=== PATIENT | male | born 1980 | race Caucasian/White ===

== ENCOUNTER 2016-09-21 03:49 | Emergency (ER) | payer SELFPAY ==
[2016-09-21] MEDS ORDERED: FAMOTIDINE 20 MG TABLET PO ONE (04:42)
[2016-09-21] MEDS ORDERED: SUCRALFATE 1 GM TABLET PO ONE (04:42)
[2016-09-21] MEDS ORDERED: ONDANSETRON 4 MG TAB.RAPDIS PO ONE (04:42)
--- NOTE | 2016-09-21 04:44 | ER Document Report ---
ED General - General Chief Complaint: Chest Pain Stated Complaint: CHEST PAIN Time seen by provider: 04:40 Notes: Patient is a 36-year-old male that comes emergency department with chief complaint of a burning pain in his "lower chest", patient circles his epigastric and lower sternal area when asked for the location of the pain, he denies radiation, it is constant, he states he feels nauseated, he denies vomiting. Patient denies any shortness of breath, injury. Patient states he took 324 mg of aspirin just prior to arrival. Patient states she has had this 3 times now and it has resolved the previous 2 times without treatment. Patient smokes, has a past medical history of hypertension, used to be on lisinopril but is no longer seen by primary care. Patient states his father had coronary artery disease, denies MA in any first-degree family members. TRAVEL OUTSIDE OF THE [place] IN LAST 30 DAYS: No - Related Data Allergies/Adverse Reactions: No Known Allergies Allergy (Verified 06/02/16 07:27) Past Medical History - General Information source: Patient - Social History Smoking Status: Current Every Day Smoker Chew tobacco use (# tins/day): No Smoking Education Provided: Yes - <3 min Frequency of alcohol use: None Drug Abuse: None Lives with: Family Family History: None Patient has suicidal ideation: No Patient has homicidal ideation: No - Past Medical History Cardiac Medical History: Reports: Hx Hypertension Renal/ Medical History: Denies: Hx Peritoneal Dialysis Musculoskeltal Medical History: Reports Hx Muscle Spasm Past Surgical History: Reports: Hx Orthopedic Surgery - Rt arm - Immunizations Immunizations up to date: Yes Hx Diphtheria, Pertussis, Tetanus Vaccination: Yes Review of Systems - Review of Systems Constitutional: No symptoms reported EENT: No symptoms reported Cardiovascular: See HPI Respiratory: No symptoms reported Gastrointestinal: See HPI Genitourinary: No symptoms reported Male Genitourinary: No symptoms reported Musculoskeletal: No symptoms reported Skin: No symptoms reported Hematologic/Lymphatic: No symptoms reported Neurological/Psychological: No symptoms reported Physical Exam - Vital signs Vitals: Temp Pulse Resp BP Pulse Ox 97.8 F 92 18 167/100 H 99 09/21/16 03:54 09/21/16 03:54 09/21/16 03:54 09/21/16 03:54 09/21/16 03:54 Interpretation: Normal - General General appearance: Appears well, Alert In distress: None - HEENT Head: Normocephalic, Atraumatic Eyes: Normal Pupils: PERRL - Respiratory Respiratory status: No respiratory distress Chest status: Nontender. No: Tender Breath sounds: Normal. No: Decreased air movement, Wheezing Chest palpation: Normal - Cardiovascular Rhythm: Regular. No: Tachycardia Heart sounds: Normal auscultation, S1 appreciated, S2 appreciated Murmur: No - Abdominal Inspection: Normal Distension: No distension Bowel sounds: Normal Tenderness: Tender - Patient does have some generalized epigastric tenderness, worse in the epigastric and left upper quadrant areas, otherwise unremarkable abdomen Organomegaly: No organomegaly - Back Back: Normal, Nontender - Extremities General upper extremity: Normal inspection, Nontender, Normal color, Normal ROM , Normal temperature General lower extremity: Normal inspection, Nontender, Normal color, Normal ROM , Normal temperature, Normal weight bearing. No: Jesus's sign - Neurological Neuro grossly intact: Yes Cognition: Normal Orientation: AAOx4 [place] Coma Scale Eye Opening: Spontaneous Tito Coma Scale Verbal: Oriented Tito Coma Scale Motor: Obeys Commands Tito Coma Scale Total: 15 Speech: Normal Motor strength normal: LUE, RUE, LLE, RLE Sensory: Normal - Psychological Associated symptoms: Normal affect, Normal mood - Skin Skin Temperature: Warm Skin Moisture: Dry Skin Color: Normal Course - Re-evaluation Re-evalutation: Patient clarifies on examination the pain is actually epigastric, patient was given Carafate, Zofran, Pepcid, patient had almost complete resolution of symptoms after this. EKG sinus rhythm with no T-wave inversions or ST segment changes in consecutive leads, chest x-ray unremarkable, lab workup is normal. I did discuss and recommend a second troponin drawn because of the timeframe, patient declines, requests to go home. Because patient symptoms have occurred multiple times, workup is normal, and symptoms resolved after treatment for dyspepsia, patient will be discharged on Zofran. Patient instructed to return immediately if concerning or worsening symptoms develop, these were discussed, patient requests to be placed back on lisinopril 10 mg which he used to be on, I did agree to this, patient referred to local primary care, patient states he will follow-up. - Vital Signs Vital signs: Temp Pulse Resp BP Pulse Ox 97.7 F 92 15 145/93 H 97 09/21/16 06:04 09/21/16 03:54 09/21/16 05:52 09/21/16 05:52 09/21/16 05:52 - Laboratory Result Diagrams: 09/21/16 04:39 09/21/16 04:39 Laboratory results interpreted by me: 09/21/16 09/21/16 04:39 04:39 WBC 10.9 H Hgb 13.4 L Seg Neutrophils % 80.1 H Absolute Neutrophils 8.7 H BUN 24 H Lipase 12.3 L Discharge - Discharge Clinical Impression: Epigastric pain Hypertension Qualifiers: Hypertension type: essential hypertension Qualified Code(s): I10 - Essential ( primary) hypertension Condition: Stable Disposition: HOME, SELF-CARE Additional Instructions: Your workup does not show any acute abnormality. Please take the lisinopril as prescribed, follow up with the primary care referral for additional management Take Zantac as directed regularly as prescribed for the next 2 weeks, stop smoking. Return to emergency department for any return or new concerning symptoms. Prescriptions: Lisinopril [Prinivil 10 mg Tablet] 10 mg PO DAILY #30 tablet Ranitidine HCl [Zantac 150 mg Tablet] 150 mg PO BID #30 tablet Referrals: [facility] [Provider Group] - Follow up in 1 week [facility] [Provider Group] - Follow up in 1 week
[2016-09-21 04:57] LABS: ABSOLUTE BASOPHILS # (AUTO) 0.1 10^3/uL (0.0-0.2); ABSOLUTE EOSINOPHILS # (AUTO) 0.1 10^3/uL (0.0-0.6); ABSOLUTE LYMPHOCYTES (AUTO) 1.4 10^3/uL (0.5-4.7); ABSOLUTE MONOCYTES (AUTO) 0.5 10^3/uL (0.1-1.4); ABSOLUTE NEUT (AUTO) 8.7 10^3/uL (1.7-8.2); BASOPHILS % (AUTO) 0.6 % (0-2); EOSINOPHILS % (AUTO) 1.3 % (0-6); HEMATOCRIT 39.3 % (37.9-51.0); HEMOGLOBIN 13.4 g/dL (13.5-17.0); HGB HCT DIFFERENCE 0.9; LYMPHOCYTES % (AUTO) 13.1 % (13-45); MEAN CORPUSCULAR HEMOGLOBIN 28.7 pg (27.0-33.4); MEAN CORPUSCULAR HGB CONC 34.2 g/dL (32.0-36.0); MEAN CORPUSCULAR VOLUME 84 fl (80-97); MONOCYTES % (AUTO) 4.9 % (3-13); RED BLOOD COUNT 4.69 10^6/uL (4.35-5.55); SEGMENTED NEUTROPHILS % (AUTO) 80.1 % (42-78); WHITE BLOOD COUNT 10.9 10^3/uL (4.0-10.5)
[2016-09-21 05:09] LABS: ALANINE AMINOTRANSFERASE 35 U/L (21-72); ALBUMIN 4.6 g/dL (3.5-5.0); ALKALINE PHOSPHATASE 88 U/L (38-126); ANION GAP 15 (5-19); ASPARTATE AMINO TRANSFERASE 25 U/L (17-59); BILIRUBIN,TOTAL 0.4 mg/dL (0.2-1.3); BLOOD UREA NITROGEN 24 mg/dL (7-20); CALCIUM 9.9 mg/dL (8.4-10.2); CARBON DIOXIDE 25 mmol/L (22-30); CHLORIDE 100 mmol/L (98-107); CREATINE KINASE 160 U/L (55-170); CREATININE RESULT 0.82 mg/dL (0.52-1.25); GLUCOSE 101 mg/dL (75-110); LIPASE 12.3 U/L (23-300); POTASSIUM 4.1 mmol/L (3.6-5.0); SODIUM 139.5 mmol/L (137-145); TOTAL PROTEIN 7.8 g/dL (6.3-8.2)
[2016-09-21 05:20] LABS: CREATINE KINASE MB 2.18 ng/mL (<4.55)
[2016-09-21 05:21] LABS: TROPONIN I < 0.012 ng/mL
[2016-09-21 06:01] VITALS: BP 145/93
--- NOTE | 2016-09-21 11:07 | EKG REPORT ---
SEVERITY:- NORMAL ECG - SINUS RHYTHM : Confirmed by: Naman Luz MD 21-Sep-2016 11:06:04
== END 2016-09-21 06:06 | disposition home or self-care (01) ==
LOC: ER 03:49
DX: R10.13 Epigastric pain (principal); I10 Essential (primary) hypertension; R07.9 Chest pain, unspecified; F17.210 Nicotine dependence, cigarettes, uncomplicated; R11.0 Nausea
CPT/HCPCS: 93005; 99285; 36415; 82553; 82550; 83690; 85025; 80053; 84484; 71010; 93010; S0119

== ENCOUNTER 2016-11-09 01:34 | Emergency (ER) | payer SELFPAY ==
--- NOTE | 2016-11-09 06:44 | ER Document Report ---
ED Oral Problem - General Time seen by provider: 06:45 Mode of Arrival: Ambulatory Information source: Patient TRAVEL OUTSIDE OF THE [place] IN LAST 30 DAYS: No - HPI Patient complains to provider of: Sore throat Onset: Other - see HPI note Associated symptoms: Chills, Cough, White patches in mouth Similar symptoms previously: No Recently seen / treated by doctor/dentist: No - General Chief Complaint: Sore Throat Stated Complaint: THROAT PAIN Notes: Patient is a 36 year-old male presenting to the ED for sore throat. Patient states his symptoms started yesterday. Patient complains of some swelling and difficulty swallowing along with a mild cough and chills. Patient does not have a primary care physician. Patient has a history of hypertension and is a smoker. Patient has been seen in the ED multiple times in the past for opioid seeking. Patient was last seen by me in the ED and lied about the provider he was seen and the narcotic prescriptions he had been filling. Patient has no known allergies. (PHILIPPE ELAINE) - Related Data Allergies/Adverse Reactions: No Known Allergies Allergy (Verified 11/09/16 01:37) Past Medical History - General Information source: Patient - Social History Smoking Status: Current Every Day Smoker Frequency of alcohol use: None Drug Abuse: None Family History: None Patient has suicidal ideation: No Patient has homicidal ideation: No - Past Medical History Cardiac Medical History: Reports: Hx Hypertension Musculoskeltal Medical History: Reports Hx Muscle Spasm Past Surgical History: Reports: Hx Orthopedic Surgery - Rt arm - Immunizations Immunizations up to date: Yes Hx Diphtheria, Pertussis, Tetanus Vaccination: Yes Review of Systems - Review of Systems Constitutional: No symptoms reported EENT: See HPI, Throat pain, Difficulty swallowing Cardiovascular: No symptoms reported Respiratory: No symptoms reported Gastrointestinal: No symptoms reported Genitourinary: No symptoms reported Male Genitourinary: No symptoms reported Musculoskeletal: No symptoms reported Skin: No symptoms reported Hematologic/Lymphatic: No symptoms reported Neurological/Psychological: No symptoms reported -: Yes All other systems reviewed and negative Physical Exam - Vital signs Interpretation: Normal - General General appearance: Alert, Other - patient is sleeping upon walking into the room; easily arousible In distress: Mild - HEENT Head: Normocephalic, Atraumatic Eyes: Normal Pupils: PERRL Mouth/Lips: Normal Mucous membranes: Moist Pharynx: Erythema, Other - cobblestoning of the oropharynx that has a viral appearance, white pearly area on the left tonsilar region that has a fatty apperance. No: Uvular edema, Potential airway comprom. Neck: Anterior cervical chain - no edema - Respiratory Respiratory status: No respiratory distress - Cardiovascular Rhythm: Regular - Abdominal Inspection: Normal - Back Back: Normal, Nontender - Extremities General upper extremity: Normal inspection, Normal ROM, Normal strength General lower extremity: Normal inspection, Normal ROM, Normal strength - Neurological Neuro grossly intact: Yes Cognition: Normal Orientation: AAOx4 Tito Coma Scale Eye Opening: Spontaneous Tito Coma Scale Verbal: Oriented Tito Coma Scale Motor: Obeys Commands [place] Coma Scale Total: 15 Speech: Normal Sensory: Normal - Psychological Associated symptoms: Normal affect, Normal mood - Skin Skin Temperature: Warm Skin Moisture: Dry - Vital signs Vitals: Temp Pulse Resp BP Pulse Ox 99.5 F 80 14 135/74 H 100 11/09/16 01:37 11/09/16 01:37 11/09/16 01:37 11/09/16 01:37 11/09/16 01:37 Discharge - Discharge Clinical Impression: Sore throat (viral) Condition: Stable Disposition: HOME, SELF-CARE Additional Instructions: Sore Throat: Sore throats may be caused by viruses, bacteria, or fungi. Most are due to a virus, and must get better on their own. To relieve symptoms, take acetaminophen for pain. Sip clear liquids frequently, or eat popsicles or ice chips. Anesthetic sprays or lozenges may help. Make sure the air in the room is not too dry. Avoid using decongestants or antihistamines. Call the doctor if there is no improvement in two days, or if you have difficulty breathing, increasing throat pain, high fever, rash, or frequent vomiting. START THE PREDNISONE PRESCRIBED TOMORROW(Thursday). DRINK PLENTY F FLUIDS. REST. TAKE MOTRIN 600mg EVERY SIX HOURS FOR PAIN AND FEVER. FOLLOW UP WITH A LOCAL MEDICAL DOCTOR IF NOT IMPROVING. Prescriptions: Prednisone 10 mg PO TID #10 tablet Scribe Attestation: 11/09/16 06:55 I personally performed the services described in the documentation, reviewed and edited the documentation which was dictated to the scribe in my presence, and it accurately records my words and actions. (ELVER POOL) Scribe Documentation - Scribe Written by Scribe:: Philippe Elaine 11/09/16 8:05 acting as scribe for :: Faisal
[2016-11-09] MEDS ORDERED: IBUPROFEN 800 MG TABLET PO ONE (06:56)
[2016-11-09] MEDS ORDERED: PREDNISONE 20 MG TABLET PO ONE (06:56)
[2016-11-09 07:04] VITALS: BP 114/78
== END 2016-11-09 07:04 | disposition home or self-care (01) ==
LOC: ER 01:34
DX: J02.9 Acute pharyngitis, unspecified (principal); R07.0 Pain in throat; I10 Essential (primary) hypertension; F17.200 Nicotine dependence, unspecified, uncomplicated
CPT/HCPCS: 99283; 87070; 87880; J7512

== ENCOUNTER 2016-11-25 21:50 | Emergency (ER) | payer SELFPAY ==
[2016-11-25 22:00] VITALS: BP 158/110
--- NOTE | 2016-11-26 00:44 | ER Document Report ---
ED General - General Mode of Arrival: Ambulatory Information source: Patient TRAVEL OUTSIDE OF THE [place] IN LAST 30 DAYS: No - HPI Onset: Other - see HPI note Similar symptoms previously: Yes Recently seen / treated by doctor: No - General Chief Complaint: Shoulder Pain Stated Complaint: SHOULDER PAIN Notes: Patient is a 36 year old male presenting to the ED for right shoulder pain. 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 Patient also has hypertension. Patient denies having a PCP. Patient states he was given his lisinopril for his hypertension by a physician in the ED. According to previous medical reports from past visits to this ED the patient has been seeking narcotic pain medications. The topic of drug seeking has been addressed with this patient in the past. Patient states he has degenerative disk disease. Patient has no known allergies. (PHILIPPE ROBERTS) - Related Data Allergies/Adverse Reactions: No Known Allergies Allergy (Verified 11/25/16 21:57) Past Medical History - General Information source: Patient - Social History Smoking Status: Unknown if Ever Smoked Drug Abuse: Prescription drugs Family History: None Patient has suicidal ideation: No Patient has homicidal ideation: No - Past Medical History Cardiac Medical History: Reports: Hx Hypertension Musculoskeltal Medical History: Reports Hx Muscle Spasm Past Surgical History: Reports: Hx Orthopedic Surgery - Rt arm - Immunizations Immunizations up to date: Yes Hx Diphtheria, Pertussis, Tetanus Vaccination: Yes Review of Systems - Review of Systems Constitutional: No symptoms reported EENT: No symptoms reported Cardiovascular: No symptoms reported Respiratory: No symptoms reported Gastrointestinal: No symptoms reported Genitourinary: No symptoms reported Male Genitourinary: No symptoms reported Musculoskeletal: See HPI Skin: No symptoms reported Hematologic/Lymphatic: No symptoms reported Neurological/Psychological: No symptoms reported -: Yes All other systems reviewed and negative Physical Exam - Vital signs Interpretation: Normal - General General appearance: Appears well, Alert In distress: Mild - HEENT Head: Normocephalic, Atraumatic Eyes: Normal Pupils: PERRL Mucous membranes: Moist - Respiratory Respiratory status: No respiratory distress Chest status: Nontender Breath sounds: Normal Chest palpation: Normal - Cardiovascular Rhythm: Regular Heart sounds: Normal auscultation Murmur: No - Abdominal Inspection: Normal Distension: No distension Bowel sounds: Normal Tenderness: Nontender Organomegaly: No organomegaly - Back Back: Normal, Nontender - Extremities General upper extremity: Normal inspection, Normal ROM, Normal strength General lower extremity: Normal inspection, Normal ROM, Normal strength - Neurological Neuro grossly intact: Yes - radial, ulnar, axillary, median nerves intact; good perfusion/medial pulses Cognition: Normal Orientation: AAOx4 Tito Coma Scale Eye Opening: Spontaneous Tito Coma Scale Verbal: Oriented [place] Coma Scale Motor: Obeys Commands [place] Coma Scale Total: 15 Speech: Normal Sensory: Normal - Psychological Associated symptoms: Normal affect, Normal mood - Skin Skin Temperature: Warm Skin Moisture: Dry Skin Color: Normal - no necrosis, crepitus, or any sign of necrotizing fasciitis Course - Re-evaluation Re-evalutation: 11/26/16 01:04 Patient presents to the emergency per requesting narcotics with right shoulder pain. 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 Says it hurts posteriorly shoulder as well says he has degenerative disc disease of the cervical spine but no proms at the shoulder previously. On physical examination shoulder is well-appearing in no acute distress with full range of motion of the joint. Patient refuses to try to lift it but when I have him push both the same time they're equal. He's got good radial ulnar median nerve intact good pulses and perfusion. Patient upset with not receiving narcotics. I read his previous records are have been numerous concerns including the fact that he is already on her a list and has been sent Z the past concerning abuse of narcotic prescriptions. At this point in time he left without his paperwork and his prescription for Flexeril I am going to place him again within a letter did a databank search of him and continue to reinforce our chronic pain management in this department. (CASSIDY GUEVARA) - Vital Signs Vital signs: Temp Pulse Resp BP Pulse Ox 98.7 F 103 H 14 158/110 H 100 11/25/16 21:57 11/25/16 21:57 11/25/16 21:57 11/25/16 21:57 11/25/16 21:57 Discharge - Discharge Clinical Impression: shoulder strain Condition: Stable Disposition: HOME, SELF-CARE Additional Instructions: Sprain shoulder Your injury is a sprain. A sprain results from stretching or tearing of the ligaments, usually from a twisting injury. The ligaments will require time and protection in order to heal properly. Many sprains are quite disabling and should be taken seriously. The usual initial treatment of sprains is cold packs, elevation, and rest of the injured area. Your physician has assessed the seriousness of your ligament injury, and has outlined a treatment plan. Understand that this treatment may change, depending on how you progress. If a re-examination was recommended, it is important that you follow up as instructed. Call the doctor any time if there is severe pain, numbness, or loss of function in the injured area. Prescriptions: Cyclobenzaprine HCl [Flexeril 5 mg Tablet] 5 mg PO TID #15 tablet Referrals: [facility] [Provider Group] - Follow up in 3-5 days Simiibsussy Attestation: 11/26/16 01:07 I personally performed the services described in the documentation, reviewed the documentation recorded by the scribe in my presence and it accurately and completely records my words and actions (CASSIDY GUEVARA) Scribe Documentation - Scribe Written by Ankita:: Philippe Roberts 11/26/16 2:20 acting as scribe for :: Regulo
== END 2016-11-26 00:50 | disposition home or self-care (01) ==
LOC: ER 21:50
DX: S46.911A Strain of unspecified muscle, fascia and tendon at shoulder and upper arm level, right arm, initial encounter (principal); X50.0XXA Overexertion from strenuous movement or load, initial encounter; Y93.H9 Activity, other involving exterior property and land maintenance, building and construction; Y92.009 Unspecified place in unspecified non-institutional (private) residence as the place of occurrence of the external cause
CPT/HCPCS: 99283

== ENCOUNTER 2017-01-28 16:47 | Emergency (ER) | payer SELFPAY ==
[2017-01-28] MEDS ORDERED: DIPHENHYDRAMINE HCL 50 MG/ML VIAL IM ONE (17:22)
[2017-01-28] MEDS ORDERED: FAMOTIDINE 20 MG TABLET PO ONE (17:23)
[2017-01-28] MEDS ORDERED: PREDNISONE 20 MG TABLET PO ONE (17:23)
--- NOTE | 2017-01-28 17:47 | ER Document Report ---
ED Allergic Reaction - General Chief Complaint: Hives Stated Complaint: ITCHING Time Seen by Provider: 01/28/17 17:20 Notes: 36 yo male with urticarial rash x 3 days. some relief with benadryl. unsure of trigger. denies new contacts or previous hive reaction. no angioedema, shortness of breath, no difficulty swallowing or speaking TRAVEL OUTSIDE OF THE [place] IN LAST 30 DAYS: No - HPI Onset: Other - 3 days Quality of pain: No pain, Other - itching Pain Level: 3 Identified cause: No Skin rash / itching: Diffuse, "Hives" Similar symptoms previously: No Recently seen / treated by doctor: No - Related Data Allergies/Adverse Reactions: No Known Allergies Allergy (Verified 01/28/17 16:50) Past Medical History - General Information source: Patient - Social History Smoking Status: Current Every Day Smoker Chew tobacco use (# tins/day): No Frequency of alcohol use: Rare Drug Abuse: None Lives with: Family Family History: None Patient has suicidal ideation: No Patient has homicidal ideation: No - Past Medical History Cardiac Medical History: Reports: Hx Hypertension Renal/ Medical History: Denies: Hx Peritoneal Dialysis Musculoskeltal Medical History: Reports Hx Muscle Spasm Past Surgical History: Reports: Hx Orthopedic Surgery - Rt arm, left lower extremity, left upper extremity - Immunizations Immunizations up to date: Yes Hx Diphtheria, Pertussis, Tetanus Vaccination: Yes Review of Systems - Review of Systems Constitutional: No symptoms reported EENT: No symptoms reported Cardiovascular: No symptoms reported Respiratory: No symptoms reported Gastrointestinal: No symptoms reported Genitourinary: No symptoms reported Male Genitourinary: No symptoms reported Musculoskeletal: No symptoms reported Skin: See HPI Hematologic/Lymphatic: No symptoms reported Neurological/Psychological: No symptoms reported Physical Exam - Vital signs Vitals: Temp Pulse Resp BP Pulse Ox 98.4 F 81 18 136/82 H 98 01/28/17 16:50 01/28/17 16:50 01/28/17 16:50 01/28/17 16:50 01/28/17 16:50 Interpretation: Normal - General General appearance: Appears well, Alert - HEENT Head: Normocephalic, Atraumatic Eyes: Normal Conjunctiva: Normal Pupils: PERRL Mouth/Lips: Normal. No: Angioedema Mucous membranes: Moist Pharynx: Normal. No: Potential airway comprom. Neck: Normal, Supple - Respiratory Respiratory status: No respiratory distress Chest status: Nontender Breath sounds: Normal Chest palpation: Normal - Cardiovascular Rhythm: Regular Heart sounds: Normal auscultation Murmur: No - Abdominal Inspection: Normal Distension: No distension Bowel sounds: Normal Tenderness: Nontender Organomegaly: No organomegaly - Back Back: Normal, Nontender - Extremities General upper extremity: Normal inspection, Nontender, Normal color, Normal ROM , Normal temperature General lower extremity: Normal inspection, Nontender, Normal color, Normal ROM , Normal temperature, Normal weight bearing. No: Jesus's sign - Neurological Neuro grossly intact: Yes Cognition: Normal Orientation: AAOx4 [place] Coma Scale Eye Opening: Spontaneous Tito Coma Scale Verbal: Oriented [place] Coma Scale Motor: Obeys Commands [place] Coma Scale Total: 15 Speech: Normal Motor strength normal: LUE, RUE, LLE, RLE Sensory: Normal - Psychological Associated symptoms: Normal affect, Normal mood - Skin Skin Temperature: Warm Skin Moisture: Dry Skin Color: Flushed Location of irregularity: Generalized. negative: Face Character of irregularity: Urticarial Course - Re-evaluation Re-evalutation: 01/28/17 17:52 pt improved after meds. stable for discharge - Vital Signs Vital signs: Temp Pulse Resp BP Pulse Ox 98.4 F 81 18 136/82 H 98 01/28/17 16:50 01/28/17 16:50 01/28/17 16:50 01/28/17 16:50 01/28/17 16:50 Discharge - Discharge Clinical Impression: Hives Condition: Stable Disposition: HOME, SELF-CARE Instructions: Acute Urticaria ([facility]), Use of Diphenhydramine, Steroid Medication , Antihistamines ([facility]) Additional Instructions: Benadryl 50mg every 6h until hives are gone for 24 hours Take medications as prescribed Return to ER for any worsening Prescriptions: Famotidine [Pepcid 20 mg Tablet] 20 mg PO BID #12 tablet Prednisone [Deltasone 20 mg Tablet] 3 tab PO DAILY #9 tablet Forms: Return to Work
[2017-01-28 18:04] VITALS: BP 119/72
== END 2017-01-28 18:04 | disposition home or self-care (01) ==
LOC: ER 16:47
DX: L50.9 Urticaria, unspecified (principal); F17.200 Nicotine dependence, unspecified, uncomplicated
CPT/HCPCS: 99282; 96372; J1200; J7512

== ENCOUNTER 2017-06-28 05:16 | Emergency (ER) | payer MEDICAID ==
--- NOTE | 2017-06-28 06:24 | RADIOLOGY REPORT (SQ) ---
EXAM DESCRIPTION: CHEST SINGLE VIEW CLINICAL HISTORY: chest pain COMPARISON: None. FINDINGS: Single frontal view of the chest. The cardiomediastinal silhouette has normal size and contour. No consolidation, pneumothorax, or pleural effusion. No displaced rib fractures identified. Upper abdominal soft tissues are unremarkable. IMPRESSION: 1. No acute pulmonary process identified.
--- NOTE | 2017-06-28 06:24 | RADIOLOGY REPORT (SQ) ---
EXAM DESCRIPTION: HAND RIGHT 3 VIEWS CLINICAL HISTORY: trauma. Right hand pain. Hit wall. COMPARISON: None. FINDINGS: 3 views of the right hand. Intra-articular acute fracture involving the base of the fifth metacarpal. No other fractures identified. Soft tissue edema. IMPRESSION: Acute nondisplaced intra-articular fracture involving the base of the fifth metacarpal.
--- NOTE | 2017-06-28 06:49 | ER Document Report ---
ED General - General Chief Complaint: Chest Pain Stated Complaint: HAND INJURY, CHEST PAIN Time Seen by Provider: 06/28/17 06:11 TRAVEL OUTSIDE OF THE [place] IN LAST 30 DAYS: No - HPI Patient complains to provider of: Right hand pain wrist pain intermittent chest pain Notes: Patient coming in mostly for evaluation of his right hand states he was arguing with his when he punched a wall. Patient states his abdomen earlier tonight patient also complains of some intermittent chest pain ongoing for the last week. No exacerbating or relieving factors. Patient denies any recent travel denies any other serious trauma. Patient is resting comfortably on his phone with earphones on upon my entrance into the examination room - Related Data Allergies/Adverse Reactions: No Known Allergies Allergy (Verified 06/28/17 07:04) Home Medications: Current Home Medications Lisinopril [Lisinopril] 1 tab PO DAILY 06/28/17 [History] Past Medical History - Social History Smoking Status: Current Every Day Smoker Frequency of alcohol use: Rare Family History: None Patient has suicidal ideation: No Patient has homicidal ideation: No - Past Medical History Cardiac Medical History: Reports: Hx Hypertension Renal/ Medical History: Denies: Hx Peritoneal Dialysis Musculoskeltal Medical History: Reports Hx Muscle Spasm Psychiatric Medical History: Reports: Hx Attention Deficit Hyperactivity Disorder Past Surgical History: Reports: Hx Orthopedic Surgery - RUE; LLE; LUE; - Immunizations Immunizations up to date: Yes Hx Diphtheria, Pertussis, Tetanus Vaccination: Yes Review of Systems - Review of Systems Constitutional: No symptoms reported EENT: No symptoms reported Cardiovascular: No symptoms reported Respiratory: No symptoms reported Gastrointestinal: No symptoms reported Genitourinary: No symptoms reported Male Genitourinary: No symptoms reported Musculoskeletal: Other - Right hand pain Skin: No symptoms reported Hematologic/Lymphatic: No symptoms reported Neurological/Psychological: No symptoms reported Physical Exam - Vital signs Vitals: Temp Pulse Resp BP Pulse Ox 98.1 F 105 H 20 141/74 H 99 06/28/17 05:32 06/28/17 05:32 06/28/17 05:32 06/28/17 05:32 06/28/17 05:32 Interpretation: Normal - General General appearance: Appears well, Alert - HEENT Head: Normocephalic, Atraumatic Eyes: Normal Pupils: PERRL - Respiratory Respiratory status: No respiratory distress Chest status: Nontender Breath sounds: Normal Chest palpation: Normal - Cardiovascular Rhythm: Regular Heart sounds: Normal auscultation Murmur: No - Abdominal Inspection: Normal Distension: No distension Bowel sounds: Normal Tenderness: Nontender Organomegaly: No organomegaly - Back Back: Normal, Nontender - Extremities General upper extremity: Normal inspection, Tender - Tenderness to palpation of the right hand with swelling and bruising on the palmar side swelling palmar and dorsal tenderness to palpation of the base of the fifth., Normal color, Normal temperature. No: Normal ROM - Decreased range of motion due to pain General lower extremity: Normal inspection, Nontender, Normal color, Normal ROM , Normal temperature, Normal weight bearing. No: Jesus's sign - Neurological Neuro grossly intact: Yes Cognition: Normal Orientation: AAOx4 [place] Coma Scale Eye Opening: Spontaneous [place] Coma Scale Verbal: Oriented Tito Coma Scale Motor: Obeys Commands Show[place] Coma Scale Total: 15 Speech: Normal Motor strength normal: LUE, RUE, LLE, RLE Sensory: Normal - Psychological Associated symptoms: Normal affect, Normal mood - Skin Skin Temperature: Warm Skin Moisture: Dry Skin Color: Normal Course - Re-evaluation Re-evalutation: 06/28/17 09:01 X-ray shows fracture of the base of the fifth with intra-articular component of the fracture. Patient was placed in a ulnar gutter splint and encouraged follow -up with hand surgery. Patient EKG and chest x-ray are negative for any acute pathology. Patient was evaluated on the [facility] narcotics database which showed multi prescription for Suboxone. Therefore patient will be treated with Motrin for his pain. Patient was encouraged to continue his Suboxone at home. Patient became irate at the nursing staff upon discharge because "you guys do not handout pain pills anymore" - Vital Signs Vital signs: Temp Pulse Resp BP Pulse Ox 97.9 F 93 14 134/65 H 100 06/28/17 07:05 06/28/17 07:05 06/28/17 07:05 06/28/17 07:05 06/28/17 07:05 Discharge - Discharge Clinical Impression: Right hand fracture Qualifiers: Encounter type: initial encounter Fracture type: closed Qualified Code(s): S62.91XA - Unspecified fracture of right wrist and hand, initial encounter for closed fracture Condition: Good Disposition: HOME, SELF-CARE Instructions: Chest Pain of Unclear Cause ([facility]), Fractured Finger ([facility]) Additional Instructions: Your EKG does not show any significant pathology chest x-ray is also negative. Her hand x-ray shows a fracture at the bottom of your fifth finger. There is joint involvement and therefore he will need to follow-up with a hand specialist. Please follow-up with Dr. garcia. Return to the ER for any concerning issues keep the splint on until you see the orthopedic physician. Our records show that you are currently on Suboxone. Continue your Suboxone that you are prescribed a home and may also take the Motrin prescribed for pain control. Prescriptions: Ibuprofen [Motrin 600 Mg Tablet] 600 mg PO TID #30 tablet Referrals: THALIA ARRINGTON DO [ACTIVE STAFF] - Follow up in 1 week
[2017-06-28 07:06] VITALS: BP 134/65
--- NOTE | 2017-06-28 09:19 | EKG REPORT ---
SEVERITY:- ABNORMAL ECG - SINUS TACHYCARDIA FIRST DEGREE AV BLOCK : Confirmed by: Sandra Lindsey 28-Jun-2017 09:18:25
== END 2017-06-28 07:05 | disposition home or self-care (01) ==
LOC: ER 05:16
DX: S62.91XA Unspecified fracture of right hand, initial encounter for closed fracture (principal); R07.9 Chest pain, unspecified; M25.531 Pain in right wrist; W22.01XA Walked into wall, initial encounter; F17.200 Nicotine dependence, unspecified, uncomplicated; Z79.899 Other long term (current) drug therapy
CPT/HCPCS: 71010; 93005; 93010; 99285

== ENCOUNTER 2017-10-24 02:22 | Observation (INO) | payer SELFPAY ==
[2017-10-24] MEDS ORDERED: ASPIRIN 81 MG TABLET, CHEWABLE PO ONE (02:50)
--- NOTE | 2017-10-24 02:53 | ER Document Report ---
ED Cardiac - General Chief Complaint: Chest Pain Stated Complaint: CHEST PAIN Time Seen by Provider: 10/24/17 02:43 Mode of Arrival: Ambulatory Information source: Patient Notes: Patient states he was lying in bed awake watching TV and developed chest pain that he describes as a pressure. Patient denies any cough or cold symptoms. Patient denies any nausea or vomiting. Patient does complain of having a lump sensation in his throat. Patient denies any difficulty breathing. Patient states he does have a history of hypertension but ran out of his medicine months ago. Patient points to tenderness to the lower chest, epigastric area of his abdomen. Patient states he has had similar episodes in the past and has been evaluated in the emergency department only to have normal evaluations. Patient states he does have increased stress and may have undiagnosed anxiety. Patient reports recently going through a divorce. TRAVEL OUTSIDE OF THE [place] IN LAST 30 DAYS: No - HPI Patient complains to provider of: Chest pain. denies: Shortness of breath Quality of pain: Pressure Pain level currently: 2 Chest pain precipitating factors: At Rest Cardiac risk factors: Hypertension, Smoker. denies: Diabetes, Hx CO Associated symptoms: denies: Back pain, Fatigue, Neck pain Exacerbated by: Torso movement Relieved by: Rest Similar symptoms previously: Yes Recently seen / treated by doctor: No - Related Data Allergies/Adverse Reactions: No Known Allergies Allergy (Verified 06/28/17 07:04) Past Medical History - General Information source: Patient - Social History Smoking Status: Current Every Day Smoker Frequency of alcohol use: None Drug Abuse: None Occupation: None Family History: None - Past Medical History Cardiac Medical History: Reports: Hx Hypertension Renal/ Medical History: Denies: Hx Peritoneal Dialysis Musculoskeltal Medical History: Reports Hx Muscle Spasm Psychiatric Medical History: Reports: Hx Attention Deficit Hyperactivity Disorder Past Surgical History: Reports: Hx Orthopedic Surgery - RUE; LLE; LUE; - Immunizations Immunizations up to date: Yes Hx Diphtheria, Pertussis, Tetanus Vaccination: Yes Review of Systems - Review of Systems Constitutional: No symptoms reported EENT: No symptoms reported Cardiovascular: Chest pain Respiratory: No symptoms reported. denies: Cough, Short of breath Gastrointestinal: No symptoms reported. denies: Nausea, Vomiting Genitourinary: No symptoms reported Male Genitourinary: No symptoms reported Musculoskeletal: No symptoms reported. denies: Back pain, Neck pain Skin: No symptoms reported Hematologic/Lymphatic: No symptoms reported Neurological/Psychological: No symptoms reported. denies: Headaches Physical Exam - Vital signs Vitals: Temp Pulse Resp BP Pulse Ox 98.3 F 90 16 137/81 H 98 10/24/17 02:34 10/24/17 02:34 10/24/17 02:34 10/24/17 02:34 10/24/17 02:34 - General General appearance: Appears well, Alert, Anxious In distress: None - HEENT Head: Normocephalic, Atraumatic Eyes: Normal Conjunctiva: Normal Nasal: Normal Mouth/Lips: Normal Mucous membranes: Normal Pharynx: Normal Neck: Normal, Supple. No: Lymphadenopathy - Respiratory Respiratory status: No respiratory distress Chest status: Tender Breath sounds: Normal Chest palpation: Tender - Cardiovascular Rhythm: Regular Heart sounds: S1 appreciated, S2 appreciated Murmur: No - Abdominal Inspection: Normal Distension: No distension Bowel sounds: Normal Tenderness: Tender - epigastric Organomegaly: No organomegaly - Back Back: Normal, Nontender. No: CVA tenderness - Extremities General upper extremity: Normal inspection, Normal strength General lower extremity: Normal inspection, Normal strength - Neurological Neuro grossly intact: Yes Cognition: Normal [place] Coma Scale Eye Opening: Spontaneous [place] Coma Scale Verbal: Oriented [place] Coma Scale Motor: Obeys Commands Tito Coma Scale Total: 15 - Psychological Associated symptoms: Normal affect - Skin Skin Temperature: Warm Skin Moisture: Dry Skin Color: Normal Course - Re-evaluation Re-evalutation: 10/24/17 05:30 Patient sleeping, arouses easily to voice, denies complaints at this time. 10/24/17 07:[address] Mendoza who recommends repeating EKG. 10/24/17 07:28 Repeat EKG performed. Patient sleeping, arouses easily to voice. Patient denies having any chest pain at this time. Patient does have EKG changes with some ST elevation in septal leads. Pt with heart score of 4 for history and risk factors. Consulted with hospitalist who does agree to admit patient. - Vital Signs Vital signs: Temp Pulse Resp BP Pulse Ox 98.3 F 90 14 105/66 100 10/24/17 02:34 10/24/17 02:34 10/24/17 07:01 10/24/17 07:01 10/24/17 07:01 - Laboratory Result Diagrams: 10/24/17 03:20 10/24/17 03:20 Laboratory results interpreted by me: 10/24/17 10/24/17 10/24/17 03:20 03:20 04:40 Hgb 13.0 L Creatine Kinase 212 H Lipase 15.8 L Urine Protein 30 H Urine Urobilinogen 2.0 H Labs- Entire Visit 10/24/17 10/24/17 10/24/17 03:20 03:20 03:20 WBC 9.4 RBC 4.57 Hgb 13.0 L Hct 38.4 MCV 84 MCH 28.4 MCHC 33.8 RDW 13.2 Plt Count 155 Seg Neutrophils % 76.0 Lymphocytes % 17.6 Monocytes % 4.5 Eosinophils % 1.1 Basophils % 0.8 Absolute Neutrophils 7.1 Absolute Lymphocytes 1.7 Absolute Monocytes 0.4 Absolute Eosinophils 0.1 Absolute Basophils 0.1 Sodium 142.5 Potassium 4.2 Chloride 103 Carbon Dioxide 29 Anion Gap 11 BUN 20 Creatinine 0.86 Est GFR ( Amer) > 60 Est GFR (Non-Af Amer) > 60 Glucose 96 Calcium 10.0 Total Bilirubin 0.9 Direct Bilirubin 0.3 Neonat Total Bilirubin Not Reportable Neonat Direct Bilirubin Not Reportable Neonat Indirect Bili Not Reportable AST 30 ALT 26 Alkaline Phosphatase 62 Creatine Kinase 212 H CK-MB (CK-2) 1.99 Troponin I < 0.012 Total Protein 7.7 Albumin 4.6 Lipase 15.8 L Urine Color Urine Appearance Urine pH Ur Specific Mcdonald Urine Protein Urine Glucose (UA) Urine Ketones Urine Blood Urine Nitrite Urine Bilirubin Urine Urobilinogen Ur Leukocyte Esterase Urine WBC (Auto) Urine RBC (Auto) Squamous Epi Cells Auto Urine Mucus (Auto) Urine Ascorbic Acid Urine Opiates Screen Urine Methadone Screen Ur Barbiturates Screen Ur Phencyclidine Scrn Ur Amphetamines Screen U Benzodiazepines Scrn Urine Cocaine Screen U Marijuana (THC) Screen 10/24/17 10/24/17 10/24/17 04:40 04:40 05:47 WBC RBC Hgb Hct MCV MCH MCHC RDW Plt Count Seg Neutrophils % Lymphocytes % Monocytes % Eosinophils % Basophils % Absolute Neutrophils Absolute Lymphocytes Absolute Monocytes Absolute Eosinophils Absolute Basophils Sodium Potassium Chloride Carbon Dioxide Anion Gap BUN Creatinine Est GFR ( Amer) Est GFR (Non-Af Amer) Glucose Calcium Total Bilirubin Direct Bilirubin Neonat Total Bilirubin Neonat Direct Bilirubin Neonat Indirect Bili AST ALT Alkaline Phosphatase Creatine Kinase CK-MB (CK-2) Troponin I < 0.012 Total Protein Albumin Lipase Urine Color YELLOW Urine Appearance CLEAR Urine pH 6.0 Ur Specific Mcdonald 1.030 Urine Protein 30 H Urine Glucose (UA) NEGATIVE Urine Ketones NEGATIVE Urine Blood NEGATIVE Urine Nitrite NEGATIVE Urine Bilirubin NEGATIVE Urine Urobilinogen 2.0 H Ur Leukocyte Esterase NEGATIVE Urine WBC (Auto) 1 Urine RBC (Auto) 1 Squamous Epi Cells Auto <1 Urine Mucus (Auto) FEW Urine Ascorbic Acid NEGATIVE Urine Opiates Screen NEGATIVE Urine Methadone Screen NEGATIVE Ur Barbiturates Screen NEGATIVE Ur Phencyclidine Scrn NEGATIVE Ur Amphetamines Screen UNCONFIRMED POSITIVE U Benzodiazepines Scrn NEGATIVE Urine Cocaine Screen UNCONFIRMED POSITIVE U Marijuana (THC) Screen NEGATIVE - Diagnostic Test Radiology reviewed: Reports reviewed Discharge - Discharge Clinical Impression: Cocaine abuse Chest pain Qualifiers: Chest pain type: unspecified Qualified Code(s): R07.9 - Chest pain, unspecified Condition: Stable Disposition: ADMITTED OBSERVATION Admitting Provider: Hospitalist Unit Admitted: Telemetry
[2017-10-24 03:31] LABS: ABSOLUTE BASOPHILS # (AUTO) 0.1 10^3/uL (0.0-0.2); ABSOLUTE EOSINOPHILS # (AUTO) 0.1 10^3/uL (0.0-0.6); ABSOLUTE LYMPHOCYTES (AUTO) 1.7 10^3/uL (0.5-4.7); ABSOLUTE MONOCYTES (AUTO) 0.4 10^3/uL (0.1-1.4); ABSOLUTE NEUT (AUTO) 7.1 10^3/uL (1.7-8.2); BASOPHILS % (AUTO) 0.8 % (0-2); EOSINOPHILS % (AUTO) 1.1 % (0-6); HEMATOCRIT 38.4 % (37.9-51.0); LYMPHOCYTES % (AUTO) 17.6 % (13-45); MEAN CORPUSCULAR HEMOGLOBIN 28.4 pg (27.0-33.4); MEAN CORPUSCULAR HGB CONC 33.8 g/dL (32.0-36.0); MEAN CORPUSCULAR VOLUME 84 fl (80-97); MONOCYTES % (AUTO) 4.5 % (3-13); PLATELET COUNT 155 10^3/uL (150-450); RED BLOOD COUNT 4.57 10^6/uL (4.35-5.55); RED CELL DISTRIBUTION WIDTH 13.2 % (11.5-14.0); TOTAL CELLS COUNTED % (AUTO) 100 %; WHITE BLOOD COUNT 9.4 10^3/uL (4.0-10.5)
[2017-10-24 03:54] LABS: ALANINE AMINOTRANSFERASE 26 U/L (21-72); ALBUMIN 4.6 g/dL (3.5-5.0); ALKALINE PHOSPHATASE 62 U/L (38-126); ANION GAP 11 (5-19); ASPARTATE AMINO TRANSFERASE 30 U/L (17-59); BILIRUBIN,DIRECT 0.3 mg/dL (0.0-0.4); BILIRUBIN,TOTAL 0.9 mg/dL (0.2-1.3); BLOOD UREA NITROGEN 20 mg/dL (7-20); CARBON DIOXIDE 29 mmol/L (22-30); CHLORIDE 103 mmol/L (98-107); CREATINE KINASE 212 U/L (55-170); GLUCOSE 96 mg/dL (75-110); LIPASE 15.8 U/L (23-300); POTASSIUM 4.2 mmol/L (3.6-5.0); SODIUM 142.5 mmol/L (137-145); TOTAL PROTEIN 7.7 g/dL (6.3-8.2)
[2017-10-24 04:05] LABS: CREATINE KINASE MB 1.99 ng/mL (<4.55)
[2017-10-24 04:06] LABS: TROPONIN I < 0.012 ng/mL
--- NOTE | 2017-10-24 05:05 | RADIOLOGY REPORT (SQ) ---
EXAM DESCRIPTION: CHEST PA/LAT CLINICAL HISTORY: 37 years, Male, cp COMPARISON: 06/28/2017 NUMBER OF VIEWS: 2 FINDINGS: Normal lung volume, clear parenchyma, normal cardiac silhouette, and intact bony thorax. IMPRESSION: No acute cardiopulmonary findings.
[2017-10-24 05:09] LABS: APPEARANCE,URINE CLEAR; BILIRUBIN,URINE NEGATIVE (NEGATIVE); COLOR,URINE YELLOW; GLUCOSE, URINE NEGATIVE (NEGATIVE); KETONES,URINE NEGATIVE (NEGATIVE); LEUKOCYTE ESTERASE,URINE NEGATIVE (NEGATIVE); NITRITE,URINE NEGATIVE (NEGATIVE); PROTEIN,URINE 30 mg/dL (NEGATIVE)
[2017-10-24] MEDS ORDERED: NORMAL SALINE 1000 ML 1,000 ML IV ONE (05:19)
[2017-10-24 05:22] LABS: URINE AMPHETAMINES SCREEN UNCONFIRMED POSITIVE; URINE BARBITURATES SCREEN NEGATIVE; URINE BENZODIAZEPINES SCREEN NEGATIVE; URINE COCAINE SCREEN UNCONFIRMED POSITIVE; URINE MARIJUANA (THC) SCREEN NEGATIVE; URINE METHADONE SCREEN NEGATIVE; URINE PHENCYCLIDINE SCREEN NEGATIVE
[2017-10-24 08:05] VITALS: BP 103/62
[2017-10-24] MEDS ORDERED: DEXTROSE 5%-WATER 1000 ML 1,000 ML IV PRN (08:26)
[2017-10-24] MEDS ORDERED: NITROGLYCERIN 0.4 MG/TAB 25 TAB/BOTTLE SL PRN (08:28)
[2017-10-24] MEDS ORDERED: ACETAMINOPHEN 325 MG TABLET PO PRN (08:41)
[2017-10-24] MEDS ORDERED: PROMETHAZINE HCL INJ 25 MG/1 ML VIAL IV PRN (08:41)
--- NOTE | 2017-10-24 09:55 | EKG REPORT ---
SEVERITY:- OTHERWISE NORMAL ECG - SINUS BRADYCARDIA ST ELEV, PROBABLE NORMAL EARLY REPOL PATTERN : Confirmed by: Naman Luz MD 24-Oct-2017 09:54:59
--- NOTE | 2017-10-24 09:59 | EKG REPORT ---
SEVERITY:- NORMAL ECG - SINUS RHYTHM : Confirmed by: Naman Luz MD 24-Oct-2017 09:58:43
[2017-10-24] MEDS ORDERED: ASPIRIN 325 MG TABLET PO SCH (10:00)
--- NOTE | 2017-10-24 11:49 | HISTORY AND PHYSICAL E ---
History and Physical NAME: TALISHA NIELSEN : 1980 AGE: 37Y ADMITTED: 10/24/2017 ROOM: ED24 CHIEF COMPLAINT: Chest pain. HISTORY OF PRESENT ILLNESS: Mr. Talisha Nielsen is a pleasant 37-year-old male who had a past medical history of hypertension. He is not on any medications. The patient came to the Emergency Room with a chief complaint of chest pain. His chest pain is retrosternal, described as heaviness, and goes to 5 out of 10. The patient came to the Emergency Room. He received nitroglycerin and aspirin and the pain resolved, associated with difficulty breathing but there is no nausea or vomiting. There is no previous history of heart attacks. REVIEW OF SYSTEMS: GENERAL: No fever. No history of severe weakness. HEENT: There is no headache or dizziness. Ears: No discharge from the ears. Nose: No discharge from the nose. NECK: No pain. EYES: No blurring of vision. CARDIOVASCULAR: As per history of present illness. RESPIRATORY: No cough, no wheezing, no hemoptysis. GASTROINTESTINAL: No nausea, no vomiting, no diarrhea. GENITOURINARY: No urgency, no frequency, no dysuria or hematuria. No polydipsia. HEMATOLOGIC/LYMPHOCYTIC: No anemia. No easy bruising. PAST MEDICAL HISTORY: Hypertension, not on management. PAST SURGICAL HISTORY: 1. Back pain with trauma to the right forearm with nerve injury, status post reconstruction as stated above. 2. Left arm abscess incision and drainage. FAMILY HISTORY: Positive for Raynaud disease in his father and diabetes in his mother. SOCIAL HISTORY: He smoked since he was 14. He is not , but he has 3 children. HOME MEDICATIONS: Last admission, he was discharged on lisinopril, Augmentin, but he is not taking any medications. ALLERGIES: He is not allergic to any medications. PHYSICAL EXAMINATION: GENERAL: Patient is lying in bed comfortable not in distress. VITAL SIGNS: Heart rate is 50, blood pressure 103/64, respiratory 13, heart rate 75. HEENT: Head: Normocephalic, atraumatic. Eyes: Pupils round, reactive to light and accommodation bilaterally. Ears: Tympanic membrane intact bilaterally. No discharge from the ears. Nose: No septal deviation, no discharge, no tenderness. NECK: Supple. No JVD. No thyromegaly. No lymphadenopathy. Mucous membranes are moist. CARDIOVASCULAR: Normal S1, S2. Regular rate and rhythm. No murmur. No gallop. RESPIRATORY: Lungs clear to auscultation bilaterally. No wheezing. No crackles. ABDOMEN: No deformity. No scarring. Bowel sounds active. No rebound, no guarding. MUSCULOSKELETAL: No edema. NEUROLOGIC: Awake, alert. VASCULAR: Dorsalis pedis pulses are felt bilaterally. SKIN: There is no rash. LABORATORY DATA: White blood count 9.4, hemoglobin 13. Sodium 142, potassium is 4.2. Cardiac enzymes are negative. EKG: Unremarkable. Chest x-ray was unremarkable. ASSESSMENT: 1. Chest pain, rule out myocardial infarction. 2. Bradycardia. 3. Hypertension, not on treatment. PLAN: 1. We will admit the patient to Telemetry. We will get 3 sets of cardiac enzymes. 2. Check his statin. Put him on aspirin, nitroglycerin, Lipitor. 3. Heparin for DVT prophylaxis and Prevacid for GI prophylaxis. 4. Will hold off beta-blockers due to bradycardia. Cardiology consult. CODE STATUS: He is a full code. DIET: Cardiac diet. ACTIVITY: Bed rest. DICTATING PHYSICIAN: MAXI AZEVEDO M.D. [id number] PHY#: [id number] ID: [id number] JOB#: [id number] ACCT: [id number] cc:MEREDITH TRAVIS M.D. > MTDD
--- NOTE | 2017-10-24 13:09 | DISCHARGE SUMMARY E ---
Discharge Summary NAME: TALISHA MARTIN : 1980 AGE: 37Y ADMITTED: 10/24/2017 DISCHARGED: 10/24/2017 ADMISSION DIAGNOSES: 1. Chest pain, rule out UT. 2. Hypertension. 3. Bradycardia. DISCHARGE DIAGNOSES: 1. Chest pain. 2. Bradycardia. 3. Hypertension. HOSPITAL COURSE: The patient is a 37-year-old male who has a past medical history of hypertension. The patient does not have any significant past medical history. He came to the emergency room complaining of chest pain that started yesterday and the pain is on and off and he came today and he was found to have an initial that was troponin negative, 2 troponins were negative, and EKG showed some EKG changes, which are nonspecific. The patient was seen to be admitted to rule out UT and an admission order was placed. However, the patient decided to leave AMA. DISPOSITION: The patient left AMA. DICTATING PHYSICIAN: MAXI AZEVEDO M.D. [id number] PHY#: [id number] ID: [id number] JOB#: [id number] ACCT: [id number] cc:Eric ROJAS M.D. > MTDD
== END 2017-10-24 09:32 | disposition left against medical advice (07) ==
LOC: ER 02:22 → EH 07:49
PROVIDERS: ADMIT Family Medicine; ATTEND Family Medicine
DX: R07.9 Chest pain, unspecified (principal); R00.1 Bradycardia, unspecified; I10 Essential (primary) hypertension; R06.00 Dyspnea, unspecified; Z53.21 Procedure and treatment not carried out due to patient leaving prior to being seen by health care provider; F17.200 Nicotine dependence, unspecified, uncomplicated; F14.10 Cocaine abuse, uncomplicated
CPT/HCPCS: 93005; 99285; 96360; 36415; 82553; 82550; 83690; 85025; 80053; 81001; 84484; 80307; 71046; 93010; J7030

== ENCOUNTER 2017-11-29 21:14 | Emergency (ER) | payer SELFPAY ==
[2017-11-29] MEDS ORDERED: CEPHALEXIN 500 MG CAPSULE PO ONE (23:06)
[2017-11-29] MEDS ORDERED: SULFAMETHOXAZOLE/TRIMETHOPRIM 800-160 MG TABLET PO ONE (23:06)
[2017-11-29] MEDS ORDERED: LIDOCAINE 1% INJ-PF (10 MG/ML) 30 ML SDV INJ ONE (23:06)
--- NOTE | 2017-11-29 23:06 | ER Document Report ---
HPI - HPI Pain Level: 5 Context: Patient is a 37 year old male who presents to the ED complaining of right ear pain, swelling adn drainage over the past 4 days. Denies any precursory open wound, trauma piercings. States he has been trying to pop it and has had some fluid. Denies any allergies - CONSTITUTIONAL Constitutional: DENIES: Fever, Chills - EENT EENT: DENIES: Sore Throat, Ear Pain, Eye problems - NEURO Neurology: DENIES: Headache, Weakness, Vision blurred, Dizzinesss / Vertigo - CARDIOVASCULAR Cardiovascular: DENIES: Chest pain - RESPIRATORY Respiratory: DENIES: Trouble Breathing, Coughing - GASTROINTESTINAL Gastrointestinal: DENIES: Abdominal Pain, Black / Bloody Stools - URINARY Urinary: DENIES: Dysuria, Urgency, Frequency - MUSCULOSKELETAL Musculoskeletal: DENIES: Extremity pain Past Medical History - Social History Smoking Status: Unknown if Ever Smoked Family History: None Patient has suicidal ideation: No Patient has homicidal ideation: No - Past Medical History Cardiac Medical History: Reports: Hx Hypertension Renal/ Medical History: Denies: Hx Peritoneal Dialysis Musculoskeltal Medical History: Reports Hx Muscle Spasm Psychiatric Medical History: Reports: Hx Attention Deficit Hyperactivity Disorder Past Surgical History: Reports: Hx Orthopedic Surgery - RUE; LLE; LUE; - Immunizations Immunizations up to date: Yes Hx Diphtheria, Pertussis, Tetanus Vaccination: Yes Vertical Provider Document - CONSTITUTIONAL Agree With Documented VS: Yes Notes: PHYSICAL EXAM GENERAL: Alert, interacts well. HEAD: Normocephalic, atraumatic. EYES: Pupils equal, round, and reactive to light. Extraocular movements intact. ENT: Oral mucosa moist, tongue midline. Right ear with erythema and swelling on the posterior auricle NEUROLOGICAL: Alert and oriented x4. Normal speech. PSYCH: Normal affect, normal mood. SKIN: Warm, dry, normal turgor. No rashes or lesions noted. - INFECTION CONTROL TRAVEL OUTSIDE OF THE [place] IN LAST 30 DAYS: No Course - Re-evaluation Re-evalutation: 11/29/17 23:47 Patient is a 29-year-old male presents emergency department with right ear pain and swelling. Presence of preauricular chondritis. I&D attempted without any material appreciated from the wound. Patient initiated on antibiotic coverage to cover for Pseudomonas. Patient to follow-up with ENT. - Vital Signs Vital signs: Temp Pulse Resp BP Pulse Ox 97.8 F 68 18 119/63 97 11/29/17 21:56 11/29/17 21:56 11/29/17 21:56 11/29/17 21:56 11/29/17 21:56 Procedures - Incision and Drainage Right Type: Simple Anesthetic type: 1% Lidocaine mL's of anesthetic: 4 Blade size: 11 I&D procedure: Betadine prep applied Incision Method: Incision made by scalpel Amount/type of drainage: no drainage appreciated Discharge - Discharge Clinical Impression: Chondritis of auricle Qualifiers: Laterality: right Qualified Code(s): H61.031 - Chondritis of right external ear Condition: Good Disposition: HOME, SELF-CARE Additional Instructions: It is very important for you to follow-up with ear nose and throat Dr. Díza listed on your paperwork to follow-up for your ear. Please take antibiotics as directed. Please return to the emergency department with any worsening swelling , spreading to around her ear, any symptoms that are worrisome to you. Prescriptions: Levofloxacin 750 mg PO DAILY #7 tablet Referrals: LANE YIP DO [ASSOCIATE] - Follow up tomorrow
[2017-11-29] MEDS ORDERED: LEVOFLOXACIN 750 MG TABLET PO ONE (23:20)
[2017-11-30 00:20] VITALS: BP 127/84
== END 2017-11-30 00:20 | disposition home or self-care (01) ==
LOC: ER 21:14
DX: H61.031 Chondritis of right external ear (principal); I10 Essential (primary) hypertension
CPT/HCPCS: 69000; 99283; J3490

== ENCOUNTER 2018-11-04 05:25 | Emergency (ER) | payer SELFPAY ==
[2018-11-04 05:37] VITALS: BP 134/82
--- NOTE | 2018-11-04 06:47 | ER Document Report ---
ED General - General Chief Complaint: Ear Pain Stated Complaint: EAR PROBLEM Time Seen by Provider: 11/04/18 06:20 TRAVEL OUTSIDE OF THE [place] IN LAST 30 DAYS: No - HPI Patient complains to provider of: Nose pain ear pain Notes: Patient coming in for nose pain and ear pain. Patient does feel that he has bumps in his nose are painful also on his ears. Patient states specifically to the right ear. Patient denies any fever chills nausea vomiting diarrhea. Patient denies any trauma patient denies any recent travel change in tube. Patient resting comfortably upon my evaluation. A brief review of the patient's past medical records available in [facility] was performed Patient denies but states in the past medical history has a use of cocaine - Related Data Allergies/Adverse Reactions: No Known Allergies Allergy (Verified 11/29/17 21:18) Past Medical History - Social History Smoking Status: Current Every Day Smoker Chew tobacco use (# tins/day): No Frequency of alcohol use: Occasional Drug Abuse: None Family History: None Patient has suicidal ideation: No Patient has homicidal ideation: No - Past Medical History Cardiac Medical History: Reports: Hx Hypertension Renal/ Medical History: Denies: Hx Peritoneal Dialysis Musculoskeletal Medical History: Reports Hx Muscle Spasm Psychiatric Medical History: Reports: Hx Attention Deficit Hyperactivity Disorder Past Surgical History: Reports: Hx Orthopedic Surgery - RUE; LLE; LUE; - Immunizations Immunizations up to date: Yes Hx Diphtheria, Pertussis, Tetanus Vaccination: Yes Review of Systems - Review of Systems Constitutional: No symptoms reported EENT: Ear pain, Nose pain Cardiovascular: No symptoms reported Respiratory: No symptoms reported Gastrointestinal: No symptoms reported Genitourinary: No symptoms reported Male Genitourinary: No symptoms reported Musculoskeletal: No symptoms reported Skin: No symptoms reported Hematologic/Lymphatic: No symptoms reported Neurological/Psychological: No symptoms reported -: Yes All other systems reviewed and negative Physical Exam - Vital signs Vitals: Temp Pulse Resp BP Pulse Ox 98 F 116 H 20 134/82 H 99 11/04/18 05:29 11/04/18 05:29 11/04/18 05:29 11/04/18 05:29 11/04/18 05:29 Interpretation: Normal - General General appearance: Appears well, Alert - HEENT Head: Normocephalic, Atraumatic Eyes: Normal Conjunctiva: Normal Cornea: Normal Eyelashes: Normal Pupils: PERRL Ears: Normal External canal: Normal Tympanic membrane: Normal Sinus: Normal Nasal: Normal Pharynx: Normal Neck: Normal Notes: Examination around the interested in air bilaterally does not reveal any signs of bumps lumps no signs of abscess formation. Of note the right nare is substantially bigger than the left nare. There is no signs of septal hematoma or perforation. Patient examination bilateral ears pinna and tragus posterior auricular area is not revealing signs lymphadenopathy abscess formation signs of infection or skin abnormality. - Respiratory Respiratory status: No respiratory distress Chest status: Nontender Breath sounds: Normal Chest palpation: Normal - Cardiovascular Rhythm: Regular Heart sounds: Normal auscultation Murmur: No - Abdominal Inspection: Normal Distension: No distension Bowel sounds: Normal Tenderness: Nontender Organomegaly: No organomegaly - Back Back: Normal, Nontender - Extremities General upper extremity: Normal inspection, Nontender, Normal color, Normal ROM, Normal temperature General lower extremity: Normal inspection, Nontender, Normal color, Normal ROM, Normal temperature, Normal weight bearing. No: Jesus's sign - Neurological Neuro grossly intact: Yes Cognition: Normal Orientation: AAOx4 [employer] Coma Scale Eye Opening: Spontaneous Tito Coma Scale Verbal: Oriented [employer] Coma Scale Motor: Obeys Commands Tito Coma Scale Total: 15 Speech: Normal Motor strength normal: LUE, RUE, LLE, RLE Sensory: Normal - Psychological Associated symptoms: Normal affect, Normal mood - Skin Skin Temperature: Warm Skin Moisture: Dry Skin Color: Normal Course - Re-evaluation Re-evalutation: 11/04/18 13:01 Patient coming in for evaluation of ear pain and nose pain. Examination of the right normal for the patient's history of cocaine abuse possible etiology of the patient's symptoms. Otherwise patient nontoxic looking will discharge patient home recommend Tylenol Motrin for pain control. - Vital Signs Vital signs: Temp Pulse Resp BP Pulse Ox 98 F 116 H 20 134/82 H 99 11/04/18 05:29 11/04/18 05:29 11/04/18 05:29 11/04/18 05:29 11/04/18 05:29 Discharge - Discharge Clinical Impression: Nose pain, No problem, feared complaint unfounded Ear pain Qualifiers: Laterality: unspecified laterality Qualified Code(s): H92.09 - Otalgia, unspecified ear Condition: Good Additional Instructions: Your physical examination does not reveal any signs of abscesses skin infection or any other critical pathology they were warrant an antibiotic at this time. Some of the pain you are experiencing in your ears or any nose can be related to the beginning of a viral illness. This can also be due to inhalation of certain materials and possibly illicit drugs. I will highly recommend avoiding putting anything in your ears or up your nose. If you feel congested he may take [id number] Zyrtec. Please make sure you drink plenty of fluids to stay well-hydrated return to the ER symptoms worsen. You can take Tylenol and Motrin for your pain
== END 2018-11-04 06:55 | disposition home or self-care (01) ==
LOC: ER 05:25
DX: J34.89 Other specified disorders of nose and nasal sinuses (principal); H92.03 Otalgia, bilateral; F17.200 Nicotine dependence, unspecified, uncomplicated; I10 Essential (primary) hypertension
CPT/HCPCS: 99282

== ENCOUNTER 2019-09-19 03:26 | Emergency (ER) | payer SELFPAY ==
[2019-09-19] MEDS ORDERED: CLINDAMYCIN HCL 150 MG CAPSULE PO ONE (04:16)
[2019-09-19] MEDS ORDERED: HYDROCODONE/ACETAMINOPHEN 5-325 MG (6 TAB/ER DISP) PO PRN (04:17)
[2019-09-19] MEDS ORDERED: ONDANSETRON 4 MG TAB.RAPDIS PO ONE (04:17)
--- NOTE | 2019-09-19 04:31 | ER Document Report ---
Entered by DORIS BILLY SCRIBE 09/19/19 0335 Acting as scribe for:PANCHO TOM IV, MD ED General - General Chief Complaint: Flank Pain Stated Complaint: FLANK PAIN Time Seen by Provider: 09/19/19 03:33 Mode of Arrival: Ambulatory Information source: Patient Notes: This 39 year old male patient presents to the ED today with complaints of lower back pain for the past x2-3 days. Patient states that the first day he presented with the symptoms, he felt the pain in his legs and then he felt it "in my kidneys" on both sides. Patient states that the pain radiates to his groin region and that it is exacerbated with changing positions. Patient reports nausea and difficulty urinating, stating that it feels like he still has to void after urinating. Patient notes that yesterday his urine was dark, but it is clear today. Patient also reports that he may have a sinus infections and has been expressing pus from what he thinks are boils on his face. TRAVEL OUTSIDE OF THE [place] IN LAST 30 DAYS: No - Related Data Allergies/Adverse Reactions: No Known Allergies Allergy (Verified 11/29/17 21:18) Past Medical History - General Information source: Patient, [facility] Records - Social History Smoking Status: Unknown if Ever Smoked Cigarette use (# per day): No Chew tobacco use (# tins/day): No Smoking Education Provided: No Family History: Reviewed & Not Pertinent - Past Medical History Cardiac Medical History: Reports: Hx Hypertension Musculoskeletal Medical History: Reports Hx Muscle Spasm Psychiatric Medical History: Reports: Hx Attention Deficit Hyperactivity Disorder Past Surgical History: Reports: Hx Orthopedic Surgery - RUE; LLE; LUE; - Immunizations Immunizations up to date: Yes Hx Diphtheria, Pertussis, Tetanus Vaccination: Yes Review of Systems - Review of Systems Constitutional: See HPI. denies: Chills, Fever EENT: See HPI, Nose pain Cardiovascular: No symptoms reported Respiratory: No symptoms reported Gastrointestinal: See HPI, Nausea Genitourinary: See HPI, Flank pain Male Genitourinary: No symptoms reported Musculoskeletal: See HPI, Back pain, Other - Groin pain Skin: No symptoms reported Hematologic/Lymphatic: No symptoms reported Neurological/Psychological: No symptoms reported -: Yes All other systems reviewed and negative Physical Exam - Vital signs Vitals: Temp Pulse Resp BP Pulse Ox 98.7 F 98 18 147/64 H 98 09/19/19 03:55 09/19/19 03:55 09/19/19 03:55 09/19/19 03:55 09/19/19 03:55 - General General appearance: Alert - HEENT Head: Normocephalic, Atraumatic Eyes: Normal Pupils: PERRL Nasal: Swelling - Soft tissue swelling and inflammation in left nare, Other - Superficial excoriations to left side of nose - Respiratory Respiratory status: No respiratory distress Chest status: Nontender Breath sounds: Normal Chest palpation: Normal - Cardiovascular Rhythm: Regular Heart sounds: Normal auscultation Murmur: No - Abdominal Inspection: Normal Distension: No distension Bowel sounds: Normal Tenderness: Nontender Organomegaly: No organomegaly - Back Back: Normal, Nontender. No: CVA tenderness - Extremities General upper extremity: Normal inspection General lower extremity: Normal inspection - Neurological Neuro grossly intact: Yes - Psychological Associated symptoms: Normal affect, Normal mood - Skin Skin Temperature: Warm Skin Moisture: Dry Skin Color: Normal Course - Vital Signs Vital signs: Temp Pulse Resp BP Pulse Ox 98.7 F 98 18 147/64 H 98 09/19/19 03:55 09/19/19 03:55 09/19/19 03:55 09/19/19 03:55 09/19/19 03:55 Discharge - Discharge Clinical Impression: Cellulitis of nose Low back pain Qualifiers: Chronicity: acute Back pain laterality: bilateral Sciatica presence: without sciatica Qualified Code(s): M54.5 - Low back pain Condition: Good Disposition: HOME, SELF-CARE Additional Instructions: Return to the Emergency Department without delay if any worse. HOME CARE INSTRUCTIONS & INFORMATION: Thank you for choosing us for your medical needs. We hope you're satisfied with the care you received. After you leave, you must properly care for your problem and, at the same time, observe its progress. Any condition can change. Some illnesses can change rapidly over hours or days. If your condition worsens, return to the Emergency Department or see your physician promptly. ABOUT YOUR X-RAYS AND EKG'S: If you had an EKG or X-rays taken, they have been read by the Emergency Physician. The X-rays and EKG's will also be read by a Radiologist or Nascar Racer within 24 hours. If discrepancies are noted, you will be notified by telephone. Please be certain the ED has a correct telephone number & address where you can be reached. Also, realize that some fractures or abnormalities do not show up on initial X-rays. If your symptoms continue, see your physician. ABOUT YOUR LABORATORY TEST: If you had laboratory tests, the results have been reviewed by the Emergency Physician. Some test results (for example cultures) may not be available for several days. You will be contacted if any test result shows you need additional treatment. Please be certain the ED has a correct telephone number and address where you can be reached. ABOUT YOUR MEDICATIONS: You will receive instructions on how to take your medicine on the prescription label you receive. Additional information may be provided by the Pharmacy. If you have questions afterwards, call the ED for c larification or further instructions. Some prescribed medications may cause drowsiness. Do not perform tasks such as driving a car or operating machinery without consulting your Pharmacist. If you feel you need a refill of pain medication, your condition will need re-evaluation. Please do not call for a refill of any medication. ABOUT YOUR SIGNATURE: Signature of this document acknowledges to followin. Understanding that you received emergency treatment and that you may be released before al medical problems are known or treated. Please be certain the ED has a correct phone number & address where you can be reached. 2. Acknowledgement that you will arrange for follow-up care as recommended. 3. Authorization for the Emergency Physician to provide information to your follow-up Physician in order to maximize your care. AT ANY TIME, IF YOUR SYMPTOMS CHANGE SIGNIFICANTLY OR WORSEN OR YOU DEVELOP NEW SYMPTOMS, RETURN TO THE EMERGENCY DEPARTMENT IMMEDIATELY FOR RE-EVALUATION. OUR GOAL IS TO PROVIDE EXCELLENT MEDICAL CARE! WE HOPE THAT WE HAVE MET YOUR EXPECTATIONS DURING YOUR EMERGENCY DEPARTMENT VISIT AND THAT YOU FEEL YOU HAVE RECEIVED EXCELLENT CARE! Cellulitis You have an infection of your skin and underlying soft tissues called cellulitis. This is due to bacteria, which can enter through any break in the skin, or even through an irritated hair follicle. Untreated, cellulitis will usually worsen. Antibiotics are required. Usually, warm packs or warm soaks, and elevation of the infected area are recommended. You should start getting better within 24 to 36 hours. Most infections respond quickly to the right medication. Follow-up care is important, however, to check for abscess (boil) formation, unsuspected foreign body, or resistant infection. If you develop fever, chills, or if the area of infection is becoming rapidly more swollen or painful, call the doctor at once. Low Back Pain Three out of every four people will have an episode of disabling back pain during their lifetime. Most commonly the pain is due to straining of the muscles and ligaments in the low back. Usual treatment includes: (1) Rest on a firm surface. Avoid lying on your stomach. (2) Ice pack the painful area. After a few days, gentle heat may be used intermittently to relax the area, or ice packs can be continued. (3) Medication may be needed -- muscle relaxers and antiinflammatory medicines are commonly used. (4) As the back improves, exercises are prescribed to strengthen the back and abdominal muscles. Your doctor will advise you on the proper care for your back at each stage in your recovery. You may be better in a few days -- or healing may take several weeks. If new symptoms of a "herniated disc" (radiation of pain, numbness, or tingling down the back of the leg or weakness in the leg) occur, you should be re-examined. Further testing may be necessary. Prescriptions: Hydrocodone/Acetaminophen [[place] 5-325 mg Tablet] 1 tab PO Q6HP PRN #10 tablet PRN Reason: Ondansetron [Zofran Odt 4 mg Tablet] 1 - 2 tab PO Q8HP PRN #15 tab.rapdis PRN Reason: For Nausea/Vomiting Clindamycin HCl [Cleocin 150 mg Capsule] 450 mg PO TID 7 Days #63 capsule Referrals: STARR PACKER MD [HONORARY] - Follow up as needed I personally performed the services described in the documentation, reviewed and edited the documentation which was dictated to the scribe in my presence, and it accurately records my words and actions.
[2019-09-19 04:53] VITALS: BP 137/77
== END 2019-09-19 04:53 | disposition home or self-care (01) ==
LOC: ER 03:26
DX: J34.0 Abscess, furuncle and carbuncle of nose (principal); M54.5 Low back pain; R11.0 Nausea; R10.30 Lower abdominal pain, unspecified; I10 Essential (primary) hypertension
CPT/HCPCS: S0119

== ENCOUNTER 2020-02-01 01:06 | Emergency (ER) | payer SELFPAY ==
--- NOTE | 2020-02-01 02:30 | ER Document Report ---
ED General - General Chief Complaint: Ear Pain Stated Complaint: RIGHT EAR PAIN Time Seen by Provider: 02/01/20 02:17 Primary Care Provider: LANE YIP DO [ASSOCIATE] - Follow up as needed SUZIE QUIROGA MD [ACTIVE STAFF] - Follow up as needed Mode of Arrival: Ambulatory Information source: Patient TRAVEL OUTSIDE OF THE [place] IN LAST 30 DAYS: No - HPI Onset: Other - over the last several days Onset/Duration: Gradual Quality of pain: Fullness - of right ear, Pressure - of right ear, Throbbing - of right ear Associated symptoms: Other - right ear pain, redness, swelling. denies: Chills, Fever Exacerbated by: Other - palpation and movement of right ear Relieved by: Denies Similar symptoms previously: Yes - patient had an external ear infection once in the past Recently seen / treated by doctor: No Notes: 39 year old male with a history of a prior right sided ear infection here in the ER several days of pain, swelling, and redness of the top of his right ear as well as pain inside his ear and in the area of his face in front of his ear. The patient denies fevers, chills, sweats, headache, significant pain in the mastoid area on the right, hearing loss. The patient has not be been swimming lately and he denies any recent trauma to his right ear. - Related Data Allergies/Adverse Reactions: No Known Allergies Allergy (Verified 11/29/17 21:18) Past Medical History - General Information source: Patient - Social History Smoking Status: Current Every Day Smoker Frequency of alcohol use: Occasional Drug Abuse: None Family History: Reviewed & Not Pertinent Patient has suicidal ideation: No Patient has homicidal ideation: No - Past Medical History Cardiac Medical History: Reports: Hx Hypertension Renal/ Medical History: Denies: Hx Peritoneal Dialysis Musculoskeletal Medical History: Reports Hx Muscle Spasm Psychiatric Medical History: Reports: Hx Attention Deficit Hyperactivity Disorder Past Surgical History: Reports: Hx Orthopedic Surgery - RUE; LLE; LUE; - Immunizations Immunizations up to date: Yes Hx Diphtheria, Pertussis, Tetanus Vaccination: Yes Review of Systems - Review of Systems Constitutional: No symptoms reported EENT: Other - Top of right ear is red, warm, swollen, and painful. Patient also has pain inside his right ear. Cardiovascular: No symptoms reported Respiratory: No symptoms reported Gastrointestinal: No symptoms reported Genitourinary: No symptoms reported Male Genitourinary: No symptoms reported Musculoskeletal: No symptoms reported Skin: No symptoms reported Hematologic/Lymphatic: No symptoms reported Neurological/Psychological: No symptoms reported -: Yes All other systems reviewed and negative Physical Exam - Vital signs Vitals: Temp 98.2 F 02/01/20 01:10 - Notes Notes: GENERAL: Well-appearing, well-nourished and in no acute distress. HEAD: Atraumatic, normocephalic. EYES: Pupils equal round and reactive to light, extraocular movements intact, sclera anicteric, conjunctiva are normal. ENT: Right Ear Canal is inflamed and swollen with mild drainage noted. TM is somewhat obscured by scar tissue and inflammation. Top of Right External Ear is swollen, erythematous, and tender to palpation with small area of skin breakdown but no drainage. Nares patent, oropharynx clear without exudates. Moist mucous membranes. NECK: Normal range of motion, supple without lymphadenopathy or JVD. LUNGS: Breath sounds clear to auscultation bilaterally and equal. No wheezes rales or rhonchi. HEART: Regular rate and rhythm without murmurs, rubs or gallops. ABDOMEN: Soft, nontender, normoactive bowel sounds. No guarding, no rebound. No masses appreciated. EXTREMITIES: Normal range of motion, no pitting or edema. No clubbing or cyanosis. NEUROLOGICAL: Cranial nerves II through XII grossly intact. Normal speech, normal gait. PSYCH: Normal mood, normal affect. SKIN: Warm, Dry, normal turgor, no rashes or lesions noted. Course - Re-evaluation Re-evalutation: 02/01/20 03:32 The patient seems to have otitis externa and cellulitis of the skin of his upper right ear. CT performed to rule out fluid collections and mastoiditis. CT consistent with external otitis and soft tissue infection. Will treat with Oral Cipro and Amoxicillin and Cipro ear drops as well. Patient told he needs to follow up with an ENT Surgeon in the next few days. - Vital Signs Vital signs: Temp Pulse Resp BP Pulse Ox 98.2 F 85 136/78 H 98 02/01/20 01:10 02/01/20 01:11 02/01/20 01:11 02/01/20 01:11 - Diagnostic Test Radiology reviewed: Image reviewed, Reports reviewed Discharge - Discharge Clinical Impression: Otitis externa Qualifiers: Otitis externa type: unspecified type Chronicity: acute Laterality: right Qualified Code(s): H60.501 - Unspecified acute noninfective otitis externa, right ear Otitis media Qualifiers: Otitis media type: unspecified Chronicity: acute Qualified Code(s): H66.90 - Otitis media, unspecified, unspecified ear Condition: Stable Disposition: HOME, SELF-CARE Instructions: Otitis Externa ([facility]), Otitis Media ([facility]) Additional Instructions: Take oral antibiotics (Ciprofloxacin and Amoxicillin) as prescribed and also use antibiotic ear drops (Ciprodex) as prescribed. Follow up with an ENT Surgeon (Dr. Quiroga or Dr. Yip) in the next 2-3 days to ensure improvement of symptoms. Use Tylenol and Motrin for pain. Prescriptions: Amoxicillin 1 tab PO TID 7 Days #21 tab Ciprofloxacin HCl [Cipro 500 mg Tablet] 500 mg PO BID 7 Days #14 tablet Ciprofloxacin HCl/Dexameth [Ciprodex Otic Suspension 7.5 ml Bottle] 3 drop OT BID #1 bottle Referrals: SUZIE QUIROGA MD [ACTIVE STAFF] - Follow up as needed LANE YIP DO [ASSOCIATE] - Follow up as needed
--- NOTE | 2020-02-01 03:07 | RADIOLOGY REPORT (SQ) ---
EXAM DESCRIPTION: [facility]: CT MAXILLOFACIAL WITHOUT IV CONTRAST CLINICAL HISTORY: 39 years Male; rule out right sided mastoiditis and ear abscess; TECHNIQUE: High resolution axial CT of the face without contrast, with sagittal and coronal reformatted images. All CT scans at this facility use dose modulation, iterative reconstruction, and/or weight based dosing when appropriate to reduce radiation dose to as low as reasonably achievable. COMPARISON: CT 12/23/2015 FINDINGS: Facial bones are intact. Mandible is intact. Mucosal thickening and several chronic mucous retention cysts in both maxillary sinuses is similar to the prior exam. There is also mild mucosal thickening in the ethmoid air cells, similar to prior exam. No sinus air-fluid levels. Mastoids are clear. Cartilage calcifications in the left external ear are similar to prior exam. There is mild subcutaneous edema in the right periauricular region. The external auditory canal remains widely patent. No lytic bone changes or periosteal reaction. No retro-orbital edema. Degenerative changes are partially visualized in the upper cervical spine. IMPRESSION: 1. Mild right periauricular soft tissue edema, suggesting an external otitis. Right EAC remains widely patent. 2. No mastoid effusion, or other evidence for mastoiditis.
[2020-02-01] MEDS ORDERED: AMOXICILLIN TRIHYDRATE 500 MG CAPSULE PO ONE (03:27)
[2020-02-01] MEDS ORDERED: CIPROFLOXACIN HCL 500 MG TABLET PO ONE (03:27)
[2020-02-01 03:46] VITALS: BP 125/78
== END 2020-02-01 03:45 | disposition home or self-care (01) ==
LOC: ER 01:06
DX: H60.501 Unspecified acute noninfective otitis externa, right ear (principal); H66.90 Otitis media, unspecified, unspecified ear; H92.01 Otalgia, right ear; H93.8X1 Other specified disorders of right ear; F17.200 Nicotine dependence, unspecified, uncomplicated; I10 Essential (primary) hypertension
CPT/HCPCS: 70486; 99283

== ENCOUNTER 2020-02-08 06:10 | Emergency (ER) | payer SELFPAY ==
--- NOTE | 2020-02-08 06:39 | ER Document Report ---
ED Medical Screen (RME) - General Chief Complaint: Abscess Stated Complaint: POSSIBLE BUG BITE,FEVER,NAUSEA Time Seen by Provider: 02/08/20 06:38 Mode of Arrival: Ambulatory Information source: Patient Notes: 39 year-old male presented to ED with an abscess to the right forearm. He states the arm is been swollen for about a week. He states he came into the emergency room for ear infection and about a week or so ago and was started on antibiotics. He states the next day his arm started swelling. He states he thought the antibiotics for his ear infection would take care of the arm infe ction. He states a couple days ago he noticed a couple little pimples on the right forearm. He states there is too little pimple areas have swollen developed pockets since then. He states now his whole arm is starting to swell and be painful. I have greeted and performed a rapid initial assessment of this patient. A comprehensive ED assessment and evaluation of the patient, analysis of test results and completion of medical decision making process will be conducted by an additional ED providers. TRAVEL OUTSIDE OF THE [place] IN LAST 30 DAYS: No - Related Data Allergies/Adverse Reactions: No Known Allergies Allergy (Verified 02/08/20 06:37) Past Medical History - Past Medical History Cardiac Medical History: Reports: Hx Hypertension Renal/ Medical History: Denies: Hx Peritoneal Dialysis Musculoskeltal Medical History: Reports Hx Muscle Spasm Psychiatric Medical History: Reports: Hx Attention Deficit Hyperactivity Disorder Past Surgical History: Reports: Hx Orthopedic Surgery - RUE; LLE; LUE; - Immunizations Immunizations up to date: Yes Hx Diphtheria, Pertussis, Tetanus Vaccination: Yes Physical Exam - Vital signs Vitals: Temp Pulse Resp BP Pulse Ox 98.4 F 98 18 149/93 H 100 02/08/20 06:16 02/08/20 06:16 02/08/20 06:16 02/08/20 06:16 02/08/20 06:16 Course - Vital Signs Vital signs: Temp Pulse Resp BP Pulse Ox 98.4 F 98 18 149/93 H 100 02/08/20 06:16 02/08/20 06:16 02/08/20 06:16 02/08/20 06:16 02/08/20 06:16
--- NOTE | 2020-02-08 07:36 | RADIOLOGY REPORT (SQ) ---
EXAM DESCRIPTION: XR ELBOW 3 VIEWS COMPLETED DATE/TME: 02/08/2020 06:45 CLINICAL HISTORY: 39 years, Male, Abscess with swelling to the arm COMPARISON: None. NUMBER OF VIEWS: Three TECHNIQUE: Three views of the right elbow LIMITATIONS: None. FINDINGS: There is no acute fracture, dislocation, erosion, or periosteal reaction. No joint effusion. There is mild soft tissue swelling along the dorsum of the proximal forearm. No gas is seen within the soft tissues. Surgical clips are noted near the distal humerus. IMPRESSION: Mild soft tissue swelling along the dorsum of the proximal forearm. No subcutaneous gas detected. copyright 2010 [employer]- All Rights Reserved
[2020-02-08] MEDS: LIDOCAINE 1% INJ-PF (10 MG/ML) 30 ML SDV INJ ONE ×2 (08:19→08:36)
[2020-02-08 08:21] LABS: ABSOLUTE EOSINOPHILS # (AUTO) 0.1 10^3/uL (0.0-0.6); ABSOLUTE LYMPHOCYTES (AUTO) 1.3 10^3/uL (0.5-4.7); ABSOLUTE MONOCYTES (AUTO) 0.5 10^3/uL (0.1-1.4); ABSOLUTE NEUT (AUTO) 4.5 10^3/uL (1.7-8.2); BASOPHILS % (AUTO) 0.6 % (0-2); EOSINOPHILS % (AUTO) 1.1 % (0-6); HEMATOCRIT 35.7 % (37.9-51.0); HEMOGLOBIN 12.1 g/dL (13.5-17.0); LYMPHOCYTES % (AUTO) 20.8 % (13-45); MEAN CORPUSCULAR HGB CONC 33.8 g/dL (32.0-36.0); MEAN CORPUSCULAR VOLUME 86 fl (80-97); MONOCYTES % (AUTO) 7.3 % (3-13); PLATELET COUNT 157 10^3/uL (150-450); RED BLOOD COUNT 4.16 10^6/uL (4.35-5.55); RED CELL DISTRIBUTION WIDTH 13.5 % (11.5-14.0); SEGMENTED NEUTROPHILS % (AUTO) 70.2 % (42-78); TOTAL CELLS COUNTED % (AUTO) 100 %; WHITE BLOOD COUNT 6.4 10^3/uL (4.0-10.5)
[2020-02-08 08:23] LABS: ALBUMIN 4.5 g/dL (3.5-5.0); ALKALINE PHOSPHATASE 92 U/L (38-126); ANION GAP 10 (5-19); ASPARTATE AMINO TRANSFERASE 81 U/L (17-59); BILIRUBIN,TOTAL 0.7 mg/dL (0.2-1.3); BLOOD UREA NITROGEN 17 mg/dL (7-20); CALCIUM 9.4 mg/dL (8.4-10.2); CARBON DIOXIDE 26 mmol/L (22-30); CHLORIDE 102 mmol/L (98-107); GLUCOSE 98 mg/dL (75-110); POTASSIUM 4.3 mmol/L (3.6-5.0)
--- NOTE | 2020-02-08 08:41 | ER Document Report ---
ED General - General Chief Complaint: Abscess Stated Complaint: POSSIBLE BUG BITE,FEVER,NAUSEA Time Seen by Provider: 02/08/20 06:38 Mode of Arrival: Ambulatory Information source: Patient TRAVEL OUTSIDE OF THE [place] IN LAST 30 DAYS: No - HPI Notes: Patient presents with right elbow pain. He states he has had this for approximately 3 days. It is been constant. It is moderate to severe. Is worse with movement and better with rest. It does radiate up the right arm. And is sharp. He states he noticed a "sore" on his arm and try to squeeze it last night. He denies any fevers. No previous history of abscesses. - Related Data Allergies/Adverse Reactions: No Known Allergies Allergy (Verified 02/08/20 06:37) Past Medical History - General Information source: Patient - Social History Smoking Status: Current Every Day Smoker Frequency of alcohol use: None Drug Abuse: None Family History: Reviewed & Not Pertinent Patient has homicidal ideation: No - Past Medical History Cardiac Medical History: Reports: Hx Hypertension Renal/ Medical History: Denies: Hx Peritoneal Dialysis Musculoskeletal Medical History: Reports Hx Muscle Spasm Psychiatric Medical History: Reports: Hx Attention Deficit Hyperactivity Disorder Past Surgical History: Reports: Hx Orthopedic Surgery - RUE; LLE; LUE; - Immunizations Immunizations up to date: Yes Hx Diphtheria, Pertussis, Tetanus Vaccination: Yes Review of Systems - Review of Systems Constitutional: denies: Chills, Fever Cardiovascular: denies: Chest pain, Palpitations Respiratory: denies: Cough, Short of breath -: Yes All other systems reviewed and negative Physical Exam - Vital signs Vitals: Temp Pulse Resp BP Pulse Ox 98.4 F 98 18 149/93 H 100 02/08/20 06:16 02/08/20 06:16 02/08/20 06:16 02/08/20 06:16 02/08/20 06:16 Interpretation: Normal - General General appearance: Appears well, Alert - HEENT Head: Normocephalic, Atraumatic Eyes: Normal Pupils: PERRL - Respiratory Respiratory status: No respiratory distress Chest status: Nontender Breath sounds: Normal Chest palpation: Normal - Cardiovascular Rhythm: Regular Heart sounds: Normal auscultation Murmur: No - Abdominal Inspection: Normal Distension: No distension Bowel sounds: Normal Tenderness: Nontender Organomegaly: No organomegaly - Back Back: Normal, Nontender - Extremities General upper extremity: Other - Right upper extremity exam shows patient to have a tender erythematous fluctuant area on the posterior aspect of the elbow just superior to the joint. It appears consistent with a superficial abscess. There is some surrounding erythema. General lower extremity: Normal inspection, Nontender, Normal color, Normal ROM, Normal temperature, Normal weight bearing. No: Jesus's sign - Neurological Neuro grossly intact: Yes Cognition: Normal Orientation: AAOx4 [place] Coma Scale Eye Opening: Spontaneous [place] Coma Scale Verbal: Oriented [place] Coma Scale Motor: Obeys Commands Tito Coma Scale Total: 15 Speech: Normal Motor strength normal: LUE, RUE, LLE, RLE Sensory: Normal - Psychological Associated symptoms: Normal affect, Normal mood - Skin Skin Temperature: Warm Skin Moisture: Dry Skin Color: Normal - Except as noted above under extremities Course - Vital Signs Vital signs: Temp Pulse Resp BP Pulse Ox 98.4 F 98 18 149/93 H 100 02/08/20 06:37 02/08/20 06:16 02/08/20 06:16 02/08/20 06:16 02/08/20 06:16 - Laboratory Result Diagrams: 02/08/20 08:10 02/08/20 07:45 Laboratory results interpreted by me: 02/08/20 02/08/20 07:45 08:10 RBC 4.16 L Hgb 12.1 L Hct 35.7 L AST 81 H ALT 147 H Procedures - Incision and Drainage Right Posterior Arm Time completed: 08:38 Type: Simple Anesthetic type: 1% Lidocaine mL's of anesthetic: 2 Blade size: 11 I&D procedure: Iodoform packing placed, Sterile dressing applied Incision Method: Incision made by scalpel Amount/type of drainage: Copious amounts of pus and blood Discharge - Discharge Clinical Impression: Arm abscess Condition: Stable Disposition: HOME, SELF-CARE Instructions: Abscess ([facility]), MRSA Cellulitis ([facility]), Oral Narcotic Medication ([facility]), Trimethoprim-Sulfa ([facility]), Post Incision and Drainage Additional Instructions: Please return in 2 days for a reevaluation of your abscess. Please return sooner if problems with increasing redness, fever, increasing pain or other concerns. Prescriptions: Sulfamethoxazole/Trimethoprim [Bactrim Ds Tablet] 1 each PO BID 5 Days #10 tablet Hydrocodone/Acetaminophen [Sumner 5-325 mg Tablet] 1 tab PO Q6 PRN 3 Days #12 tablet PRN Reason: Forms: Return to Work
[2020-02-08 08:50] VITALS: BP 134/81
== END 2020-02-08 08:50 | disposition home or self-care (01) ==
LOC: ER 06:10
DX: L02.413 Cutaneous abscess of right upper limb (principal); M25.521 Pain in right elbow; F17.200 Nicotine dependence, unspecified, uncomplicated; I10 Essential (primary) hypertension
CPT/HCPCS: 36415; 80053; 85025; 87040; 87070; 87077; 87186; 87205; 99283; J3490

== ENCOUNTER 2020-03-25 22:49 | Emergency (ER) | payer SELFPAY ==
--- NOTE | 2020-03-26 00:48 | ER Document Report ---
ED Medical Screen (RME) - General Chief Complaint: Back Pain Stated Complaint: BACK PAIN Time Seen by Provider: 03/26/20 00:43 Mode of Arrival: Wheelchair Information source: Patient Notes: HPI; 40-year-old male presents to the emergency room complaining of left flank pain that started 2 days ago. Complains of nausea but no vomiting. Decreased urinary output. No history of kidney stones. No medications for symptoms. PE: Patient is sleepy but arousable. Oriented x3. No acute distress noted. Lungs: Clear to auscultation without rales, rhonchi, wheezes. Heart: Regular rate and rhythm without murmurs, rubs, gallops. Positive for left CVA tenderness. I have greeted and performed a rapid initial assessment of this patient. A comprehensive ED assessment and evaluation of the patient, analysis of test results and completion of the medical decision making process will be conducted by additional ED providers. I have specifically instructed the patient or family members with the patient to immediately return to any nursing staff should anything change in the patient's condition or with their chief complaint. TRAVEL OUTSIDE OF THE [place] IN LAST 30 DAYS: No - Related Data Allergies/Adverse Reactions: No Known Allergies Allergy (Verified 02/08/20 06:37) Past Medical History - Past Medical History Cardiac Medical History: Reports: Hx Hypertension Renal/ Medical History: Denies: Hx Peritoneal Dialysis Musculoskeltal Medical History: Reports Hx Muscle Spasm Psychiatric Medical History: Reports: Hx Attention Deficit Hyperactivity Disorder Past Surgical History: Reports: Hx Orthopedic Surgery - RUE; LLE; LUE; - Immunizations Immunizations up to date: Yes Hx Diphtheria, Pertussis, Tetanus Vaccination: Yes Physical Exam - Vital signs Vitals: Temp Pulse Resp BP Pulse Ox 99.9 F 99 20 137/70 H 97 03/25/20 23:17 03/25/20 23:17 03/25/20 23:17 03/25/20 23:17 03/25/20 23:17 Course - Vital Signs Vital signs: Temp Pulse Resp BP Pulse Ox 99.9 F 99 20 137/70 H 97 03/25/20 23:17 03/25/20 23:17 03/25/20 23:17 03/25/20 23:17 03/25/20 23:17
[2020-03-26 01:47] LABS: ABSOLUTE EOSINOPHILS # (AUTO) 0.1 10^3/uL (0.0-0.6); ABSOLUTE LYMPHOCYTES (AUTO) 1.4 10^3/uL (0.5-4.7); ABSOLUTE MONOCYTES (AUTO) 0.8 10^3/uL (0.1-1.4); ABSOLUTE NEUT (AUTO) 7.2 10^3/uL (1.7-8.2); BASOPHILS % (AUTO) 0.2 % (0-2); EOSINOPHILS % (AUTO) 1.1 % (0-6); HEMOGLOBIN 13.1 g/dL (13.5-17.0); LYMPHOCYTES % (AUTO) 14.5 % (13-45); MEAN CORPUSCULAR HEMOGLOBIN 29.5 pg (27.0-33.4); MEAN CORPUSCULAR HGB CONC 33.5 g/dL (32.0-36.0); MEAN CORPUSCULAR VOLUME 88 fl (80-97); PLATELET COUNT 144 10^3/uL (150-450); RED BLOOD COUNT 4.43 10^6/uL (4.35-5.55); RED CELL DISTRIBUTION WIDTH 13.8 % (11.5-14.0); SEGMENTED NEUTROPHILS % (AUTO) 76.2 % (42-78); TOTAL CELLS COUNTED % (AUTO) 100 %; WHITE BLOOD COUNT 9.4 10^3/uL (4.0-10.5)
[2020-03-26 01:53] LABS: APPEARANCE,URINE CLEAR; BILIRUBIN,URINE NEGATIVE (NEGATIVE); COLOR,URINE YELLOW; GLUCOSE, URINE NEGATIVE (NEGATIVE); KETONES,URINE NEGATIVE (NEGATIVE); LEUKOCYTE ESTERASE,URINE NEGATIVE (NEGATIVE); NITRITE,URINE NEGATIVE (NEGATIVE); PROTEIN,URINE NEGATIVE (NEGATIVE); URINE SPECIFIC GRAVITY 1.018
[2020-03-26 02:03] LABS: ALBUMIN 4.1 g/dL (3.5-5.0); ALKALINE PHOSPHATASE 87 U/L (38-126); ANION GAP 7 (5-19); ASPARTATE AMINO TRANSFERASE 77 U/L (17-59); BILIRUBIN,TOTAL 0.8 mg/dL (0.2-1.3); BLOOD UREA NITROGEN 14 mg/dL (7-20); CALCIUM 8.9 mg/dL (8.4-10.2); CARBON DIOXIDE 27 mmol/L (22-30); CHLORIDE 99 mmol/L (98-107); GLUCOSE 120 mg/dL (75-110); POTASSIUM 4.6 mmol/L (3.6-5.0); TOTAL PROTEIN 7.3 g/dL (6.3-8.2)
--- NOTE | 2020-03-26 02:09 | RADIOLOGY REPORT (SQ) ---
EXAM DESCRIPTION: CT abdomen and pelvis without contrast CLINICAL HISTORY: 40 years Male, left flank pain COMPARISON: None. TECHNIQUE: Axial images of the abdomen and pelvis were performed without the use of intravenous contrast, with sagittal and coronal reformatted images. This exam was performed according to our departmental dose-optimization program which includes use of Automated Exposure Control, adjustment of the mA and/or kV according to patient size and/or use of iterative reconstruction technique. FINDINGS: Limited examination, due to the lack of intravenous and gastrointestinal contrast and due to a paucity of abdominal fat. There is a large amount of stool in portions of the colon, compatible with constipation. There is splenomegaly, with the spleen measuring 16.2 cm in cephalocaudal dimension. There is no gross evidence of appendicitis. No evidence of bowel obstruction. There is no significant radiographic abnormality of the liver, pancreas, adrenal glands or kidneys. There is a small left pleural effusion. IMPRESSION: Large amount of stool in portions of the colon, compatible with constipation. Splenomegaly. Small left pleural effusion.
[2020-03-26 02:10] LABS: URINE BARBITURATES SCREEN NEGATIVE; URINE BENZODIAZEPINES SCREEN NEGATIVE; URINE COCAINE SCREEN NEGATIVE; URINE MARIJUANA (THC) SCREEN NEGATIVE; URINE METHADONE SCREEN NEGATIVE; URINE PHENCYCLIDINE SCREEN NEGATIVE
[2020-03-26] MEDS ORDERED: KETOROLAC TROMETHAMINE 60 MG/2 ML SDV IM ONE (03:03)
[2020-03-26] MEDS ORDERED: MAGNESIUM CITRATE 296 ML BOTTLE PO ONE (03:03)
--- NOTE | 2020-03-26 03:13 | ER Document Report ---
ED Neck/Back Problem - General Chief Complaint: Flank Pain Stated Complaint: BACK PAIN Time Seen by Provider: 03/26/20 00:43 Mode of Arrival: Wheelchair Notes: HPI: 40-year-old male presenting to the emergency department complaining of left flank and back pain over the last 2 days. Patient was recently working on his car is unsure if he injured himself. Patient denies dysuria. Does report constipation. Denies fever. CHIEF COMPLAINT: Left lower back pain ROS: See HPI - all other systems were reviewed and are otherwise negative Constitutional: no fever Eyes: no drainage, no blurred vision ENT: no runny nose, no sore throat Cardiovascular: no chest pain Resp: no SOB, no cough GI: no vomiting, no diarrhea, no abdominal pain, positive constipation : no dysuria Integumentary: no rash Allergy: no hives Musculoskeletal: no extremity pain or swelling, positive back pain Neurological: no numbness/tingling, no weakness MEDICATIONS: I agree with the patient medications as charted by the RN. ALLERGIES: I agree with the allergies as charted by the RN. PAST MEDICAL HISTORY/PAST SURGICAL HISTORY: Reviewed and agree as charted by RN. SOCIAL HISTORY: Reviewed and agree as charted by RN. FAMILY HISTORY: No significant familial comorbid conditions directly related to patient complaint EXAM: Reviewed vital signs as charted by RN. CONSTITUTIONAL: Alert and oriented and responds appropriately to questions. Well-appearing; well-nourished HEAD: Normocephalic; atraumatic EYES: PERRL; Conjunctivae clear, sclerae non-icteric ENT: normal nose; no rhinorrhea; moist mucous membranes NECK: Supple without meningismus; non-tender; no cervical lymphadenopathy, no masses CARD: RRR; no murmurs, no clicks, no rubs, no gallops; symmetric distal pulses RESP: Normal chest excursion without splinting or tachypnea; breath sounds clear and equal bilaterally; no wheezes, no rhonchi, no rales, pulse oximetry 98% on room air not hypoxic ABD/GI: Normal bowel sounds; non-distended; soft, non-tender to palpation in the left abdomen, no rebound, no guarding; no palpable organomegaly or masses. BACK: The back appears normal and is over the lumbar and thoracic spine. There is left lateral lumbar muscular tenderness on palpation, there is no CVA tenderness EXT: Normal ROM in all joints; non-tender to palpation; no cyanosis, no effusions, no edema SKIN: Normal color for age and race; warm; dry; good turgor; no acute lesions noted NEURO: Moves all extremities equally; Motor and sensory function intact PSYCH: The patient's mood and manner are appropriate. Grooming and personal hygiene are appropriate. MDM: 40-year-old male left lumbar muscular tenderness on palpation of the low back suggesting a muscular injury has no abdominal pain does report constipation over the last several days. Initial lab work and CT imaging shows constipation and slight splenomegaly but no other acute findings. Lab work does not show acute emergent findings. Patient is positive for amphetamines and opiates. Will give Toradol in the emergency department keep patient on anti- inflammatories and a mild muscle relaxer also give patient magnesium citrate in the emergency department discharge on MiraLAX follow-up orthopedics TRAVEL OUTSIDE OF THE [place] IN LAST 30 DAYS: No - Related Data Allergies/Adverse Reactions: No Known Allergies Allergy (Verified 02/08/20 06:37) Past Medical History - General Information source: Patient - Social History Smoking Status: Current Every Day Smoker Chew tobacco use (# tins/day): No Frequency of alcohol use: None Drug Abuse: Prescription drugs Family History: Reviewed & Not Pertinent Patient has homicidal ideation: No - Past Medical History Cardiac Medical History: Reports: Hx Hypertension Renal/ Medical History: Denies: Hx Peritoneal Dialysis Musculoskeletal Medical History: Reports Hx Muscle Spasm Psychiatric Medical History: Reports: Hx Attention Deficit Hyperactivity Disorder Past Surgical History: Reports: Hx Orthopedic Surgery - RUE; LLE; LUE; - Immunizations Immunizations up to date: Yes Hx Diphtheria, Pertussis, Tetanus Vaccination: Yes Physical Exam - Vital signs Vitals: Temp Pulse Resp BP Pulse Ox 99.9 F 99 20 137/70 H 97 03/25/20 23:17 03/25/20 23:17 03/25/20 23:17 03/25/20 23:17 03/25/20 23:17 Course - Vital Signs Vital signs: Temp Pulse Resp BP Pulse Ox 99.9 F 99 20 137/70 H 97 03/25/20 23:17 03/25/20 23:17 03/25/20 23:17 03/25/20 23:17 03/25/20 23:17 - Laboratory Result Diagrams: 03/26/20 00:58 03/26/20 00:58 Laboratory results interpreted by me: 03/26/20 03/26/20 03/26/20 00:58 00:58 00:58 Hgb 13.1 L Plt Count 144 L Sodium 133.3 L Glucose 120 H AST 77 H ALT 168 H Urine Urobilinogen 4.0 H Discharge - Discharge Clinical Impression: Low back pain Qualifiers: Chronicity: acute Back pain laterality: left Sciatica presence: without sciatica Qualified Code(s): M54.5 - Low back pain Constipation Qualifiers: Constipation type: unspecified constipation type Qualified Code(s): K59.00 - Constipation, unspecified Condition: Stable Disposition: HOME, SELF-CARE Additional Instructions: 1. Warm heat to the lower back twice daily 2. no heavy lifting for 2-3 days 3. medications as prescribed, no driving on muscle relaxers 4. follow up with orthopedics for further evaluation and treatment as needed for any continuing pain or problems, call for appt. 5. return to the ER for any onset of incontinence of urine, fever > 101 or worsening condition Prescriptions: Cyclobenzaprine HCl [Flexeril 10 mg Tablet] 10 mg PO TIDP PRN #15 tab PRN Reason: Polyethylene Glycol 3350 [Miralax] 1 cap PO DAILY #527 powder Diclofenac Sodium [Voltaren 50 Mg Tablet.Dr] 50 mg PO BID #20 tablet. Referrals: THALIA ARRINGTON DO [ACTIVE STAFF] - Follow up as needed
[2020-03-26 03:28] VITALS: BP 109/57
== END 2020-03-26 04:19 | disposition home or self-care (01) ==
LOC: ER 03-26 03:35
DX: K59.00 Constipation, unspecified (principal); M54.5 Low back pain; R16.1 Splenomegaly, not elsewhere classified; J90 Pleural effusion, not elsewhere classified; F17.200 Nicotine dependence, unspecified, uncomplicated; I10 Essential (primary) hypertension; F19.10 Other psychoactive substance abuse, uncomplicated
CPT/HCPCS: 99285; 96372; 36415; 85025; 80053; 81001; 80307; 74176; J3490; J1885

== ENCOUNTER 2020-03-31 05:30 | Emergency (ER) | payer SELFPAY ==
[2020-03-31 05:45] VITALS: BP 118/95
== END 2020-03-31 06:35 | disposition left against medical advice (07) ==
LOC: ER 05:30
DX: Z53.21 Procedure and treatment not carried out due to patient leaving prior to being seen by health care provider (principal)

== ENCOUNTER 2020-04-03 04:10 | Inpatient (IN) | payer SELFPAY ==
[2020-04-03] MEDS ORDERED: NORMAL SALINE 1000 ML 1,000 ML IV ONE (04:32)
[2020-04-03] MEDS ORDERED: ONDANSETRON HCL INJ/PF 4 MG/2 ML SDV IV ONE (04:32)
[2020-04-03] MEDS ORDERED: MORPHINE SULFATE 10 MG/ML INJ IV ONE ×3 (04:32→13:21)
--- NOTE | 2020-04-03 04:50 | ER Document Report ---
ED General - General TRAVEL OUTSIDE OF THE [place] IN LAST 30 DAYS: No <MORGAN REGALADO - Last Filed: 04/03/20 08:06> <KAYE QUINTANILLA - Last Filed: 04/03/20 13:22> - General Chief Complaint: Back Pain Stated Complaint: NECK/BACK PAIN Time Seen by Provider: 04/03/20 04:28 Notes: Patient is a 40-year-old male who comes emergency department for chief complaint of mid back pain. He states the pain is severe and hurts with any movement. Patient states that he has a history of degenerative disc disease and a remote history of a cervical fracture although he denies any injury. Patient states he was seen a few days ago in the emergency department and had a CAT scan thinking that he had a passing stone but he was simply constipated. Patient states he was taking stool softeners at home and had several bowel movements without any improvement in his symptoms. Patient denies vomiting, abdominal pain, fever. Patient denies numbness or incontinence. Patient denies IV drugs although he does admit to history of IV drug abuse when asked specifically. Also when asked specifically again he states that he had "a fever of about 100 F a couple of days ago". Patient denies any current daily medications, he denies medical history otherwise. (MORGAN REGALADO) - Related Data Allergies/Adverse Reactions: No Known Allergies Allergy (Verified 04/03/20 04:22) Past Medical History - General Information source: Patient - Social History Smoking Status: Current Every Day Smoker Frequency of alcohol use: None Drug Abuse: None, Cocaine, Methamphetamine Family History: Reviewed & Not Pertinent - Past Medical History Cardiac Medical History: Reports: Hx Hypertension Renal/ Medical History: Denies: Hx Peritoneal Dialysis Musculoskeletal Medical History: Reports Hx Muscle Spasm Psychiatric Medical History: Reports: Hx Attention Deficit Hyperactivity Disorder Past Surgical History: Reports: Hx Orthopedic Surgery - RUE; LLE; LUE; - Immunizations Immunizations up to date: Yes Hx Diphtheria, Pertussis, Tetanus Vaccination: Yes <MORGAN REGALADO - Last Filed: 04/03/20 08:06> Review of Systems - Review of Systems Constitutional: See HPI EENT: No symptoms reported Cardiovascular: No symptoms reported Respiratory: No symptoms reported Gastrointestinal: See HPI Genitourinary: See HPI Male Genitourinary: No symptoms reported Musculoskeletal: See HPI Skin: No symptoms reported Hematologic/Lymphatic: No symptoms reported Neurological/Psychological: No symptoms reported <MORGAN REGALADO - Last Filed: 04/03/20 08:06> Physical Exam <MORGAN REGALADO - Last Filed: 04/03/20 08:06> - Vital signs Vitals: Temp Pulse Pulse Ox 98.3 F 112 H 98 04/03/20 04:25 04/03/20 04:25 04/03/20 04:25 - Notes Notes: GENERAL: Patient ill-appearing, diaphoretic, toxic in appearance, appears to be in distress HEAD: Normocephalic, atraumatic. EYES: Pupils equal, round, and reactive to light. Extraocular movements intact. ENT: Oral mucosa moist, tongue midline. Oropharynx unremarkable. Airway patent. NECK: Full range of motion. Supple. Trachea midline. No lymphadenopathy. LUNGS: Clear to auscultation bilaterally, no wheezes, rales, or rhonchi. No re spiratory distress. Non-tender chest wall. HEART: Regular rate and rhythm. No murmur ABDOMEN: Soft, non-tender. Non-distended. EXTREMITIES: Mildly erythematous and raised area in the left mid forearm, no severe induration or obvious fluctuance. No spreading erythema away from this. Ankle bracelet on the left ankle. BACK: There is generalized tenderness over the mid and para spinal areas at the thoracic and upper lumbar spine. Pain with any extension of the spine. No saddle anesthesia, normal distal neurovascular exam. Moves all extremities in full range of motion. NEUROLOGICAL: Alert and oriented x3. Normal speech. Cranial nerves II through XII grossly intact. Strength 5/5 in all extremities. PSYCH: Agitated SKIN: Flushed and diaphoretic (FABRICIOMORGAN) Course - Laboratory Result Diagrams: 04/03/20 05:00 04/03/20 05:00 <MORGAN REGALADO - Last Filed: 04/03/20 08:06> - Laboratory Result Diagrams: 04/03/20 05:00 04/03/20 05:00 <KAYE QUINTANILLA - Last Filed: 04/03/20 13:22> - Re-evaluation Re-evalutation: Patient very ill-appearing on initial evaluation, based on his recent records including temperature of 100.7 approximately 24 hours ago recorded in the s ystem, history of IV drug abuse, severe back pain, negative CT recently, lack of injury my highest suspicion is epidural abscess. Septic work-up pending. ESR and CRP are pending. CAT scan with IV contrast will be performed based on lack of MRI availability at this time. CBC unremarkable, ESR is elevated, CRP is very elevated at 144. Nonspecific testing otherwise, lactic acid is not elevated. Patient reevaluated, he is much more comfortable and much improved in appearance after morphine, Zofran, IV fluids. I found out that we actually have MRI available in about 30 minutes, imaging studies will be changed to MRI. Patient discussed with Dr. Mcbride. 04/03/20 08:00 MRI unable to perform the exam because of patient's ankle bracelet which they were unable to get off after we asked him to. We will contact tactical intelligence officer versus police officers, antibiotics initiated. Report given to Kaye Sher PA-C. (MORAGN REGALADO) 04/03/20 08:44 report received on patient 04/03/20 09:20 Patient and staff were unable to reach the patient's tactical intelligence officer as he is on house arrest and has an ankle bracelet. We were unable to get this removed by his tactical intelligence officer. It is medically necessary to remove this in order for him to have the MRI as patient has a potentially life-threatening illness 04/03/20 09:54 Going to evaluate the patient he reports pain in the lower back region. He did not believe he had a fever today. Awaiting MRI. Requesting more pain medicati on. 04/03/20 13:01 discussed MRI results with Dr. Mcleod, Attending. MRI does not show evidence of abscess. Thoracic spine MRI was read as a limited study but still no inflammatory signs. I spoke with the patient, he injects heroin, last injection was 2 days ago. With low-grade fever, still diaphoretic still complaining about severe back pain. Will discuss with hospitalist to admit for bacteremia given the IV drug use, fevers. 04/03/20 13:18 discussed with Rebecca Alvarado NP. Case discussed will admit to telemetry. We reviewed labs and imaging studies (KAYE QUINTANILLA) - Vital Signs Vital signs: Temp Pulse Resp BP Pulse Ox 97.8 F 112 H 14 136/90 H 97 04/03/20 10:41 04/03/20 04:25 04/03/20 10:01 04/03/20 10:00 04/03/20 10:01 - Laboratory Laboratory results interpreted by me: 04/03/20 04/03/20 05:00 05:00 Hgb 12.9 L Lymph % (Auto) 9.9 L Seg Neutrophils % 81.5 H ESR 91 H Sodium 136.0 L Potassium 5.2 H Chloride 96 L ALT 91 H Alkaline Phosphatase 176 H C-Reactive Protein 144.5 H Discharge <MORGAN REGALADO - Last Filed: 04/03/20 08:06> - Discharge Admitting Provider: Newton (Hospitalist) Unit Admitted: Telemetry <KAYE QUINTANILLA - Last Filed: 04/03/20 13:22> - Discharge Clinical Impression: Heroin abuse, Fever in adult, Bacteremia Lower back pain Qualifiers: Chronicity: unspecified Back pain laterality: bilateral Sciatica presence: without sciatica Qualified Code(s): M54.5 - Low back pain Condition: Fair Disposition: ADMITTED INPATIENT
[2020-04-03 05:19] LABS: ABSOLUTE BASOPHILS # (AUTO) 0.1 10^3/uL (0.0-0.2); ABSOLUTE EOSINOPHILS # (AUTO) 0.1 10^3/uL (0.0-0.6); ABSOLUTE MONOCYTES (AUTO) 0.7 10^3/uL (0.1-1.4); ABSOLUTE NEUT (AUTO) 7.9 10^3/uL (1.7-8.2); BASOPHILS % (AUTO) 0.6 % (0-2); EOSINOPHILS % (AUTO) 1.1 % (0-6); HEMATOCRIT 38.1 % (37.9-51.0); HEMOGLOBIN 12.9 g/dL (13.5-17.0); LYMPHOCYTES % (AUTO) 9.9 % (13-45); MEAN CORPUSCULAR HEMOGLOBIN 29.3 pg (27.0-33.4); MEAN CORPUSCULAR HGB CONC 33.8 g/dL (32.0-36.0); MEAN CORPUSCULAR VOLUME 87 fl (80-97); MONOCYTES % (AUTO) 6.9 % (3-13); PLATELET COUNT 300 10^3/uL (150-450); RED CELL DISTRIBUTION WIDTH 13.6 % (11.5-14.0); SEGMENTED NEUTROPHILS % (AUTO) 81.5 % (42-78); TOTAL CELLS COUNTED % (AUTO) 100 %; WHITE BLOOD COUNT 9.6 10^3/uL (4.0-10.5)
[2020-04-03 05:39] LABS: ALKALINE PHOSPHATASE 176 U/L (38-126); ANION GAP 12 (5-19); ASPARTATE AMINO TRANSFERASE 46 U/L (17-59); BILIRUBIN,DIRECT 0.3 mg/dL (0.0-0.4); BILIRUBIN,TOTAL 0.5 mg/dL (0.2-1.3); BLOOD UREA NITROGEN 14 mg/dL (7-20); CALCIUM 9.4 mg/dL (8.4-10.2); CARBON DIOXIDE 28 mmol/L (22-30); CHLORIDE 96 mmol/L (98-107); GLUCOSE 102 mg/dL (75-110); POTASSIUM 5.2 mmol/L (3.6-5.0); TOTAL PROTEIN 7.5 g/dL (6.3-8.2)
[2020-04-03 05:54] LABS: C-REACTIVE PROTEIN 144.5 mg/L (<10.0)
[2020-04-03 06:05] LABS: ERYTHROCYTE SEDIMENTATION RATE 91 mm/hr (0-15)
[2020-04-03] MEDS ORDERED: VANCOMYCIN HCL INJ 1000 MG VIAL IV ONE (07:41)
[2020-04-03] MEDS ORDERED: PIPERACILLIN/TAZOBACTAM 3.375 GM VIAL IV ONE (07:41)
[2020-04-03 07:49] LABS: APPEARANCE,URINE CLEAR; BILIRUBIN,URINE NEGATIVE (NEGATIVE); COLOR,URINE COLORLESS; GLUCOSE, URINE NEGATIVE (NEGATIVE); KETONES,URINE NEGATIVE (NEGATIVE); LEUKOCYTE ESTERASE,URINE NEGATIVE (NEGATIVE); NITRITE,URINE NEGATIVE (NEGATIVE); PROTEIN,URINE NEGATIVE (NEGATIVE); URINE SPECIFIC GRAVITY 1.002; UROBILINOGEN,URINE NEGATIVE mg/dL (<2.0)
[2020-04-03 08:08] LABS: URINE BARBITURATES SCREEN NEGATIVE; URINE BENZODIAZEPINES SCREEN NEGATIVE; URINE COCAINE SCREEN NEGATIVE; URINE MARIJUANA (THC) SCREEN NEGATIVE; URINE METHADONE SCREEN NEGATIVE; URINE PHENCYCLIDINE SCREEN NEGATIVE
[2020-04-03] MEDS ORDERED: LORAZEPAM INJ 2 MG/1 ML VIAL IV ONE (12:25)
--- NOTE | 2020-04-03 12:47 | RADIOLOGY REPORT (SQ) ---
EXAM DESCRIPTION: MRI LUMBAR SPINE WITHOUT IMAGES COMPLETED DATE/TIME: 04/03/2020 12:35 pm REASON FOR STUDY: severe back pain, hx IVDA, elev ESR/CRP COMPARISON: None. TECHNIQUE: Sagittal and Axial imaging includes T1, T2, STIR and gradient echo sequences. Coronal T2/ HASTE imaging. LIMITATIONS: Mild motion artifact on the axial images. The patient refused intravenous contrast. FINDINGS: VISUALIZED UPPER ABDOMEN: Limited evaluation. No acute or suspicious findings suggested. SEGMENTATION: No transitional anatomy. The lowest well-developed disc space is labeled L5-S1. ALIGNMENT: Anatomic. VERTEBRAE: Intact. BONE MARROW: No marrow replacement. Reactive endplate signal at the L5-S1 level. DISC SIGNAL: Normal. No significant abnormal signal or loss of height. POSTERIOR ELEMENTS: Generally intact. No pars defect evident. HARDWARE: None in the spine. CORD AND CONUS: Normal in size and signal intensity. Conus at the appropriate level. SOFT TISSUES: No aortic aneurysm seen. No bulky retroperitoneal adenopathy or mass. No paraspinal mas s or fluid. L1-L2: No significant spinal stenosis or exit foraminal stenosis. L2-L3: No significant spinal stenosis or exit foraminal stenosis. L3-L4: No significant spinal stenosis or exit foraminal stenosis. L4-L5: No disc bulge. Mild facet arthropathy. No significant spinal stenosis or exit foraminal sten osis. L5-S1: No disc bulge. Mild facet arthropathy. No significant spinal stenosis or exit foraminal sten osis. LOWER THORACIC: Incompletely imaged. No stenosis seen. SACRUM: Visualized upper sacrum intact. OTHER: No other significant findings. IMPRESSION: MILD DEGENERATIVE CHANGES WITH FACET ARTHROPATHY IN THE LOWER LUMBAR SPINE. NO DISC BUL GE. NO STENOSIS OR IMPINGEMENT. TECHNICAL DOCUMENTATION: JOB ID: [id number] 2010 [employer] [facility]- All Rights Reserved Reading location - IP/workstation name: [email or web address]
--- NOTE | 2020-04-03 12:49 | RADIOLOGY REPORT (SQ) ---
EXAM DESCRIPTION: MRI THORACIC SPINE WITHOUT IMAGES COMPLETED DATE/TIME: 04/03/2020 12:35 pm REASON FOR STUDY: severe back pain, hx IVDA, elev ESR/CRP COMPARISON: None. TECHNIQUE: Sagittal imaging includes T1, T2, STIR and gradient echo sequences. LIMITATIONS: Consider motion artifact. The patient refused to complete the entire study and therefo re axial images and postcontrast images were not acquired. FINDINGS: LOCALIZER: No worrisome findings. ALIGNMENT: Normal. VERTEBRAE: Intact. BONE MARROW: No marrow replacement. Reactive endplate signal at multiple levels in the upper and mid thoracic spine. HARDWARE: None in the spine. CORD: Normal in size and signal intensity. SOFT TISSUES: No soft tissue masses. THORACIC DISCS T1-T12: Multilevel disc space narrowing. Mild disc bulges. No significant spinal thierry nosis or exit foraminal stenosis. LOWER CERVICAL: Incompletely imaged. No significant spinal stenosis or exit foraminal stenosis. UPPER LUMBAR: Incompletely imaged. No significant spinal stenosis or exit foraminal stenosis. OTHER: No other significant finding. IMPRESSION: MARKEDLY LIMITED STUDY. MULTILEVEL DEGENERATIVE DISC DISEASE. NO HIGH-GRADE STENOSIS. TECHNICAL DOCUMENTATION: JOB ID: [id number] 2010 [employer]- All Rights Reserved Reading location - IP/workstation name: [email or web address]
[2020-04-03] MEDS ORDERED: CLONIDINE HCL 0.1 MG TABLET PO ONE (13:24)
[2020-04-03] MEDS ORDERED: ALBUTEROL SULFATE 0.083% NEB 2.5 MG/3 ML AMPUL NEB PRN (14:21)
[2020-04-03] MEDS ORDERED: MAG HYDROX/AL HYDROX/SIMETH SUSP 30 ML UDCUP PO PRN (14:30)
[2020-04-03] MEDS ORDERED: OXYCODONE-ACETAMINOPHEN 5-325 MG TABLET PO PRN ×2 (14:30)
[2020-04-03] MEDS ORDERED: ONDANSETRON HCL INJ/PF 4 MG/2 ML SDV IV PRN (14:30)
[2020-04-03] MEDS ORDERED: KETOROLAC TROMETHAMINE INJ/PF 30 MG/1 ML SDV IV PRN (14:31)
--- NOTE | 2020-04-03 15:14 | RADIOLOGY REPORT (SQ) ---
EXAM DESCRIPTION: U/S EXTREMITY NONVASCULAR LTD IMAGES COMPLETED DATE/TIME: 04/03/2020 3:04 pm REASON FOR STUDY: left forearm abscess COMPARISON: None. TECHNIQUE: Dynamic and static grayscale images acquired of the localized site of clinical concern an d recorded on PACS. Additional selected color Doppler and spectral images recorded. SITE OF CONCERN: Left forearm. LIMITATIONS: None. FINDINGS: Irregular heterogenous hypoechoic area in the soft tissues, measuring 1.4 x 2.5 x 3.4 cm. Increased flow on Doppler imaging. IMPRESSION: IRREGULAR HETEROGENOUS HYPOECHOIC AREA IN THE SOFT TISSUES. BASED ON CLINICAL HISTORY, LIKELY DUE TO INFECTION WITH DEVELOPING PHLEGMON. NO DRAINABLE FLUID. TECHNICAL DOCUMENTATION: JOB ID: [id number] 2010 [employer]- All Rights Reserved Reading location - IP/workstation name: [email or web address]
[2020-04-03] MEDS ORDERED: VANCOMYCIN HCL 0 MG in DEXTROSE 5%-WATER 250 ML IV NR (15:30)
--- NOTE | 2020-04-03 15:33 | PDOC H&P ---
History of Present Illness Admission Date/PCP: 04/03/20 13:55 Patient complains of: back pain History of Present Illness: TALISHA MARTIN is a 40 year old male with a past medical history significant for chronic back pain and polysubstance (IVDU) abuse. Patient has been to the ED x 3 this week for intractable lower back pain, non radiating, without associated red flag symptoms (denies saddle anesthesia, incontinence, neg straight leg), and intermittent fever. Evaluation in the ED revealed hypertension, CBC is relatively benign, however, patient does have an elevated sed rate to 91. CRP also elevated 144.5 chemistry remarkable for mild hyperkalemia (5.2) ur inalysis is negative for UTI; no blood present. Toxicology positive for opiates and possible interfering substances regarding amphetamines. MRI of the thoracic and lumbar spine revealed mild degenerative disc changes but no acute findings. He was provided IV fluids, analgesics, vancomycin and Zosyn. He is referred to the hospitalist service for further evaluation and management of the above-stated complaints and findings. Past Medical History Cardiac Medical History: Reports: Hypertension Denies: Myocardial Infarction, Hyperlipidema Pulmonary Medical History: Reports: None EENT Medical History: Reports: None Neurological Medical History: Reports: None Endocrine Medical History: Reports: None Renal/ Medical History: Reports: None Malignancy Medical History: Reports: None GI Medical History: Reports: None Musculoskeltal Medical History: Reports: None Skin Medical History: Reports: None Psychiatric Medical History: Reports: Attention Deficit Hyperactivity Disorder, Bipolar Disorder, Substance Abuse, Tobacco Dependency Traumatic Medical History: Reports: None Hematology: Reports: None Infectious Medical History: Reports: Methicillin-Resistant Staph Aureus Past Surgical History Past Surgical History: Reports: Orthopedic Surgery - RUE; LLE; LUE; Social History Information Source: Patient Lives with: Spouse/Significant other Smoking Status: Current Every Day Smoker Cigarettes Packs Per Day: 0.5 Frequency of Alcohol Use: Rare Hx Recreational Drug Use: Yes Drugs: Heroin - Advance Directive Resuscitation Status: Full Code Family History Family History: Reviewed & Not Pertinent Parental Family History Reviewed: Yes Children Family History Reviewed: Yes Sibling(s) Family History Reviewed.: Yes Medication/Allergy Home Medications: No Home Medications 04/03/20 Allergies/Adverse Reactions: No Known Allergies Allergy (Verified 04/03/20 04:22) Review of Systems Constitutional: PRESENT: fever(s). ABSENT: chills, headache(s), weight gain, weight loss Eyes: ABSENT: visual disturbances Ears: ABSENT: hearing changes Cardiovascular: ABSENT: chest pain, dyspnea on exertion, edema, orthropnea, palpitations Respiratory: PRESENT: dyspnea, other - Pleurisy. ABSENT: cough, hemoptysis Gastrointestinal: ABSENT: abdominal pain, constipation, diarrhea, hematemesis, hematochezia, nausea, vomiting Genitourinary: ABSENT: dysuria, hematuria Musculoskeletal: PRESENT: back pain. ABSENT: joint swelling Integumentary: ABSENT: rash, wounds Neurological: ABSENT: abnormal gait, abnormal speech, confusion, dizziness, focal weakness, syncope Psychiatric: ABSENT: anxiety, depression, homidical ideation, suicidal ideation Endocrine: ABSENT: cold intolerance, heat intolerance, polydipsia, polyuria Hematologic/Lymphatic: ABSENT: easy bleeding, easy bruising Physical Exam Vital Signs: Temp Pulse Resp BP Pulse Ox 97.8 F 112 H 19 135/78 H 100 04/03/20 10:41 04/03/20 04:25 04/03/20 11:01 04/03/20 11:00 04/03/20 11:01 Intake & Output 04/02/20 04/03/20 04/04/20 06:59 06:59 06:59 Intake Total 1000 Balance 1000 General appearance: PRESENT: no acute distress, disheveled, well-developed, well-nourished Head exam: PRESENT: atraumatic, normocephalic Eye exam: PRESENT: conjunctiva pink, EOMI, PERRLA. ABSENT: scleral icterus Mouth exam: PRESENT: moist, tongue midline Respiratory exam: PRESENT: chest wall tenderness, symmetrical, tachypnea, unlabored. ABSENT: rales, rhonchi, wheezes Cardiovascular exam: PRESENT: RRR, +S1, +S2, systolic murmur. ABSENT: diastolic murmur, rubs Pulses: PRESENT: normal dorsalis pedis pul Vascular exam: PRESENT: pallor GI/Abdominal exam: PRESENT: normal bowel sounds, soft. ABSENT: distended, guarding, mass, organolmegaly, rebound, tenderness Rectal exam: PRESENT: deferred Extremities exam: PRESENT: full ROM, other - Patient was noted to ambulate, transition from standing to lying, and then to prop his legs up on the bed rails independently. ABSENT: calf tenderness, clubbing, pedal edema Musculoskeletal exam: PRESENT: ambulatory Neurological exam: PRESENT: alert, awake, oriented to person, oriented to place, oriented to time, oriented to situation, CN II-XII grossly intact. ABSENT: motor sensory deficit Psychiatric exam: PRESENT: agitated, anxious. ABSENT: homicidal ideation, suicidal ideation Skin exam: PRESENT: erythema - Likely abscess to left forearm; 3 cm round, raised, indurated erythematous area. Central eschar lesion. Nontender, warm. ABSENT: cyanosis, rash Results Laboratory Results: 04/03/20 05:00 04/03/20 05:00 04/03/20 04/03/20 04/03/20 05:00 05:00 05:00 WBC 9.6 RBC 4.40 Hgb 12.9 L Hct 38.1 MCV 87 MCH 29.3 MCHC 33.8 RDW 13.6 Plt Count 300 Seg Neutrophils % 81.5 H Sodium 136.0 L Potassium 5.2 H Chloride 96 L Carbon Dioxide 28 Anion Gap 12 BUN 14 Creatinine 0.58 Est GFR ( Amer) > 60 Glucose 102 Lactic Acid 1.6 Calcium 9.4 Total Bilirubin 0.5 AST 46 Alkaline Phosphatase 176 H C-Reactive Protein 144.5 H Total Protein 7.5 Albumin 4.0 Urine Color Urine Appearance Urine pH Ur Specific [place] Urine Protein Urine Glucose (UA) Urine Ketones Urine Blood Urine Nitrite Ur Leukocyte Esterase Urine WBC (Auto) 04/03/20 07:30 WBC RBC Hgb Hct MCV MCH MCHC RDW Plt Count Seg Neutrophils % Sodium Potassium Chloride Carbon Dioxide Anion Gap BUN Creatinine Est GFR ( Amer) Glucose Lactic Acid Calcium Total Bilirubin AST Alkaline Phosphatase C-Reactive Protein Total Protein Albumin Urine Color COLORLESS Urine Appearance CLEAR Urine pH 7.0 Ur Specific [place] 1.002 Urine Protein NEGATIVE Urine Glucose (UA) NEGATIVE Urine Ketones NEGATIVE Urine Blood NEGATIVE Urine Nitrite NEGATIVE Ur Leukocyte Esterase NEGATIVE Urine WBC (Auto) 0 Impressions: Lumbar Spine MRI 04/03/20 06:39 IMPRESSION: MILD DEGENERATIVE CHANGES WITH FACET ARTHROPATHY IN THE LOWER LUMBAR SPINE. NO DISC BULGE. NO STENOSIS OR IMPINGEMENT. Thoracic Spine MRI 04/03/20 06:39 IMPRESSION: MARKEDLY LIMITED STUDY. MULTILEVEL DEGENERATIVE DISC DISEASE. NO HIGH-GRADE STENOSIS. Assessment and Plan - Diagnosis (1) Bacteremia Is this a current diagnosis for this admission?: Yes Plan: High suspicion for bacteremia/endocarditis given IVDU, abscess to Left forearm. Blood cultures pending. Continue IV Vanc/Zosyn. Will obtain echo if cultures are positive. (2) Abscess of left arm Is this a current diagnosis for this admission?: Yes Plan: U/S pending. Cultures and antibiotics as above. Likely surgical consultation for I&D following U/S. NPO after midnight. (3) Suspected COVID-19 virus infection Is this a current diagnosis for this admission?: Yes Plan: Patient with elevated sed rate and CRP. Multiple ER visits recently due to back pain. Noted to have fever 100.7 during his prior ER visit this week. Reports intermittent low-grade fevers at home. Primary complaint at the time of my visit was dyspnea and pleurisy. Patient reports severe lower chest wall/epigastric pain described as muscle spasms, can get a full breath. Noted to have fast/shallow breathing pattern. Will obtain COVID testing. Will check D-dimer, ferritin, LDH. If D-dimer is elevated; will start full dose anticoagulation. Currently on Heparin DVT prophylaxis. Will start multivitamin, folic acid, zinc, Vit C, Vit D, and melatonin supplementation. Supplemental oxygen as needed. Analgesics as needed for pleurisy. (4) Fever in adult Is this a current diagnosis for this admission?: Yes Plan: Secondary to #1-2 Management as above. (5) Lower back pain Qualifiers: Chronicity: unspecified Back pain laterality: bilateral Sciatica presence: without sciatica Qualified Code(s): M54.5 - Low back pain Is this a current diagnosis for this admission?: Yes Plan: MRI show mild DDD. Analgesics as needed. Avoid bed rest; encourage mobility/ambulation. (6) Polysubstance abuse Is this a current diagnosis for this admission?: Yes Plan: Patient admits to regular IV heroin use. He states that he typically uses daily; however, last use 2 days ago. He is noted to have what appears to be an abscess to his left forearm. Monitor for withdrawal. discharge planning consulted. - Time Time Spent with patient: 35 or more minutes Medications reviewed and adjusted accordingly: Yes Anticipated Discharge Disposition: Home, Self Care Anticipated Discharge Timeframe: >72 hrs
--- NOTE | 2020-04-03 16:40 | RADIOLOGY REPORT (SQ) ---
EXAM DESCRIPTION: CTA CHEST IMAGES COMPLETED DATE/TIME: 04/03/2020 4:01 pm REASON FOR STUDY: dyspnea, suspect endocarditis; ?PE/septic emboli COMPARISON: None. TECHNIQUE: CT scan of the chest performed using helical scanning technique with dynamic intravenous contrast injection. Images reviewed with lung, soft tissue and bone windows. Reconstructed coronal and sagittal MPR images reviewed. Additional 3 dimensional post-processing performed to develop Maximal Intensity Projection images (NE P). All images stored on PACS. All CT scanners at this facility use dose modulation, iterative reconstruction, and/or weight based d osing when appropriate to reduce radiation dose to as low as reasonably achievable (ALARA). [facility]: Dose Right [facility]: CareDose [facility]: Dose Right [facility]: Teradose 4D [facility]: [employer] CONTRAST TYPE AND DOSE: contrast/concentration: Isovue 350.00 mmol/ml; Total Contrast Delivered: 70. 0 ml; Total Saline Delivered: 51.0 ml Contrast bolus optimized for the pulmonary arteries. Not diagnostic for the aorta. RENAL FUNCTION: Creatinine -0.5 a BUN=14 RADIATION DOSE: CT Rad equipment meets quality standard of care and radiation dose reduction techniq ues were employed. CTDIvol: 28.6 - 33.1 mGy. DLP: 1156 mGy-cm. . LIMITATIONS: Patient's arms produce artifact limiting detail somewhat. FINDINGS: LUNGS AND PLEURA: A 7-8.0 mm nodule in the left lower lobe, axial image 63, series 4. A few of other smaller subcentimeter pulmonary nodules. Bibasilar atelectasis. No acute pulmonary con solidation. No pneumothorax or pleural effusion. AORTA AND GREAT VESSELS: No aneurysm. Contrast bolus not optimized for the aorta. HEART: No pericardial effusion. No significant coronary artery calcifications. PULMONARY ARTERIES: Incomplete opacification of the pulmonary vasculature limits the examination. N o evidence of saddle pulmonary emboli. HILAR AND MEDIASTINAL STRUCTURES: A 1.9 cm soft tissue fibrofatty density in the anterior mediastinu m may represent residual thymic tissue. No identified masses or abnormal nodes. HARDWARE: None in the chest. UPPER ABDOMEN: No significant findings. Limited exam. THYROID AND OTHER SOFT TISSUES: No masses. No adenopathy. BONES: No acute or significant finding. 3D MIPS: Confirm above findings. OTHER: Bilateral paravertebral soft tissue mass extends from the T7 to the T11 vertebral bodies. Qu estion of some osseous destruction of bone involving the lateral aspects of the left side of the T8 a nd T9 vertebrae. There does not appear to be extension of the soft tissue mass into the spinal canal or the foramina, or involvement of the posterior elements. Considerations for these findings includ e inflammatory/infectious etiologies, neoplasm, extramedullary hematopoiesis, as well as other etiolo gies. IMPRESSION: 1. Incomplete opacification of the pulmonary vasculature limits the examination for erick luation of pulmonary emboli. No evidence of saddle pulmonary embolus. 2. Bilateral paravertebral soft tissue mass extends from the T7 to the T11 vertebrae. Question of so me osseous destruction of bone involving the lateral aspects of the T8 and T9 vertebrae on the left. There does not appear to be extension of the soft tissue mass into the spinal canal or the foramina, or involvement of the posterior elements. Considerations for these findings include inflammatory/in fectious etiologies, neoplasm, possible extramedullary hematopoiesis, as well as other etiologies. C orrelation suggested. 3. A 7-8 mm right lower lobe pulmonary nodule. There are a few other smaller subcentimeter pulmonar y nodules. Please see comments below concerning Fleischner nodules. COMMENT: FLEISCHNER CRITERIA FOR FOLLOW-UP OF PULMONARY NODULES Incidentally detected new nodules in persons 35 or older. HIGH RISK: History of smoking or other known risk factors. 6-8 mm single solid nodule: LOW RISK: CT 6-12 mo; then consider CT 18-24 mo. HIGH RISK: CT 6-12 mo; t hen CT 18-24 mo. Quality ID # [id number]: Final reports with documentation of one or more dose reduction techniques (e.g., Au tomated exposure control, adjustment of the mA and/or kV according to patient size, use of iterative reconstruction technique) TECHNICAL DOCUMENTATION: JOB ID: [id number] 2010 [employer]- All Rights Reserved Reading location - IP/workstation name: [email or web address]
--- NOTE | 2020-04-03 17:51 | ER Document Report ---
Doctor's Note Notes: 04/03/20 17:49 I was informed by nursing staff the patient wishes to sign out AGAINST MEDICAL ADVICE. I went spoke with the patient at length about this. He states that he does not want Cobey test he cannot tolerate this and does not want a be around COVID patient's on the COVID floor. He is aware that we do not have a definitive reason yet for his fevers and his back pain. He is aware that he puts himself at risk for worsening condition, disability, or worsening infection. I did offer to speak to the admitting team about patient's concerns but he still wishes to go home. Nursing will notify the admitting team and the patient's desire to sign out AGAINST MEDICAL ADVICE for further input prior to discharging patient
[2020-04-03] MEDS: DOCUSATE SODIUM 100 MG CAPSULE PO SCH (18:31)
[2020-04-03] MEDS: ASCORBIC ACID 500 MG TABLET PO SCH (18:31)
[2020-04-03] MEDS: PIPERACILLIN SODIUM/TAZOBACTAM 3.375 GM in NORMAL SALINE 100 ML IV SCH (18:36)
[2020-04-03] MEDS: HYDROMORPHONE HCL INJ/PF 2 MG/ML AMPULE IV PRN ×2 (18:55→23:29)
[2020-04-03] MEDS ORDERED: HEPARIN SOD (PORCINE) 5,000 UNIT/ML 1 ML VIAL SUBCUT SCH (22:00)
[2020-04-03] MEDS ORDERED: ENOXAPARIN SODIUM INJ 100 MG/1 ML DISP.SYRIN SUBCUT SCH (22:00)
[2020-04-03] MEDS: VANCOMYCIN HCL 1,500 MG in DEXTROSE 5%-WATER 250 ML IV SCH (23:32)
[2020-04-03] MEDS: MELATONIN 3 MG TABLET PO SCH (23:32)
[2020-04-03] MEDS: NORMAL SALINE 1000 ML 1,000 ML IV PRN (23:38)
[2020-04-04] MEDS ORDERED: PIPERACILLIN/TAZOBACTAM 3.375 GM VIAL IV ONE (01:06)
[2020-04-04] MEDS: PIPERACILLIN SODIUM/TAZOBACTAM 3.375 GM in NORMAL SALINE 100 ML IV SCH ×4 (03:16→18:26)
[2020-04-04] MEDS: HYDROMORPHONE HCL INJ/PF 2 MG/ML AMPULE IV PRN ×3 (03:29→12:43)
[2020-04-04] MEDS: PANTOPRAZOLE SODIUM 20 MG TABLET.DR PO SCH (05:55)
[2020-04-04 06:28] LABS: APPEARANCE,URINE CLEAR; BILIRUBIN,URINE NEGATIVE (NEGATIVE); COLOR,URINE YELLOW; GLUCOSE, URINE NEGATIVE (NEGATIVE); KETONES,URINE NEGATIVE (NEGATIVE); LEUKOCYTE ESTERASE,URINE NEGATIVE (NEGATIVE); NITRITE,URINE NEGATIVE (NEGATIVE); PROTEIN,URINE NEGATIVE (NEGATIVE); URINE SPECIFIC GRAVITY 1.015; UROBILINOGEN,URINE NEGATIVE mg/dL (<2.0)
[2020-04-04] MEDS: VANCOMYCIN HCL 1,500 MG in DEXTROSE 5%-WATER 250 ML IV SCH ×3 (07:53→22:23)
[2020-04-04] MEDS: NORMAL SALINE 1000 ML 1,000 ML IV PRN ×2 (07:53→16:22)
[2020-04-04 08:49] LABS: ABSOLUTE EOSINOPHILS # (AUTO) 0.1 10^3/uL (0.0-0.6); ABSOLUTE LYMPHOCYTES (AUTO) 1.2 10^3/uL (0.5-4.7); ABSOLUTE MONOCYTES (AUTO) 0.7 10^3/uL (0.1-1.4); ABSOLUTE NEUT (AUTO) 6.2 10^3/uL (1.7-8.2); BASOPHILS % (AUTO) 0.3 % (0-2); EOSINOPHILS % (AUTO) 1.4 % (0-6); HEMOGLOBIN 12.2 g/dL (13.5-17.0); LYMPHOCYTES % (AUTO) 14.6 % (13-45); MEAN CORPUSCULAR VOLUME 85 fl (80-97); MONOCYTES % (AUTO) 7.9 % (3-13); PLATELET COUNT 285 10^3/uL (150-450); RED BLOOD COUNT 4.22 10^6/uL (4.35-5.55); RED CELL DISTRIBUTION WIDTH 13.4 % (11.5-14.0); SEGMENTED NEUTROPHILS % (AUTO) 75.8 % (42-78); TOTAL CELLS COUNTED % (AUTO) 100 %; WHITE BLOOD COUNT 8.2 10^3/uL (4.0-10.5)
[2020-04-04 09:11] LABS: ANION GAP 9 (5-19); BLOOD UREA NITROGEN 12 mg/dL (7-20); CALCIUM 9.1 mg/dL (8.4-10.2); CARBON DIOXIDE 28 mmol/L (22-30); CHLORIDE 97 mmol/L (98-107); GLUCOSE 112 mg/dL (75-110); POTASSIUM 4.6 mmol/L (3.6-5.0)
[2020-04-04] MEDS ORDERED: LORAZEPAM INJ 2 MG/1 ML VIAL IV PRN (10:12)
[2020-04-04] MEDS: FOLIC ACID 1 MG TABLET PO SCH (10:51)
[2020-04-04] MEDS: DOCUSATE SODIUM 100 MG CAPSULE PO SCH ×2 (10:51→18:26)
[2020-04-04] MEDS: ASCORBIC ACID 500 MG TABLET PO SCH ×2 (10:51→18:26)
[2020-04-04] MEDS: MULTIVITAMIN TABLET PO SCH (10:51)
[2020-04-04] MEDS: CHOLECALCIFEROL (D3) 400 UNIT TABLET PO SCH (10:51)
--- NOTE | 2020-04-04 11:45 | PDOC CONSULTATION ---
Consultation Consult Date: 04/04/20 Provider Consulted: [facility] Consult reason:: Hematology/Oncology consultation was requested for patient with mass in his back suspicious for cancer. History of Present Illness Admission Date/PCP: 04/03/20 13:55 History of Present Illness: TALISHA MARTIN is a 40 year old male who states that he developed pain in his back about 2 days ago. He was working on his car, but denies a specific injury. Pain has progressed into weakness, Right side worse than the left. He also reports dyspnea and constipation. Work-up has shown a paraspinal mass eroding into spine, without evidence of cord compression. Currently, he only speaks a few words and is lying very still in bed with his eyes closed during the entire conversation. Past Medical History Cardiac Medical History: Reports: Hypertension Denies: Myocardial Infarction, Hyperlipidema Pulmonary Medical History: Reports: None EENT Medical History: Reports: None Neurological Medical History: Reports: None Endocrine Medical History: Reports: None Renal/ Medical History: Reports: None Malignancy Medical History: Reports: None GI Medical History: Reports: None Musculoskeltal Medical History: Reports: None Skin Medical History: Reports: None Psychiatric Medical History: Reports: Attention Deficit Hyperactivity Disorder, Bipolar Disorder, Depression, Substance Abuse, Tobacco Dependency Traumatic Medical History: Reports: None Hematology: Reports: None Infectious Medical History: Reports: Methicillin-Resistant Staph Aureus Past Surgical History Past Surgical History: Reports: Orthopedic Surgery - RUE; LLE; LUE; Social History Lives with: Spouse/Significant other Smoking Status: Current Every Day Smoker Cigarettes Packs Per Day: 0.5 Frequency of Alcohol Use: Rare Hx Recreational Drug Use: Yes Drugs: Heroin Past Social History Note: He is with 3 children. - Advance Directive Resuscitation Status: Full Code Family History Family History: paternal Uncle with DM Parental Family History Reviewed: Yes - Maternal GF with unknown cancer. Children Family History Reviewed: No Sibling(s) Family History Reviewed.: Yes Medication/Allergy Home Medications: No Home Medications 04/03/20 Allergies/Adverse Reactions: No Known Allergies Allergy (Verified 04/03/20 04:22) Review of Systems Constitutional: ABSENT: fever(s), headache(s) Eyes: ABSENT: visual disturbances Ears: ABSENT: hearing changes Nose, Mouth, and Throat: ABSENT: sore throat Cardiovascular: PRESENT: chest pain Respiratory: PRESENT: dyspnea Gastrointestinal: PRESENT: constipation. ABSENT: nausea Genitourinary: ABSENT: dysuria Musculoskeletal: PRESENT: back pain Integumentary: ABSENT: rash Neurological: PRESENT: weakness Hematologic/Lymphatic: ABSENT: easy bleeding Physical Exam Vital Signs: Temp Pulse Resp BP Pulse Ox 97.3 F 75 17 141/78 H 100 04/04/20 08:18 04/04/20 08:18 04/04/20 08:18 04/04/20 08:18 04/04/20 08:18 Intake & Output 04/03/20 04/04/20 04/05/20 06:59 06:59 06:59 Intake Total 3417 608 2374 Output Total 1625 Balance 1000 -975 1350 Weight 90.3 kg General appearance: PRESENT: no acute distress, well-developed, well-nourished Exam: 40 year old male. Head exam: PRESENT: normocephalic Eye exam: PRESENT: EOMI, PERRLA Mouth exam: PRESENT: tongue midline Throat exam: ABSENT: tonsillar erythema Neck exam: ABSENT: lymphadenopathy, tenderness Respiratory exam: PRESENT: clear to auscultation luisito, unlabored Cardiovascular exam: PRESENT: RRR GI/Abdominal exam: PRESENT: soft. ABSENT: tenderness Extremities exam: ABSENT: pedal edema Neurological exam: PRESENT: awake, other - Moves all 4 extremities. plantar reflex intact. Psychiatric exam: PRESENT: flat affect Focused psych exam: PRESENT: other - Very sleepy. Skin exam: PRESENT: normal color Results Laboratory Results: 04/04/20 08:15 04/04/20 08:15 04/03/20 04/04/20 04/04/20 15:37 05:47 08:15 WBC 8.2 RBC 4.22 L Hgb 12.2 L Hct 36.0 L MCV 85 MCH 29.0 MCHC 34.0 RDW 13.4 Plt Count 285 Seg Neutrophils % 75.8 Sodium Potassium Chloride Carbon Dioxide Anion Gap BUN Creatinine Est GFR ( Amer) Glucose Calcium Ferritin 179.00 Lipase 38.6 Urine Color YELLOW Urine Appearance CLEAR Urine pH 6.0 Ur Specific [place] 1.015 Urine Protein NEGATIVE Urine Glucose (UA) NEGATIVE Urine Ketones NEGATIVE Urine Blood NEGATIVE Urine Nitrite NEGATIVE Ur Leukocyte Esterase NEGATIVE Urine WBC (Auto) 0 Urine RBC (Auto) 0 04/04/20 08:15 WBC RBC Hgb Hct MCV MCH MCHC RDW Plt Count Seg Neutrophils % Sodium 133.5 L Potassium 4.6 Chloride 97 L Carbon Dioxide 28 Anion Gap 9 BUN 12 Creatinine 0.57 Est GFR ( Amer) > 60 Glucose 112 H Calcium 9.1 Ferritin Lipase Urine Color Urine Appearance Urine pH Ur Specific [place] Urine Protein Urine Glucose (UA) Urine Ketones Urine Blood Urine Nitrite Ur Leukocyte Esterase Urine WBC (Auto) Urine RBC (Auto) 04/03/20 15:37 Creatine Kinase 36 L Impressions: Chest/Abdomen CTA 04/03/20 00:00 IMPRESSION: 1. Incomplete opacification of the pulmonary vasculature limits the examination for evaluation of pulmonary emboli. No evidence of saddle pulmonary embolus. 2. Bilateral paravertebral soft tissue mass extends from the T7 to the T11 vertebrae. Question of some osseous destruction of bone involving the lateral aspects of the T8 and T9 vertebrae on the left. There does not appear to be extension of the soft tissue mass into the spinal canal or the foramina, or involvement of the posterior elements. Considerations for these findings include inflammatory/infectious etiologies, neoplasm, possible extramedullary hematopoiesis, as well as other etiologies. Correlation suggested. 3. A 7-8 mm right lower lobe pulmonary nodule. There are a few other smaller subcentimeter pulmonary nodules. Please see comments below concerning Fleischner nodules. Extremity Ultrasound 04/03/20 00:00 IMPRESSION: IRREGULAR HETEROGENOUS HYPOECHOIC AREA IN THE SOFT TISSUES. BASED ON CLINICAL HISTORY, LIKELY DUE TO INFECTION WITH DEVELOPING PHLEGMON. NO DRAINABLE FLUID. Lumbar Spine MRI 04/03/20 06:39 IMPRESSION: MILD DEGENERATIVE CHANGES WITH FACET ARTHROPATHY IN THE LOWER LUMBAR SPINE. NO DISC BULGE. NO STENOSIS OR IMPINGEMENT. Thoracic Spine MRI 04/03/20 06:39 IMPRESSION: MARKEDLY LIMITED STUDY. MULTILEVEL DEGENERATIVE DISC DISEASE. NO HIGH-GRADE STENOSIS. Status: Image reviewed by me Assessment & Plan - Diagnosis (1) Paraspinal soft tissue mass Is this a current diagnosis for this admission?: Yes Plan: This was seen on CT, but MRI is still pending. Initial MRI was incomplete. Possible diagnoses include abcess, plasmacytoma, or other malignancy. I would recommend a biopsy of the mass, if possible for cultures and pathology to determine cause. I will check a myeloma panel, but this may take a week to result. No other osseous lesions to suggest myeloma. (2) Polysubstance abuse Is this a current diagnosis for this admission?: Yes Plan: Currently appears quite comfortable. - Plan Summary Plan Summary: Patient was discussed with Ayleen Alvarado. I will continue to follow him with you.
[2020-04-04 11:55] LABS: INTERNATIONAL RATION (INR) 1.01; PROTHROMBIN TIME 13.5 SEC (11.4-15.4)
[2020-04-04] MEDS: KETOROLAC TROMETHAMINE INJ/PF 30 MG/1 ML SDV IV PRN (16:39)
[2020-04-04] MEDS ORDERED: HYDROMORPHONE HCL INJ/PF 2 MG/ML AMPULE IV PRN ×2 (17:39→17:41)
[2020-04-04] MEDS ORDERED: OXYCODONE-ACETAMINOPHEN 5-325 MG TABLET PO PRN (17:40)
--- NOTE | 2020-04-04 17:56 | PDOC PROGRESS REPORT ---
Subjective Progress Note for:: 04/04/20 Subjective:: TALISHA MARTIN is a 40 year old male with a past medical history significant for chronic back pain and polysubstance (IVDU) abuse who was admitted 04/03/2020 for intractable back pain and subsequently found to have thoracic paraspinal mass T7-T11 with osteo-degradation to T7 concerning for inflammation/infectious process versus neoplasm. Patient was seen on morning rounds. He is found resting in bed, comfortably, on room air. Patient was lying supine, bed in flat position, with both legs elevated to rest on the side rails. He was sleeping soundly and did not wake despite multiple attempts (noted to have hashbrowns on his chest and was holding a bowl of oatmeal spilling on his stomach; I did take the oatmeal from his hand without him waking up). Respirations were even and unlabored and he did not appear to be in any acute distress. When checked on this afternoon, the patient was again sleeping; woke easily but then quickly fell back to sleep. He did report continued back pain and stated that he was unable to tolerate the MRI; requests increasing medication dosing. ROS is otherwise negative. No concerns per nursing. Reason For Visit: FEVER, INTRACTABLE BACK PAIN, DYSPNEA Physical Exam Vital Signs: Temp Pulse Resp BP Pulse Ox 97.8 F 78 18 136/77 H 100 04/04/20 15:28 04/04/20 15:28 04/04/20 15:28 04/04/20 15:28 04/04/20 15:28 Intake & Output 04/03/20 04/04/20 04/05/20 06:59 06:59 06:59 Intake Total 2295 979 2832 Output Total 1625 1000 Balance 1000 -975 2070 Weight 90.3 kg General appearance: PRESENT: no acute distress, disheveled, well-developed, well-nourished Head exam: PRESENT: atraumatic, normocephalic Eye exam: PRESENT: conjunctiva pink, EOMI, PERRLA. ABSENT: scleral icterus Mouth exam: PRESENT: moist, tongue midline Teeth exam: PRESENT: poor dentation Respiratory exam: PRESENT: clear to auscultation luisito, symmetrical, unlabored. ABSENT: rales, rhonchi, wheezes Cardiovascular exam: PRESENT: RRR, +S1, +S2. ABSENT: diastolic murmur, rubs, systolic murmur Pulses: PRESENT: normal dorsalis pedis pul Vascular exam: PRESENT: normal capillary refill GI/Abdominal exam: PRESENT: normal bowel sounds, soft. ABSENT: distended, guarding, mass, organolmegaly, rebound, tenderness Rectal exam: PRESENT: deferred Extremities exam: PRESENT: full ROM - Moves all extremities spontaneously. ABSENT: calf tenderness, clubbing, pedal edema Musculoskeletal exam: PRESENT: tenderness - Back pain Neurological exam: PRESENT: CN II-XII grossly intact, other - Arousable; oriented x4; quickly falls to sleep. ABSENT: motor sensory deficit Psychiatric exam: PRESENT: flat affect, normal mood. ABSENT: homicidal ideation, suicidal ideation Skin exam: PRESENT: dry, warm, other - Scattered abrasions, skin tears, and ecchymosis; 3 cm round, raised, erythematous indurated lesion to right anterior forearm. ABSENT: cyanosis, rash Results Laboratory Results: 04/04/20 08:15 04/04/20 08:15 04/04/20 04/04/20 04/04/20 05:47 08:15 08:15 WBC 8.2 RBC 4.22 L Hgb 12.2 L Hct 36.0 L MCV 85 MCH 29.0 MCHC 34.0 RDW 13.4 Plt Count 285 Seg Neutrophils % 75.8 Sodium 133.5 L Potassium 4.6 Chloride 97 L Carbon Dioxide 28 Anion Gap 9 BUN 12 Creatinine 0.57 Est GFR ( Amer) > 60 Glucose 112 H Calcium 9.1 Urine Color YELLOW Urine Appearance CLEAR Urine pH 6.0 Ur Specific Harvey 1.015 Urine Protein NEGATIVE Urine Glucose (UA) NEGATIVE Urine Ketones NEGATIVE Urine Blood NEGATIVE Urine Nitrite NEGATIVE Ur Leukocyte Esterase NEGATIVE Urine WBC (Auto) 0 Urine RBC (Auto) 0 04/03/20 15:37 Creatine Kinase 36 L Impressions: Chest/Abdomen CTA 04/03/20 00:00 IMPRESSION: 1. Incomplete opacification of the pulmonary vasculature limits the examination for evaluation of pulmonary emboli. No evidence of saddle pulmonary embolus. 2. Bilateral paravertebral soft tissue mass extends from the T7 to the T11 vertebrae. Question of some osseous destruction of bone involving the lateral aspects of the T8 and T9 vertebrae on the left. There does not appear to be extension of the soft tissue mass into the spinal canal or the foramina, or involvement of the posterior elements. Considerations for these findings include inflammatory/infectious etiologies, neoplasm, possible extramedullary hematopoiesis, as well as other etiologies. Correlation suggested. 3. A 7-8 mm right lower lobe pulmonary nodule. There are a few other smaller subcentimeter pulmonary nodules. Please see comments below concerning Fleischner nodules. Extremity Ultrasound 04/03/20 00:00 IMPRESSION: IRREGULAR HETEROGENOUS HYPOECHOIC AREA IN THE SOFT TISSUES. BASED ON CLINICAL HISTORY, LIKELY DUE TO INFECTION WITH DEVELOPING PHLEGMON. NO DRAINABLE FLUID. Lumbar Spine MRI 04/03/20 06:39 IMPRESSION: MILD DEGENERATIVE CHANGES WITH FACET ARTHROPATHY IN THE LOWER LUMBAR SPINE. NO DISC BULGE. NO STENOSIS OR IMPINGEMENT. Assessment and Plan - Diagnosis (1) Paravertebral mass Is this a current diagnosis for this admission?: Yes Plan: MRI lumbar spine show mild DDD. MRI thoracic spine incomplete x2 CTA chest incidentally found bilateral paravertebral soft tissue mass extending from T7-T11 with some questionable osseous destruction to the bone involving the lateral aspects of T8 and T9 on the left CT-guided biopsy pending. We will attempt thoracic MRI again (third attempt) tomorrow after discussing importance with patient. Discussed with [facility] neurosurgery, Dr. St. Imaging was reviewed by Dr. St. Recommends follow-up MRI imaging as the initial attempt was incomplete. On his review of images, there did not appear to be cord compression or cord invasion of the mass. Should MRI revealed otherwise, please reconsult neurosurgery; no surgical interventions recommended at this time. Continue Zosyn/vancomycin as the patient is an IV drug user and there remains a concern for abscess or osteomyelitis. Oncology is consulted; appreciate Dr. Loredo's assistance. (2) Bacteremia Is this a current diagnosis for this admission?: Yes Plan: Decreased suspicion for bacteremia/endocarditis given IVDU Blood cultures negative at 24 hours Will obtain echo if cultures are positive. Continue IV Vanc/Zosyn. MRI thoracic spine pending; failed attempt today due to patient inability to tolerate. Low threshold for infectious disease consultation (3) Abscess of left arm Is this a current diagnosis for this admission?: Yes Plan: U/S demonstrated infection with developing phlegmon; no drainable fluid Cultures and antibiotics as above. (4) Fever in adult Is this a current diagnosis for this admission?: Yes Plan: Afebrile x24 hours Secondary to #1-2 Management as above. (5) Lower back pain Qualifiers: Chronicity: unspecified Back pain laterality: bilateral Sciatica presence: without sciatica Qualified Code(s): M54.5 - Low back pain Is this a current diagnosis for this admission?: Yes Plan: MRI lumbar spine show mild DDD. MRI thoracic spine incomplete x2 CTA chest incidentally found bilateral paravertebral soft tissue mass extending from T7-T11 with some questionable osseous destruction to the bone involving the lateral aspects of T8 and T9 on the left Analgesics as needed. Avoid bed rest; encourage mobility/ambulation. (6) Polysubstance abuse Is this a current diagnosis for this admission?: Yes Plan: Patient admits to regular IV heroin use. He states that he typically uses daily; however, last use 2 days ago. Monitor for withdrawal. discharge planning consulted. (7) Suspected COVID-19 virus infection Is this a current diagnosis for this admission?: No Plan: No longer suspecting COVID-19 Patient initially refused screening test. I did discuss with him and his significant other the importance of testing should he require surgical interv ention. - Time Time Spent with patient: 35 or more minutes Medications reviewed and adjusted accordingly: Yes Anticipated Discharge Disposition: Not determined Anticipated Discharge Timeframe: Not determined
[2020-04-04] MEDS: OXYCODONE-ACETAMINOPHEN 5-325 MG TABLET PO PRN (18:36)
[2020-04-04] MEDS ORDERED: DOPAMINE HCL 800 MG/D5W 250 ML IV PRN (20:18)
[2020-04-04] MEDS ORDERED: NORMAL SALINE 1000 ML 1,000 ML IV ONE (21:00)
[2020-04-04] MEDS: MELATONIN 3 MG TABLET PO SCH (22:25)
[2020-04-04] MEDS: HEPARIN SOD (PORCINE) 5,000 UNIT/ML 1 ML VIAL SUBCUT SCH (22:30)
[2020-04-05] MEDS: PIPERACILLIN SODIUM/TAZOBACTAM 3.375 GM in NORMAL SALINE 100 ML IV SCH ×5 (01:00→23:06)
[2020-04-05] MEDS: KETOROLAC TROMETHAMINE INJ/PF 30 MG/1 ML SDV IV PRN ×3 (01:22→17:48)
[2020-04-05] MEDS: OXYCODONE-ACETAMINOPHEN 5-325 MG TABLET PO PRN ×4 (01:22→23:04)
[2020-04-05] MEDS: NORMAL SALINE 1000 ML 1,000 ML IV PRN (05:27)
[2020-04-05] MEDS: PANTOPRAZOLE SODIUM 20 MG TABLET.DR PO SCH (05:30)
[2020-04-05] MEDS: HEPARIN SOD (PORCINE) 5,000 UNIT/ML 1 ML VIAL SUBCUT SCH ×3 (05:30→22:43)
[2020-04-05 06:41] LABS: HEMATOCRIT 37.1 % (37.9-51.0); HEMOGLOBIN 12.5 g/dL (13.5-17.0); MEAN CORPUSCULAR HEMOGLOBIN 29.1 pg (27.0-33.4); MEAN CORPUSCULAR HGB CONC 33.8 g/dL (32.0-36.0); MEAN CORPUSCULAR VOLUME 86 fl (80-97); PLATELET COUNT 289 10^3/uL (150-450); RED CELL DISTRIBUTION WIDTH 13.3 % (11.5-14.0); WHITE BLOOD COUNT 6.6 10^3/uL (4.0-10.5)
[2020-04-05] MEDS: VANCOMYCIN HCL 1,500 MG in DEXTROSE 5%-WATER 250 ML IV SCH (06:41)
[2020-04-05 07:04] LABS: ANION GAP 9 (5-19); BLOOD UREA NITROGEN 16 mg/dL (7-20); CALCIUM 8.8 mg/dL (8.4-10.2); CARBON DIOXIDE 27 mmol/L (22-30); CHLORIDE 104 mmol/L (98-107); GLUCOSE 107 mg/dL (75-110); POTASSIUM 4.7 mmol/L (3.6-5.0)
[2020-04-05] MEDS: MULTIVITAMIN TABLET PO SCH (09:54)
[2020-04-05] MEDS: DOCUSATE SODIUM 100 MG CAPSULE PO SCH ×2 (09:54→17:20)
[2020-04-05] MEDS: ASCORBIC ACID 500 MG TABLET PO SCH ×2 (09:54→17:20)
[2020-04-05] MEDS: CHOLECALCIFEROL (D3) 400 UNIT TABLET PO SCH (09:54)
[2020-04-05] MEDS: FOLIC ACID 1 MG TABLET PO SCH (09:54)
[2020-04-05] MEDS ORDERED: ONDANSETRON HCL INJ/PF 4 MG/2 ML SDV IV PRN (11:30)
[2020-04-05] MEDS ORDERED: HYDROMORPHONE HCL INJ/PF 2 MG/ML AMPULE IV PRN (11:42)
[2020-04-05] MEDS: VANCOMYCIN HCL 1,250 MG in DEXTROSE 5%-WATER 250 ML IV SCH ×3 (12:44→23:06)
--- NOTE | 2020-04-05 15:22 | RADIOLOGY REPORT (SQ) ---
EXAM DESCRIPTION: MRI THORACIC SPINE COMBO IMAGES COMPLETED DATE/TIME: 04/05/2020 2:56 pm REASON FOR STUDY: thoracic paraspinal mass COMPARISON: 04/03/2020. TECHNIQUE: Sagittal and Axial imaging includes T1, T2, STIR and gradient echo sequences. T1 post ga dolinium sequences. CONTRAST TYPE AND DOSE: 20 mL Prohance. RENAL FUNCTION: Not indicated. ACR Type II contrast agent associated with few, if any, unconfounded cases of NSF LIMITATIONS: Motion artifact. FINDINGS: Multilevel spondylosis with chronic endplate changes at multiple levels and relative spari ng of the inferior thoracic spine. At T7-8, there is enhancement of the posterior longitudinal ligam ent and anterior dura but no evidence of abscess. High T2 signal in the disc. No abnormal enhanceme nt in the cord. IMPRESSION: NORMAL MRI THORACIC SPINE. COMMENT: Inflammatory changes at T7-8 likely due to discitis. Cord contact without cord compression . No evidence of abscess. TECHNICAL DOCUMENTATION: JOB ID: [id number] [employer]- All Rights Reserved Reading location - IP/workstation name: [email or web address]
--- NOTE | 2020-04-05 19:14 | PDOC PROGRESS REPORT ---
Subjective Progress Note for:: 04/05/20 Subjective:: TALISHA MARTIN is a 40 year old male with a past medical history significant for chronic back pain and polysubstance (IVDU) abuse who was admitted 04/03/2020 for intractable back pain and subsequently found to have thoracic paraspinal mass T7-T11 with osteo-degradation to T7 concerning for inflammation/infectious process versus neoplasm. Patient was seen on morning rounds. He is found resting in bed, comfortably, on room air. Patient was lying right lateral. Appeared to be comfortable; though reports that his pain is unchanged. Discussed importance of MRI and biopsy; patient is agreeable. He does request increased dilaudid dose so that he can tolerate lying supine for MRI. He denies fever, chills, chest pain, palpitations, dyspnea, orthopnea, abdominal pain, nausea vomiting diarrhea. He further denies, foot drop, saddle anesthesia, urinary or stool incontinence. He has no other questions or concerns No concerns per nursing. Reason For Visit: FEVER, INTRACTABLE BACK PAIN, DYSPNEA Physical Exam Vital Signs: Temp Pulse Resp BP Pulse Ox 97.7 F 93 16 114/85 100 04/05/20 10:58 04/05/20 14:00 04/05/20 10:58 04/05/20 10:58 04/05/20 10:58 Intake & Output 04/04/20 04/05/20 04/06/20 06:59 06:59 06:59 Intake Total 650 6860 1420 Output Total 1625 3025 Balance -975 3835 1420 Weight 90.3 kg 90.2 kg General appearance: PRESENT: no acute distress, disheveled, well-developed, well-nourished Head exam: PRESENT: atraumatic, normocephalic Eye exam: PRESENT: conjunctiva pink, EOMI, PERRLA. ABSENT: scleral icterus Mouth exam: PRESENT: moist, tongue midline Teeth exam: PRESENT: poor dentation Respiratory exam: PRESENT: clear to auscultation luisito, symmetrical, unlabored. ABSENT: rales, rhonchi, wheezes Cardiovascular exam: PRESENT: RRR, +S1, +S2. ABSENT: diastolic murmur, rubs, systolic murmur Pulses: PRESENT: normal dorsalis pedis pul Vascular exam: PRESENT: normal capillary refill GI/Abdominal exam: PRESENT: normal bowel sounds, soft. ABSENT: distended, guarding, mass, organolmegaly, rebound, tenderness Rectal exam: PRESENT: deferred Extremities exam: PRESENT: full ROM - Will fill extremity spontaneously. ABSENT: calf tenderness, clubbing, pedal edema Musculoskeletal exam: PRESENT: tenderness - Midthoracic back pain Neurological exam: PRESENT: alert, awake, oriented to person, oriented to place, oriented to time, oriented to situation, CN II-XII grossly intact. ABSENT: motor sensory deficit Psychiatric exam: PRESENT: flat affect, normal mood. ABSENT: homicidal ideation, suicidal ideation Skin exam: PRESENT: dry, warm, other - Scattered abrasions, skin tears, and ecchymosis; 3 cm round, raised, erythematous indurated lesion to right anterior forearm. ABSENT: cyanosis, rash Results Laboratory Results: 04/05/20 06:25 04/05/20 06:25 04/05/20 04/05/20 06:25 06:25 WBC 6.6 RBC 4.30 L Hgb 12.5 L Hct 37.1 L MCV 86 MCH 29.1 MCHC 33.8 RDW 13.3 Plt Count 289 Sodium 139.5 Potassium 4.7 Chloride 104 Carbon Dioxide 27 Anion Gap 9 BUN 16 Creatinine 0.73 Est GFR ( Amer) > 60 Glucose 107 Calcium 8.8 04/03/20 15:37 Creatine Kinase 36 L Impressions: Chest/Abdomen CTA 04/03/20 00:00 IMPRESSION: 1. Incomplete opacification of the pulmonary vasculature limits the examination for evaluation of pulmonary emboli. No evidence of saddle pulmonary embolus. 2. Bilateral paravertebral soft tissue mass extends from the T7 to the T11 vertebrae. Question of some osseous destruction of bone involving the lateral aspects of the T8 and T9 vertebrae on the left. There does not appear to be extension of the soft tissue mass into the spinal canal or the foramina, or involvement of the posterior elements. Considerations for these findings include inflammatory/infectious etiologies, neoplasm, possible extramedullary hematopoiesis, as well as other etiologies. Correlation suggested. 3. A 7-8 mm right lower lobe pulmonary nodule. There are a few other smaller subcentimeter pulmonary nodules. Please see comments below concerning Fleischner nodules. Extremity Ultrasound 04/03/20 00:00 IMPRESSION: IRREGULAR HETEROGENOUS HYPOECHOIC AREA IN THE SOFT TISSUES. BASED ON CLINICAL HISTORY, LIKELY DUE TO INFECTION WITH DEVELOPING PHLEGMON. NO DRAINABLE FLUID. Lumbar Spine MRI 04/03/20 06:39 IMPRESSION: MILD DEGENERATIVE CHANGES WITH FACET ARTHROPATHY IN THE LOWER LUMBAR SPINE. NO DISC BULGE. NO STENOSIS OR IMPINGEMENT. Thoracic Spine MRI 04/05/20 00:00 IMPRESSION: NORMAL MRI THORACIC SPINE. Assessment and Plan - Diagnosis (1) Paravertebral mass Is this a current diagnosis for this admission?: Yes Plan: MRI lumbar spine show mild DDD. MRI thoracic spine incomplete x2 CTA chest incidentally found bilateral paravertebral soft tissue mass extending from T7-T11 with some questionable osseous destruction to the bone involving the lateral aspects of T8 and T9 on the left CT-guided biopsy pending. Will discuss with RA tomorrow. MRI today with successful; revealed discitis At T7/8 with cord contact without compression. No evidence of abscesses. Discussed with [facility] neurosurgery, Dr. St. Imaging was reviewed by Dr. St. Recommends follow-up MRI imaging as the initial attempt was incomplete. On his review of images, there did not appear to be cord compression or cord invasion of the mass. Should MRI revealed otherwise, please reconsult neurosurgery; no surgical interventions recommended at this time. Continue Zosyn/vancomycin as the patient is an IV drug user and there remains a concern for abscess or discitis/osteomyelitis. We will consult infectious disease given lack of blood culture results. Oncology is consulted; appreciate Dr. Loredo's assistance. (2) Bacteremia Is this a current diagnosis for this admission?: Yes Plan: Blood cultures negative at 48 hours Will obtain echo if cultures are positive. MRI concerning for discitis. Continue IV Vanc/Zosyn. We will consult infectious disease. (3) Abscess of left arm Is this a current diagnosis for this admission?: Yes Plan: U/S demonstrated infection with developing phlegmon; no drainable fluid Cultures and antibiotics as above. (4) Fever in adult Is this a current diagnosis for this admission?: Yes Plan: Afebrile [id number] Secondary to #1-2 Management as above. (5) Lower back pain Qualifiers: Chronicity: unspecified Back pain laterality: bilateral Sciatica presence: without sciatica Qualified Code(s): M54.5 - Low back pain Is this a current diagnosis for this admission?: Yes Plan: MRI lumbar spine show mild DDD. MRI thoracic spine incomplete x2 CTA chest incidentally found bilateral paravertebral soft tissue mass extending from T7-T11 with some questionable osseous destruction to the bone involving the lateral aspects of T8 and T9 on the left Analgesics as needed. Avoid bed rest; encourage mobility/ambulation. (6) Polysubstance abuse Is this a current diagnosis for this admission?: Yes Plan: Patient admits to regular IV heroin use. He states that he typically uses daily; however, last use 2 days ago. Monitor for withdrawal. discharge planning consulted. (7) Suspected COVID-19 virus infection Is this a current diagnosis for this admission?: No Plan: No longer suspecting COVID-19 Patient initially refused screening test. I did discuss with him and his significant other the importance of testing should he require surgical intervention. - Time Time Spent with patient: 35 or more minutes Medications reviewed and adjusted accordingly: Yes Anticipated Discharge Disposition: Home, Self Care Anticipated Discharge Timeframe: > 72 hrs
[2020-04-05] MEDS: MELATONIN 3 MG TABLET PO SCH (23:00)
[2020-04-06] MEDS: OXYCODONE-ACETAMINOPHEN 5-325 MG TABLET PO PRN ×2 (04:20→08:30)
[2020-04-06] MEDS: KETOROLAC TROMETHAMINE INJ/PF 30 MG/1 ML SDV IV PRN ×3 (04:21→23:38)
[2020-04-06] MEDS: HEPARIN SOD (PORCINE) 5,000 UNIT/ML 1 ML VIAL SUBCUT SCH ×3 (05:22→21:58)
[2020-04-06] MEDS: NORMAL SALINE 1000 ML 1,000 ML IV PRN ×2 (05:52→23:48)
[2020-04-06] MEDS: PIPERACILLIN SODIUM/TAZOBACTAM 3.375 GM in NORMAL SALINE 100 ML IV SCH ×2 (05:53→11:41)
[2020-04-06] MEDS: PANTOPRAZOLE SODIUM 20 MG TABLET.DR PO SCH (06:07)
[2020-04-06 06:24] LABS: VANCOMYCIN,TROUGH 17.1 ug/mL (5.0-20.0)
[2020-04-06] MEDS: VANCOMYCIN HCL 1,250 MG in DEXTROSE 5%-WATER 250 ML IV SCH ×2 (06:55→11:42)
--- NOTE | 2020-04-06 08:47 | PDOC PROGRESS REPORT ---
Subjective Progress Note for:: 04/06/20 Subjective:: Patient asking to go home, but still complaining of back pain. Reason For Visit: FEVER, INTRACTABLE BACK PAIN, DYSPNEA Physical Exam Vital Signs: Temp Pulse Resp BP Pulse Ox 97.4 F 62 20 112/53 L 100 04/06/20 08:23 04/06/20 07:00 04/06/20 00:49 04/06/20 00:49 04/06/20 00:49 Intake & Output 04/05/20 04/06/20 04/07/20 06:59 06:59 06:59 Intake Total 6860 3320 Output Total 3025 600 Balance 3835 2720 Weight 90.2 kg 92.6 kg General appearance: PRESENT: no acute distress Head exam: PRESENT: normocephalic Eye exam: PRESENT: EOMI Respiratory exam: PRESENT: unlabored Neurological exam: PRESENT: alert, awake Psychiatric exam: PRESENT: appropriate affect Skin exam: PRESENT: normal color Results Laboratory Results: 04/05/20 06:25 04/06/20 05:48 04/06/20 05:48 Creatinine 0.63 Est GFR ( Amer) > 60 04/03/20 15:37 Creatine Kinase 36 L Impressions: Chest/Abdomen CTA 04/03/20 00:00 IMPRESSION: 1. Incomplete opacification of the pulmonary vasculature limits the examination for evaluation of pulmonary emboli. No evidence of saddle pulmonary embolus. 2. Bilateral paravertebral soft tissue mass extends from the T7 to the T11 vertebrae. Question of some osseous destruction of bone involving the lateral aspects of the T8 and T9 vertebrae on the left. There does not appear to be extension of the soft tissue mass into the spinal canal or the foramina, or involvement of the posterior elements. Considerations for these findings include inflammatory/infectious etiologies, neoplasm, possible extramedullary hematopoiesis, as well as other etiologies. Correlation suggested. 3. A 7-8 mm right lower lobe pulmonary nodule. There are a few other smaller subcentimeter pulmonary nodules. Please see comments below concerning Fleischner nodules. Extremity Ultrasound 04/03/20 00:00 IMPRESSION: IRREGULAR HETEROGENOUS HYPOECHOIC AREA IN THE SOFT TISSUES. BASED ON CLINICAL HISTORY, LIKELY DUE TO INFECTION WITH DEVELOPING PHLEGMON. NO DRAINABLE FLUID. Lumbar Spine MRI 04/03/20 06:39 IMPRESSION: MILD DEGENERATIVE CHANGES WITH FACET ARTHROPATHY IN THE LOWER LUM BAR SPINE. NO DISC BULGE. NO STENOSIS OR IMPINGEMENT. Thoracic Spine MRI 04/05/20 00:00 IMPRESSION: NORMAL MRI THORACIC SPINE. Assessment & Plan - Diagnosis (1) Paraspinal soft tissue mass Is this a current diagnosis for this admission?: Yes Plan: MRI scan shows only discitis. No evidence of mass. Not sure if there is anything to biopsy at this point. I have explained to the patient that I don't know what has caused the inflammation, but most likely in this case would still be an infectious process. Await myeloma labs, but I can follow-up as outpatient for this. No evidence of lytic lesions on the MRI scan. (2) Polysubstance abuse Is this a current diagnosis for this admission?: Yes - Time Time Spent with patient: Less than 15 minutes - Plan Summary Plan Summary: I will sign off. Please call again if needed.
[2020-04-06] MEDS: ASCORBIC ACID 500 MG TABLET PO SCH ×2 (09:34→17:34)
[2020-04-06] MEDS: FOLIC ACID 1 MG TABLET PO SCH (09:34)
[2020-04-06] MEDS: MULTIVITAMIN TABLET PO SCH (09:34)
[2020-04-06] MEDS: CHOLECALCIFEROL (D3) 400 UNIT TABLET PO SCH (09:35)
[2020-04-06] MEDS: DOCUSATE SODIUM 100 MG CAPSULE PO SCH ×2 (09:37→17:35)
[2020-04-06] MEDS ORDERED: PREDNISONE 20 MG TABLET PO ONE (10:30)
[2020-04-06] MEDS: BUPRENORPHINE HCL 2 MG SUBLINGUAL TABLET SL SCH (11:41)
--- NOTE | 2020-04-06 14:27 | PDOC PROGRESS REPORT ---
Subjective Progress Note for:: 04/06/20 Subjective:: TALISHA MARTIN is a 40 year old male with a past medical history significant for chronic back pain and polysubstance (IVDU) abuse who was admitted 04/03/2020 for intractable back pain and subsequently found to have thoracic paraspinal mass T7-T11 with osteo-degradation to T7 concerning for inflammation/infectious process versus neoplasm. Patient was seen on morning rounds. He is found resting in bed, comfortably, on room air. Patient was lying left lateral. He was sleeping but woke easily when I said his name. He reports continued back pain. Discussed his pain management options; patient agreeable to transition to Subutex. He states that he has previously been part of a Subutex/methadone clinic. Thinks that his prior dosing was around 8 mg daily Subutex. We discussed that if we start on Subutex, he will not have PRN medications available but nursing can call on an as-needed basis if he continues to have pain. He denies fever, chills, chest pain, palpitations, dyspnea, orthopnea, abdominal pain, nausea vomiting diarrhea. He further denies, foot drop, saddle anesthesia, urinary or stool incontinence. He has no other questions or concerns No concerns per nursing. Reason For Visit: FEVER, INTRACTABLE BACK PAIN, DYSPNEA Physical Exam Vital Signs: Temp Pulse Resp BP Pulse Ox 97.9 F 63 16 129/67 H 100 04/06/20 11:46 04/06/20 11:46 04/06/20 11:46 04/06/20 11:46 04/06/20 11:46 Intake & Output 04/05/20 04/06/20 04/07/20 06:59 06:59 06:59 Intake Total 6860 3320 350 Output Total 3025 600 Balance 3835 2720 350 Weight 90.2 kg 92.6 kg General appearance: PRESENT: no acute distress, disheveled, well-developed, well-nourished Head exam: PRESENT: atraumatic, normocephalic Eye exam: PRESENT: conjunctiva pink, EOMI, PERRLA. ABSENT: scleral icterus Mouth exam: PRESENT: moist, tongue midline Teeth exam: PRESENT: poor dentation Respiratory exam: PRESENT: clear to auscultation luisito, symmetrical, unlabored. ABSENT: rales, rhonchi, wheezes Cardiovascular exam: PRESENT: RRR, +S1, +S2. ABSENT: diastolic murmur, rubs, systolic murmur Pulses: PRESENT: normal dorsalis pedis pul Vascular exam: PRESENT: normal capillary refill Extremities exam: PRESENT: full ROM. ABSENT: calf tenderness, clubbing, pedal edema Musculoskeletal exam: PRESENT: ambulatory, tenderness - Mid back pain Neurological exam: PRESENT: alert, awake, oriented to person, oriented to place, oriented to time, oriented to situation, CN II-XII grossly intact. ABSENT: motor sensory deficit Psychiatric exam: PRESENT: flat affect, normal mood. ABSENT: homicidal ideation, suicidal ideation Skin exam: PRESENT: dry, warm, other - Scattered abrasions, skin tears, and ecchymosis; 3 cm round, raised, erythematous indurated lesion to right anterior forearm. ABSENT: cyanosis, rash Results Laboratory Results: 04/05/20 06:25 04/06/20 05:48 04/06/20 05:48 Creatinine 0.63 Est GFR ( Amer) > 60 04/03/20 15:37 Creatine Kinase 36 L Impressions: Chest/Abdomen CTA 04/03/20 00:00 IMPRESSION: 1. Incomplete opacification of the pulmonary vasculature limits the examination for evaluation of pulmonary emboli. No evidence of saddle pulmonary embolus. 2. Bilateral paravertebral soft tissue mass extends from the T7 to the T11 vertebrae. Question of some osseous destruction of bone involving the lateral aspects of the T8 and T9 vertebrae on the left. There does not appear to be extension of the soft tissue mass into the spinal canal or the foramina, or involvement of the posterior elements. Considerations for these findings include inflammatory/infectious etiologies, neoplasm, possible extramedullary hematopoiesis, as well as other etiologies. Correlation suggested. 3. A 7-8 mm right lower lobe pulmonary nodule. There are a few other smaller subcentimeter pulmonary nodules. Please see comments below concerning Fleischner nodules. Extremity Ultrasound 04/03/20 00:00 IMPRESSION: IRREGULAR HETEROGENOUS HYPOECHOIC AREA IN THE SOFT TISSUES. BASED ON CLINICAL HISTORY, LIKELY DUE TO INFECTION WITH DEVELOPING PHLEGMON. NO DRAI NABLE FLUID. Lumbar Spine MRI 04/03/20 06:39 IMPRESSION: MILD DEGENERATIVE CHANGES WITH FACET ARTHROPATHY IN THE LOWER LUMBAR SPINE. NO DISC BULGE. NO STENOSIS OR IMPINGEMENT. Thoracic Spine MRI 04/05/20 00:00 IMPRESSION: NORMAL MRI THORACIC SPINE. Assessment and Plan - Diagnosis (1) Discitis Qualifiers: Spinal region: thoracic Qualified Code(s): M46.44 - Discitis, unspecified, thoracic region Is this a current diagnosis for this admission?: Yes Plan: MRI lumbar spine show mild DDD. MRI thoracic spine incomplete x2 CTA chest incidentally found bilateral paravertebral soft tissue mass extending from T7-T11 with some questionable osseous destruction to the bone involving the lateral aspects of T8 and T9 on the left CT-guided biopsy pending. Will discuss with RA tomorrow. MRI today with successful; revealed discitis at T7/8 with cord contact without compression. No evidence of abscesses. Discussed with [facility] neurosurgery, Dr. St. Imaging was reviewed by Dr. St. Recommends follow-up MRI imaging as the initial attempt Oncology is consulted; appreciate Dr. Loredo's assistance. Myeloma panel pending. She is signed off for now as he most likely has an infectious source. Factious diseases consulted. Spoke with Dr. Fontaine by phone today. She recommends holding Vanco Zosyn x72 hours and then completing a CT-guided needle biopsy of the patient's T7/8 disc, T7 bone, and paraspinal mass as noted on CT imaging with bacterial, fungal, and AFB cultures. Also recommends TB Gold interferon, HIV, hepatitis panel, and echocardiogram. (2) Paravertebral mass Is this a current diagnosis for this admission?: Yes Plan: As above. (3) Bacteremia Is this a current diagnosis for this admission?: No Plan: Blood cultures negative at 72 hours Will obtain echo if cultures are positive. MRI concerning for discitis. Plan as above. (4) Abscess of left arm Is this a current diagnosis for this admission?: Yes Plan: U/S demonstrated infection with developing phlegmon; no drainable fluid Cultures and antibiotics as above. (5) Fever in adult Is this a current diagnosis for this admission?: Yes Plan: Afebrile [id number] Secondary to #1-2 Management as above. (6) Lower back pain Qualifiers: Chronicity: unspecified Back pain laterality: bilateral Sciatica presence: without sciatica Qualified Code(s): M54.5 - Low back pain Is this a current diagnosis for this admission?: Yes Plan: MRI lumbar spine show mild DDD. MRI thoracic spine incomplete x2 CTA chest incidentally found bilateral paravertebral soft tissue mass extending from T7-T11 with some questionable osseous destruction to the bone involving the lateral aspects of T8 and T9 on the left Daily Subutex 2 mg SL. Avoid bed rest; encourage mobility/ambulation. (7) Polysubstance abuse Is this a current diagnosis for this admission?: Yes Plan: Patient admits to regular IV heroin use. He states that he typically uses daily; however, last use 2 days ago. Monitor for withdrawal. discharge planning consulted. (8) Suspected COVID-19 virus infection Is this a current diagnosis for this admission?: No Plan: No longer suspecting COVID-19 Patient initially refused screening test. I did discuss with him and his significant other the importance of testing should he require surgical intervention. - Time Time Spent with patient: 35 or more minutes Medications reviewed and adjusted accordingly: Yes Anticipated Discharge Disposition: Home, Self Care Anticipated Discharge Timeframe: >72 hrs
[2020-04-06 15:37] LABS: A/G RATIO. 0.9 (0.7-1.7); ALBUMIN 3 2.9 g/dL (2.9-4.4); ALPHA-1-GLOBULIN 0.4 g/dL (0.0-0.4); FREE KAPPA LIGHT CHAINS 46.3 mg/L (3.3-19.4); FREE LAMBDA LIGHT CHAINS 39.8 mg/L (5.7-26.3); GAMMA GLOBULINS 1.4 g/dL (0.4-1.8); IMMUNOGLOBULIN A 289 mg/dL (90-386); IMMUNOGLOBULIN G 1513 mg/dL (603-1613); IMMUNOGLOBULIN M 207 mg/dL (20-172); MONOCLONAL-SPIKE Not Observed g/dL (Not Observ); PROTEIN TOTAL SERUM 6.5 g/dL (6.0-8.5)
[2020-04-06 15:57] LABS: KAPPA LAMBDA RATIO 1.16 (0.26-1.65)
--- NOTE | 2020-04-06 19:09 | Progress Note ---
Provider Note Provider Note: [facility] Telephone advice Consultation Chart reviewed. Patient is a 40-year-old man with history of IV drug use, daily heroin injections, who presented to the ED due to worsening back pain. He had thoracic and lumbar pain for 3 days prior to admission. He did not have fever, chills, sweats or any other complaints. He was found with left forearm phlegmon, A CT scan of the chest showed subcentimeter pulmonary nodules, there was a 1.9 cm soft tissue deffect in the anterior mediastinum. There was also a suspicion for paravertebral soft tissue mass extending fro T7-T11 noted on CT scan, together with suspected discitis/VOM T7-T8. An MRI of the thoracic spine did not identify these changes only T8-T9 changes. He was evaluated by oncology to work up for possible malignancy. He has been on vancomycin and zosyn while blood cultures are in process. These remian negative in 72 hr. ID consulted for recommendations. Allergies: No Known Allergies Allergy (Verified 04/03/20 04:22) Medications: No Home Medications 04/03/20 Vital Signs: Temp Pulse Resp BP Pulse Ox 98.0 F 81 16 129/73 H 98 04/06/20 15:16 04/06/20 15:16 04/06/20 15:16 04/06/20 15:16 04/06/20 15:16 Intake & Output 04/05/20 04/06/20 04/07/20 06:59 06:59 06:59 Intake Total 6860 3320 1440 Output Total 3025 600 600 Balance 3835 2720 840 Weight 90.2 kg 92.6 kg Weight/Height Weight 92.6 kg Height 6 ft 5 in Laboratories: 04/05/20 06:25 04/06/20 05:48 MCV 86 fl (80-97) 04/05/20 06:25 MCH 29.1 pg (27.0-33.4) 04/05/20 06:25 MCHC 33.8 g/dL (32.0-36.0) 04/05/20 06:25 RDW 13.3 % (11.5-14.0) 04/05/20 06:25 Seg Neutrophils % 75.8 % (42-78) 04/04/20 08:15 Chloride 104 mmol/L (98-107) 04/05/20 06:25 Carbon Dioxide 27 mmol/L (22-30) 04/05/20 06:25 Anion Gap 9 (5-19) 04/05/20 06:25 Est GFR ( Amer) > 60 (>60) 04/06/20 05:48 Glucose 107 mg/dL (75-110) 04/05/20 06:25 Lactic Acid 1.6 mmol/L (0.7-2.1) 04/03/20 05:00 Calcium 8.8 mg/dL (8.4-10.2) 04/05/20 06:25 Ferritin 179.00 ng/mL (17.9-464.0) 04/03/20 15:37 Total Bilirubin 0.5 mg/dL (0.2-1.3) 04/03/20 05:00 AST 46 U/L (17-59) 04/03/20 05:00 Alkaline Phosphatase 176 U/L (38-126) H 04/03/20 05:00 C-Reactive Protein 144.5 mg/L (<10.0) H 04/03/20 05:00 Total Protein 6.5 g/dL (6.0-8.5) 04/05/20 06:25 Albumin 4.0 g/dL (3.5-5.0) 04/03/20 05:00 Lipase 38.6 U/L (23-300) 04/03/20 15:37 Urine Color YELLOW 04/04/20 05:47 Urine Appearance CLEAR 04/04/20 05:47 Urine pH 6.0 (5.0-9.0) 04/04/20 05:47 Ur Specific [place] 1.015 04/04/20 05:47 Urine Protein NEGATIVE mg/dL (NEGATIVE) 04/04/20 05:47 Urine Glucose (UA) NEGATIVE mg/dL (NEGATIVE) 04/04/20 05:47 Urine Ketones NEGATIVE mg/dL (NEGATIVE) 04/04/20 05:47 Urine Blood NEGATIVE (NEGATIVE) 04/04/20 05:47 Urine Nitrite NEGATIVE (NEGATIVE) 04/04/20 05:47 Ur Leukocyte Esterase NEGATIVE (NEGATIVE) 04/04/20 05:47 Urine WBC (Auto) 0 /HPF 04/04/20 05:47 Urine RBC (Auto) 0 /HPF 04/04/20 05:47 04/03/20 15:37 Creatine Kinase 36 L Microbiology: Blood cultures: 04/03 NGTD Radiology: Chest/Abdomen CTA 04/03/20 00:00 IMPRESSION: 1. Incomplete opacification of the pulmonary vasculature limits the examination for evaluation of pulmonary emboli. No evidence of saddle pulmonary embolus. 2. Bilateral paravertebral soft tissue mass extends from the T7 to the T11 vertebrae. Question of some osseous destruction of bone involving the lateral aspects of the T8 and T9 vertebrae on the left. There does not appear to be extension of the soft tissue mass into the spinal canal or the foramina, or involvement of the posterior elements. Considerations for these findings include inflammatory/infectious etiologies, neoplasm, possible extramedullary hematopoiesis, as well as other etiologies. Correlation suggested. 3. A 7-8 mm right lower lobe pulmonary nodule. There are a few other smaller subcentimeter pulmonary nodules. Please see comments below concerning Fleischner nodules. Extremity Ultrasound 04/03/20 00:00 IMPRESSION: IRREGULAR HETEROGENOUS HYPOECHOIC AREA IN THE SOFT TISSUES. BASED ON CLINICAL HISTORY, LIKELY DUE TO INFECTION WITH DEVELOPING PHLEGMON. NO DRAINABLE FLUID. Lumbar Spine MRI 04/03/20 06:39 IMPRESSION: MILD DEGENERATIVE CHANGES WITH FACET ARTHROPATHY IN THE LOWER LUMBAR SPINE. NO DISC BULGE. NO STENOSIS OR IMPINGEMENT. Thoracic Spine MRI 04/05/20 00:00 IMPRESSION: NORMAL MRI THORACIC SPINE. Assessment and Recommendations: Patient evaluated due to possible paravertebral mass vs dicitis/vertebral osteomyelitis. He is an active drug user therefore he is at risk of bloodstream infections, endocarditis, discitis, vertebral osteomyelitis. His blood cultures remain negative, will recommend to hold antibiotics in preparation for biopsy after 72 hr off antibiotics. Please sent tissue for pathology, cultures (b acterial, fungal and AFB). Possible etiologies would be Gram positive bacteria, Gram negative bacteria, Nontuberculous mycobacteria, fungal due to drug us. Will also recommend a TTE to rule out culture negative endocarditis. Quantiferon gold due to vertebral OM and risk due to IVDU. HIV test as well. Will follow work up. If patient becomes bacteremic, can then restart antibiotics. Please call if updates. Jennifer Fontaine MD [facility] [phone]
[2020-04-06] MEDS: MELATONIN 3 MG TABLET PO SCH (22:11)
[2020-04-06] MEDS: TIZANIDINE HCL 4 MG TABLET PO SCH (22:11)
[2020-04-07] MEDS: HEPARIN SOD (PORCINE) 5,000 UNIT/ML 1 ML VIAL SUBCUT SCH ×3 (05:17→21:38)
[2020-04-07] MEDS: KETOROLAC TROMETHAMINE INJ/PF 30 MG/1 ML SDV IV PRN (05:54)
[2020-04-07] MEDS: PANTOPRAZOLE SODIUM 20 MG TABLET.DR PO SCH (05:54)
[2020-04-07] MEDS: TIZANIDINE HCL 4 MG TABLET PO SCH ×3 (05:54→22:04)
[2020-04-07] MEDS: BUPRENORPHINE HCL 2 MG SUBLINGUAL TABLET SL SCH (09:51)
[2020-04-07] MEDS: MULTIVITAMIN TABLET PO SCH (09:52)
[2020-04-07] MEDS: DOCUSATE SODIUM 100 MG CAPSULE PO SCH ×2 (09:52→18:50)
[2020-04-07] MEDS: CHOLECALCIFEROL (D3) 400 UNIT TABLET PO SCH (09:52)
[2020-04-07] MEDS: FOLIC ACID 1 MG TABLET PO SCH (09:52)
[2020-04-07] MEDS: ASCORBIC ACID 500 MG TABLET PO SCH ×2 (09:52→18:50)
[2020-04-07] MEDS: NORMAL SALINE 1000 ML 1,000 ML IV PRN (09:53)
--- NOTE | 2020-04-07 14:02 | XCELERA REPORT ---
[address] [address] Transthoracic Echocardiogram Report Name: TALISHA MARTIN Age: 40 yrs Gender: Male : 1980 Patient Status: Inpatient Patient Location: [address] [place] [address] Study Date: 04/06/2020 04:11 PM Height: 77 in Weight: 204 lb BSA: 2.3 m2 Procedure: A complete two-dimensional transthoracic echocardiogram was performed (2D, M-mode, spectral and color flow Doppler). The study was technically adequate with some images being suboptimal in quality. Reason For Study: IVDU; eval for endocarditis Ordering Physician: JUNI ALCANTARA Performed By: Lisa Robles Interpretation Summary The left ventricle is grossly normal size. Left ventricular systolic function is normal. The Ejection Fraction estimate is 65-70%. LV is hyperdynamic. Doppler measurements suggest normal left ventricular diastolic function. The left ventricular wall motion is normal. Trace MR, trace TR. No gross evidence of valvular vegetations however a surface study is very limited and will not detect the majority of vegetations therefore a transesophageal echocardiogram is recommended if clinically indicated. The aortic root is borderline dilated. No prior studies for comparison. MMode/2D Measurements & Calculations RVDd: 3.8 cm LVIDd: 4.9 cm FS: 39.5 % Ao root diam: 3.7 cm IVSd: 1.0 cm LVIDs: 3.0 cm EDV(Teich): 112.4 ml Ao root area: 10.9 cm2 LVPWd: 0.94 cm ESV(Teich): 33.9 ml LA dimension: 3.5 cm EF(Teich): 69.9 % Doppler Measurements & Calculations MV E max yovana: MV P1/2t max yovana: Ao V2 max: LV V1 max P.9 cm/sec 86.3 cm/sec 135.7 cm/sec 6.5 mmHg MV A max yovana: MV P1/2t: 81.9 msec Ao max PG: LV V1 max: 46.9 cm/sec MVA(P1/2t): 2.7 cm2 7.4 mmHg 127.3 cm/sec MV E/A: 1.8 MV dec slope: 308.4 cm/sec2 MV dec time: 0.25 sec PA V2 max: MV P1/2t-pr_phl: 103.2 cm/sec 81.9 msec PA max P.3 mmHg Left Ventricle The left ventricle is grossly normal size. Left ventricular systolic function is normal. The Ejection Fraction estimate is 65-70%. LV is hyperdynamic. Doppler measurements suggest normal left ventricular diastolic function. The left ventricular wall motion is normal. Right Ventricle The right ventricle is normal in size, thickness and function. The right ventricular systolic function is normal. Atria The right atrium is normal. The left atrial size is normal. The interatrial septum is difficult to see, but appears to be grossly normal. Mitral Valve The mitral valve is grossly normal. There is no evidence of mitral valve prolapse. There is no mitral valve stenosis. There is a trace amount of mitral regurgitation. Aortic Valve The aortic valve is grossly normal. There is no aortic valve stenosis. No aortic regurgitation is present. Tricuspid Valve The tricuspid valve is not well visualized, but is grossly normal. There is no tricuspid valve prolapse. There is no tricuspid stenosis. There is a trace amount of tricuspid regurgitation. Pulmonic Valve The pulmonic valve is not well seen, but is grossly normal. There is no pulmonic valvular stenosis. There is no pulmonic valvular regurgitation. Great Vessels The aortic root is borderline dilated. The inferior vena cava appeared normal. Effusions There is no pericardial effusion. There is no pleural effusion. : JUNI ALCANTARA Antonio
--- NOTE | 2020-04-07 15:26 | PDOC PROGRESS REPORT ---
Subjective Progress Note for:: 04/07/20 Subjective:: TALISHA MARTIN is a 40 year old male with a past medical history significant for chronic back pain and polysubstance (IVDU) abuse who was admitted 04/03/2020 for intractable back pain and subsequently found to have thoracic paraspinal mass T7-T11 with osteo-degradation to T7 concerning for inflammation/infectious process versus neoplasm. Patient was seen on morning rounds. He is found resting in bed, comfortably, on room air. He was sleeping but woke easily when I said his name. He reports continued back pain; states that the Subutex is not working. Per nursing, that patient has not requested prn medications. We discussed recommendations for holding antibiotics prior to biopsy and that I anticipated he would be in the hospital for several weeks. Patient rolled his eyes and went back to sleep. He denies fever, chills, chest pain, palpitations, dyspnea, orthopnea, abdominal pain, nausea vomiting diarrhea. He has no questions or concerns No concerns per nursing. Reason For Visit: FEVER, INTRACTABLE BACK PAIN, DYSPNEA Physical Exam Vital Signs: Temp Pulse Resp BP Pulse Ox 98.4 F 82 19 124/64 100 04/07/20 11:59 04/07/20 14:00 04/07/20 11:59 04/07/20 11:59 04/07/20 11:59 Intake & Output 04/06/20 04/07/20 04/08/20 06:59 06:59 06:59 Intake Total 3320 2700 1620 Output Total 600 600 Balance 2720 2100 1620 Weight 92.6 kg 92.6 kg General appearance: PRESENT: no acute distress, well-developed, well-nourished Head exam: PRESENT: atraumatic, normocephalic Eye exam: PRESENT: conjunctiva pink, EOMI, PERRLA. ABSENT: scleral icterus Mouth exam: PRESENT: moist, tongue midline Respiratory exam: PRESENT: clear to auscultation luisito, symmetrical, unlabored. ABSENT: rales, rhonchi, wheezes Cardiovascular exam: PRESENT: RRR, +S1, +S2. ABSENT: diastolic murmur, rubs, systolic murmur Pulses: PRESENT: normal dorsalis pedis pul Vascular exam: PRESENT: normal capillary refill Extremities exam: PRESENT: full ROM. ABSENT: calf tenderness, clubbing, pedal edema Musculoskeletal exam: PRESENT: tenderness - mid back Neurological exam: PRESENT: alert, awake, oriented to person, oriented to place, oriented to time, oriented to situation, CN II-XII grossly intact. ABSENT: motor sensory deficit Psychiatric exam: PRESENT: appropriate affect, normal mood. ABSENT: homicidal ideation, suicidal ideation Skin exam: PRESENT: dry, warm, other - scattered skin tears and abrasions. ABSENT: cyanosis, rash Results Laboratory Results: 04/05/20 06:25 04/06/20 05:48 04/05/20 06:25 Total Protein 6.5 04/03/20 15:37 Creatine Kinase 36 L Impressions: Chest/Abdomen CTA 04/03/20 00:00 IMPRESSION: 1. Incomplete opacification of the pulmonary vasculature limits the examination for evaluation of pulmonary emboli. No evidence of saddle pulmonary embolus. 2. Bilateral paravertebral soft tissue mass extends from the T7 to the T11 vertebrae. Question of some osseous destruction of bone involving the lateral aspects of the T8 and T9 vertebrae on the left. There does not appear to be ex tension of the soft tissue mass into the spinal canal or the foramina, or involvement of the posterior elements. Considerations for these findings include inflammatory/infectious etiologies, neoplasm, possible extramedullary hematopoiesis, as well as other etiologies. Correlation suggested. 3. A 7-8 mm right lower lobe pulmonary nodule. There are a few other smaller subcentimeter pulmonary nodules. Please see comments below concerning Fleischner nodules. Extremity Ultrasound 04/03/20 00:00 IMPRESSION: IRREGULAR HETEROGENOUS HYPOECHOIC AREA IN THE SOFT TISSUES. BASED ON CLINICAL HISTORY, LIKELY DUE TO INFECTION WITH DEVELOPING PHLEGMON. NO DRAINABLE FLUID. Lumbar Spine MRI 04/03/20 06:39 IMPRESSION: MILD DEGENERATIVE CHANGES WITH FACET ARTHROPATHY IN THE LOWER LUMBAR SPINE. NO DISC BULGE. NO STENOSIS OR IMPINGEMENT. Thoracic Spine MRI 04/05/20 00:00 IMPRESSION: NORMAL MRI THORACIC SPINE. Assessment and Plan - Diagnosis (1) Discitis Qualifiers: Spinal region: thoracic Qualified Code(s): M46.44 - Discitis, unspecified, thoracic region Is this a current diagnosis for this admission?: Yes Plan: MRI lumbar spine show mild DDD. MRI thoracic spine incomplete x2 CTA chest incidentally found bilateral paravertebral soft tissue mass extending from T7-T11 with some questionable osseous destruction to the bone involving the lateral aspects of T8 and T9 on the left MRI with successful; revealed discitis at T7/8 with cord contact without compression. No evidence of abscesses. CT-guided biopsy planned for Thursday following 72 hrs off antibiotics. HIV negative TB Gold interferon pending Echo negative for vegetations Discussed with [facility] neurosurgery, Dr. St. Imaging was reviewed by Dr. St. Recommends follow-up MRI imaging as the initial attempt Oncology is consulted; appreciate Dr. Loredo's assistance. Myeloma panel pending. She is signed off for now as he most likely has an infectious source. Infectious diseases consulted; spoke with Dr. Fontaine. She recommends holding Vanco/Zosyn x72 hours and then completing a CT-guided needle biopsy of the patient's T7/8 disc, T7 bone, and paraspinal mass as noted on CT imaging with pathology and bacterial, fungal, and AFB cultures. (2) Paravertebral mass Is this a current diagnosis for this admission?: Yes Plan: As above. (3) Bacteremia Is this a current diagnosis for this admission?: No Plan: Blood cultures negative at 4 days Will obtain echo if cultures are positive. MRI concerning for discitis. Plan as above. (4) Abscess of left arm Is this a current diagnosis for this admission?: Yes Plan: U/S demonstrated infection with developing phlegmon; no drainable fluid Cultures and antibiotics as above. (5) Fever in adult Is this a current diagnosis for this admission?: Yes Plan: Afebrile >72 hours Secondary to #1-2 Management as above. (6) Lower back pain Qualifiers: Chronicity: unspecified Back pain laterality: bilateral Sciatica presence: without sciatica Qualified Code(s): M54.5 - Low back pain Is this a current diagnosis for this admission?: Yes Plan: MRI lumbar spine show mild DDD. MRI thoracic spine incomplete x2 CTA chest incidentally found bilateral paravertebral soft tissue mass extending from T7-T11 with some questionable osseous destruction to the bone involving the lateral aspects of T8 and T9 on the left Daily Subutex 2 mg SL. Avoid bed rest; encourage mobility/ambulation. (7) Polysubstance abuse Is this a current diagnosis for this admission?: Yes Plan: Patient admits to regular IV heroin use. 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 discharge planning consulted. (8) Suspected COVID-19 virus infection Is this a current diagnosis for this admission?: No Plan: No longer suspecting COVID-19 Patient initially refused screening test. I did discuss with him and his significant other the importance of testing should he require surgical intervention. (9) Splenomegaly Is this a current diagnosis for this admission?: Yes Plan: EBV poitive [place] negative Oncology consulted. - Time Time Spent with patient: 25-34 minutes Medications reviewed and adjusted accordingly: Yes Anticipated Discharge Disposition: Home, Self Care Anticipated Discharge Timeframe: >72 hrs
[2020-04-07] MEDS ORDERED: KETOROLAC TROMETHAMINE INJ/PF 30 MG/1 ML SDV IM PRN (18:32)
[2020-04-07] MEDS: ACETAMINOPHEN 325 MG TABLET PO PRN (18:49)
[2020-04-07] MEDS: MELATONIN 3 MG TABLET PO SCH (22:04)
[2020-04-08] MEDS: KETOROLAC TROMETHAMINE INJ/PF 30 MG/1 ML SDV IV PRN ×4 (00:48→23:37)
[2020-04-08] MEDS: HEPARIN SOD (PORCINE) 5,000 UNIT/ML 1 ML VIAL SUBCUT SCH ×3 (05:55→21:06)
[2020-04-08] MEDS: TIZANIDINE HCL 4 MG TABLET PO SCH ×3 (06:23→21:10)
[2020-04-08] MEDS: PANTOPRAZOLE SODIUM 20 MG TABLET.DR PO SCH (06:23)
[2020-04-08 07:40] LABS: HEPATITS B SURFACE ANTIGEN Negative (Negative)
[2020-04-08] MEDS: MULTIVITAMIN TABLET PO SCH (09:21)
[2020-04-08] MEDS: FOLIC ACID 1 MG TABLET PO SCH (09:21)
[2020-04-08] MEDS: ASCORBIC ACID 500 MG TABLET PO SCH ×2 (09:22→17:20)
[2020-04-08] MEDS: BUPRENORPHINE HCL 2 MG SUBLINGUAL TABLET SL SCH (09:22)
[2020-04-08] MEDS: CHOLECALCIFEROL (D3) 400 UNIT TABLET PO SCH (09:22)
[2020-04-08] MEDS: DOCUSATE SODIUM 100 MG CAPSULE PO SCH ×2 (09:24→17:19)
[2020-04-08] MEDS: METHADONE HCL 10 MG TABLET PO SCH ×2 (13:14→21:09)
[2020-04-08] MEDS: CIPROFLOXACIN HCL/DEXAMETH OTIC DROP 7.5 ML AU SCH (17:20)
--- NOTE | 2020-04-08 18:28 | PDOC PROGRESS REPORT ---
Subjective Progress Note for:: 04/08/20 Subjective:: TALISHA MARTIN is a 40 year old male with a past medical history significant for chronic back pain and polysubstance (IVDU) abuse who was admitted 04/03/2020 for intractable back pain and subsequently found to have thoracic paraspinal mass T7-T11 with osteo-degradation to T7 concerning for inflammation/infectious process versus neoplasm. Patient was seen on morning rounds. He is found ambulating in his room, comfortably, on room air. He complains of drainage from "infections" to the external ears; states that has been provided antibiotics in the past. He is no chad to scratching/picking to the extent that his bilateral helix/antihelix are edematous w/ slight bleeding. Otherwise, he reports that his back pain is not well managed by Subutex and requests medication adjustments. Agreeable to Methadone. He denies fever, chills, chest pain, palpitations, dyspnea, orthopnea, abdominal pain, nausea vomiting diarrhea. He has no questions or concerns No concerns per nursing. Reason For Visit: FEVER, INTRACTABLE BACK PAIN, DYSPNEA Physical Exam Vital Signs: Temp Pulse Resp BP Pulse Ox 98.2 F 84 14 135/68 H 98 04/08/20 16:18 04/08/20 16:18 04/08/20 16:18 04/08/20 16:18 04/08/20 16:18 Intake & Output 04/07/20 04/08/20 04/09/20 06:59 06:59 06:59 Intake Total 2700 2000 1840 Output Total 600 Balance 2100 1999 1840 Weight 92.6 kg 95.2 kg General appearance: PRESENT: no acute distress, well-developed, well-nourished Head exam: PRESENT: atraumatic, normocephalic Eye exam: PRESENT: conjunctiva pink, EOMI, PERRLA. ABSENT: scleral icterus Ear exam: ABSENT: normal external ear exam - edema/bleeding Mouth exam: PRESENT: moist, tongue midline Respiratory exam: PRESENT: clear to auscultation luisito, symmetrical, unlabored. ABSENT: rales, rhonchi, wheezes Cardiovascular exam: PRESENT: RRR, +S1, +S2. ABSENT: diastolic murmur, rubs, systolic murmur Vascular exam: PRESENT: normal capillary refill Extremities exam: PRESENT: full ROM. ABSENT: calf tenderness, clubbing, pedal edema Musculoskeletal exam: PRESENT: ambulatory Neurological exam: PRESENT: alert, awake, oriented to person, oriented to place, oriented to time, oriented to situation, CN II-XII grossly intact. ABSENT: motor sensory deficit Psychiatric exam: PRESENT: appropriate affect, normal mood. ABSENT: homicidal ideation, suicidal ideation Skin exam: PRESENT: dry, intact, warm, other - scattered skin tears and abrasions. ABSENT: cyanosis, rash Results Laboratory Results: 04/05/20 06:25 04/06/20 05:48 04/03/20 07:00 Blood Blood Culture - Final NO GROWTH IN 5 DAYS 04/03/20 05:00 Blood Blood Culture - Final NO GROWTH IN 5 DAYS 04/03/20 15:37 Creatine Kinase 36 L Impressions: Chest/Abdomen CTA 04/03/20 00:00 IMPRESSION: 1. Incomplete opacification of the pulmonary vasculature limits the examination for evaluation of pulmonary emboli. No evidence of saddle pulmonary embolus. 2. Bilateral paravertebral soft tissue mass extends from the T7 to the T11 vertebrae. Question of some osseous destruction of bone involving the lateral aspects of the T8 and T9 vertebrae on the left. There does not appear to be extension of the soft tissue mass into the spinal canal or the foramina, or involvement of the posterior elements. Considerations for these findings include inflammatory/infectious etiologies, neoplasm, possible extramedullary hematopoiesis, as well as other etiologies. Correlation suggested. 3. A 7-8 mm right lower lobe pulmonary nodule. There are a few other smaller subcentimeter pulmonary nodules. Please see comments below concerning Fleischner nodules. Extremity Ultrasound 04/03/20 00:00 IMPRESSION: IRREGULAR HETEROGENOUS HYPOECHOIC AREA IN THE SOFT TISSUES. BASED ON CLINICAL HISTORY, LIKELY DUE TO INFECTION WITH DEVELOPING PHLEGMON. NO DRAINABLE FLUID. Lumbar Spine MRI 04/03/20 06:39 IMPRESSION: MILD DEGENERATIVE CHANGES WITH FACET ARTHROPATHY IN THE LOWER LUMBAR SPINE. NO DISC BULGE. NO STENOSIS OR IMPINGEMENT. Thoracic Spine MRI 04/05/20 00:00 IMPRESSION: NORMAL MRI THORACIC SPINE. Assessment and Plan - Diagnosis (1) Discitis Qualifiers: Spinal region: thoracic Qualified Code(s): M46.44 - Discitis, unspecified, thoracic region Is this a current diagnosis for this admission?: Yes Plan: MRI lumbar spine show mild DDD. MRI thoracic spine incomplete x2 CTA chest incidentally found bilateral paravertebral soft tissue mass extending from T7-T11 with some questionable osseous destruction to the bone involving the lateral aspects of T8 and T9 on the left MRI with successful; revealed discitis at T7/8 with cord contact without compression. No evidence of abscesses. CT-guided biopsy planned for Thursday following 72 hrs off antibiotics. HIV negative TB Gold interferon pending Echo negative for vegetations Discussed with [facility] neurosurgery, Dr. St. Imaging was reviewed by Dr. St. Recommends follow-up MRI imaging as the initial attempt Oncology is consulted; appreciate Dr. Loredo's assistance. Myeloma panel pending. She is signed off for now as he most likely has an infectious source. Infectious diseases consulted; spoke with Dr. Fontaine. She recommends holding Vanco/Zosyn x72 hours and then completing a CT-guided needle biopsy of the patient's T7/8 disc, T7 bone, and paraspinal mass as noted on CT imaging with pathology and bacterial, fungal, and AFB cultures. (2) Paravertebral mass Is this a current diagnosis for this admission?: Yes Plan: As above. (3) Bacteremia Is this a current diagnosis for this admission?: No Plan: Blood cultures negative at 5 days MRI concerning for discitis. Plan as above. (4) Abscess of left arm Is this a current diagnosis for this admission?: Yes Plan: U/S demonstrated infection with developing phlegmon; no drainable fluid Cultures and antibiotics as above. (5) Fever in adult Is this a current diagnosis for this admission?: Yes Plan: Afebrile >72 hours Secondary to #1-2 Management as above. (6) Lower back pain Qualifiers: Chronicity: unspecified Back pain laterality: bilateral Sciatica presence: without sciatica Qualified Code(s): M54.5 - Low back pain Is this a current diagnosis for this admission?: Yes Plan: MRI lumbar spine show mild DDD. MRI thoracic spine incomplete x2 CTA chest incidentally found bilateral paravertebral soft tissue mass extending from T7-T11 with some questionable osseous destruction to the bone involving the lateral aspects of T8 and T9 on the left Methadone 10 mg q8h. Avoid bed rest; encourage mobility/ambulation. (7) Polysubstance abuse Is this a current diagnosis for this admission?: Yes Plan: Patient admits to regular IV heroin use. 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 Discharge planning consulted. (8) Suspected COVID-19 virus infection Is this a current diagnosis for this admission?: No Plan: No longer suspecting COVID-19 Patient initially refused screening test. I did discuss with him and his significant other the importance of testing should he require surgical interven tion. (9) Splenomegaly Is this a current diagnosis for this admission?: Yes Plan: EBV positive [place] negative Oncology consulted. - Time Time Spent with patient: 25-34 minutes Medications reviewed and adjusted accordingly: Yes Anticipated Discharge Disposition: Home, Self Care Anticipated Discharge Timeframe: >72 hrs
[2020-04-08] MEDS: MELATONIN 3 MG TABLET PO SCH (21:10)
[2020-04-09] MEDS: HEPARIN SOD (PORCINE) 5,000 UNIT/ML 1 ML VIAL SUBCUT SCH ×3 (05:04→21:23)
[2020-04-09 05:17] LABS: HEMATOCRIT 35.3 % (37.9-51.0); HEMOGLOBIN 12.1 g/dL (13.5-17.0); MEAN CORPUSCULAR HEMOGLOBIN 29.2 pg (27.0-33.4); MEAN CORPUSCULAR HGB CONC 34.3 g/dL (32.0-36.0); MEAN CORPUSCULAR VOLUME 85 fl (80-97); PLATELET COUNT 217 10^3/uL (150-450); RED BLOOD COUNT 4.15 10^6/uL (4.35-5.55); RED CELL DISTRIBUTION WIDTH 13.3 % (11.5-14.0); WHITE BLOOD COUNT 5.9 10^3/uL (4.0-10.5)
[2020-04-09] MEDS: METHADONE HCL 10 MG TABLET PO SCH ×3 (05:37→21:48)
[2020-04-09] MEDS: TIZANIDINE HCL 4 MG TABLET PO SCH ×3 (05:37→21:48)
[2020-04-09] MEDS: PANTOPRAZOLE SODIUM 20 MG TABLET.DR PO SCH (05:37)
[2020-04-09] MEDS: KETOROLAC TROMETHAMINE INJ/PF 30 MG/1 ML SDV IV PRN ×3 (05:37→17:51)
[2020-04-09 05:49] LABS: ANION GAP 9 (5-19); BLOOD UREA NITROGEN 21 mg/dL (7-20); CALCIUM 8.8 mg/dL (8.4-10.2); CARBON DIOXIDE 28 mmol/L (22-30); CHLORIDE 99 mmol/L (98-107); GLUCOSE 122 mg/dL (75-110); POTASSIUM 4.3 mmol/L (3.6-5.0)
[2020-04-09 07:37] LABS: HEPATITIS C VIRUS ANTIBODY >11.0 s/co ratio (0.0-0.9)
[2020-04-09] MEDS: CIPROFLOXACIN HCL/DEXAMETH OTIC DROP 7.5 ML AU SCH ×2 (09:34→18:12)
[2020-04-09] MEDS: CHOLECALCIFEROL (D3) 400 UNIT TABLET PO SCH (09:35)
[2020-04-09] MEDS: FOLIC ACID 1 MG TABLET PO SCH (09:35)
[2020-04-09] MEDS: ASCORBIC ACID 500 MG TABLET PO SCH ×2 (09:35→17:51)
[2020-04-09] MEDS: DOCUSATE SODIUM 100 MG CAPSULE PO SCH ×2 (09:35→18:01)
[2020-04-09] MEDS: MULTIVITAMIN TABLET PO SCH (09:35)
[2020-04-09] MEDS: ACETAMINOPHEN 325 MG TABLET PO PRN ×2 (11:04→17:53)
[2020-04-09] MEDS ORDERED: DEXTROSE 50%-WATER 25 GM/50 ML DISP.SYRIN IV PRN ×2 (11:08)
[2020-04-09] MEDS ORDERED: GLUCAGON,HUMAN RECOMB 1 MG INJ SUBCUT PRN (11:08)
[2020-04-09] MEDS ORDERED: DEXTROSE 40% GEL 15 GM TUBE PO PRN ×2 (11:08)
--- NOTE | 2020-04-09 17:47 | PDOC PROGRESS REPORT ---
Subjective Progress Note for:: 04/09/20 Subjective:: TALISHA MARTIN is a 40 year old male with a past medical history significant for chronic back pain and polysubstance (IVDU) abuse who was admitted 04/03/2020 for intractable back pain and subsequently found to have thoracic paraspinal mass T7-T11 with osteo-degradation to T7 concerning for inflammation/infectious process versus neoplasm. Patient was seen on morning rounds. He is found resting in bed comfortable on room air. He reports that his back pain is improved while on methadone. No further ear discomfort. He denies fever, chills, chest pain, palpitations, dyspnea, orthopnea, abdominal pain, nausea vomiting diarrhea. He has no questions or concerns No concerns per nursing. Reason For Visit: FEVER, INTRACTABLE BACK PAIN, DYSPNEA Physical Exam Vital Signs: Temp Pulse Resp BP Pulse Ox 97.8 F 75 16 143/79 H 99 04/09/20 15:33 04/09/20 15:33 04/09/20 15:33 04/09/20 15:33 04/09/20 15:33 Intake & Output 04/08/20 04/09/20 04/10/20 06:59 06:59 06:59 Intake Total 1999 2079 Balance 1999 2079 Weight 95.2 kg 95.2 kg General appearance: PRESENT: no acute distress, well-developed, well-nourished Head exam: PRESENT: atraumatic, normocephalic Eye exam: PRESENT: conjunctiva pink, EOMI, PERRLA. ABSENT: scleral icterus Mouth exam: PRESENT: moist, tongue midline Teeth exam: PRESENT: poor dentation Respiratory exam: PRESENT: clear to auscultation luisito, symmetrical, unlabored. ABSENT: rales, rhonchi, wheezes Cardiovascular exam: PRESENT: RRR, +S1, +S2. ABSENT: diastolic murmur, rubs, systolic murmur Vascular exam: PRESENT: normal capillary refill Extremities exam: PRESENT: full ROM. ABSENT: calf tenderness, clubbing, pedal edema Musculoskeletal exam: PRESENT: ambulatory Neurological exam: PRESENT: alert, awake, oriented to person, oriented to place, oriented to time, oriented to situation, CN II-XII grossly intact. ABSENT: motor sensory deficit Psychiatric exam: PRESENT: agitated. ABSENT: homicidal ideation, suicidal ideation Skin exam: PRESENT: dry, warm, other - scattered skin tears and abrasions. ABSENT: cyanosis, rash Results Laboratory Results: 04/09/20 04:37 04/09/20 04:37 04/09/20 04/09/20 04:37 04:37 WBC 5.9 RBC 4.15 L Hgb 12.1 L Hct 35.3 L MCV 85 MCH 29.2 MCHC 34.3 RDW 13.3 Plt Count 217 Sodium 135.9 L Potassium 4.3 Chloride 99 Carbon Dioxide 28 Anion Gap 9 BUN 21 H Creatinine 0.62 Est GFR ( Amer) > 60 Glucose 122 H Calcium 8.8 04/03/20 15:37 Creatine Kinase 36 L Impressions: Chest/Abdomen CTA 04/03/20 00:00 IMPRESSION: 1. Incomplete opacification of the pulmonary vasculature limits the examination for evaluation of pulmonary emboli. No evidence of saddle pulmo nary embolus. 2. Bilateral paravertebral soft tissue mass extends from the T7 to the T11 vertebrae. Question of some osseous destruction of bone involving the lateral aspects of the T8 and T9 vertebrae on the left. There does not appear to be extension of the soft tissue mass into the spinal canal or the foramina, or involvement of the posterior elements. Considerations for these findings inclu de inflammatory/infectious etiologies, neoplasm, possible extramedullary hematopoiesis, as well as other etiologies. Correlation suggested. 3. A 7-8 mm right lower lobe pulmonary nodule. There are a few other smaller subcentimeter pulmonary nodules. Please see comments below concerning Fleischne r nodules. Extremity Ultrasound 04/03/20 00:00 IMPRESSION: IRREGULAR HETEROGENOUS HYPOECHOIC AREA IN THE SOFT TISSUES. BASED ON CLINICAL HISTORY, LIKELY DUE TO INFECTION WITH DEVELOPING PHLEGMON. NO DRAINABLE FLUID. Lumbar Spine MRI 04/03/20 06:39 IMPRESSION: MILD DEGENERATIVE CHANGES WITH FACET ARTHROPATHY IN THE LOWER LUMBAR SPINE. NO DISC BULGE. NO STENOSIS OR IMPINGEMENT. Thoracic Spine MRI 04/05/20 00:00 IMPRESSION: NORMAL MRI THORACIC SPINE. Assessment and Plan - Diagnosis (1) Discitis Qualifiers: Spinal region: thoracic Qualified Code(s): M46.44 - Discitis, unspecified, thoracic region Is this a current diagnosis for this admission?: Yes Plan: MRI lumbar spine show mild DDD. MRI thoracic spine incomplete x2 CTA chest incidentally found bilateral paravertebral soft tissue mass extending from T7-T11 with some questionable osseous destruction to the bone involving the lateral aspects of T8 and T9 on the left MRI with successful; revealed discitis at T7/8 with cord contact without compression. No evidence of abscesses. HIV negative TB Gold interferon pending Echo negative for vegetations CT-guided biopsy planned for today is postponed due to patient having eaten his breakfast. Rescheduled for Thursday; npo after midnight. Discussed with [facility] neurosurgery, Dr. St. Imaging was reviewed by Dr. St. Recommends follow-up MRI imaging as the initial attempt Oncology is consulted; appreciate Dr. Loredo's assistance. Myeloma panel pending. She is signed off for now as he most likely has an infectious source. Infectious diseases consulted; spoke with Dr. Fontaine. She recommends holding Vanco/Zosyn x72 hours and then completing a CT-guided needle biopsy of the patient's T7/8 disc, T7 bone, and paraspinal mass as noted on CT imaging with pathology and bacterial, fungal, and AFB cultures. (2) Paravertebral mass Is this a current diagnosis for this admission?: Yes Plan: As above. (3) Bacteremia Is this a current diagnosis for this admission?: No Plan: Blood cultures negative at 5 days MRI concerning for discitis. Plan as above. (4) Abscess of left arm Is this a current diagnosis for this admission?: Yes Plan: Resolved. U/S demonstrated infection with developing phlegmon; no drainable fluid Cultures and antibiotics as above. (5) Fever in adult Is this a current diagnosis for this admission?: Yes Plan: Afebrile >72 hours Secondary to #1-2 Management as above. (6) Lower back pain Qualifiers: Chronicity: unspecified Back pain laterality: bilateral Sciatica presence: without sciatica Qualified Code(s): M54.5 - Low back pain Is this a current diagnosis for this admission?: Yes Plan: MRI lumbar spine show mild DDD. MRI thoracic spine incomplete x2 CTA chest incidentally found bilateral paravertebral soft tissue mass extending from T7-T11 with some questionable osseous destruction to the bone involving the lateral aspects of T8 and T9 on the left Methadone 10 mg q8h. Avoid bed rest; encourage mobility/ambulation. (7) Polysubstance abuse Is this a current diagnosis for this admission?: Yes Plan: Patient admits to regular IV heroin use. He states that he typically uses daily; however, last use 2 days travel [place] HIV negative Hep C positive; outpatient follow up. Monitor for withdrawal. Discharge planning consulted. (8) Suspected COVID-19 virus infection Is this a current diagnosis for this admission?: Yes Plan: No longer suspecting COVID-19 Patient initially refused screening test. I did discuss with him and his significant other the importance of testing should he require surgical intervention. (9) Splenomegaly Is this a current diagnosis for this admission?: Yes Plan: EBV positive [place] negative Oncology consulted. - Time Time Spent with patient: 35 or more minutes Medications reviewed and adjusted accordingly: Yes Anticipated Discharge Disposition: Home, Self Care Anticipated Discharge Timeframe: >72 hrs
[2020-04-09] MEDS: MELATONIN 3 MG TABLET PO SCH (21:48)
[2020-04-10] MEDS: PANTOPRAZOLE SODIUM 20 MG TABLET.DR PO SCH (05:13)
[2020-04-10] MEDS: HEPARIN SOD (PORCINE) 5,000 UNIT/ML 1 ML VIAL SUBCUT SCH ×3 (05:13→21:26)
[2020-04-10] MEDS: TIZANIDINE HCL 4 MG TABLET PO SCH ×3 (05:13→21:27)
[2020-04-10] MEDS: METHADONE HCL 10 MG TABLET PO SCH ×3 (05:13→21:26)
[2020-04-10] MEDS: KETOROLAC TROMETHAMINE INJ/PF 30 MG/1 ML SDV IV PRN ×4 (06:00→19:24)
[2020-04-10] MEDS: ACETAMINOPHEN 325 MG TABLET PO PRN ×2 (06:00→17:47)
[2020-04-10] MEDS: FOLIC ACID 1 MG TABLET PO SCH (10:34)
[2020-04-10] MEDS: MULTIVITAMIN TABLET PO SCH (10:34)
[2020-04-10] MEDS: DOCUSATE SODIUM 100 MG CAPSULE PO SCH ×2 (10:34→17:23)
[2020-04-10] MEDS: ASCORBIC ACID 500 MG TABLET PO SCH ×2 (10:34→17:46)
[2020-04-10] MEDS: CIPROFLOXACIN HCL/DEXAMETH OTIC DROP 7.5 ML AU SCH ×2 (10:35→17:47)
[2020-04-10] MEDS: CHOLECALCIFEROL (D3) 400 UNIT TABLET PO SCH (13:24)
[2020-04-10] MEDS: MELATONIN 3 MG TABLET PO SCH (21:27)
--- NOTE | 2020-04-10 21:37 | PDOC PROGRESS REPORT ---
Subjective Progress Note for:: 04/10/20 Subjective:: Was seen and examined at bedside. Denies any chest pain shortness of breath fever or chills. Complains of mild back pain, relieved by pain medications. Good appetite Reason For Visit: FEVER, INTRACTABLE BACK PAIN, DYSPNEA Physical Exam Vital Signs: Temp Pulse Resp BP Pulse Ox 97.2 F 70 15 117/75 100 04/10/20 15:27 04/10/20 15:27 04/10/20 15:27 04/10/20 15:27 04/10/20 15:27 Intake & Output 04/09/20 04/10/20 04/11/20 06:59 06:59 06:59 Intake Total 2080 1160 1080 Balance 208 1160 1080 Weight 95.2 kg 93.2 kg General appearance: PRESENT: no acute distress, cooperative Head exam: PRESENT: atraumatic, normocephalic Eye exam: PRESENT: EOMI, PERRLA Mouth exam: PRESENT: moist Neck exam: PRESENT: full ROM. ABSENT: JVD, lymphadenopathy Respiratory exam: PRESENT: clear to auscultation luisito, symmetrical, unlabored. ABSENT: crackles, rales, wheezes Cardiovascular exam: PRESENT: RRR, +S1, +S2. ABSENT: diastolic murmur, systolic murmur Pulses: PRESENT: +2 pedal pulses bilateral GI/Abdominal exam: PRESENT: normal bowel sounds, soft. ABSENT: distended, guarding, tenderness Rectal exam: PRESENT: deferred Extremities exam: PRESENT: full ROM. ABSENT: pedal edema Musculoskeletal exam: PRESENT: full ROM Neurological exam: PRESENT: alert, awake, oriented to person, oriented to place, oriented to time Psychiatric exam: PRESENT: normal mood Results Laboratory Results: 04/09/20 04:37 04/09/20 04:37 04/03/20 15:37 Creatine Kinase 36 L Impressions: Chest/Abdomen CTA 04/03/20 00:00 IMPRESSION: 1. Incomplete opacification of the pulmonary vasculature limits the examination for evaluation of pulmonary emboli. No evidence of saddle pulmonary embolus. 2. Bilateral paravertebral soft tissue mass extends from the T7 to the T11 vertebrae. Question of some osseous destruction of bone involving the lateral aspects of the T8 and T9 vertebrae on the left. There does not appear to be extension of the soft tissue mass into the spinal canal or the foramina, or involvement of the posterior elements. Considerations for these findings include inflammatory/infectious etiologies, neoplasm, possible extramedullary hematopoiesis, as well as other etiologies. Correlation suggested. 3. A 7-8 mm right lower lobe pulmonary nodule. There are a few other smaller subcentimeter pulmonary nodules. Please see comments below concerning Fleischner nodules. Extremity Ultrasound 04/03/20 00:00 IMPRESSION: IRREGULAR HETEROGENOUS HYPOECHOIC AREA IN THE SOFT TISSUES. BASED ON CLINICAL HISTORY, LIKELY DUE TO INFECTION WITH DEVELOPING PHLEGMON. NO DRAINABLE FLUID. Lumbar Spine MRI 04/03/20 06:39 IMPRESSION: MILD DEGENERATIVE CHANGES WITH FACET ARTHROPATHY IN THE LOWER LUMBAR SPINE. NO DISC BULGE. NO STENOSIS OR IMPINGEMENT. Thoracic Spine MRI 04/05/20 00:00 IMPRESSION: NORMAL MRI THORACIC SPINE. Assessment and Plan - Diagnosis (1) Discitis Qualifiers: Spinal region: thoracic Qualified Code(s): M46.44 - Discitis, unspecified, thoracic region Is this a current diagnosis for this admission?: Yes Plan: MRI lumbar spine show mild DDD. MRI thoracic spine incomplete x2 CTA chest incidentally found bilateral paravertebral soft tissue mass extending from T7-T11 with some questionable osseous destruction to the bone involving the lateral aspects of T8 and T9 on the left MRI with successful; revealed discitis at T7/8 with cord contact without compression. No evidence of abscesses. HIV negative TB Gold interferon pending Echo negative for vegetations CT-guided biopsy planned is postponed due to patient having eaten his breakfast. Rescheduled for Thursday; npo after midnight. Art and Gunnar held held per Dr. Fontaine's recommendation. Awaiting bone biopsy result, further guide antibiotic treatment and duration -He will likely need at least 6 weeks of IV antibiotics if bone biopsy is positive. He would need a PICC line and would have to stay in the hospital for the duration of the treatment if bone biopsy is positive. -Upon speaking to the nurse it is doubtful that the patient will stay in the hospital for the duration of treatment as he already stated that he wants to go home Discussed with [facility] neurosurgery, Dr. St. Imaging was reviewed by Dr. St. Recommends follow-up MRI imaging as the initial attempt Oncology is consulted; appreciate Dr. Loredo's assistance. Myeloma panel pending. She is signed off for now as he most likely has an infectious source. Infectious diseases consulted; spoke with Dr. Fontaine. She recommends holding Vanco/Zosyn x72 hours and then completing a CT-guided needle biopsy of the patient's T7/8 disc, T7 bone, and paraspinal mass as noted on CT imaging with pathology and bacterial, fungal, and AFB cultures. (2) Paravertebral mass Is this a current diagnosis for this admission?: Yes Plan: As above. (3) Bacteremia Is this a current diagnosis for this admission?: No Plan: Blood cultures negative at 5 days MRI concerning for discitis. Awaiting bone biopsy result for antibiotic guidance (4) Abscess of left arm Is this a current diagnosis for this admission?: Yes Plan: Resolved. U/S demonstrated infection with developing phlegmon; no drainable fluid Cultures and antibiotics as above. (5) Lower back pain Qualifiers: Chronicity: unspecified Back pain laterality: bilateral Sciatica presence: without sciatica Qualified Code(s): M54.5 - Low back pain Is this a current diagnosis for this admission?: Yes Plan: -Secondary to discitis -Methadone 10 mg every 8 -Awaiting bone biopsy -enCourage ambulation (6) Polysubstance abuse Is this a current diagnosis for this admission?: Yes Plan: Patient admits to regular IV heroin use. 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 Monitor for withdrawal. Discharge planning consulted. (7) Splenomegaly Is this a current diagnosis for this admission?: Yes Plan: EBV positive [place] negative Oncology consulted. - Time Time Spent with patient: 15-24 minutes Medications reviewed and adjusted accordingly: Yes Anticipated Discharge Disposition: - To be determined Anticipated Discharge Timeframe: To be determined
[2020-04-11] MEDS: KETOROLAC TROMETHAMINE INJ/PF 30 MG/1 ML SDV IV PRN ×4 (01:28→23:57)
[2020-04-11] MEDS: METHADONE HCL 10 MG TABLET PO SCH ×3 (05:03→21:39)
[2020-04-11] MEDS: HEPARIN SOD (PORCINE) 5,000 UNIT/ML 1 ML VIAL SUBCUT SCH ×3 (05:04→21:40)
[2020-04-11] MEDS: PANTOPRAZOLE SODIUM 20 MG TABLET.DR PO SCH (05:04)
[2020-04-11] MEDS: TIZANIDINE HCL 4 MG TABLET PO SCH ×3 (05:04→21:40)
[2020-04-11] MEDS ORDERED: MIDAZOLAM 2 MG/2 ML INJ ONE (08:21)
[2020-04-11] MEDS ORDERED: FENTANYL CITRATE INJ/PF 100 MCG/2 ML AMPUL ONE (08:21)
[2020-04-11] MEDS: DOCUSATE SODIUM 100 MG CAPSULE PO SCH ×2 (12:10→19:25)
[2020-04-11] MEDS: ASCORBIC ACID 500 MG TABLET PO SCH ×2 (12:11→19:25)
[2020-04-11] MEDS: FOLIC ACID 1 MG TABLET PO SCH (12:11)
[2020-04-11] MEDS: CHOLECALCIFEROL (D3) 400 UNIT TABLET PO SCH (12:11)
[2020-04-11] MEDS: MULTIVITAMIN TABLET PO SCH (12:11)
[2020-04-11] MEDS: CIPROFLOXACIN HCL/DEXAMETH OTIC DROP 7.5 ML AU SCH ×2 (12:14→21:42)
[2020-04-11 12:28] LABS: ABSOLUTE EOSINOPHILS # (AUTO) 0.2 10^3/uL (0.0-0.6); ABSOLUTE LYMPHOCYTES (AUTO) 1.2 10^3/uL (0.5-4.7); ABSOLUTE MONOCYTES (AUTO) 0.4 10^3/uL (0.1-1.4); ABSOLUTE NEUT (AUTO) 3.2 10^3/uL (1.7-8.2); BASOPHILS % (AUTO) 0.6 % (0-2); EOSINOPHILS % (AUTO) 3.8 % (0-6); HEMATOCRIT 37.9 % (37.9-51.0); HEMOGLOBIN 12.9 g/dL (13.5-17.0); LYMPHOCYTES % (AUTO) 24.7 % (13-45); MEAN CORPUSCULAR HEMOGLOBIN 29.3 pg (27.0-33.4); MEAN CORPUSCULAR HGB CONC 34.1 g/dL (32.0-36.0); MEAN CORPUSCULAR VOLUME 86 fl (80-97); MONOCYTES % (AUTO) 8.1 % (3-13); PLATELET COUNT 187 10^3/uL (150-450); RED BLOOD COUNT 4.41 10^6/uL (4.35-5.55); RED CELL DISTRIBUTION WIDTH 13.8 % (11.5-14.0); SEGMENTED NEUTROPHILS % (AUTO) 62.8 % (42-78); TOTAL CELLS COUNTED % (AUTO) 100 %
--- NOTE | 2020-04-11 12:37 | RADIOLOGY REPORT (SQ) ---
EXAM DESCRIPTION: CT BIOPSY BONE DEEP; CT NEEDLE PLACEMENT; CT BIOPSY MUSCLE IMAGES COMPLETED DATE/TIME: 04/11/2020 9:50 am; 04/11/2020 10:16 am; 04/11/2020 9:48 am REASON FOR STUDY: T7 DISCITIS; MASS BIOPSY; T7/8 discitis, bone, and paraspinal mass please COMPARISON: MRI of the thoracic spine without and with contrast from 04/05/2020 FLUORO TIME: 34.9 seconds. 271 images submitted to PACS. LIMITATIONS: The patient has a history of intravenous drug abuse/opioid dependence and head require Dilaudid for an MRI of the thoracic spine. PROCEDURE: The procedure, risks, benefits, and alternatives were discussed with the patient in the p reprocedural area, and all questions were answered. Informed consent was obtained verbally and in wri ting. The patient was then brought to the CT suite, positioned prone on the CT gurney, and a time-out was p erformed. After that, axial images of the chest were obtained for targeting of the paraspinal tissue around the T7 and T8 vertebral bodies that demonstrated increased STIR signal and enhancement on the correlative MRI from 04/05/2020. Based on review of the axial images an appropriate access site was selected on the skin. The area around selected access site was then prepped and draped 2% chlorhexidine utilizing standard sterile technique. After that, the access site was infiltrated with 1% lidocaine and an incision was made in the skin with a #11 blade. A 19 gauge coaxial needle was then advanced through the skin inci laura and into the paraspinal tissue from a left-sided approach utilizing CT fluoroscopic guidance. Af ter that, the inner stylet of the coaxial needle was removed and 4 20 gauge core samples were obtaine d - 2 samples were collected and submitted to cytopathology in formalin and 2 samples were collected for culture. Then, as coaxial needle was removed, the biopsy track was embolized with a Gelfoam slurr y. A second access site was then selected to target the T7-T8 intervertebral disc. Afterwards, the site infiltrated with 1% lidocaine and an incision was made in the skin with a #11 blade. A 17 gauge coax ial needle was then advanced through the skin incision and in the direction of the intervertebral dis c utilizing CT fluoroscopic guidance. However, due to the size of the disc space the dry placer machine operator was un able to sample with an 18 gauge biopsy needle. After the coaxial needle was removed axial images of the chest were repeated and reviewed ; the image s demonstrated no acute biopsy-related complication. The patient tolerated the procedure well without immediate complication. At the end of the procedure the patient's condition was unchanged from the preprocedural baseline. IV conscious sedation was administered at the direction of the performing physician by a flaquita mccauley. 2 milligrams of Versed and 100 micrograms of fentanyl. Physiologic monitoring was provided befo re, during, and after sedation. The total sedation time was 45 minutes. Documentation of [id number] time the performing proceduralist spent monitoring the patient: 36 min utes. IMPRESSION: 1. Successful CT-guided biopsy of the paraspinal tissue around the T7 and T8 vertebral b odies that demonstrated increased STIR signal and enhancement on the correlative MRI from 04/05/2020 a s detailed above. 2. Unsuccessful attempt to sample the T7-T8 intervertebral disc. COMMENT: Patient medication list reviewed: Yes- Quality ID# 130:Eligible professional attests to doc umenting in the medical record they obtained, updated, or reviewed the patient's current medications. Quality ID #76: The patient was prepped and draped using maximum sterile barrier technique including cap, mask, sterile gown, sterile gloves, a large sterile sheet, hand hygiene, and 2% Chlorhexidine fo r cutaneous antisepsis. When ultrasound is used, sterile ultrasound techniques are followed requiring sterile gel and sterile probes. Quality ID 145: Final reports for procedures using fluoroscopy that document radiation exposure michael lux, or exposure time and number of fluorographic images (if radiation exposure indices are not avail able) Quality ID# 436: Final reports with documentation of one or more dose reduction techniques (e.g., Aut omated exposure control, adjustment of the mA and/or kV according to patient size, use of iterative r econstruction technique) TECHNICAL DOCUMENTATION: JOB ID: [id number] 2010 [employer]- All Rights Reserved rev Reading location - IP/workstation name: [email or web address]
[2020-04-11 12:49] LABS: ALBUMIN 3.9 g/dL (3.5-5.0); ALKALINE PHOSPHATASE 233 U/L (38-126); ANION GAP 8 (5-19); ASPARTATE AMINO TRANSFERASE 195 U/L (17-59); BILIRUBIN,DIRECT 0.4 mg/dL (0.0-0.4); BILIRUBIN,TOTAL 0.5 mg/dL (0.2-1.3); BLOOD UREA NITROGEN 25 mg/dL (7-20); CALCIUM 9.3 mg/dL (8.4-10.2); CARBON DIOXIDE 30 mmol/L (22-30); CHLORIDE 101 mmol/L (98-107); GLUCOSE 96 mg/dL (75-110); POTASSIUM 4.7 mmol/L (3.6-5.0); TOTAL PROTEIN 7.4 g/dL (6.3-8.2)
[2020-04-11] MEDS: MELATONIN 3 MG TABLET PO SCH (21:40)
--- NOTE | 2020-04-11 22:28 | PDOC PROGRESS REPORT ---
Subjective Progress Note for:: 04/11/20 Subjective:: Was seen and examined at bedside status post bone biopsy today. Denies any chest pain shortness of breath fever or chills. Complains of mild back pain, relieved by pain medications. Requesting food as he is very hungry for being n.p.o. overnight. Reason For Visit: FEVER, INTRACTABLE BACK PAIN, DYSPNEA Physical Exam Vital Signs: Temp Pulse Resp BP Pulse Ox 97.7 F 73 20 120/75 100 04/11/20 16:00 04/11/20 16:00 04/11/20 16:00 04/11/20 16:00 04/11/20 16:00 Intake & Output 04/10/20 04/11/20 04/12/20 06:59 06:59 06:59 Intake Total 1160 1580 Balance 1160 1580 Weight 93.2 kg 92.3 kg General appearance: PRESENT: no acute distress, cooperative Head exam: PRESENT: atraumatic, normocephalic Eye exam: PRESENT: EOMI, PERRLA Mouth exam: PRESENT: moist Neck exam: PRESENT: full ROM. ABSENT: JVD, meningismus Respiratory exam: PRESENT: clear to auscultation luisito, rales, symmetrical, unlabored Cardiovascular exam: PRESENT: RRR, +S1, +S2 Pulses: PRESENT: +2 pedal pulses bilateral GI/Abdominal exam: PRESENT: normal bowel sounds, soft. ABSENT: guarding, tenderness Extremities exam: PRESENT: full ROM. ABSENT: joint swelling Musculoskeletal exam: PRESENT: full ROM Neurological exam: PRESENT: alert, awake, oriented to person, oriented to place, oriented to time Psychiatric exam: PRESENT: flat affect Skin exam: PRESENT: normal color Results Laboratory Results: 04/11/20 12:12 04/11/20 12:12 04/11/20 04/11/20 12:12 12:12 WBC 5.0 RBC 4.41 Hgb 12.9 L Hct 37.9 MCV 86 MCH 29.3 MCHC 34.1 RDW 13.8 Plt Count 187 Seg Neutrophils % 62.8 Sodium 139.0 Potassium 4.7 Chloride 101 Carbon Dioxide 30 Anion Gap 8 BUN 25 H Creatinine 0.67 Est GFR ( Amer) > 60 Glucose 96 Calcium 9.3 Total Bilirubin 0.5 AST 195 H Alkaline Phosphatase 233 H Total Protein 7.4 Albumin 3.9 04/03/20 15:37 Creatine Kinase 36 L Impressions: Chest/Abdomen CTA 04/03/20 00:00 IMPRESSION: 1. Incomplete opacification of the pulmonary vasculature limits the examination for evaluation of pulmonary emboli. No evidence of saddle pulmonary embolus. 2. Bilateral paravertebral soft tissue mass extends from the T7 to the T11 vertebrae. Question of some osseous destruction of bone involving the lateral aspects of the T8 and T9 vertebrae on the left. There does not appear to be extension of the soft tissue mass into the spinal canal or the foramina, or involvement of the posterior elements. Considerations for these findings include inflammatory/infectious etiologies, neoplasm, possible extramedullary hematopoiesis, as well as other etiologies. Correlation suggested. 3. A 7-8 mm right lower lobe pulmonary nodule. There are a few other smaller subcentimeter pulmonary nodules. Please see comments below concerning Fleischner nodules. Extremity Ultrasound 04/03/20 00:00 IMPRESSION: IRREGULAR HETEROGENOUS HYPOECHOIC AREA IN THE SOFT TISSUES. BASED ON CLINICAL HISTORY, LIKELY DUE TO INFECTION WITH DEVELOPING PHLEGMON. NO DRAINABLE FLUID. Lumbar Spine MRI 04/03/20 06:39 IMPRESSION: MILD DEGENERATIVE CHANGES WITH FACET ARTHROPATHY IN THE LOWER LUMBAR SPINE. NO DISC BULGE. NO STENOSIS OR IMPINGEMENT. Thoracic Spine MRI 04/05/20 00:00 IMPRESSION: NORMAL MRI THORACIC SPINE. Bone Biopsy CT 04/11/20 00:[address]: 1[address]-guided biopsy of the paraspinal tissue around the T7 and T8 vertebral bodies that demonstrated increased STIR signal and en hancement on the correlative MRI from 04/05/2020 as detailed above. 2. Unsuccessful attempt to sample the T7-T8 intervertebral disc. Guidance Needle Placement CT 04/11/20 00:[address] IMPRESSION: 1[address]-guided biopsy of the paraspinal tissue around the T7 and T8 vertebral bodies that demonstrated increased STIR signal and enhancement on the correlative MRI from 04/05/2020 as detailed above. 2. Unsuccessful attempt to sample the T7-T8 intervertebral disc. Muscle Biopsy CT 04/11/20 08:00 IMPRESSION: 1[address] Successful CT-guided biopsy of the paraspinal tissue around the T7 and T8 vertebral bodies that demonstrated increased STIR signal and enhancement on the correlative MRI from 04/05/2020 as detailed above. 2. Unsuccessful attempt to sample the T7-T8 intervertebral disc. Assessment and Plan - Diagnosis (1) Discitis Qualifiers: Spinal region: thoracic Qualified Code(s): M46.44 - Discitis, unspecified, thoracic region Is this a current diagnosis for this admission?: Yes Plan: MRI lumbar spine show mild DDD. MRI thoracic spine incomplete x2 -CTA chest incidentally found bilateral paravertebral soft tissue mass extending from T7-T11 with some questionable osseous destruction to the bone involving the lateral aspects of T8 and T9 on the left -MRI with successful; revealed discitis at T7/8 with cord contact without compression. No evidence of abscesses. HIV negative -TB Gold interferon pending - Echo negative for vegetations - s/p biopsy of paraspinal muscle, unable to sample intervertebral disc - awaiting result of pathology and culture. Per radiology notes unable to biopsy disc, bone specimen sent to path in formalin. paraspinal tissues were sent for cultures. Will touch base with ID tomorrow -Upon speaking to the nurse it is doubtful that the patient will stay in the hospital for the duration of treatment as he already stated that he wants to go home (2) Paravertebral mass Is this a current diagnosis for this admission?: Yes Plan: As above. (3) Bacteremia Is this a current diagnosis for this admission?: No Plan: Blood cultures negative at 5 days MRI concerning for discitis. Awaiting bone biopsy result for antibiotic guidance (4) Abscess of left arm Is this a current diagnosis for this admission?: Yes Plan: Resolved. U/S demonstrated infection with developing phlegmon; no drainable fluid Cultures and antibiotics as above. (5) Lower back pain Qualifiers: Chronicity: unspecified Back pain laterality: bilateral Sciatica presence: without sciatica Qualified Code(s): M54.5 - Low back pain Is this a current diagnosis for this admission?: Yes Plan: -Secondary to discitis -Methadone 10 mg every 8 -Awaiting bone biopsy -enCourage ambulation (6) Polysubstance abuse Is this a current diagnosis for this admission?: Yes Plan: Patient admits to regular IV heroin use. He states that he typically uses daily; however, last use 2 days [facility] HIV negative Hep C positive; outpatient follow up. Monitor for withdrawal. Discharge planning consulted. (7) Splenomegaly Is this a current diagnosis for this admission?: Yes Plan: EBV positive [place] negative Oncology consulted. - Time Time Spent with patient: 15-24 minutes Anticipated Discharge Disposition: to be determined Anticipated Discharge Timeframe: to be determined
[2020-04-12] MEDS: PANTOPRAZOLE SODIUM 20 MG TABLET.DR PO SCH (06:03)
[2020-04-12] MEDS: METHADONE HCL 10 MG TABLET PO SCH ×3 (06:03→22:39)
[2020-04-12] MEDS: TIZANIDINE HCL 4 MG TABLET PO SCH ×3 (06:04→22:39)
[2020-04-12] MEDS: HEPARIN SOD (PORCINE) 5,000 UNIT/ML 1 ML VIAL SUBCUT SCH ×3 (06:04→22:39)
[2020-04-12] MEDS: KETOROLAC TROMETHAMINE INJ/PF 30 MG/1 ML SDV IV PRN ×3 (06:07→18:35)
[2020-04-12] MEDS: FOLIC ACID 1 MG TABLET PO SCH (11:17)
[2020-04-12] MEDS: ASCORBIC ACID 500 MG TABLET PO SCH ×2 (11:17→18:35)
[2020-04-12] MEDS: MULTIVITAMIN TABLET PO SCH (11:17)
[2020-04-12] MEDS: DOCUSATE SODIUM 100 MG CAPSULE PO SCH ×2 (11:17→18:35)
[2020-04-12] MEDS: CHOLECALCIFEROL (D3) 400 UNIT TABLET PO SCH (11:18)
[2020-04-12] MEDS: CIPROFLOXACIN HCL/DEXAMETH OTIC DROP 7.5 ML AU SCH ×2 (12:14→18:35)
--- NOTE | 2020-04-12 19:33 | PDOC PROGRESS REPORT ---
Subjective Progress Note for:: 04/12/20 Subjective:: Was seen and examined at bedside status post bone biopsy today. Denies any chest pain shortness of breath fever or chills. Complains of mild back pain, relieved by pain medications. Requesting food as he is very hungry for being n.p.o. overnight. D10 hospital stay 04/12/20. Patient underwent bone biopsy yesterday. Awaiting cultures. Today he denies any chest pain, SOB, palpitations. Refused labs today. Spoke to Dr. millan today and she recommend to hold abx for now until we get culture results since he is afebrile. Reason For Visit: FEVER, INTRACTABLE BACK PAIN, DYSPNEA Physical Exam Vital Signs: Temp Pulse Resp BP Pulse Ox 97.8 F 72 18 115/68 96 04/12/20 15:27 04/12/20 15:27 04/12/20 15:27 04/12/20 15:27 04/12/20 15:27 Intake & Output 04/11/20 04/12/20 04/13/20 06:59 06:59 06:59 Intake Total 2726 476 9483 Output Total 800 Balance 1580 -100 1080 Weight 92.3 kg 94.4 kg General appearance: PRESENT: no acute distress, cooperative Head exam: PRESENT: atraumatic, normocephalic Eye exam: PRESENT: EOMI, PERRLA Mouth exam: PRESENT: moist Neck exam: PRESENT: full ROM. ABSENT: JVD, meningismus Respiratory exam: PRESENT: clear to auscultation luisito, symmetrical, unlabored. ABSENT: crackles Cardiovascular exam: PRESENT: RRR, +S1, +S2 Pulses: PRESENT: +2 pedal pulses bilateral GI/Abdominal exam: PRESENT: normal bowel sounds, soft. ABSENT: rebound, tenderness Extremities exam: PRESENT: full ROM Musculoskeletal exam: PRESENT: full ROM Neurological exam: PRESENT: alert, awake, oriented to person, oriented to place, oriented to time Psychiatric exam: PRESENT: flat affect Skin exam: PRESENT: normal color Results Laboratory Results: 04/12/20 11:29 04/11/20 12:12 04/12/20 11:29 WBC Cancelled RBC Cancelled Hgb Cancelled Hct Cancelled MCV Cancelled MCH Cancelled MCHC Cancelled RDW Cancelled Plt Count Cancelled Seg Neutrophils % Cancelled 04/03/20 15:37 Creatine Kinase 36 L Impressions: Chest/Abdomen CTA 04/03/20 00:00 IMPRESSION: 1. Incomplete opacification of the pulmonary vasculature limits the examination for evaluation of pulmonary emboli. No evidence of saddle pulmonary embolus. 2. Bilateral paravertebral soft tissue mass extends from the T7 to the T11 vertebrae. Question of some osseous destruction of bone involving the lateral aspects of the T8 and T9 vertebrae on the left. There does not appear to be extension of the soft tissue mass into the spinal canal or the foramina, or involvement of the posterior elements. Considerations for these findings include inflammatory/infectious etiologies, neoplasm, possible extramedullary hematopoiesis, as well as other etiologies. Correlation suggested. 3. A 7-8 mm right lower lobe pulmonary nodule. There are a few other smaller subcentimeter pulmonary nodules. Please see comments below concerning Fleischner nodules. Extremity Ultrasound 04/03/20 00:00 IMPRESSION: IRREGULAR HETEROGENOUS HYPOECHOIC AREA IN THE SOFT TISSUES. BASED ON CLINICAL HISTORY, LIKELY DUE TO INFECTION WITH DEVELOPING PHLEGMON. NO DRAINABLE FLUID. Lumbar Spine MRI 04/03/20 06:39 IMPRESSION: MILD DEGENERATIVE CHANGES WITH FACET ARTHROPATHY IN THE LOWER LUMBAR SPINE. NO DISC BULGE. NO STENOSIS OR IMPINGEMENT. Thoracic Spine MRI 04/05/20 00:00 IMPRESSION: NORMAL MRI THORACIC SPINE. Bone Biopsy CT 04/11/20 00:[address] IMPRESSION: 1[address]-guided biopsy of the paraspinal tissue around the T7 and T8 vertebral bodies that demonstrated increased STIR signal and enhancement on the correlative MRI from 04/05/2020 as detailed above. 2. Unsuccessful attempt to sample the T7-T8 intervertebral disc. Guidance Needle Placement CT 04/11/20 00:00 IMPRESSION: 1[address] Successful CT-guided biopsy of the paraspinal tissue around the T7 and T8 vertebral bodies that demonstrated increased STIR signal and enhancement on the correlative MRI from 04/05/2020 as detailed above. 2. Unsuccessful attempt to sample the T7-T8 intervertebral disc. Muscle Biopsy CT 04/11/20 08:00 IMPRESSION: 1. Successful CT-guided biopsy of the paraspinal tissue around the T7 and T8 vertebral bodies that demonstrated increased STIR signal and enhancement on the correlative MRI from 04/05/2020 as detailed above. 2. Unsuccessful attempt to sample the T7-T8 intervertebral disc. Assessment and Plan - Diagnosis (1) Discitis Qualifiers: Spinal region: thoracic Qualified Code(s): M46.44 - Discitis, unspecified, thoracic region Is this a current diagnosis for this admission?: Yes Plan: MRI lumbar spine show mild DDD. MRI thoracic spine incomplete x2 -CTA chest incidentally found bilateral paravertebral soft tissue mass extending from T7-T11 with some questionable osseous destruction to the bone involving the lateral aspects of T8 and T9 on the left -MRI with successful; revealed discitis at T7/8 with cord contact without compression. No evidence of abscesses. HIV negative -TB Gold interferon negative - Echo negative for vegetations - s/p biopsy of paraspinal muscle, unable to sample intervertebral disc - awaiting result of pathology and culture. Per radiology notes unable to biopsy disc, bone specimen sent to path in formalin. paraspinal tissues were sent for cultures. - spoke to Dr. Millan today. She recommended not resuming abx for now if the patient is afebrile and WBC count normal until we get cultures results from biopsy. Also recommended RPR test. (2) Paravertebral mass Is this a current diagnosis for this admission?: Yes Plan: - pathology result crushed stromal fragments with inflammatory cells including plasma cells. No malignant cells seen -will touch base with oncology tomorrow regarding result (3) Bacteremia Is this a current diagnosis for this admission?: No Plan: Blood cultures negative at 5 days MRI concerning for discitis. Awaiting bone biopsy result for antibiotic guidance - d/w Dr. Millan today who recommend to wait for biopsy result before restarting abx (4) Abscess of left arm Is this a current diagnosis for this admission?: Yes Plan: Resolved. U/S demonstrated infection with developing phlegmon; no drainable fluid Cultures and antibiotics as above. (5) Lower back pain Qualifiers: Chronicity: unspecified Back pain laterality: bilateral Sciatica presence: without sciatica Qualified Code(s): M54.5 - Low back pain Is this a current diagnosis for this admission?: Yes Plan: -Secondary to discitis -Methadone 10 mg every 8 -Awaiting bone biopsy -enCourage ambulation (6) Polysubstance abuse Is this a current diagnosis for this admission?: Yes Plan: Patient admits to regular IV heroin use. 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 Monitor for withdrawal. Discharge planning consulted. (7) Splenomegaly Is this a current diagnosis for this admission?: Yes Plan: EBV positive [place] negative Oncology consulted. - Time Time Spent with patient: 15-24 minutes Anticipated Discharge Disposition: Home, Self Care Anticipated Discharge Timeframe: to be determined
[2020-04-12] MEDS: MELATONIN 3 MG TABLET PO SCH (22:39)
[2020-04-13] MEDS ORDERED: KETOROLAC TROMETHAMINE INJ/PF 30 MG/1 ML SDV IV ONE (00:30)
[2020-04-13] MEDS: TIZANIDINE HCL 4 MG TABLET PO SCH ×3 (05:45→21:25)
[2020-04-13] MEDS: PANTOPRAZOLE SODIUM 20 MG TABLET.DR PO SCH (05:45)
[2020-04-13] MEDS: METHADONE HCL 10 MG TABLET PO SCH ×3 (05:45→21:25)
[2020-04-13] MEDS: HEPARIN SOD (PORCINE) 5,000 UNIT/ML 1 ML VIAL SUBCUT SCH ×3 (05:46→21:25)
[2020-04-13 08:14] LABS: ABSOLUTE EOSINOPHILS # (AUTO) 0.1 10^3/uL (0.0-0.6); ABSOLUTE LYMPHOCYTES (AUTO) 1.4 10^3/uL (0.5-4.7); ABSOLUTE MONOCYTES (AUTO) 0.4 10^3/uL (0.1-1.4); ABSOLUTE NEUT (AUTO) 4.3 10^3/uL (1.7-8.2); BASOPHILS % (AUTO) 0.5 % (0-2); EOSINOPHILS % (AUTO) 1.8 % (0-6); HEMATOCRIT 35.8 % (37.9-51.0); HEMOGLOBIN 12.1 g/dL (13.5-17.0); LYMPHOCYTES % (AUTO) 22.6 % (13-45); MEAN CORPUSCULAR HGB CONC 33.7 g/dL (32.0-36.0); MEAN CORPUSCULAR VOLUME 86 fl (80-97); MONOCYTES % (AUTO) 6.8 % (3-13); PLATELET COUNT 166 10^3/uL (150-450); RED BLOOD COUNT 4.16 10^6/uL (4.35-5.55); RED CELL DISTRIBUTION WIDTH 14.1 % (11.5-14.0); SEGMENTED NEUTROPHILS % (AUTO) 68.3 % (42-78); TOTAL CELLS COUNTED % (AUTO) 100 %; WHITE BLOOD COUNT 6.4 10^3/uL (4.0-10.5)
[2020-04-13] MEDS: MULTIVITAMIN TABLET PO SCH (10:04)
[2020-04-13] MEDS: ASCORBIC ACID 500 MG TABLET PO SCH ×2 (10:04→17:41)
[2020-04-13] MEDS: FOLIC ACID 1 MG TABLET PO SCH (10:04)
[2020-04-13] MEDS: DOCUSATE SODIUM 100 MG CAPSULE PO SCH ×2 (10:04→17:41)
[2020-04-13] MEDS: CHOLECALCIFEROL (D3) 400 UNIT TABLET PO SCH (10:04)
[2020-04-13] MEDS: CIPROFLOXACIN HCL/DEXAMETH OTIC DROP 7.5 ML AU SCH ×2 (10:06→17:49)
[2020-04-13] MEDS: KETOROLAC TROMETHAMINE INJ/PF 30 MG/1 ML SDV IV PRN ×2 (12:27→20:29)
[2020-04-13] MEDS: ACETAMINOPHEN 325 MG TABLET PO PRN (17:41)
--- NOTE | 2020-04-13 19:02 | PDOC PROGRESS REPORT ---
Subjective Progress Note for:: 04/13/20 Subjective:: Was seen and examined at bedside status post bone biopsy today. Denies any chest pain shortness of breath fever or chills. Complains of mild back pain, relieved by pain medications. Requesting food as he is very hungry for being n.p.o. overnight. D10 hospital stay 04/12/20. Patient underwent bone biopsy yesterday. Awaiting cultures. Today he denies any chest pain, SOB, palpitations. Refused labs today. Spoke to Dr. millan today and she recommend to hold abx for now until we get culture results since he is afebrile. D11 hospital stay 04/13/20. Patient was seen and examined at bedside. He was very upset for not getting opioid pain medications. He wants to be transferred to another hospital. He complained of back pain that was relieved by Toradol. He is afebrile. Paraspinal mass has been negative so far. I discussed the bone marrow pathology findings, and myeloma work-up with Dr. Hurst over the phone. And she said these changes are still likely from ongoing infectious process, multiple myeloma is unlikely. Reason For Visit: FEVER, INTRACTABLE BACK PAIN, DYSPNEA Physical Exam Vital Signs: Temp Pulse Resp BP Pulse Ox 98.0 F 96 14 139/78 H 98 04/13/20 17:01 04/13/20 17:01 04/13/20 17:01 04/13/20 17:01 04/13/20 17:01 Intake & Output 04/12/20 04/13/20 04/14/20 06:59 06:59 06:59 Intake Total 700 1080 840 Output Total 800 Balance -100 1080 840 Weight 94.4 kg 96.2 kg General appearance: PRESENT: no acute distress, cooperative Eye exam: PRESENT: EOMI, PERRLA Mouth exam: PRESENT: moist Neck exam: PRESENT: full ROM Respiratory exam: PRESENT: clear to auscultation luisito, symmetrical, unlabored Cardiovascular exam: PRESENT: RRR, +S1, +S2 Pulses: PRESENT: +2 pedal pulses bilateral Vascular exam: PRESENT: normal capillary refill GI/Abdominal exam: PRESENT: soft. ABSENT: rebound, tenderness Extremities exam: PRESENT: full ROM Musculoskeletal exam: PRESENT: full ROM Neurological exam: PRESENT: alert, awake, oriented to person, oriented to place, oriented to time, oriented to situation Psychiatric exam: PRESENT: normal mood Skin exam: PRESENT: normal color Results Laboratory Results: 04/13/20 07:46 04/11/20 12:12 04/13/20 07:46 WBC 6.4 RBC 4.16 L Hgb 12.1 L Hct 35.8 L MCV 86 MCH 29.0 MCHC 33.7 RDW 14.1 H Plt Count 166 Seg Neutrophils % 68.3 04/11/20 10:28 Back Gram Stain - Final 04/11/20 09:15 Back AFB Smear Concentration - Final 04/11/20 09:15 Back Acid Fast Bacilli Smear - Final 04/03/20 15:37 Creatine Kinase 36 L Impressions: Chest/Abdomen CTA 04/03/20 00:00 IMPRESSION: 1. Incomplete opacification of the pulmonary vasculature limits the examination for evaluation of pulmonary emboli. No evidence of saddle pulmonary embolus. 2. Bilateral paravertebral soft tissue mass extends from the T7 to the T11 vertebrae. Question of some osseous destruction of bone involving the lateral aspects of the T8 and T9 vertebrae on the left. There does not appear to be extension of the soft tissue mass into the spinal canal or the foramina, or involvement of the posterior elements. Considerations for these findings include inflammatory/infectious etiologies, neoplasm, possible extramedullary hematopoiesis, as well as other etiologies. Correlation suggested. 3. A 7-8 mm right lower lobe pulmonary nodule. There are a few other smaller subcentimeter pulmonary nodules. Please see comments below concerning Fleischner nodules. Extremity Ultrasound 04/03/20 00:00 IMPRESSION: IRREGULAR HETEROGENOUS HYPOECHOIC AREA IN THE SOFT TISSUES. BASED ON CLINICAL HISTORY, LIKELY DUE TO INFECTION WITH DEVELOPING PHLEGMON. NO DRAINABLE FLUID. Lumbar Spine MRI 04/03/20 06:39 IMPRESSION: MILD DEGENERATIVE CHANGES WITH FACET ARTHROPATHY IN THE LOWER LUMBAR SPINE. NO DISC BULGE. NO STENOSIS OR IMPINGEMENT. Thoracic Spine MRI 04/05/20 00:00 IMPRESSION: NORMAL MRI THORACIC SPINE. Bone Biopsy CT 04/11/20 00:[address]: [address]-guided biopsy of the paraspinal tissue around the T7 and T8 vertebral bodies that demonstrated increased STIR signal and enhance ment on the correlative MRI from 04/05/2020 as detailed above. 2. Unsuccessful attempt to sample the T7-T8 intervertebral disc. Guidance Needle Placement CT 04/11/20 00:[address]: [address]-guided biopsy of the paraspinal tissue around the T7 and T8 vertebral bodies that demonstrated increased STIR signal and enhancement on the correlative MRI from 04/05/2020 as detailed above. 2. Unsuccessful attempt to sample the T7-T8 intervertebral disc. Muscle Biopsy CT 04/11/20 08:00 IMPRESSION: 1[address]-guided biopsy of the paraspinal tissue around the T7 and T8 vertebral bodies that demonstrated increased STIR signal and enhancement on the correlative MRI from 04/05/2020 as detailed above. 2. Unsuccessful attempt to sample the T7-T8 intervertebral disc. Assessment and Plan - Diagnosis (1) Discitis Qualifiers: Spinal region: thoracic Qualified Code(s): M46.44 - Discitis, unspecified, thoracic region Is this a current diagnosis for this admission?: Yes Plan: MRI lumbar spine show mild DDD. MRI thoracic spine incomplete x2 -CTA chest incidentally found bilateral paravertebral soft tissue mass extending from T7-T11 with some questionable osseous destruction to the bone involving the lateral aspects of T8 and T9 on the left -MRI with successful; revealed discitis at T7/8 with cord contact without compression. No evidence of abscesses. HIV negative -TB Gold interferon negative - Echo negative for vegetations - s/p biopsy of paraspinal muscle, unable to sample intervertebral disc - pathology report crushed stromal fragments with inflammatory cells and plasma cells. No malignant cells - spoke to Dr. Millan today. She recommended not resuming abx for now if the patient is afebrile and WBC count normal until we get cultures results from biopsy. - RPR negative (2) Paravertebral mass Is this a current diagnosis for this admission?: Yes Plan: - pathology result crushed stromal fragments with inflammatory cells including plasma cells. No malignant cells seen -Updated Dr. Scott regarding pathology findings as well as results of multiple myeloma work-up. She said that pathology findings can still be because of infectious process, kappa and lambda chain elevation can still be due to infectious process, multiple myeloma unlikely (3) Bacteremia Is this a current diagnosis for this admission?: No Plan: Blood cultures negative at 5 days MRI concerning for discitis. Awaiting bone biopsy result for antibiotic guidance - d/w Dr. Millan today who recommend to wait for biopsy result before restarting abx (4) Abscess of left arm Is this a current diagnosis for this admission?: Yes Plan: Resolved. U/S demonstrated infection with developing phlegmon; no drainable fluid Cultures and antibiotics as above. (5) Lower back pain Qualifiers: Chronicity: unspecified Back pain laterality: bilateral Sciatica presence: without sciatica Qualified Code(s): M54.5 - Low back pain Is this a current diagnosis for this admission?: Yes Plan: -Secondary to discitis -Methadone 10 mg every 8 -Awaiting bone biopsy -enCourage ambulation (6) Polysubstance abuse Is this a current diagnosis for this admission?: Yes Plan: Patient admits to regular IV heroin use. 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 Monitor for withdrawal. Discharge planning consulted. (7) Splenomegaly Is this a current diagnosis for this admission?: Yes Plan: EBV positive [place] negative Oncology consulted. - Time Time Spent with patient: 15-24 minutes Medications reviewed and adjusted accordingly: Yes Anticipated Discharge Disposition: Home, Self Care Anticipated Discharge Timeframe: to be determined
[2020-04-13] MEDS: MELATONIN 3 MG TABLET PO SCH (21:25)
[2020-04-14] MEDS: KETOROLAC TROMETHAMINE INJ/PF 30 MG/1 ML SDV IV PRN ×3 (03:34→18:28)
[2020-04-14] MEDS: METHADONE HCL 10 MG TABLET PO SCH ×3 (06:20→22:09)
[2020-04-14] MEDS: TIZANIDINE HCL 4 MG TABLET PO SCH ×3 (06:20→23:34)
[2020-04-14] MEDS: HEPARIN SOD (PORCINE) 5,000 UNIT/ML 1 ML VIAL SUBCUT SCH ×3 (06:21→22:10)
[2020-04-14] MEDS: PANTOPRAZOLE SODIUM 20 MG TABLET.DR PO SCH (06:21)
[2020-04-14 09:41] LABS: ABSOLUTE EOSINOPHILS # (AUTO) 0.2 10^3/uL (0.0-0.6); ABSOLUTE LYMPHOCYTES (AUTO) 1.5 10^3/uL (0.5-4.7); ABSOLUTE MONOCYTES (AUTO) 0.4 10^3/uL (0.1-1.4); ABSOLUTE NEUT (AUTO) 4.5 10^3/uL (1.7-8.2); BASOPHILS % (AUTO) 0.3 % (0-2); EOSINOPHILS % (AUTO) 2.3 % (0-6); HEMATOCRIT 39.1 % (37.9-51.0); HEMOGLOBIN 13.4 g/dL (13.5-17.0); LYMPHOCYTES % (AUTO) 23.4 % (13-45); MEAN CORPUSCULAR HGB CONC 34.1 g/dL (32.0-36.0); MEAN CORPUSCULAR VOLUME 85 fl (80-97); MONOCYTES % (AUTO) 6.5 % (3-13); PLATELET COUNT 171 10^3/uL (150-450); RED CELL DISTRIBUTION WIDTH 14.1 % (11.5-14.0); SEGMENTED NEUTROPHILS % (AUTO) 67.5 % (42-78); TOTAL CELLS COUNTED % (AUTO) 100 %; WHITE BLOOD COUNT 6.6 10^3/uL (4.0-10.5)
[2020-04-14] MEDS: DOCUSATE SODIUM 100 MG CAPSULE PO SCH ×2 (10:00→18:27)
[2020-04-14] MEDS: MULTIVITAMIN TABLET PO SCH (10:00)
[2020-04-14] MEDS: ASCORBIC ACID 500 MG TABLET PO SCH ×2 (10:00→18:27)
[2020-04-14] MEDS: FOLIC ACID 1 MG TABLET PO SCH (10:01)
[2020-04-14] MEDS: CHOLECALCIFEROL (D3) 400 UNIT TABLET PO SCH (10:01)
[2020-04-14] MEDS: CIPROFLOXACIN HCL/DEXAMETH OTIC DROP 7.5 ML AU SCH ×2 (10:16→18:29)
[2020-04-14] MEDS ORDERED: PIPERACILLIN/TAZOBACTAM 3.375 GM VIAL IV ONE ×2 (17:23→18:20)
[2020-04-14] MEDS ORDERED: VANCOMYCIN HCL 0 MG in DEXTROSE 5%-WATER 250 ML IV NR (17:30)
--- NOTE | 2020-04-14 18:05 | PDOC PROGRESS REPORT ---
Subjective Progress Note for:: 04/14/20 Subjective:: Was seen and examined at bedside status post bone biopsy today. Denies any chest pain shortness of breath fever or chills. Complains of mild back pain, relieved by pain medications. Requesting food as he is very hungry for being n.p.o. overnight. D10 hospital stay 04/12/20. Patient underwent bone biopsy yesterday. Awaiting cultures. Today he denies any chest pain, SOB, palpitations. Refused labs today. Spoke to Dr. millan today and she recommend to hold abx for now until we get culture results since he is afebrile. D11 hospital stay 04/13/20. Patient was seen and examined at bedside. He was very upset for not getting opioid pain medications. He wants to be transferred to another hospital. He complained of back pain that was relieved by Toradol. He is afebrile. Paraspinal mass has been negative so far. I discussed the bone marrow pathology findings, and myeloma work-up with Dr. Hurst over the phone. And she said these changes are still likely from ongoing infectious process, multiple myeloma is unlikely. D12 hospital stay 04/14/20. Patient seen and examined at bedside. Afebrile and comfortable, pain stable. Cultures reviewed. Zosyn and vanc restarted. Paravertebral spinal mass culture and gram stain negative. Bone biopsy shows inflammatory cells. In light of discitis seen on MRI in the setting of IV drug use, abx restarted. Awaiting recommendation from Dr. Millan. Reason For Visit: FEVER, INTRACTABLE BACK PAIN, DYSPNEA Physical Exam Vital Signs: Temp Pulse Resp BP Pulse Ox 99.0 F 77 17 129/72 H 100 04/14/20 03:41 04/14/20 03:41 04/14/20 03:41 04/14/20 03:41 04/14/20 03:41 Intake & Output 04/13/20 04/14/20 04/15/20 06:59 06:59 06:59 Intake Total 1080 1560 Balance 1080 1560 Weight 96.2 kg 96 kg General appearance: PRESENT: no acute distress, cooperative Eye exam: PRESENT: EOMI, PERRLA Mouth exam: PRESENT: moist Neck exam: PRESENT: full ROM. ABSENT: meningismus, tenderness Respiratory exam: PRESENT: clear to auscultation luisito, symmetrical, unlabored Cardiovascular exam: PRESENT: RRR, +S1, +S2 Pulses: PRESENT: +2 pedal pulses bilateral GI/Abdominal exam: PRESENT: normal bowel sounds, soft. ABSENT: rebound, tenderness Extremities exam: PRESENT: full ROM. ABSENT: +2 edema Musculoskeletal exam: PRESENT: full ROM Neurological exam: PRESENT: alert, awake, oriented to person, oriented to place, oriented to time, oriented to situation Psychiatric exam: PRESENT: normal mood Results Laboratory Results: 04/14/20 09:12 04/11/20 12:12 04/14/20 09:12 WBC 6.6 RBC 4.60 Hgb 13.4 L Hct 39.1 MCV 85 MCH 29.0 MCHC 34.1 RDW 14.1 H Plt Count 171 Seg Neutrophils % 67.5 04/11/20 10:28 Back Gram Stain - Final 04/03/20 15:37 Creatine Kinase 36 L Impressions: Chest/Abdomen CTA 04/03/20 00:00 IMPRESSION: 1. Incomplete opacification of the pulmonary vasculature limits the examination for evaluation of pulmonary emboli. No evidence of saddle pulmo nary embolus. 2. Bilateral paravertebral soft tissue mass extends from the T7 to the T11 vertebrae. Question of some osseous destruction of bone involving the lateral aspects of the T8 and T9 vertebrae on the left. There does not appear to be extension of the soft tissue mass into the spinal canal or the foramina, or involvement of the posterior elements. Considerations for these findings inclu de inflammatory/infectious etiologies, neoplasm, possible extramedullary hematopoiesis, as well as other etiologies. Correlation suggested. 3. A 7-8 mm right lower lobe pulmonary nodule. There are a few other smaller subcentimeter pulmonary nodules. Please see comments below concerning Fleischne r nodules. Extremity Ultrasound 04/03/20 00:00 IMPRESSION: IRREGULAR HETEROGENOUS HYPOECHOIC AREA IN THE SOFT TISSUES. BASED ON CLINICAL HISTORY, LIKELY DUE TO INFECTION WITH DEVELOPING PHLEGMON. NO DRAINABLE FLUID. Lumbar Spine MRI 04/03/20 06:39 IMPRESSION: MILD DEGENERATIVE CHANGES WITH FACET ARTHROPATHY IN THE LOWER LUMBAR SPINE. NO DISC BULGE. NO STENOSIS OR IMPINGEMENT. Thoracic Spine MRI 04/05/20 00:00 IMPRESSION: NORMAL MRI THORACIC SPINE. Bone Biopsy CT 04/11/20 00:[address] IMPRESSION: 1[address]-guided biopsy of the paraspinal tissue around the T7 and T8 vertebral bodies that demonstrated increased STIR signal and enhancement on the correlative MRI from 04/05/2020 as detailed above. 2. Unsuccessful attempt to sample the T7-T8 intervertebral disc. Guidance Needle Placement CT 04/11/20 00:00 IMPRESSION: 1[address]-guided biopsy of the paraspinal tissue around the T7 and T8 vertebral bodies that demonstrated increased STIR signal and enhancement on the correlative MRI from 04/05/2020 as detailed above. 2. Unsuccessful attempt to sample the T7-T8 intervertebral disc. Muscle Biopsy CT 04/11/20 08:00 IMPRESSION: 1. Successful CT-guided biopsy of the paraspinal tissue around the T7 and T8 vertebral bodies that demonstrated increased STIR signal and enhancement on the correlative MRI from 04/05/2020 as detailed above. 2. Unsuccessful attempt to sample the T7-T8 intervertebral disc. Assessment and Plan - Diagnosis (1) Discitis Qualifiers: Spinal region: thoracic Qualified Code(s): M46.44 - Discitis, unspecified, thoracic region Is this a current diagnosis for this admission?: Yes Plan: MRI lumbar spine show mild DDD. MRI thoracic spine incomplete x2 -CTA chest incidentally found bilateral paravertebral soft tissue mass extending from T7-T11 with some questionable osseous destruction to the bone involving the lateral aspects of T8 and T9 on the left -MRI with successful; revealed discitis at T7/8 with cord contact without compression. No evidence of abscesses. HIV negative -TB Gold interferon negative - Echo negative for vegetations - s/p biopsy of paraspinal muscle, unable to sample intervertebral disc - pathology report crushed stromal fragments with inflammatory cells and plasma cells. No malignant cells - zosyn and vanc resumed in light of discitis seen on MRI, setting of IV drug use. - RPR negative (2) Paravertebral mass Is this a current diagnosis for this admission?: Yes Plan: - pathology result crushed stromal fragments with inflammatory cells including plasma cells. No malignant cells seen -Updated Dr. Loredo regarding pathology findings as well as results of multiple myeloma work-up. She said that pathology findings can still be because of infectious process, kappa and lambda chain elevation can still be due to infectious process, multiple myeloma unlikely - restarted vanc and zosyn (3) Bacteremia Is this a current diagnosis for this admission?: No Plan: -Blood cultures negative at 5 days -MRI concerning for discitis. -received several days of zosyn and vanc. Stopped for 3 days before undergoing biopsy - Vanc and zosyn resumed today. (4) Abscess of left arm Is this a current diagnosis for this admission?: Yes Plan: Resolved. U/S demonstrated infection with developing phlegmon; no drainable fluid Cultures and antibiotics as above. 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 Monitor for withdrawal. Discharge planning consulted. (7) Splenomegaly Is this a current diagnosis for this admission?: Yes Plan: EBV positive [place] negative Oncology consulted. - Time Time Spent with patient: 15-24 minutes Anticipated Discharge Disposition: Home, Self Care Anticipated Discharge Timeframe: to be determined
[2020-04-14] MEDS ORDERED: PIPERACILLIN SODIUM/TAZOBACTAM 3.375 GM in NORMAL SALINE 100 ML IV ONE (18:15)
[2020-04-14] MEDS ORDERED: POLYETHYLENE GLYCOL 3350 POWDER 17 GM/1 PACKET PO ONE (18:30)
[2020-04-14] MEDS ORDERED: VANCOMYCIN HCL INJ 1000 MG VIAL IV PRN (22:08)
[2020-04-14] MEDS: MELATONIN 3 MG TABLET PO SCH (22:09)
[2020-04-14] MEDS ORDERED: VANCOMYCIN HCL 1,250 MG in DEXTROSE 5%-WATER 250 ML IV ONE (22:30)
[2020-04-14] MEDS ORDERED: VANCOMYCIN HCL INJ 500 MG VIAL ONE (23:20)
[2020-04-14] MEDS ORDERED: VANCOMYCIN HCL INJ 1000 MG VIAL ONE (23:20)
[2020-04-15] MEDS: KETOROLAC TROMETHAMINE INJ/PF 30 MG/1 ML SDV IV PRN ×2 (02:56→13:36)
[2020-04-15] MEDS ORDERED: VANCOMYCIN HCL 1,250 MG in DEXTROSE 5%-WATER 250 ML IV ONE (06:00)
[2020-04-15] MEDS ORDERED: VANCOMYCIN HCL INJ 1000 MG VIAL ONE (06:35)
[2020-04-15] MEDS ORDERED: VANCOMYCIN HCL INJ 500 MG VIAL ONE (06:35)
[2020-04-15] MEDS: TIZANIDINE HCL 4 MG TABLET PO SCH ×3 (07:02→22:48)
[2020-04-15] MEDS: METHADONE HCL 10 MG TABLET PO SCH ×3 (07:02→22:49)
[2020-04-15] MEDS: HEPARIN SOD (PORCINE) 5,000 UNIT/ML 1 ML VIAL SUBCUT SCH ×3 (07:07→22:44)
[2020-04-15] MEDS: PANTOPRAZOLE SODIUM 20 MG TABLET.DR PO SCH (07:36)
[2020-04-15] MEDS: ASCORBIC ACID 500 MG TABLET PO SCH ×2 (09:46→16:59)
[2020-04-15] MEDS: DOCUSATE SODIUM 100 MG CAPSULE PO SCH ×2 (09:47→16:59)
[2020-04-15] MEDS: MULTIVITAMIN TABLET PO SCH (09:47)
[2020-04-15] MEDS: CHOLECALCIFEROL (D3) 400 UNIT TABLET PO SCH (09:47)
[2020-04-15] MEDS: FOLIC ACID 1 MG TABLET PO SCH (09:48)
[2020-04-15] MEDS: CIPROFLOXACIN HCL/DEXAMETH OTIC DROP 7.5 ML AU SCH ×2 (09:48→17:08)
[2020-04-15 12:22] LABS: ABSOLUTE EOSINOPHILS # (AUTO) 0.1 10^3/uL (0.0-0.6); ABSOLUTE MONOCYTES (AUTO) 0.4 10^3/uL (0.1-1.4); ABSOLUTE NEUT (AUTO) 2.7 10^3/uL (1.7-8.2); BASOPHILS % (AUTO) 0.6 % (0-2); EOSINOPHILS % (AUTO) 2.7 % (0-6); HEMATOCRIT 38.5 % (37.9-51.0); LYMPHOCYTES % (AUTO) 23.1 % (13-45); MEAN CORPUSCULAR HGB CONC 33.7 g/dL (32.0-36.0); MEAN CORPUSCULAR VOLUME 86 fl (80-97); MONOCYTES % (AUTO) 9.9 % (3-13); PLATELET COUNT 140 10^3/uL (150-450); RED BLOOD COUNT 4.48 10^6/uL (4.35-5.55); RED CELL DISTRIBUTION WIDTH 13.6 % (11.5-14.0); SEGMENTED NEUTROPHILS % (AUTO) 63.7 % (42-78); TOTAL CELLS COUNTED % (AUTO) 100 %; WHITE BLOOD COUNT 4.2 10^3/uL (4.0-10.5)
[2020-04-15] MEDS: VANCOMYCIN HCL 1,250 MG in DEXTROSE 5%-WATER 250 ML IV SCH ×2 (14:05→22:47)
--- NOTE | 2020-04-15 17:58 | PDOC PROGRESS REPORT ---
Subjective Progress Note for:: 04/15/20 Subjective:: Was seen and examined at bedside status post bone biopsy today. Denies any chest pain shortness of breath fever or chills. Complains of mild back pain, relieved by pain medications. Requesting food as he is very hungry for being n.p.o. overnight. D10 hospital stay 04/12/20. Patient underwent bone biopsy yesterday. Awaiting cultures. Today he denies any chest pain, SOB, palpitations. Refused labs today. Spoke to Dr. millan today and she recommend to hold abx for now until we get culture results since he is afebrile. D11 hospital stay 04/13/20. Patient was seen and examined at bedside. He was very upset for not getting opioid pain medications. He wants to be transferred to another hospital. He complained of back pain that was relieved by Toradol. He is afebrile. Paraspinal mass has been negative so far. I discussed the bone marrow pathology findings, and myeloma work-up with Dr. Hurst over the phone. And she said these changes are still likely from ongoing infectious process, multiple myeloma is unlikely. D12 hospital stay 04/14/20. Patient seen and examined at bedside. Afebrile and comfortable, pain stable. Cultures reviewed. Zosyn and vanc restarted. Paravertebral spinal mass culture and gram stain negative. Bone biopsy shows inflammatory cells. In light of discitis seen on MRI in the setting of IV drug use, abx restarted. Awaiting recommendation from Dr. Millan. D13 hospital stay. 04/15/20. Patient was seen and examined at bedside. Afebrile. Back pain manageable. Resumed abx yesterday vanc and zosyn. Awaiting recommendation from ID regarding abx duration and type. Reason For Visit: FEVER, INTRACTABLE BACK PAIN, DYSPNEA Physical Exam Vital Signs: Temp Pulse Resp BP Pulse Ox 98.4 F 74 12 103/64 99 04/15/20 16:00 04/15/20 16:00 04/15/20 16:00 04/15/20 16:00 04/15/20 16:00 Intake & Output 04/14/20 04/15/20 04/16/20 06:59 06:59 06:59 Intake Total 1560 2185 2230 Output Total 300 500 Balance 1560 1885 1730 Weight 96 kg 92 kg General appearance: PRESENT: no acute distress, cooperative Head exam: PRESENT: atraumatic, normocephalic Eye exam: PRESENT: EOMI, PERRLA Mouth exam: PRESENT: moist Neck exam: PRESENT: full ROM Respiratory exam: PRESENT: clear to auscultation luisito, symmetrical, unlabored Cardiovascular exam: PRESENT: RRR, +S1, +S2 Pulses: PRESENT: +2 pedal pulses bilateral GI/Abdominal exam: PRESENT: Vazquez's sign, normal bowel sounds, soft. ABSENT: tenderness Extremities exam: PRESENT: full ROM Musculoskeletal exam: PRESENT: full ROM Neurological exam: PRESENT: alert, awake, oriented to person, oriented to place, oriented to time, oriented to situation Psychiatric exam: PRESENT: normal mood Results Laboratory Results: 04/15/20 12:00 04/15/20 12:00 04/15/20 04/15/20 12:00 12:00 WBC 4.2 RBC 4.48 Hgb 13.0 L Hct 38.5 MCV 86 MCH 29.0 MCHC 33.7 RDW 13.6 Plt Count 140 L Seg Neutrophils % 63.7 Creatinine 0.70 Est GFR ( Amer) > 60 04/11/20 10:28 Back Gram Stain - Final 04/11/20 10:28 Back Wound Culture - Final NO AEROBIC OR ANAEROBIC ORGANISMS RECOVERED 04/03/20 15:37 Creatine Kinase 36 L Impressions: Chest/Abdomen CTA 04/03/20 00:00 IMPRESSION: 1. Incomplete opacification of the pulmonary vasculature limits the examination for evaluation of pulmonary emboli. No evidence of saddle pulmonary embolus. 2. Bilateral paravertebral soft tissue mass extends from the T7 to the T11 vertebrae. Question of some osseous destruction of bone involving the lateral aspects of the T8 and T9 vertebrae on the left. There does not appear to be ext ension of the soft tissue mass into the spinal canal or the foramina, or involvement of the posterior elements. Considerations for these findings include inflammatory/infectious etiologies, neoplasm, possible extramedullary hematopoiesis, as well as other etiologies. Correlation suggested. 3. A 7-8 mm right lower lobe pulmonary nodule. There are a few other smaller subcentimeter pulmonary nodules. Please see comments below concerning Fleischner nodules. Extremity Ultrasound 04/03/20 00:00 IMPRESSION: IRREGULAR HETEROGENOUS HYPOECHOIC AREA IN THE SOFT TISSUES. BASED ON CLINICAL HISTORY, LIKELY DUE TO INFECTION WITH DEVELOPING PHLEGMON. NO DRAINABLE FLUID. Lumbar Spine MRI 04/03/20 06:39 IMPRESSION: MILD DEGENERATIVE CHANGES WITH FACET ARTHROPATHY IN THE LOWER LUMBAR SPINE. NO DISC BULGE. NO STENOSIS OR IMPINGEMENT. Thoracic Spine MRI 04/05/20 00:00 IMPRESSION: NORMAL MRI THORACIC SPINE. Bone Biopsy CT 04/11/20 00:[address]: [address]-guided biopsy of the paraspinal tissue around the T7 and T8 vertebral bodies that demonstrated increased STIR signal and enhancement on the correlative MRI from 04/05/2020 as detailed above. 2. Unsuccessful attempt to sample the T7-T8 intervertebral disc. Guidance Needle Placement CT 04/11/20 00:00 IMPRESSION: 1[address]-guided biopsy of the paraspinal tissue around the T7 and T8 vertebral bodies that demonstrated increased STIR signal and enhancement on the correlative MRI from 04/05/2020 as detailed above. 2. Unsuccessful attempt to sample the T7-T8 intervertebral disc. Muscle Biopsy CT 04/11/20 08:00 IMPRESSION: 1[address] Success[address] CT-guided biopsy of the paraspinal tissue around the T7 and T8 vertebral bodies that demonstrated increased STIR signal and enhancement on the correlative MRI from 04/05/2020 as detailed above. 2. Unsuccessful attempt to sample the T7-T8 intervertebral disc. Assessment and Plan - Diagnosis (1) Discitis Qualifiers: Spinal region: thoracic Qualified Code(s): M46.44 - Discitis, unspecified, thoracic region Is this a current diagnosis for this admission?: Yes Plan: MRI lumbar spine show mild DDD. MRI thoracic spine incomplete x2 -CTA chest incidentally found bilateral paravertebral soft tissue mass extending from T7-T11 with some questionable osseous destruction to the bone involving the lateral aspects of T8 and T9 on the left -MRI with successful; revealed discitis at T7/8 with cord contact without compression. No evidence of abscesses. HIV negative -TB Gold interferon negative - Echo negative for vegetations - s/p biopsy of paraspinal muscle, unable to sample intervertebral disc - pathology report crushed stromal fragments with inflammatory cells and plasma cells. No malignant cells - zosyn and vanc resumed in light of discitis seen on MRI, setting of IV drug use. - RPR negative - awaiting ID recs (2) Paravertebral mass Is this a current diagnosis for this admission?: Yes Plan: - pathology result crushed stromal fragments with inflammatory cells including plasma cells. No malignant cells seen -Updated Dr. Loredo regarding pathology findings as well as results of multiple myeloma work-up. She said that pathology findings can still be because of infectious process, kappa and lambda chain elevation can still be due to infectious process, multiple myeloma unlikely - restarted vanc and zosyn yesterday (3) Bacteremia Is this a current diagnosis for this admission?: No Plan: -Blood cultures negative at 5 days -MRI concerning for discitis. -received several days of zosyn and vanc. Stopped for 3 days before undergoing biopsy - Vanc and zosyn resumed yesterday. (4) Abscess of left arm Is this a current diagnosis for this admission?: Yes Plan: Resolved. U/S demonstrated infection with developing phlegmon; no drainable fluid Cultures and antibiotics as above. 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 Monitor for withdrawal. Discharge planning consulted. (7) Splenomegaly Is this a current diagnosis for this admission?: Yes Plan: EBV positive [place] negative Oncology consulted. - Time Time Spent with patient: 15-24 minutes Anticipated Discharge Disposition: Home, Self Care Anticipated Discharge Timeframe: to be determined
[2020-04-15 21:20] VITALS: BP 111/64
[2020-04-15] MEDS: MELATONIN 3 MG TABLET PO SCH (22:49)
--- NOTE | 2020-04-16 04:28 | Left Against Medical Advice ---
Against Medical Advice Admission Date/Time: 04/03/20 13:55 Primary Care Provider: Date of Patient Emigration: 04/15/20 - Diagnosis: (1) Discitis Is this a current diagnosis for this admission?: Yes (2) Abscess of left arm Is this a current diagnosis for this admission?: Yes (3) Bacteremia Is this a current diagnosis for this admission?: Yes (4) Paravertebral mass Is this a current diagnosis for this admission?: Yes (5) Splenomegaly Is this a current diagnosis for this admission?: Yes (6) Heroin abuse Is this a current diagnosis for this admission?: Yes - Summary: Summary: Please see Admission and Progress Notes as well. TALISHA MARTIN is a 40 M, who LEFT AGAINST MEDICAL ADVICE. The Patient was admitted on 04/03/20 13:55.
== END 2020-04-15 23:35 | disposition home or self-care (01) | DRG 478 ==
LOC: ER 04:10 → EH 13:55 → 5 22:53
PROVIDERS: ADMIT Internal Medicine; ATTEND Internal Medicine
PROC: 0PB43ZX Excision of Thoracic Vertebra, Percutaneous Approach, Diagnostic (ICD-10-PCS; principal; 2020-04-11)
DX: M46.44 Discitis, unspecified, thoracic region (principal); L02.414 Cutaneous abscess of left upper limb; R78.81 Bacteremia; M48.8X4 Other specified spondylopathies, thoracic region; R16.1 Splenomegaly, not elsewhere classified; F11.10 Opioid abuse, uncomplicated; I10 Essential (primary) hypertension; F90.9 Attention-deficit hyperactivity disorder, unspecified type; F17.210 Nicotine dependence, cigarettes, uncomplicated; F19.10 Other psychoactive substance abuse, uncomplicated; M51.36 Other intervertebral disc degeneration, lumbar region; Z86.14 Personal history of Methicillin resistant Staphylococcus aureus infection; Z20.828 Contact with and (suspected) exposure to other viral communicable diseases
CPT/HCPCS: 20206; 20225; 36415; 71275; 72146; 72148; 72157; 76882; 77012; 80048; 80053; 80074; 80202; 80307; 81001; 82550; 82565; 82728; 82784; 83605; 83615; 83690; 83883; 85025; 85027; 85379; 85610; 85652; 86140; 86308; 86320; 86480; 86592; 86701; 87015; 87040; 87070; 87075; 87116; 87205; 87206; 87798; 88305; 88342; 93306; 96361; 96365; 96375; 96376; 99285; A9576; J0571; J1170; J1644; J1650; J1885; J2060; J2250; J2270; J2405; J2543; J3010; J3370; J3490; J7030; J7050; J7060; J7512

== ENCOUNTER 2020-05-31 00:27 | Emergency (ER) | payer SELFPAY ==
[2020-05-31 00:53] LABS: VENOUS BLOOD BASE EXCESS 4.7 mmol/L; VENOUS BLOOD HCO3 28.8 mmol/L (20-32); VENOUS BLOOD PCO2 40.7 mmHg (35-63); VENOUS BLOOD PH 7.47 (7.30-7.42)
[2020-05-31 00:54] LABS: ABSOLUTE LYMPHOCYTES (AUTO) 0.8 10^3/uL (0.5-4.7); ABSOLUTE MONOCYTES (AUTO) 0.5 10^3/uL (0.1-1.4); ABSOLUTE NEUT (AUTO) 8.1 10^3/uL (1.7-8.2); BASOPHILS % (AUTO) 0.3 % (0-2); EOSINOPHILS % (AUTO) 0.1 % (0-6); HEMATOCRIT 29.9 % (37.9-51.0); HEMOGLOBIN 10.5 g/dL (13.5-17.0); LYMPHOCYTES % (AUTO) 8.3 % (13-45); MEAN CORPUSCULAR HEMOGLOBIN 28.7 pg (27.0-33.4); MEAN CORPUSCULAR HGB CONC 35.2 g/dL (32.0-36.0); MEAN CORPUSCULAR VOLUME 82 fl (80-97); MONOCYTES % (AUTO) 5.5 % (3-13); PLATELET COUNT 325 10^3/uL (150-450); RED BLOOD COUNT 3.66 10^6/uL (4.35-5.55); SEGMENTED NEUTROPHILS % (AUTO) 85.8 % (42-78); TOTAL CELLS COUNTED % (AUTO) 100 %; WHITE BLOOD COUNT 9.4 10^3/uL (4.0-10.5)
[2020-05-31 01:19] LABS: ALBUMIN 3.6 g/dL (3.5-5.0); ALKALINE PHOSPHATASE 89 U/L (38-126); ANION GAP 11 (5-19); ASPARTATE AMINO TRANSFERASE 16 U/L (17-59); BILIRUBIN,DIRECT 0.3 mg/dL (0.0-0.4); BILIRUBIN,TOTAL 0.4 mg/dL (0.2-1.3); BLOOD UREA NITROGEN 13 mg/dL (7-20); CALCIUM 8.9 mg/dL (8.4-10.2); CARBON DIOXIDE 26 mmol/L (22-30); CHLORIDE 97 mmol/L (98-107); GLUCOSE 131 mg/dL (75-110); POTASSIUM 3.9 mmol/L (3.6-5.0); TOTAL PROTEIN 6.8 g/dL (6.3-8.2)
[2020-05-31 01:24] LABS: INTERNATIONAL RATION (INR) 1.07; PROTHROMBIN TIME 14.2 SEC (11.4-15.4)
--- NOTE | 2020-05-31 02:21 | ER Document Report ---
ED General - General Chief Complaint: Back Pain Stated Complaint: BACK PAIN Time Seen by Provider: 05/31/20 02:20 TRAVEL OUTSIDE OF THE U.S. IN LAST 30 DAYS: No - HPI Notes: 40-year-old male presents with back pain and fever. He states that he believes his spinal infection has returned. Patient was first diagnosed with discitis in March, he states he was treated with antibiotics. He then had a hospital admission in April at [facility], again treated with antibiotics but then left AMA after he was upset that a visitor restriction was put in place after another patient on the same floor brought in drugs. He states that he was upset about no visitors and additionally no electronics as he has bipolar and these things are comforting to him. Patient states that he began to develop lower back pain and fever about 4 days ago. He drove to [facility] and was admitted there for 3 days. He states that he was told his blood cultures were positive for a staph infection and that he again had discitis and also vertebral osteomyelitis. However yesterday he left AMA because he wanted to be close to home as there is a [facility] case open for his child. He lives here in [place]. Patient states that for the past 4 days he has had severe back pain. He cannot sit up or walk. He states that he has attempted to ambulate with a walker and he just falls down. He has a numbness/tingling sensation that starts in his lower back, goes to his bilateral buttocks and wraps around his thigh. He has history of IV heroin abuse. He was febrile 102F with EMS, he received Tylenol. - Related Data Allergies/Adverse Reactions: No Known Allergies Allergy (Verified 04/03/20 04:22) Home Medications: Toradol, Dilaudid, Vancomycin, Vitamin D Past Medical History - General Information source: Patient - Social History Smoking Status: Current Every Day Smoker Drug Abuse: Heroin Family History: Reviewed & Not Pertinent Patient has homicidal ideation: No - Past Medical History Cardiac Medical History: Reports: Hx Hypertension Denies: Hx Heart Attack, Hx Hypercholesterolemia Renal/ Medical History: Denies: Hx Peritoneal Dialysis Musculoskeletal Medical History: Reports Hx Muscle Spasm Psychiatric Medical History: Reports: Hx Attention Deficit Hyperactivity Disorder, Hx Bipolar Disorder, Hx Depression Infectious Medical History: Reports: Hx MRSA Past Surgical History: Reports: Hx Orthopedic Surgery - RUE; LLE; LUE; - Immunizations Immunizations up to date: Yes Hx Diphtheria, Pertussis, Tetanus Vaccination: Yes Review of Systems - Review of Systems Constitutional: Chills, Fever EENT: No symptoms reported Cardiovascular: denies: Chest pain Respiratory: denies: Short of breath Gastrointestinal: denies: Abdominal pain Genitourinary: No symptoms reported Male Genitourinary: No symptoms reported Musculoskeletal: Back pain Skin: No symptoms reported Hematologic/Lymphatic: No symptoms reported Neurological/Psychological: Weakness, Numbness Physical Exam - Vital signs Vitals: Temp Pulse Resp BP Pulse Ox 100 F 102 H 20 142/83 H 98 05/31/20 00:28 05/31/20 00:28 05/31/20 00:28 05/31/20 00:28 05/31/20 00:28 - General General appearance: Alert In distress: Mild - HEENT Head: Normocephalic, Atraumatic Extraocular movements intact: Yes Pupils: PERRL - Respiratory Chest status: Nontender Breath sounds: Normal - Cardiovascular Rhythm: Regular Heart sounds: Normal auscultation Pulses: Normal: Dorsalis pedis Normal capillary refill: Yes - Abdominal Tenderness: Nontender - Back Back: Vertebra tenderness - Mid thoracic through lumbar - Extremities General lower extremity: No: Edema - Neurological Notes: Patient is laying on his side on the stretcher, he has his hips and knees bent. He freely moves his legs in the bed. When asked to press against resistance, patient has weakness which is symmetric. Patellar reflexes are 1+ bilaterally. Sensation is intact to lower extremities. - Psychological Associated symptoms: Anxious - Skin Skin Temperature: Warm Course - Re-evaluation Re-evalutation: 40-year-old male IVDA with history of spinal discitis/osteomyelitis here with likely recurrence of his infection. He was admitted at [facility] for 3 days however left AMA, he reports that his blood cultures were positive for staph. Patient complains of not being able to ambulate. On exam he does freely move his legs in bed, however has weakness when pressing down, question if there is a participation element. He has intact reflexes and sensation. He has midline tenderness and he is febrile. I do suspect that he has discitis/osteomyelitis, however given his new report of inability to walk I am concerned potentially he might have an abscess that could be causing a mass-effect on the spinal cord. He will need thoracic and lumbar MRI. Have started vancomycin. The patient is currently agreeable to stay for treatment and understands that depending on the MRI results he may need transfer. I understand that he does have a history of IVDA, who he does appear to be in acute pain, will treat pain accordingly. 05/31/20 05:32 No leukocytosis. Chronic anemia. No major electrolyte abnormalities. Creatinine within normal limits. Troponin negative. Elevated CRP and ESR. No UTI although noted is quite dilute and the pH of 7 05/31/20 05:48 Patient to be [facility] day team physician, pending MRIs - Vital Signs Vital signs: Temp Pulse Resp BP Pulse Ox 98.9 F 102 H 20 130/83 H 100 05/31/20 03:18 05/31/20 00:28 05/31/20 05:01 05/31/20 05:01 05/31/20 05:01 - Laboratory Result Diagrams: 05/31/20 00:38 05/31/20 00:38 Laboratory results interpreted by me: 05/31/20 05/31/20 05/31/20 00:38 00:38 00:38 RBC 3.66 L Hgb 10.5 L Hct 29.9 L Lymph % (Auto) 8.3 L Seg Neutrophils % 85.8 H ESR VBG pH 7.47 H Sodium 134.2 L Chloride 97 L Glucose 131 H AST 16 L C-Reactive Protein 05/31/20 05/31/20 00:38 00:38 RBC Hgb Hct Lymph % (Auto) Seg Neutrophils % ESR 99 H VBG pH Sodium Chloride Glucose AST C-Reactive Protein 71.2 H - EKG Interpretation by Me Additional EKG results interpreted by me: EKG is interpreted by me. Sinus tachycardia, rate 100. Narrow QRS, QTC within normal limits. No ST segment elevation. Discharge - Discharge Clinical Impression: Fever in adult, Intravenous drug abuse Acute low back pain Qualifiers: Back pain laterality: bilateral Sciatica presence: without sciatica Qualified Code(s): M54.5 - Low back pain Disposition: OTHER
[2020-05-31] MEDS ORDERED: HYDROMORPHONE HCL INJ/PF 2 MG/ML AMPULE IV ONE ×5 (02:34→16:13)
[2020-05-31] MEDS ORDERED: VANCOMYCIN HCL INJ 1000 MG VIAL IV ONE (02:36)
[2020-05-31 03:09] LABS: APPEARANCE,URINE CLEAR; BILIRUBIN,URINE NEGATIVE (NEGATIVE); COLOR,URINE COLORLESS; GLUCOSE, URINE NEGATIVE (NEGATIVE); KETONES,URINE NEGATIVE (NEGATIVE); PROTEIN,URINE NEGATIVE (NEGATIVE); URINE SPECIFIC GRAVITY 1.002; UROBILINOGEN,URINE NEGATIVE mg/dL (<2.0)
[2020-05-31] MEDS ORDERED: KETOROLAC TROMETHAMINE INJ/PF 30 MG/1 ML SDV IV ONE ×3 (04:01→13:48)
[2020-05-31] MEDS ORDERED: ACETAMINOPHEN 325 MG TABLET PO ONE ×2 (06:22→13:48)
[2020-05-31] MEDS ORDERED: HYDROMORPHONE HCL INJ/PF 2 MG/ML AMPULE ONE (08:05)
[2020-05-31] MEDS ORDERED: KETOROLAC TROMETHAMINE INJ/PF 30 MG/1 ML SDV ONE (08:18)
--- NOTE | 2020-05-31 10:01 | RADIOLOGY REPORT (SQ) ---
EXAM DESCRIPTION: MRI LUMBAR SPINE COMBO IMAGES COMPLETED DATE/TIME: 05/31/2020 9:37 am REASON FOR STUDY: IVDA, fever, inability to walk, hx osteomyelitis COMPARISON: 04/03/2020. TECHNIQUE: Sagittal and Axial imaging includes T1, T1 post gadolinium, T2, STIR and gradient echo se quences. Coronal T2/HASTE imaging. CONTRAST TYPE AND DOSE: 20 mL Prohance. RENAL FUNCTION: Not indicated. ACR Type II contrast agent associated with few, if any, unconfounded cases of NSF LIMITATIONS: None. FINDINGS: VISUALIZED UPPER ABDOMEN: Limited evaluation. No acute or suspicious findings suggested. SEGMENTATION: No transitional anatomy. The lowest well-developed disc space is labeled L5-S1. ALIGNMENT: Anatomic. VERTEBRAE: Intact. No fractures. BONE MARROW: No marrow replacement. Reactive endplate signal at L5-S1. On postcontrast sagittal malik ges, there there are patchy areas of enhancement within the disc. DISC SIGNAL: Normal. No significant abnormal signal or loss of height. POSTERIOR ELEMENTS: Generally intact. No pars defect evident. HARDWARE: None in the spine. CORD AND CONUS: Normal in size and signal intensity. Conus at the appropriate level. SOFT TISSUES: No aortic aneurysm seen. No bulky retroperitoneal adenopathy or mass. No paraspinal mas s or fluid. L1-L2: No significant spinal stenosis or exit foraminal stenosis. L2-L3: No significant spinal stenosis or exit foraminal stenosis. L3-L4: No significant spinal stenosis or exit foraminal stenosis. L4-L5: No disc bulge. Mild facet arthropathy. No significant spinal stenosis or exit foraminal sten osis. L5-S1: Mild posterior disc bulge. Mild facet arthropathy. No significant spinal stenosis or exit fo raminal stenosis. LOWER THORACIC: Incompletely imaged. No stenosis seen. SACRUM: Visualized upper sacrum intact. ENHANCEMENT: Patchy areas of enhancement in the L5-S1 disc. There is also epidural enhancing soft ti ssue in the spinal canal from approximately the level of L4 to S1. At the level of the L5-S1 disc th ere is prominent enhancing soft tissue on the left side of the thecal sac with central areas of nonen hancement, best visualized on axial series 3, image 30. This does cause some displacement of the the aide sac. OTHER: No other significant findings. IMPRESSION: 1. PATCHY AREAS OF ENHANCEMENT IN THE L5-S1 DISC SUSPICIOUS FOR DISCITIS. 2. PROMINENT ENHANCING SOFT TISSUE IN THE EPIDURAL SPACE OF THE LUMBOSACRAL REGION SUSPICIOUS FOR INF ECTION. THERE IS PROMINENT ENHANCING SOFT TISSUE ON THE LEFT SIDE OF THE THECAL SAC AT L5-S1 WITH CE NTRAL AREAS OF NONENHANCEMENT CONCERNING FOR EPIDURAL ABSCESS. THIS DOES CAUSE SOME DISPLACEMENT OF THE THECAL SAC. TECHNICAL DOCUMENTATION: JOB ID: [id number] 2010 [id number]- All Rights Reserved Reading location - IP/workstation name: [email or web address]
--- NOTE | 2020-05-31 10:14 | RADIOLOGY REPORT (SQ) ---
EXAM DESCRIPTION: MRI THORACIC SPINE COMBO IMAGES COMPLETED DATE/TIME: 05/31/2020 9:37 am REASON FOR STUDY: IVDA, fever, inability to walk, hx osteomyelitis COMPARISON: 04/05/2020. TECHNIQUE: Sagittal and Axial imaging includes T1, T2, STIR and gradient echo sequences. T1 post ga dolinium sequences. CONTRAST TYPE AND DOSE: 20 mL Prohance. RENAL FUNCTION: Not indicated. ACR Type II contrast agent associated with few, if any, unconfounded cases of NSF LIMITATIONS: Axial images limited due to motion artifact. FINDINGS: LOCALIZER: No worrisome findings. ALIGNMENT: Normal. VERTEBRAE: Progressive destructive changes in the inferior endplate of T8 and superior endplate of T9 . BONE MARROW: Multiple areas of reactive endplate signal change. Abnormal marrow signal with enhancem ent in the T8 and T9 vertebrae. HARDWARE: None in the spine. CORD: Normal in size and signal intensity. SOFT TISSUES: No soft tissue masses. THORACIC DISCS T1-T12: Abnormal increased signal in the T8-T9 disc. No significant spinal stenosis o r exit foraminal stenosis. LOWER CERVICAL: Incompletely imaged. No significant spinal stenosis or exit foraminal stenosis. UPPER LUMBAR: See separate report of the MRI and lumbar spine. ENHANCEMENT: Abnormal enhancement of the T8 and T9 vertebrae. OTHER: No other significant finding. IMPRESSION: STUDY LIMITED BY MOTION ARTIFACT. ABNORMAL PROGRESSIVE CHANGES IN THE T8 AND T9 VERTEBR AE AND T8-T9 DISC CONSISTENT WITH PROGRESSIVE DISCITIS AND OSTEOMYELITIS. NO DEFINITE EPIDURAL ABSCE SS IDENTIFIED. NO SPINAL STENOSIS. CHRONIC DEGENERATIVE CHANGES ELSEWHERE THROUGH THE THORACIC SPIN E. COMMENT: Note that on the prior report dated 04/05/2020 the affected disc level was labeled T7-T8. O n the current study, based on the localizer image, the disc level is T8-T9. TECHNICAL DOCUMENTATION: JOB ID: [id number] 2010 [employer]- All Rights Reserved Reading location - IP/workstation name: [email or web address]
--- NOTE | 2020-05-31 13:09 | ER Document Report ---
ED General - General TRAVEL OUTSIDE OF THE [place].S. IN LAST 30 DAYS: No - Related Data Home Medications: Toradol, Dilaudid, Vancomycin, Vitamin D <DIPESH ONTIVEROS - Last Filed: 05/31/20 16:31> <DONNA IDAZ P - Last Filed: 05/31/20 20:11> - General Chief Complaint: Back Pain Stated Complaint: BACK PAIN Time Seen by Provider: 05/31/20 02:20 - HPI Notes: Patient is a 40-year-old male with a history of IV drug abuse, osteomyelitis, discitis, who presents to the emergency department for evaluation of back pain and fever. He has been recently admitted and left AGAINST MEDICAL ADVICE from both [facility] as well as [facility]. He was also diagnosed with MRSA bacteremia. The patient states he came back here because of a DSS case involving his child. He has had fevers, increased back pain. He denies any weakness. (DIPESH ONTIVEROS) - Related Data Allergies/Adverse Reactions: No Known Allergies Allergy (Verified 04/03/20 04:22) Past Medical History - General Information source: Patient - Social History Smoking Status: Current Every Day Smoker Drug Abuse: Heroin Family History: Reviewed & Not Pertinent Patient has homicidal ideation: No - Past Medical History Cardiac Medical History: Reports: Hx Hypertension Denies: Hx Heart Attack, Hx Hypercholesterolemia Renal/ Medical History: Denies: Hx Peritoneal Dialysis Musculoskeletal Medical History: Reports Hx Muscle Spasm Psychiatric Medical History: Reports: Hx Attention Deficit Hyperactivity Disorder, Hx Bipolar Disorder, Hx Depression Infectious Medical History: Reports: Hx MRSA Past Surgical History: Reports: Hx Orthopedic Surgery - RUE; LLE; LUE; - Immunizations Immunizations up to date: Yes Hx Diphtheria, Pertussis, Tetanus Vaccination: Yes <DIPESH ONTIVEROS - Last Filed: 05/31/20 16:31> Review of Systems - Review of Systems Constitutional: See HPI Musculoskeletal: See HPI Skin: See HPI -: Yes All other systems reviewed and negative <DIPESH ONTIVEROS - Last Filed: 05/31/20 16:31> Physical Exam <DIPESH ONTIVEROS - Last Filed: 05/31/20 16:31> - Vital signs Vitals: Temp Pulse Resp BP Pulse Ox 100 F 102 H 20 142/83 H 98 05/31/20 00:28 05/31/20 00:28 05/31/20 00:28 05/31/20 00:28 05/31/20 00:28 - Notes Notes: Is a 40-year-old male who appears older than his stated age, no acute distress. Examination of the spine yields midline tenderness throughout the thoracic and lumbar spine without associated step-off. He has paraspinal musculature tenderness noted as well. Strength testing is limited secondary to effort. Patellar and Achilles reflexes are +1 bilaterally, sensation intact of bilateral lower extremities. Skin is warm and dry, he has multiple sequelae of a longstanding history of IV drug abuse, but no rosetta abscesses I can visualize at this time. (DIPESH ONTIVEROS) Course - Laboratory Result Diagrams: 05/31/20 00:38 05/31/20 00:38 - Diagnostic Test Radiology reviewed: Image reviewed, Reports reviewed <DIPESH ONTIVEROS - Last Filed: 05/31/20 16:31> - Laboratory Result Diagrams: 05/31/20 00:38 05/31/20 00:38 <DONAN DIAZ - Last Filed: 05/31/20 20:11> - Re-evaluation Re-evalutation: 05/31/20 13:05 Patient presents to the emergency department for evaluation. He was initially seen by my colleague. Please see her note in regards to the initial part of this patient's ED course. In short this patient had a temperature of 100 degrees, increased low back pain, history of discitis and osteomyelitis. He recently left [facility] AGAINST MEDICAL ADVICE. He was initially seen by my partner, had sed rate and CRP which are markedly elevated, normal white blood cell count. MRI was pending at the time of my shift beginning. MRI shows multiple foci of discitis and osteomyelitis, as well as concerning findings 7 possible epidural abscess. I spoke with our hospitalist, who does not believe this patient should be cared for here, needs to be seen by some placed with neurosurgical consultation abilities. I started making phone calls, contacted [facility] at [phone]. At [address] Herron. We talked at length. The patient's scans, for him, did not show any need for neurosurgical intervention at this time. I was notified by the transfer center that they were "short on beds" from the hospitalist perspective, so I was encouraged to discuss this again with my hospitalist. Once again I contacted Dr. Glez, and we discussed this case. We both in fact agree that the patient should have at least a consultation with the neurosurgeon with a diagnosis of epidural abscess. He once again declines to take this patient, I believe appropriately. I will try at this time to contact [facility], as the patient was recently hospitalized there. He has been given multiple doses of pain medication. Neurologically he is stable. 05/31/20 13:52 I spoke with transfer center at [facility]. Unfortunately, they have no beds available, 20 waiting in their emergency department. They would not take my name for a waiting list. I went back to calling [facility], currently waiting for medical consultation. 05/31/20 14:34 1400 I spoke to the internal medicine physician certified ophthalmic assistant Guillermo Zarate. He notifies me that we do not have any medical beds as there is no need for emergent surgical intervention at this time. They are not taking waitlisted patients. I spoke to [facility], they are on regional diversion. They are not taking waitlisted patients. I have just contacted the [place] transfer line, no one answered the line. We will attempt transfer to [facility]. (DIPESH ONTIVEROS) 05/31/20 20:09 Pt seen ambulating to restroom. No acute distress. He has been accepted at and just recently now had a bed become available at [facility]. [facility] is en route to assist with transportation. Pt is medically stable and will be leaving here momentarily. (DONNA DIAZ) - Vital Signs Vital signs: Temp Pulse Resp BP Pulse Ox 98.8 F 102 H 22 H 156/77 H 98 05/31/20 17:01 05/31/20 00:28 05/31/20 19:01 05/31/20 19:01 05/31/20 19:01 - Laboratory Laboratory results interpreted by me: 05/31/20 05/31/20 05/31/20 00:38 00:38 00:38 RBC 3.66 L Hgb 10.5 L Hct 29.9 L Lymph % (Auto) 8.3 L Seg Neutrophils % 85.8 H ESR VBG pH 7.47 H Sodium 134.2 L Chloride 97 L Glucose 131 H Lactic Acid AST 16 L C-Reactive Protein Vancomycin Trough 05/31/20 05/31/20 05/31/20 00:38 00:38 07:00 RBC Hgb Hct Lymph % (Auto) Seg Neutrophils % ESR 99 H VBG pH Sodium Chloride Glucose Lactic Acid 0.5 L AST C-Reactive Protein 71.2 H Vancomycin Trough 05/31/20 17:35 RBC Hgb Hct Lymph % (Auto) Seg Neutrophils % ESR VBG pH Sodium Chloride Glucose Lactic Acid AST C-Reactive Protein Vancomycin Trough < 5.0 L - Diagnostic Test Radiology results interpreted by me: 05/31/20 13:07 Lumbar Spine MRI 05/31/20 02:35 IMPRESSION: 1. PATCHY AREAS OF ENHANCEMENT IN THE L5-S1 DISC SUSPICIOUS FOR DISCITIS. 2. PROMINENT ENHANCING SOFT TISSUE IN THE EPIDURAL SPACE OF THE LUMBOSACRAL REGION SUSPICIOUS FOR INFECTION. THERE IS PROMINENT ENHANCING SOFT TISSUE ON THE LEFT SIDE OF THE THECAL SAC AT L5-S1 WITH CENTRAL AREAS OF NONENHANCEMENT CONCERNING FOR EPIDURAL ABSCESS. THIS DOES CAUSE SOME DISPLACEMENT OF THE THECAL SAC. Thoracic Spine MRI 05/31/20 02:35 IMPRESSION: STUDY LIMITED BY MOTION ARTIFACT. ABNORMAL PROGRESSIVE CHANGES IN THE T8 AND T9 VERTEBRAE AND T8-T9 DISC CONSISTENT WITH PROGRESSIVE DISCITIS AND OSTEOMYELITIS. NO DEFINITE EPIDURAL ABSCESS IDENTIFIED. NO SPINAL STENOSIS. CHRONIC DEGENERATIVE CHANGES ELSEWHERE THROUGH THE THORACIC SPINE. (DIPESH ONTIVEROS) Critical Care Note - Critical Care Note Total time excluding time spent on procedures (mins): 60 <DIPESH ONTIVEROS - Last Filed: 05/31/20 16:31> - Critical Care Note Comments: Critical care time including ordering scheduled antibiotics, discussing ongoing medical care, talking to consultants and neurosurgery and internal medicine, arranging transfer. (DIPESH ONTIVEROS) Discharge - Discharge Admitting Provider: Dr. Dee <DIPESH ONTIVEROS - Last Filed: 05/31/20 16:31> <DONNA DIAZ - Last Filed: 05/31/20 20:11> - Discharge Clinical Impression: Intravenous drug abuse, MRSA bacteremia, Discitis of lumbar region, Discitis of thoracic region, Osteomyelitis of spine, COVID-19 Condition: Stable Disposition: [place]
[2020-05-31] MEDS ORDERED: KETOROLAC TROMETHAMINE INJ/PF 30 MG/1 ML SDV IV PRN (16:28)
[2020-05-31] MEDS ORDERED: RINGERS SOLUTION,LACTATED 1,000 ML IV ONE (16:39)
[2020-05-31] MEDS ORDERED: VANCOMYCIN HCL INJ 1000 MG VIAL IV SCH (18:00)
--- NOTE | 2020-05-31 18:02 | EKG REPORT ---
SEVERITY:- OTHERWISE NORMAL ECG - SINUS TACHYCARDIA : Confirmed by: Maximino Clark MD 31-May-2020 18:00:59
[2020-05-31 18:21] LABS: VANCOMYCIN,TROUGH < 5.0 ug/mL (5.0-20.0)
[2020-05-31] MEDS: HYDROMORPHONE HCL INJ/PF 2 MG/ML AMPULE IV PRN ×2 (19:09→20:54)
[2020-05-31 20:15] VITALS: BP 127/77
== END 2020-05-31 21:01 | disposition short-term general hospital (02) ==
LOC: ER 00:27
DX: M46.46 Discitis, unspecified, lumbar region (principal); M46.44 Discitis, unspecified, thoracic region; M86.9 Osteomyelitis, unspecified; A49.02 Methicillin resistant Staphylococcus aureus infection, unspecified site; F11.10 Opioid abuse, uncomplicated; M47.814 Spondylosis without myelopathy or radiculopathy, thoracic region; F17.200 Nicotine dependence, unspecified, uncomplicated; I10 Essential (primary) hypertension; Z79.899 Other long term (current) drug therapy; Z79.891 Long term (current) use of opiate analgesic; Z79.2 Long term (current) use of antibiotics
CPT/HCPCS: 93005; 96376; 99291; 96361; 96375; 96365; 96366; 36415; 87040; 87086; 83605; 85025; 85652; 85610; 86140; 80053; 81001; 84484; 80202; 82803; 72157; 72158; 93010; A9576; J1885; J1170; J7120; J3370

== ENCOUNTER 2020-06-10 18:34 | Inpatient (IN) | payer SELFPAY ==
[2020-06-10] MEDS ORDERED: MAG HYDROX/AL HYDROX/SIMETH SUSP 30 ML UDCUP PO PRN (19:23)
[2020-06-10] MEDS ORDERED: PROMETHAZINE HCL INJ 25 MG/1 ML VIAL IV PRN (19:23)
[2020-06-10] MEDS ORDERED: MAGNESIUM HYDROXIDE SUSP 30 ML UDCUP PO PRN (19:23)
[2020-06-10] MEDS ORDERED: GUAIFENESIN SYRP 200 MG/10 ML UDC PO PRN (19:26)
[2020-06-10] MEDS ORDERED: VANCOMYCIN HCL INJ 1000 MG VIAL IV SCH (21:00)
--- NOTE | 2020-06-10 21:00 | PDOC H&P ---
History of Present Illness Admission Date/PCP: 06/10/20 18:34 No local PCP Patient complains of: Thoracic vertebral osteomyelitis History of Present Illness: TALISHA NIELSEN is a 40 year old male who returns to [facility] in transfer from [facility] for ongoing treatment of his thoracic vertebral osteomyelitis. He was originally diagnosed with discitis in March of this year and was treated with IV antibiotics however adequate EARL levels were not obtained and his condition worsened resulting in his transfer to [facility] hospitals for ongoing care. After treatment there he has shown significant improvement and is returning to [facility] for continuation of the care plan. He offers no acute complaints. Past Medical History Cardiac Medical History: Reports: Hypertension Denies: Atrial Fibrillation, Coronary Artery Disease, DVT, Myocardial Infarction, Hyperlipidema, Pulmonary Embolism Pulmonary Medical History: Denies: Asthma, Chronic Obstructive Pulmonary Disease (COPD) EENT Medical History: Denies: Cataracts, Ears - Hearing aids Neurological Medical History: Denies: Hemorrhagic CVA, Ischemic CVA, Multiple Sclerosis Endocrine Medical History: Denies: Diabetes Mellitus Type 1, Diabetes Mellitus Type 2, Hyperthyroidism, Hypothyroidism Renal/ Medical History: Denies: Chronic Kidney Disease, Nephrolithiasis Malignancy Medical History: Reports: None GI Medical History: Reports: Hepatitis - Hepatitis C Denies: Cirrhosis Musculoskeltal Medical History: Denies: Arthritis, Gout Skin Medical History: Denies: Eczema, Psoriasis Psychiatric Medical History: Reports: Attention Deficit Hyperactivity Disorder, Bipolar Disorder, Depression, Substance Abuse, Tobacco Dependency Denies: Alcohol Dependency Traumatic Medical History: Reports: None Hematology: Denies: Anemia, Bleeding Tendencies Infectious Medical History: Reports: Hepatitis C, Methicillin-Resistant Staph Aureus Infectious History Note: COVID-19 Past Surgical History Past Surgical History: Reports: Orthopedic Surgery - RUE; LLE; LUE; Social History Information Source: Patient Lives with: Spouse/Significant other Smoking Status: Current Every Day Smoker Cigarettes Packs Per Day: 0.5 Electronic Cigarette use?: No Cigars Per Day: 0 Pipes Per Day: 0 Number of Years Smokin Last Time Smoked: 05/10/2020 Frequency of Alcohol Use: Rare Hx Recreational Drug Use: Yes Drugs: Heroin Hx Prescription Drug Abuse: No - Advance Directive Resuscitation Status: Full Code Surrogate healthcare decision maker:: Rach Nielsen Family History Family History: Reviewed & Not Pertinent Parental Family History Reviewed: Yes Children Family History Reviewed: No Sibling(s) Family History Reviewed.: Yes Medication/Allergy Home Medications: Acetaminophen [Tylenol Susp 160 mg/5 ml Oral Syring] 1,000 mg PO Q8H 06/10/20 Acetaminophen [Tylenol Susp 160 mg/5 ml Oral Syring] 500 mg PO Q12HP PRN 06/10/20 Baclofen [Baclofen 10 mg Tablet] 10 mg PO TID PRN 06/10/20 Buprenorphine HCl/Naloxone HCl [Suboxone 8 mg-2 mg Sl Film] 1 each SL BID 06/10/20 Mag Hydrox/Aluminum Hyd/Simeth [Maalox Maximum Strength Susp] 30 ml PO Q4H PRN 1 08/10/19 Allergies/Adverse Reactions: No Known Allergies Allergy (Verified 06/10/20 19:54) Review of Systems Constitutional: ABSENT: chills, fever(s) Eyes: ABSENT: visual disturbances, other - Eye pain Ears: ABSENT: hearing changes, other - Ear pain Nose, Mouth, and Throat: PRESENT: headache(s) - With current Suboxone. ABSENT: sore throat Cardiovascular: ABSENT: chest pain, palpitations Respiratory: ABSENT: cough, dyspnea Gastrointestinal: ABSENT: abdominal pain, constipation, diarrhea, nausea, vomiting Genitourinary: ABSENT: dysuria, hematuria Musculoskeletal: PRESENT: back pain - Due to vertebral osteomyelitis. ABSENT: joint swelling Integumentary: ABSENT: pruritus, rash Neurological: ABSENT: confusion, convulsions, focal weakness, memory loss, syncope Psychiatric: ABSENT: anxiety, depression Endocrine: ABSENT: cold intolerance, heat intolerance Hematologic/Lymphatic: ABSENT: easy bleeding, easy bruising Allergic/Immunologic: ABSENT: seasonal rhinorrhea Physical Exam Vital Signs: Temp Pulse Resp BP Pulse Ox 98.2 F 56 L 17 156/87 H 100 06/10/20 18:45 06/10/20 18:45 06/10/20 18:45 06/10/20 18:45 06/10/20 18:45 Intake & Output 06/08/20 06/09/20 06/10/20 23:59 23:59 22:59 Weight 89.4 kg General appearance: PRESENT: no acute distress, cooperative, well-developed Head exam: PRESENT: atraumatic, normocephalic Eye exam: PRESENT: conjunctiva pink, scleral icterus. ABSENT: conjunctival injection Ear exam: PRESENT: normal external ear exam. ABSENT: bleeding, drainage Mouth exam: PRESENT: dry mucosa, neck supple Neck exam: ABSENT: thyromegaly, tracheal deviation Respiratory exam: PRESENT: clear to auscultation luisito, symmetrical, unlabored Cardiovascular exam: PRESENT: RRR. ABSENT: clicks, gallop, rubs Pulses: PRESENT: normal radial pulses, normal dorsalis pedis pul Vascular exam: PRESENT: normal capillary refill. ABSENT: pallor GI/Abdominal exam: PRESENT: normal bowel sounds, soft. ABSENT: tenderness Rectal exam: PRESENT: deferred Extremities exam: ABSENT: joint swelling, pedal edema Musculoskeletal exam: ABSENT: deformity, dislocation Neurological exam: PRESENT: alert, oriented to person, oriented to place, oriented to time, oriented to situation, CN II-XII grossly intact. ABSENT: motor sensory deficit Psychiatric exam: PRESENT: appropriate affect, normal mood Skin exam: PRESENT: dry, intact, warm. ABSENT: jaundice, rash, urticaria Assessment and Plan - Diagnosis (1) Osteomyelitis of vertebra of thoracic region Is this a current diagnosis for this admission?: Yes (2) Bacteremia due to methicillin resistant Staphylococcus aureus Is this a current diagnosis for this admission?: Yes (3) Opioid dependence Qualifiers: Substance use status: in remission Qualified Code(s): F11.21 - Opioid dependence, in remission Is this a current diagnosis for this admission?: Yes (4) Tobacco use disorder, continuous Is this a current diagnosis for this admission?: Yes (5) Hx of intravenous drug use in remission Is this a current diagnosis for this admission?: Yes - Plan Summary Summary: Patient is admitted to the medical floor where he will receive routine support neil and symptomatic cares. He will be continued on his current antibiotic, therapeutic and pain control regimen. Additional laboratory and/or radiographic evaluations will be obtained as needed. Patient will receive a regular diet. - Time Time Spent with patient: Less than 15 minutes Medications reviewed and adjusted accordingly: Yes - [facility] discharge med list Anticipated Discharge Disposition: Home, Self Care Anticipated Discharge Timeframe: Undetermined - Inpatient Certification Based on my medical assessment, after consideration of the patient's comorbidities, presenting symptoms, or acuity I expect that the services needed warrant INPATIENT care.: Yes I certify that my determination is in accordance with my understanding of Medicare's requirements for reasonable and necessary INPATIENT services [42 CFR 412.3e].: Yes Medical Necessity: Need for IV Antibiotics, Risk of Complication if Not Cared For in Hospital
[2020-06-10] MEDS ORDERED: LEVALBUTEROL HCL NEB 0.63 MG/3 ML AMPUL NEB PRN (21:07)
[2020-06-10] MEDS ORDERED: VANCOMYCIN HCL INJ 1000 MG VIAL IV PRN (22:00)
[2020-06-10] MEDS: HEPARIN SOD (PORCINE) 5,000 UNIT/ML 1 ML VIAL SUBCUT SCH (22:14)
[2020-06-10] MEDS: GABAPENTIN 300 MG CAPSULE PO SCH (22:17)
[2020-06-10] MEDS: FAMOTIDINE 20 MG TABLET PO SCH (22:17)
[2020-06-10] MEDS: MELATONIN 5 MG TABLET PO PRN (22:17)
[2020-06-10] MEDS: BUPRENORPHINE HCL 2 MG SUBLINGUAL TABLET SL SCH (22:17)
[2020-06-10] MEDS: BACLOFEN 10 MG TABLET PO PRN (22:39)
[2020-06-10] MEDS: IBUPROFEN 800 MG TABLET PO PRN (22:39)
[2020-06-11] MEDS ORDERED: VANCOMYCIN HCL INJ 1000 MG VIAL ONE (00:44)
[2020-06-11] MEDS: VANCOMYCIN HCL 2,000 MG in DEXTROSE 5%-WATER 500 ML IV SCH ×2 (03:35→05:49)
[2020-06-11] MEDS: GABAPENTIN 300 MG CAPSULE PO SCH ×3 (05:48→23:28)
[2020-06-11] MEDS: HEPARIN SOD (PORCINE) 5,000 UNIT/ML 1 ML VIAL SUBCUT SCH ×2 (06:06→15:24)
[2020-06-11 06:20] LABS: HEMATOCRIT 33.7 % (37.9-51.0); HEMOGLOBIN 11.3 g/dL (13.5-17.0); MEAN CORPUSCULAR HEMOGLOBIN 28.4 pg (27.0-33.4); MEAN CORPUSCULAR HGB CONC 33.6 g/dL (32.0-36.0); MEAN CORPUSCULAR VOLUME 84 fl (80-97); PLATELET COUNT 296 10^3/uL (150-450); RED BLOOD COUNT 3.99 10^6/uL (4.35-5.55); RED CELL DISTRIBUTION WIDTH 15.5 % (11.5-14.0); WHITE BLOOD COUNT 8.7 10^3/uL (4.0-10.5)
[2020-06-11 06:50] LABS: ALBUMIN 3.4 g/dL (3.5-5.0); ALKALINE PHOSPHATASE 113 U/L (38-126); ANION GAP 9 (5-19); ASPARTATE AMINO TRANSFERASE 16 U/L (17-59); BILIRUBIN,DIRECT 0.2 mg/dL (0.0-0.4); BILIRUBIN,TOTAL 0.3 mg/dL (0.2-1.3); BLOOD UREA NITROGEN 13 mg/dL (7-20); CARBON DIOXIDE 29 mmol/L (22-30); CHLORIDE 99 mmol/L (98-107); GLUCOSE 91 mg/dL (75-110); POTASSIUM 4.6 mmol/L (3.6-5.0); TOTAL PROTEIN 6.4 g/dL (6.3-8.2)
[2020-06-11] MEDS ORDERED: POLYETHYLENE GLYCOL 3350 POWDER 17 GM/1 PACKET PO SCH (10:00)
[2020-06-11] MEDS: ACETAMINOPHEN 325 MG TABLET PO PRN (10:15)
[2020-06-11] MEDS: BUPRENORPHINE HCL 2 MG SUBLINGUAL TABLET SL SCH ×2 (10:16→23:48)
[2020-06-11] MEDS: FAMOTIDINE 20 MG TABLET PO SCH ×2 (10:16→23:28)
[2020-06-11] MEDS: DOCUSATE SODIUM 100 MG CAPSULE PO SCH ×2 (10:16→17:05)
[2020-06-11] MEDS: PREDNISOLONE ACETATE 1% OPH SUSP 5 ML OP SCH ×4 (10:23→23:30)
[2020-06-11] MEDS: CIPROFLOXACIN-HC OTIC SUSP 10 ML AU SCH ×4 (10:26→23:29)
--- NOTE | 2020-06-11 13:53 | PDOC PROGRESS REPORT ---
Subjective Progress Note for:: 06/11/20 Subjective:: Patient is complaining of back pain. He is sitting at the edge of the bed and then was able to lay down. Evidently this helped. Reason For Visit: THORACIC DISCITIS,BACTEREMIA,IV DRUG USER, Physical Exam Vital Signs: Temp Pulse Resp BP Pulse Ox 97.9 F 58 L 12 145/83 H 98 06/11/20 11:00 06/11/20 11:00 06/11/20 11:00 06/11/20 11:00 06/11/20 07:33 Intake & Output 06/10/20 06/11/20 06/12/20 06:59 06:59 06:59 Intake Total 500 Balance 500 Weight 89.4 kg 89.4 kg General appearance: PRESENT: cooperative, mild distress, well-developed Head exam: PRESENT: atraumatic, normocephalic Mouth exam: PRESENT: moist, tongue midline Respiratory exam: PRESENT: clear to auscultation luisito, symmetrical, unlabored. ABSENT: rales, rhonchi, tachypnea, wheezes Cardiovascular exam: PRESENT: RRR, +S1, +S2 GI/Abdominal exam: PRESENT: normal bowel sounds, soft. ABSENT: distended, tenderness Rectal exam: PRESENT: deferred Gentrourinary exam: ABSENT: indwelling catheter Extremities exam: ABSENT: pedal edema Musculoskeletal exam: PRESENT: ambulatory Neurological exam: PRESENT: alert, awake, oriented to person, oriented to place, oriented to time, oriented to situation, CN II-XII grossly intact. ABSENT: altered Psychiatric exam: PRESENT: appropriate affect. ABSENT: agitated, anxious Focused psych exam: ABSENT: delusional, paranoid, restlessness Results Laboratory Results: 06/11/20 06:00 06/11/20 06:00 06/11/20 06/11/20 06:00 06:00 WBC 8.7 RBC 3.99 L Hgb 11.3 L Hct 33.7 L MCV 84 MCH 28.4 MCHC 33.6 RDW 15.5 H Plt Count 296 Sodium 136.6 L Potassium 4.6 Chloride 99 Carbon Dioxide 29 Anion Gap 9 BUN 13 Creatinine 0.47 L Est GFR ( Amer) > 60 Glucose 91 Calcium 9.0 Magnesium 2.0 Total Bilirubin 0.3 AST 16 L Alkaline Phosphatase 113 Total Protein 6.4 Albumin 3.4 L Assessment and Plan - Diagnosis (1) Osteomyelitis of vertebra of thoracic region Is this a current diagnosis for this admission?: Yes (2) Bacteremia due to methicillin resistant Staphylococcus aureus Is this a current diagnosis for this admission?: Yes (3) Hx of intravenous drug use in remission Is this a current diagnosis for this admission?: Yes (4) Otitis externa of both ears Qualifiers: Otitis externa type: other infective Chronicity: acute Qualified Code(s): H60.393 - Other infective otitis externa, bilateral Is this a current diagnosis for this admission?: Yes (5) Opioid dependence Qualifiers: Substance use status: in remission Qualified Code(s): F11.21 - Opioid dependence, in remission Is this a current diagnosis for this admission?: Yes (6) Tobacco use disorder, continuous Is this a current diagnosis for this admission?: Yes - Plan Summary Summary: Patient is admitted to the medical floor where he will receive routine supportive and symptomatic cares. He will be continued on his current antibiotic, therapeutic and pain control regimen. Additional laboratory and/or radiographic evaluations will be obtained as needed. Patient will receive a regular diet. 06/11/2020 Methicillin-resistant staph aureus bacteremia with discitis/osteomyelitis- intravenous vancomycin 2 g every 8 hours through 07/04/2020. Recheck sed rate and CRP 06/26/2020. If improved keep end of treatment date. If not improved call infectious diseases at [facility] for treatment extension. Pharmacy to dose. Monitor renal function. Otitis externa bilateral-currently receiving ciprofloxacin and prednisolone drops. Back pain-secondary to infection. Avoid opioid analgesics. - Time Time Spent with patient: 15-24 minutes Medications reviewed and adjusted accordingly: Yes Anticipated Discharge Disposition: Home, Self Care Anticipated Discharge Timeframe: 4 weeks
[2020-06-11] MEDS ORDERED: VANCOMYCIN HCL 1,250 MG in DEXTROSE 5%-WATER 250 ML IV SCH (14:00)
[2020-06-11] MEDS: VANCOMYCIN HCL 1,500 MG in DEXTROSE 5%-WATER 250 ML IV SCH ×2 (15:24→23:28)
[2020-06-11] MEDS: IBUPROFEN 800 MG TABLET PO PRN (15:32)
[2020-06-11] MEDS ORDERED: DOCUSATE SODIUM 100 MG CAPSULE PO PRN (18:07)
[2020-06-11] MEDS ORDERED: BISACODYL 10 MG SUPP.RECT PR PRN (18:07)
[2020-06-11] MEDS ORDERED: SIMETH PO PRN (18:07)
[2020-06-11] MEDS ORDERED: DICYCLOMINE HCL 20 MG TABLET PO PRN (18:07)
[2020-06-11] MEDS ORDERED: ALUMINUM HYD PO PRN (18:07)
[2020-06-11] MEDS ORDERED: LOPERAMIDE HCL 2 MG CAPSULE PO PRN (18:07)
[2020-06-11] MEDS ORDERED: HYDROXYZINE HCL 10 MG TABLET PO PRN (18:07)
[2020-06-11] MEDS ORDERED: MAG HYDROX PO PRN (18:07)
[2020-06-11] MEDS ORDERED: [UNRECOGNIZED DRUG - OTHER] PO PRN (18:07)
[2020-06-11] MEDS ORDERED: ONDANSETRON 4 MG TAB.RAPDIS PO PRN (18:07)
[2020-06-11] MEDS ORDERED: LIDOCAINE 2% JELLY 30 ML TUBE TOP PRN (18:07)
[2020-06-11] MEDS ORDERED: MAG HYDROX/AL HYDROX/SIMETH SUSP 30 ML UDCUP PO PRN (18:31)
[2020-06-11] MEDS ORDERED: WATER FOR INJ IV SCH ×2 (19:00→22:00)
[2020-06-11] MEDS ORDERED: [UNRECOGNIZED DRUG - OTHER] SL SCH (19:00)
[2020-06-11] MEDS ORDERED: [UNRECOGNIZED DRUG - OTHER] IV SCH ×2 (19:00→22:00)
[2020-06-11] MEDS ORDERED: BUPRENORPHINE HCL SL SCH (19:00)
[2020-06-11] MEDS ORDERED: VANCOMYCIN IV SCH ×2 (19:00→22:00)
[2020-06-11] MEDS ORDERED: NALOXONE HCL SL SCH (19:00)
[2020-06-11] MEDS ORDERED: SENNOSIDES PO SCH (22:00)
[2020-06-11] MEDS: MELATONIN 5 MG TABLET PO PRN (23:28)
[2020-06-11] MEDS: SENNOSIDES/DOCUSATE 8.6-50 MG 1 EACH TABLET PO SCH (23:28)
[2020-06-12] MEDS: ACETAMINOPHEN 325 MG TABLET PO PRN (02:48)
[2020-06-12] MEDS: GABAPENTIN 300 MG CAPSULE PO SCH ×3 (07:10→21:08)
[2020-06-12] MEDS: VANCOMYCIN HCL 1,500 MG in DEXTROSE 5%-WATER 250 ML IV SCH ×3 (07:10→21:09)
[2020-06-12] MEDS ORDERED: (PENDING PHARMACY ID) (Enoxaparin Sodium 40 MG) SUBCUT SCH (10:00)
[2020-06-12] MEDS ORDERED: [UNRECOGNIZED DRUG - OTHER] SL SCH (10:00)
[2020-06-12] MEDS ORDERED: NALOXONE HCL SL SCH (10:00)
[2020-06-12] MEDS ORDERED: BUPRENORPHINE HCL SL SCH (10:00)
[2020-06-12] MEDS: POLYETHYLENE GLYCOL 3350 POWDER 17 GM/1 PACKET PO SCH (10:20)
[2020-06-12] MEDS: FAMOTIDINE 20 MG TABLET PO SCH (11:00)
[2020-06-12] MEDS: ENOXAPARIN SODIUM INJ 40 MG/0.4 ML DISP.SYRIN SUBCUT SCH (11:00)
[2020-06-12] MEDS: CIPROFLOXACIN-HC OTIC SUSP 10 ML AU SCH ×4 (11:00→21:10)
[2020-06-12] MEDS: ASCORBIC ACID 500 MG TABLET PO SCH (11:00)
[2020-06-12] MEDS: BUPRENORPHINE HCL 2 MG SUBLINGUAL TABLET SL SCH ×2 (11:00→21:08)
[2020-06-12] MEDS: PREDNISOLONE ACETATE 1% OPH SUSP 5 ML OP SCH ×4 (11:00→21:09)
[2020-06-12] MEDS: LIDOCAINE 5% (700 MG) TRANSDERMAL ADH..PATCH TOP SCH (11:03)
--- NOTE | 2020-06-12 18:36 | PDOC PROGRESS REPORT ---
Subjective Progress Note for:: 06/12/20 Subjective:: NAEO. Main concern is of ongoing low back pain. Denies fevers/chills. Reason For Visit: THORACIC DISCITIS,BACTEREMIA,IV DRUG USER, Physical Exam Vital Signs: Temp Pulse Resp BP Pulse Ox 98.3 F 119 H 19 152/88 H 100 06/12/20 16:00 06/12/20 16:00 06/12/20 16:00 06/12/20 16:00 06/12/20 16:00 Intake & Output 06/11/20 06/12/20 06/13/20 06:59 06:59 06:59 Intake Total 500 2116 640 Balance 500 2116 640 Weight 89.4 kg 89.4 kg General appearance: PRESENT: no acute distress, cooperative Eye exam: ABSENT: scleral icterus Mouth exam: PRESENT: moist Throat exam: ABSENT: post pharyngeal erythema Neck exam: ABSENT: JVD Respiratory exam: PRESENT: clear to auscultation luisito, unlabored Cardiovascular exam: PRESENT: RRR GI/Abdominal exam: PRESENT: normal bowel sounds Gentrourinary exam: ABSENT: indwelling catheter Extremities exam: ABSENT: pedal edema Musculoskeletal exam: PRESENT: ambulatory, normal inspection, other - no TTP over spine/sacrum Neurological exam: PRESENT: alert, awake, oriented to person, oriented to place, oriented to time, oriented to situation Psychiatric exam: PRESENT: appropriate affect Skin exam: ABSENT: rash Results Laboratory Results: 06/11/20 06:00 06/11/20 06:00 Assessment and Plan - Diagnosis (1) Bacteremia due to methicillin resistant Staphylococcus aureus Is this a current diagnosis for this admission?: Yes (2) Hx of intravenous drug use in remission Is this a current diagnosis for this admission?: Yes (3) Opioid dependence Qualifiers: Substance use status: in remission Qualified Code(s): F11.21 - Opioid dependence, in remission Is this a current diagnosis for this admission?: Yes (4) Osteomyelitis of vertebra of thoracic region Is this a current diagnosis for this admission?: Yes (5) Otitis externa of both ears Qualifiers: Otitis externa type: other infective Chronicity: acute Qualified Code(s): H60.393 - Other infective otitis externa, bilateral Is this a current diagnosis for this admission?: Yes (6) Tobacco use disorder, continuous Is this a current diagnosis for this admission?: Yes (7) Lower back pain Qualifiers: Chronicity: unspecified Back pain laterality: bilateral Sciatica presence: without sciatica Qualified Code(s): M54.5 - Low back pain Is this a current diagnosis for this admission?: Yes - Plan Summary Summary: Mr. Nielsen is a 40 year old man with PMH of IVDU, HCV, bipolar disorder with MRSA bacteremia due to vertebral osteomyelitis/discitis (L5-S1 and T8-T9) and epidural abscess (L5-S1). He was incidentally noted to be Covid positive on 05/29/2020 (now resolved). He was transferred to [facility] for neurosurgery evaluation, but required no surgical intervention. TTE (06/01) showed no evidence of valvular vegetations. ID recommended to continue Vancomycin for 6-8 weeks. MRSA bacteremia, discitis/osteomyelitis and epidural abscess - continue vancomycin IV 2 g every 8 hours through 07/04/2020 - Recheck ESR and CRP 06/26/2020. If they are not improved significantly from prior (ESR 82, CRP 56), call infectious diseases at [facility] to discuss treatment extension. - Check weekly CBC, CMP, ESR, CRP Otitis externa bilateral: diagnosed 06/03 - currently receiving ciprofloxacin and prednisolone drops x10 days (end date 06/12) low back pain - secondary to infection, and with no neuro deficits. Avoid opioid analgesics. Continue suboxone, stretches, ice/heat packs and frequent walks. HCV positive - initiated HBV vaccination series on 06/06, he will need second dose on/around 07/07 - he was vaccinated for HAV on 06/06 - will need outpatient follow up for HCV treatment Dispo: will continue inpatient IV antibiotics here at [facility] until completion of course. Upon completion, will need follow up with addiction psychiatry - please call TIM Turner with [facility] at [phone] for follow up. He will need to be discharged with Rx for Narcan. - Time Time Spent with patient: 35 or more minutes Anticipated Discharge Disposition: Home, Self Care Anticipated Discharge Timeframe: upon completion of IV antibiotics
[2020-06-12] MEDS: SENNOSIDES/DOCUSATE 8.6-50 MG 1 EACH TABLET PO SCH (21:04)
[2020-06-12] MEDS: ACETAMINOPHEN 325 MG TABLET PO SCH (21:07)
[2020-06-13] MEDS: GABAPENTIN 300 MG CAPSULE PO SCH ×3 (05:15→22:16)
[2020-06-13] MEDS: VANCOMYCIN HCL 1,500 MG in DEXTROSE 5%-WATER 250 ML IV SCH (05:56)
[2020-06-13 07:13] LABS: VANCOMYCIN,TROUGH 12.4 ug/mL (5.0-20.0)
[2020-06-13 07:15] LABS: ANION GAP 9 (5-19); BLOOD UREA NITROGEN 21 mg/dL (7-20); CALCIUM 9.5 mg/dL (8.4-10.2); CARBON DIOXIDE 32 mmol/L (22-30); CHLORIDE 95 mmol/L (98-107); GLUCOSE 106 mg/dL (75-110); POTASSIUM 4.3 mmol/L (3.6-5.0)
[2020-06-13 07:19] LABS: HEMATOCRIT 34.3 % (37.9-51.0); HEMOGLOBIN 11.4 g/dL (13.5-17.0); MEAN CORPUSCULAR HGB CONC 33.4 g/dL (32.0-36.0); MEAN CORPUSCULAR VOLUME 84 fl (80-97); PLATELET COUNT 291 10^3/uL (150-450); RED BLOOD COUNT 4.09 10^6/uL (4.35-5.55); RED CELL DISTRIBUTION WIDTH 15.6 % (11.5-14.0)
[2020-06-13] MEDS: ASCORBIC ACID 500 MG TABLET PO SCH (09:46)
[2020-06-13] MEDS: NORMAL SALINE 10 ML SDV (SCHEDULED) IV SCH ×2 (09:46→22:17)
[2020-06-13] MEDS: ACETAMINOPHEN 325 MG TABLET PO SCH ×3 (09:46→17:34)
[2020-06-13] MEDS: BUPRENORPHINE HCL 2 MG SUBLINGUAL TABLET SL SCH ×2 (09:47→22:16)
[2020-06-13] MEDS: CIPROFLOXACIN-HC OTIC SUSP 10 ML AU SCH ×4 (09:49→22:18)
[2020-06-13] MEDS: LIDOCAINE 5% (700 MG) TRANSDERMAL ADH..PATCH TOP SCH (09:54)
[2020-06-13] MEDS: PREDNISOLONE ACETATE 1% OPH SUSP 5 ML OP SCH ×4 (09:54→22:18)
[2020-06-13] MEDS: ENOXAPARIN SODIUM INJ 40 MG/0.4 ML DISP.SYRIN SUBCUT SCH (09:54)
[2020-06-13] MEDS: POLYETHYLENE GLYCOL 3350 POWDER 17 GM/1 PACKET PO SCH (09:54)
[2020-06-13] MEDS: VANCOMYCIN HCL 2,000 MG in DEXTROSE 5%-WATER 500 ML IV SCH ×2 (14:30→22:17)
[2020-06-13] MEDS ORDERED: PHARMACY COMMUNICATION ORDER MC NR (15:45)
--- NOTE | 2020-06-13 18:27 | PDOC PROGRESS REPORT ---
Subjective Progress Note for:: 06/13/20 Subjective:: NAEO. Back pain improving. Reason For Visit: THORACIC DISCITIS,BACTEREMIA,IV DRUG USER, Physical Exam Vital Signs: Temp Pulse Resp BP Pulse Ox 97.9 F 104 H 16 162/80 H 100 06/13/20 15:23 06/13/20 15:23 06/13/20 15:23 06/13/20 15:23 06/13/20 15:23 Intake & Output 06/12/20 06/13/20 06/14/20 06:59 06:59 06:59 Intake Total 2116 1640 750 Balance 2116 1640 750 Weight 89.4 kg General appearance: PRESENT: no acute distress, cooperative Head exam: PRESENT: atraumatic Eye exam: ABSENT: scleral icterus Mouth exam: PRESENT: moist Throat exam: ABSENT: post pharyngeal erythema Neck exam: ABSENT: JVD Respiratory exam: PRESENT: clear to auscultation luisito, unlabored Cardiovascular exam: PRESENT: RRR GI/Abdominal exam: PRESENT: soft. ABSENT: tenderness Extremities exam: ABSENT: pedal edema Musculoskeletal exam: PRESENT: ambulatory Neurological exam: PRESENT: alert, awake Psychiatric exam: PRESENT: appropriate affect Skin exam: ABSENT: rash Results Laboratory Results: 06/13/20 07:00 06/13/20 05:50 06/13/20 06/13/20 05:50 07:00 WBC 9.0 RBC 4.09 L Hgb 11.4 L Hct 34.3 L MCV 84 MCH 28.0 MCHC 33.4 RDW 15.6 H Plt Count 291 Sodium 135.6 L Potassium 4.3 Chloride 95 L Carbon Dioxide 32 H Anion Gap 9 BUN 21 H Creatinine 0.59 Est GFR ( Amer) > 60 Glucose 106 Calcium 9.5 Magnesium 2.0 Assessment and Plan - Diagnosis (1) Bacteremia due to methicillin resistant Staphylococcus aureus Is this a current diagnosis for this admission?: Yes (2) Hx of intravenous drug use in remission Is this a current diagnosis for this admission?: Yes (3) Opioid dependence Qualifiers: Substance use status: in remission Qualified Code(s): F11.21 - Opioid dependence, in remission Is this a current diagnosis for this admission?: Yes (4) Osteomyelitis of vertebra of thoracic region Is this a current diagnosis for this admission?: Yes (5) Otitis externa of both ears Qualifiers: Otitis externa type: other infective Chronicity: acute Qualified Code(s): H60.393 - Other infective otitis externa, bilateral Is this a current diagnosis for this admission?: Yes (6) Tobacco use disorder, continuous Is this a current diagnosis for this admission?: Yes (7) Lower back pain Qualifiers: Chronicity: unspecified Back pain laterality: bilateral Sciatica presence: without sciatica Qualified Code(s): M54.5 - Low back pain Is this a current diagnosis for this admission?: Yes - Plan Summary Summary: Mr. Nielsen is a 40 year old man with PMH of IVDU, HCV, bipolar disorder with MRSA bacteremia due to vertebral osteomyelitis/discitis (L5-S1 and T8-T9) and epidural abscess (L5-S1). He was incidentally noted to be Covid positive on 05/29/2020 (now resolved). He was transferred to [facility] for neurosurgery evaluation, but required no surgical intervention. TTE (06/01) showed no evidence of valvular vegetations. ID recommended to continue Vancomycin for 6-8 weeks. MRSA bacteremia, discitis/osteomyelitis and epidural abscess - continue vancomycin IV 2 g every 8 hours through 07/04/2020 - Recheck ESR and CRP 06/26/2020. If they are not improved significantly from prior (ESR 82, CRP 56), call infectious diseases at [facility] to discuss treatment extension. - Check weekly CBC, CMP, ESR, CRP Otitis externa bilateral: diagnosed 06/03 - currently receiving ciprofloxacin and prednisolone drops x10 days (end date 08/12) low back pain - secondary to infection, and with no neuro deficits. Avoid opioid analgesics. Continue suboxone, stretches, ice/heat packs and frequent walks. HCV positive - initiated HBV vaccination series on 06/06, he will need second dose on/around 07/07 - he was vaccinated for HAV on 06/06 - will need outpatient follow up for HCV treatment Dispo: will continue inpatient IV antibiotics here at [facility] until completion of course. Upon completion, will need follow up with addiction psychiatry - please call TIM Turner with [facility] at [phone] for follow up. He will need to be discharged with Rx for Narcan. - Time Time Spent with patient: 35 or more minutes Anticipated Discharge Disposition: Home, Self Care Anticipated Discharge Timeframe: when antibiotics are completed
[2020-06-13] MEDS: SENNOSIDES/DOCUSATE 8.6-50 MG 1 EACH TABLET PO SCH (22:16)
[2020-06-13] MEDS: MELATONIN 5 MG TABLET PO PRN (22:16)
[2020-06-14] MEDS: VANCOMYCIN HCL 2,000 MG in DEXTROSE 5%-WATER 500 ML IV SCH ×3 (06:42→21:25)
[2020-06-14] MEDS: GABAPENTIN 300 MG CAPSULE PO SCH ×3 (06:42→21:25)
[2020-06-14] MEDS: ASCORBIC ACID 500 MG TABLET PO SCH (09:32)
[2020-06-14] MEDS: ACETAMINOPHEN 325 MG TABLET PO SCH ×3 (09:32→17:21)
[2020-06-14] MEDS: BUPRENORPHINE HCL 2 MG SUBLINGUAL TABLET SL SCH ×2 (09:32→21:25)
[2020-06-14] MEDS: NORMAL SALINE 10 ML SDV (SCHEDULED) IV SCH ×2 (09:33→21:26)
[2020-06-14] MEDS: CIPROFLOXACIN-HC OTIC SUSP 10 ML AU SCH (09:36)
[2020-06-14] MEDS: POLYETHYLENE GLYCOL 3350 POWDER 17 GM/1 PACKET PO SCH (09:37)
[2020-06-14] MEDS: ENOXAPARIN SODIUM INJ 40 MG/0.4 ML DISP.SYRIN SUBCUT SCH (09:37)
[2020-06-14] MEDS: LIDOCAINE 5% (700 MG) TRANSDERMAL ADH..PATCH TOP SCH (09:37)
[2020-06-14] MEDS: PREDNISOLONE ACETATE 1% OPH SUSP 5 ML OP SCH (09:37)
[2020-06-14] MEDS ORDERED: HYDROXYZINE PAMOATE 25 MG CAPSULE PO PRN (11:35)
--- NOTE | 2020-06-14 17:57 | PDOC PROGRESS REPORT ---
Subjective Progress Note for:: 06/14/20 Subjective:: NAEO. Reports that back pain is improving. Reason For Visit: THORACIC DISCITIS,BACTEREMIA,IV DRUG USER, Physical Exam Vital Signs: Temp Pulse Resp BP Pulse Ox 99.2 F 113 H 21 H 130/86 H 100 06/14/20 11:45 06/14/20 11:45 06/14/20 11:45 06/14/20 11:45 06/14/20 11:45 Intake & Output 06/13/20 06/14/20 06/15/20 06:59 06:59 06:59 Intake Total 1640 3406 1836 Output Total 700 1300 Balance 1640 2706 536 General appearance: PRESENT: no acute distress, cooperative Eye exam: ABSENT: scleral icterus Mouth exam: PRESENT: moist Throat exam: ABSENT: post pharyngeal erythema Neck exam: ABSENT: JVD Respiratory exam: PRESENT: clear to auscultation luisito, unlabored Cardiovascular exam: PRESENT: RRR GI/Abdominal exam: PRESENT: normal bowel sounds, soft. ABSENT: tenderness Extremities exam: ABSENT: pedal edema Neurological exam: PRESENT: alert, awake Psychiatric exam: PRESENT: appropriate affect Skin exam: ABSENT: rash Results Laboratory Results: 06/13/20 07:00 06/13/20 05:50 Assessment and Plan - Diagnosis (1) Bacteremia due to methicillin resistant Staphylococcus aureus Is this a current diagnosis for this admission?: Yes (2) Hx of intravenous drug use in remission Is this a current diagnosis for this admission?: Yes (3) Opioid dependence Qualifiers: Substance use status: in remission Qualified Code(s): F11.21 - Opioid dependence, in remission Is this a current diagnosis for this admission?: Yes (4) Osteomyelitis of vertebra of thoracic region Is this a current diagnosis for this admission?: Yes (5) Otitis externa of both ears Qualifiers: Otitis externa type: other infective Chronicity: acute Qualified Code(s): H60.393 - Other infective otitis externa, bilateral Is this a current diagnosis for this admission?: Yes (6) Tobacco use disorder, continuous Is this a current diagnosis for this admission?: Yes (7) Lower back pain Qualifiers: Chronicity: unspecified Back pain laterality: bilateral Sciatica presence: without sciatica Qualified Code(s): M54.5 - Low back pain Is this a current diagnosis for this admission?: Yes - Plan Summary Summary: Mr. Nielsen is a 40 year old man with PMH of IVDU, HCV, bipolar disorder with MRSA bacteremia due to vertebral osteomyelitis/discitis (L5-S1 and T8-T9) and epidural abscess (L5-S1). He was incidentally noted to be Covid positive on 05/29/2020 (now resolved). He was transferred to [facility] for neurosurgery evaluation, but required no surgical intervention. TTE (06/01) showed no evidence of valvular vegetations. ID recommended to continue Vancomycin for 6-8 weeks. MRSA bacteremia, discitis/osteomyelitis and epidural abscess - continue vancomycin IV 2 g every 8 hours through 07/04/2020 - Recheck ESR and CRP 06/26. If they are not improved significantly from prior (ESR 82, CRP 56), call infectious diseases at [facility] to discuss treatment extension. - Check weekly CBC, CMP, ESR, CRP Otitis externa bilateral: diagnosed 06/03 - received ciprofloxacin and prednisolone drops x10 days low back pain - secondary to infection, and with no neuro deficits. Avoid opioid analgesics. Continue suboxone, stretches, ice/heat packs and frequent walks. HCV positive - initiated HBV vaccination series on 06/06, he will need second dose on/around 07/07 - he was vaccinated for HAV on 06/06 - will need outpatient follow up for HCV treatment Dispo: will continue inpatient IV antibiotics here at [facility] until completion of course. Upon completion, will need follow up with addiction psychiatry - please call TIM Turner with [facility] at [phone] for follow up. He will need to be discharged with Rx for Narcan. - Time Time Spent with patient: 35 or more minutes Anticipated Discharge Disposition: Home, Self Care Anticipated Discharge Timeframe: after completion of IV antibiotic therapy
[2020-06-14] MEDS: PHARMACY COMMUNICATION ORDER MC SCH (21:25)
[2020-06-14] MEDS: SENNOSIDES/DOCUSATE 8.6-50 MG 1 EACH TABLET PO SCH (21:25)
[2020-06-14] MEDS: MELATONIN 5 MG TABLET PO PRN (21:25)
[2020-06-15] MEDS: VANCOMYCIN HCL 2,000 MG in DEXTROSE 5%-WATER 500 ML IV SCH ×2 (06:24→13:49)
[2020-06-15] MEDS: GABAPENTIN 300 MG CAPSULE PO SCH ×3 (06:24→21:03)
[2020-06-15 07:52] LABS: VANCOMYCIN,TROUGH 14.7 ug/mL (5.0-20.0)
[2020-06-15] MEDS: ENOXAPARIN SODIUM INJ 40 MG/0.4 ML DISP.SYRIN SUBCUT SCH (10:15)
[2020-06-15] MEDS: POLYETHYLENE GLYCOL 3350 POWDER 17 GM/1 PACKET PO SCH (10:15)
[2020-06-15] MEDS: LIDOCAINE 5% (700 MG) TRANSDERMAL ADH..PATCH TOP SCH (10:23)
[2020-06-15] MEDS: ASCORBIC ACID 500 MG TABLET PO SCH (10:24)
[2020-06-15] MEDS: BUPRENORPHINE HCL 2 MG SUBLINGUAL TABLET SL SCH ×2 (10:25→21:03)
[2020-06-15] MEDS: ACETAMINOPHEN 325 MG TABLET PO SCH ×3 (10:25→17:32)
[2020-06-15] MEDS: NORMAL SALINE 10 ML SDV (SCHEDULED) IV SCH ×2 (11:51→21:03)
[2020-06-15 14:49] LABS: VANCOMYCIN,TROUGH 25.9 ug/mL (5.0-20.0)
--- NOTE | 2020-06-15 15:29 | PDOC PROGRESS REPORT ---
Subjective Progress Note for:: 06/15/20 Subjective:: NAEO. He appears sleepy today and is not in the mood to speak with me, which is unusual for him. He is curled up in bed under the covers when I enter. Upon questioning, he states that he is not in pain and does not feel poorly, but is tired and just wants to rest. Reason For Visit: THORACIC DISCITIS,BACTEREMIA,IV DRUG USER, Physical Exam Vital Signs: Temp Pulse Resp BP Pulse Ox 97.2 F 70 16 105/70 100 06/15/20 10:00 06/15/20 07:44 06/15/20 07:44 06/15/20 07:44 06/15/20 07:44 Intake & Output 06/14/20 06/15/20 06/16/20 06:59 06:59 06:59 Intake Total 3406 3036 1096 Output Total 700 1300 Balance 2706 1736 1096 General appearance: PRESENT: no acute distress Eye exam: ABSENT: scleral icterus Mouth exam: PRESENT: moist Throat exam: ABSENT: post pharyngeal erythema Neck exam: ABSENT: JVD Respiratory exam: PRESENT: clear to auscultation luisito, unlabored Cardiovascular exam: PRESENT: RRR GI/Abdominal exam: PRESENT: normal bowel sounds, soft. ABSENT: tenderness Extremities exam: ABSENT: pedal edema Neurological exam: PRESENT: awake Psychiatric exam: PRESENT: flat affect Skin exam: ABSENT: jaundice Results Laboratory Results: 06/13/20 07:00 06/15/20 07:10 06/15/20 07:10 Creatinine 0.52 Est GFR ( Amer) > 60 Assessment and Plan - Diagnosis (1) Bacteremia due to methicillin resistant Staphylococcus aureus Is this a current diagnosis for this admission?: Yes (2) Hx of intravenous drug use in remission Is this a current diagnosis for this admission?: Yes (3) Opioid dependence Qualifiers: Substance use status: in remission Qualified Code(s): F11.21 - Opioid dependence, in remission Is this a current diagnosis for this admission?: Yes (4) Osteomyelitis of vertebra of thoracic region Is this a current diagnosis for this admission?: Yes (5) Otitis externa of both ears Qualifiers: Otitis externa type: other infective Chronicity: acute Qualified Code(s): H60.393 - Other infective otitis externa, bilateral Is this a current diagnosis for this admission?: Yes (6) Tobacco use disorder, continuous Is this a current diagnosis for this admission?: Yes (7) Lower back pain Qualifiers: Chronicity: unspecified Back pain laterality: bilateral Sciatica presence: without sciatica Qualified Code(s): M54.5 - Low back pain Is this a current diagnosis for this admission?: Yes - Plan Summary Summary: Mr. Nielsen is a 40 year old man with PMH of IVDU, HCV, bipolar disorder with MRSA bacteremia due to vertebral osteomyelitis/discitis (L5-S1 and T8-T9) and epidural abscess (L5-S1). He was incidentally noted to be Covid positive on 05/29/2020 (now resolved). He was transferred to [facility] for neurosurgery evaluation, but required no surgical intervention. TTE (06/01) showed no evidence of valvular vegetations. ID recommended to continue Vancomycin for 6-8 weeks. MRSA bacteremia, discitis/osteomyelitis and epidural abscess - continue vancomycin IV through 07/04/2020 * discussed elevated trough with pharmacist today and we decided to reduce his dose, hold the next dose of Vanc, and recheck repeat trough in AM (will also recheck kidney function again tomorrow) - Recheck ESR and CRP 06/26. If they are not improved significantly from prior (ESR 82, CRP 56), call infectious diseases at [facility] to discuss treatment extens ion. - Check weekly CBC, CMP, ESR, CRP Hypersomnolence -check UDS and repeat labs Otitis externa bilateral: diagnosed 06/03 - received ciprofloxacin and prednisolone drops x10 days low back pain - secondary to infection, and with no neuro deficits. Avoid opioid analgesics. Continue suboxone, stretches, ice/heat packs and frequent walks. HCV positive - initiated HBV vaccination series on 06/06, he will need second dose on/around 07/07 - he was vaccinated for HAV on 06/06 - will need outpatient follow up for HCV treatment Dispo: will continue inpatient IV antibiotics here at [facility] until completion of course. Upon completion, will need follow up with addiction psychiatry - please call TIM Turner with [facility] at [phone] for follow up. He will need to be discharged with Rx for Narcan. - Time Time Spent with patient: 35 or more minutes Anticipated Discharge Disposition: Home, Self Care Anticipated Discharge Timeframe: upon completion of IV antibiotics
[2020-06-15] MEDS: NORMAL SALINE 10 ML SDV (AFTER EACH USE) IV PRN (17:33)
[2020-06-15 19:09] LABS: URINE BARBITURATES SCREEN NEGATIVE; URINE BENZODIAZEPINES SCREEN NEGATIVE; URINE COCAINE SCREEN NEGATIVE; URINE MARIJUANA (THC) SCREEN NEGATIVE; URINE METHADONE SCREEN NEGATIVE; URINE PHENCYCLIDINE SCREEN NEGATIVE
[2020-06-15] MEDS: MELATONIN 5 MG TABLET PO PRN (21:03)
[2020-06-15] MEDS: SENNOSIDES/DOCUSATE 8.6-50 MG 1 EACH TABLET PO SCH (21:03)
[2020-06-15] MEDS: PHARMACY COMMUNICATION ORDER MC SCH (21:04)
[2020-06-16] MEDS: GABAPENTIN 300 MG CAPSULE PO SCH ×3 (05:34→23:02)
[2020-06-16] MEDS: VANCOMYCIN HCL 1,500 MG in DEXTROSE 5%-WATER 250 ML IV SCH ×3 (05:34→22:39)
[2020-06-16 09:03] LABS: HEMATOCRIT 30.7 % (37.9-51.0); HEMOGLOBIN 10.6 g/dL (13.5-17.0); MEAN CORPUSCULAR HEMOGLOBIN 28.5 pg (27.0-33.4); MEAN CORPUSCULAR HGB CONC 34.4 g/dL (32.0-36.0); MEAN CORPUSCULAR VOLUME 83 fl (80-97); PLATELET COUNT 198 10^3/uL (150-450); RED CELL DISTRIBUTION WIDTH 14.8 % (11.5-14.0); WHITE BLOOD COUNT 6.9 10^3/uL (4.0-10.5)
[2020-06-16 09:30] LABS: ALBUMIN 3.7 g/dL (3.5-5.0); ALKALINE PHOSPHATASE 125 U/L (38-126); ANION GAP 9 (5-19); ASPARTATE AMINO TRANSFERASE 15 U/L (17-59); BILIRUBIN,DIRECT 0.1 mg/dL (0.0-0.4); BILIRUBIN,TOTAL 0.2 mg/dL (0.2-1.3); BLOOD UREA NITROGEN 20 mg/dL (7-20); C-REACTIVE PROTEIN 39.4 mg/L (<10.0); CALCIUM 9.6 mg/dL (8.4-10.2); CARBON DIOXIDE 32 mmol/L (22-30); CHLORIDE 95 mmol/L (98-107); GLUCOSE 109 mg/dL (75-110); POTASSIUM 4.1 mmol/L (3.6-5.0); TOTAL PROTEIN 7.2 g/dL (6.3-8.2)
[2020-06-16 09:40] LABS: ERYTHROCYTE SEDIMENTATION RATE 74 mm/hr (0-15)
[2020-06-16] MEDS: ASCORBIC ACID 500 MG TABLET PO SCH (10:24)
[2020-06-16] MEDS: ACETAMINOPHEN 325 MG TABLET PO SCH ×3 (10:25→17:53)
[2020-06-16] MEDS: BUPRENORPHINE HCL 2 MG SUBLINGUAL TABLET SL SCH ×2 (10:25→22:38)
[2020-06-16] MEDS: LIDOCAINE 5% (700 MG) TRANSDERMAL ADH..PATCH TOP SCH (10:26)
[2020-06-16] MEDS: ENOXAPARIN SODIUM INJ 40 MG/0.4 ML DISP.SYRIN SUBCUT SCH (10:26)
[2020-06-16] MEDS: POLYETHYLENE GLYCOL 3350 POWDER 17 GM/1 PACKET PO SCH (10:26)
[2020-06-16] MEDS: NORMAL SALINE 10 ML SDV (SCHEDULED) IV SCH (10:35)
--- NOTE | 2020-06-16 14:50 | PDOC PROGRESS REPORT ---
Subjective Progress Note for:: 06/16/20 Subjective:: NAEO, back pain is improving Reason For Visit: THORACIC DISCITIS,BACTEREMIA,IV DRUG USER, Physical Exam Vital Signs: Temp Pulse Resp BP Pulse Ox 98.6 F 115 H 16 122/63 100 06/16/20 07:49 06/16/20 07:49 06/16/20 07:49 06/16/20 07:49 06/16/20 07:49 Intake & Output 06/15/20 06/16/20 06/17/20 06:59 06:59 06:59 Intake Total 3036 3653 250 Output Total 1300 Balance 1736 3653 250 General appearance: PRESENT: no acute distress, cooperative Eye exam: ABSENT: scleral icterus Mouth exam: PRESENT: moist Throat exam: ABSENT: post pharyngeal erythema Neck exam: ABSENT: JVD Respiratory exam: PRESENT: clear to auscultation luisito, unlabored Cardiovascular exam: PRESENT: RRR GI/Abdominal exam: PRESENT: normal bowel sounds, soft. ABSENT: tenderness Extremities exam: ABSENT: +1 edema Neurological exam: PRESENT: alert, awake Psychiatric exam: PRESENT: appropriate affect Skin exam: ABSENT: rash Results Laboratory Results: 06/16/20 08:28 06/16/20 08:28 06/16/20 06/16/20 08:28 08:28 WBC 6.9 RBC 3.70 L Hgb 10.6 L Hct 30.7 L MCV 83 MCH 28.5 MCHC 34.4 RDW 14.8 H Plt Count 198 Sodium 136.3 L Potassium 4.1 Chloride 95 L Carbon Dioxide 32 H Anion Gap 9 BUN 20 Creatinine 0.62 Est GFR ( Amer) > 60 Glucose 109 Calcium 9.6 Magnesium 1.8 Total Bilirubin 0.2 AST 15 L Alkaline Phosphatase 125 C-Reactive Protein 39.4 H Total Protein 7.2 Albumin 3.7 Assessment and Plan - Diagnosis (1) Bacteremia due to methicillin resistant Staphylococcus aureus Is this a current diagnosis for this admission?: Yes (2) Hx of intravenous drug use in remission Is this a current diagnosis for this admission?: Yes (3) Opioid dependence Qualifiers: Substance use status: in remission Qualified Code(s): F11.21 - Opioid dependence, in remission Is this a current diagnosis for this admission?: Yes (4) Osteomyelitis of vertebra of thoracic region Is this a current diagnosis for this admission?: Yes (5) Otitis externa of both ears Qualifiers: Otitis externa type: other infective Chronicity: acute Qualified Code(s): H60.393 - Other infective otitis externa, bilateral Is this a current diagnosis for this admission?: Yes (6) Tobacco use disorder, continuous Is this a current diagnosis for this admission?: Yes (7) Lower back pain Qualifiers: Chronicity: unspecified Back pain laterality: bilateral Sciatica presence: without sciatica Qualified Code(s): M54.5 - Low back pain Is this a current diagnosis for this admission?: Yes - Plan Summary Summary: Mr. Nielsen is a 40 year old man with PMH of IVDU, HCV, bipolar disorder with MRSA bacteremia due to vertebral osteomyelitis/discitis (L5-S1 and T8-T9) and epidural abscess (L5-S1). He was incidentally noted to be Covid positive on 05/29/2020 (now resolved). He was transferred to [facility] for neurosurgery evaluation, but required no surgical intervention. TTE (06/01) showed no evidence of valvular vegetations. ID recommended to continue Vancomycin for 6-8 weeks. MRSA bacteremia, discitis/osteomyelitis and epidural abscess - continue vancomycin IV (end date: 07/04/2020) - vancomycin dosing as per pharmacy - Check weekly CBC, CMP, ESR, CRP (last checked 06/16, ESR/CRP improving) - Recheck ESR and CRP 06/26. If they are not improved significantly from prior (ESR 82, CRP 56), call infectious diseases at [facility] to discuss treatment extension. Otitis externa bilateral: diagnosed 06/03 - received ciprofloxacin and prednisolone drops x10 days low back pain: improving slowly - secondary to infection, and with no neuro deficits. Avoid opioid analgesics. Continue suboxone, stretches, ice/heat packs and frequent walks. HCV positive - initiated HBV vaccination series on 06/06, he will need second dose on/around 07/07 - he was vaccinated for HAV on 06/06 - will need outpatient follow up for HCV treatment Dispo: will continue inpatient IV antibiotics here at [facility] until completion of course. Upon completion, will need follow up with addiction psychiatry - please call TIM Turner with [facility] at [phone] for follow up. He will need to be discharged with Rx for Narcan. - Time Time Spent with patient: 25-34 minutes Anticipated Discharge Disposition: Home, Self Care Anticipated Discharge Timeframe: when antibiotics are completed
[2020-06-16] MEDS: MELATONIN 5 MG TABLET PO PRN (22:38)
[2020-06-16] MEDS: SENNOSIDES/DOCUSATE 8.6-50 MG 1 EACH TABLET PO SCH (22:49)
[2020-06-16] MEDS: PHARMACY COMMUNICATION ORDER MC SCH (22:49)
[2020-06-17] MEDS: NORMAL SALINE 10 ML SDV (SCHEDULED) IV SCH ×3 (05:52→23:07)
[2020-06-17] MEDS: GABAPENTIN 300 MG CAPSULE PO SCH ×3 (05:54→22:18)
[2020-06-17] MEDS: VANCOMYCIN HCL 1,500 MG in DEXTROSE 5%-WATER 250 ML IV SCH (05:55)
[2020-06-17 06:43] LABS: ANION GAP 9 (5-19); BLOOD UREA NITROGEN 20 mg/dL (7-20); CALCIUM 9.8 mg/dL (8.4-10.2); CARBON DIOXIDE 33 mmol/L (22-30); CHLORIDE 98 mmol/L (98-107); GLUCOSE 93 mg/dL (75-110); POTASSIUM 4.8 mmol/L (3.6-5.0)
[2020-06-17 06:47] LABS: VANCOMYCIN,TROUGH 19.5 ug/mL (5.0-20.0)
[2020-06-17] MEDS: ACETAMINOPHEN 325 MG TABLET PO SCH ×3 (12:02→18:43)
[2020-06-17] MEDS: ASCORBIC ACID 500 MG TABLET PO SCH (12:03)
[2020-06-17] MEDS: BUPRENORPHINE HCL 2 MG SUBLINGUAL TABLET SL SCH ×2 (12:07→22:17)
[2020-06-17] MEDS: POLYETHYLENE GLYCOL 3350 POWDER 17 GM/1 PACKET PO SCH (12:08)
[2020-06-17] MEDS: LIDOCAINE 5% (700 MG) TRANSDERMAL ADH..PATCH TOP SCH (12:09)
[2020-06-17] MEDS: ENOXAPARIN SODIUM INJ 40 MG/0.4 ML DISP.SYRIN SUBCUT SCH (12:09)
--- NOTE | 2020-06-17 14:50 | PDOC PROGRESS REPORT ---
Subjective Progress Note for:: 06/17/20 Subjective:: NAEO Reason For Visit: THORACIC DISCITIS,BACTEREMIA,IV DRUG USER, Physical Exam Vital Signs: Temp Pulse Resp BP Pulse Ox 97.6 F 85 16 121/72 97 06/17/20 08:38 06/17/20 08:38 06/17/20 08:38 06/17/20 08:38 06/17/20 08:38 Intake & Output 06/16/20 06/17/20 06/18/20 06:59 06:59 06:59 Intake Total 3653 2850 812 Output Total 1100 Balance 3653 1750 812 General appearance: PRESENT: no acute distress, cooperative Eye exam: ABSENT: scleral icterus Mouth exam: PRESENT: moist Throat exam: ABSENT: post pharyngeal erythema Neck exam: ABSENT: JVD Respiratory exam: PRESENT: clear to auscultation luisito, unlabored Cardiovascular exam: PRESENT: RRR GI/Abdominal exam: PRESENT: soft. ABSENT: tenderness Extremities exam: ABSENT: pedal edema Neurological exam: PRESENT: alert, awake Psychiatric exam: PRESENT: flat affect Skin exam: ABSENT: rash Results Laboratory Results: 06/16/20 08:28 06/17/20 05:40 06/17/20 05:40 Sodium 140.0 Potassium 4.8 Chloride 98 Carbon Dioxide 33 H Anion Gap 9 BUN 20 Creatinine 0.56 Est GFR ( Amer) > 60 Glucose 93 Calcium 9.8 Assessment and Plan - Diagnosis (1) Bacteremia due to methicillin resistant Staphylococcus aureus Is this a current diagnosis for this admission?: Yes (2) Hx of intravenous drug use in remission Is this a current diagnosis for this admission?: Yes (3) Opioid dependence Qualifiers: Substance use status: in remission Qualified Code(s): F11.21 - Opioid dependence, in remission Is this a current diagnosis for this admission?: Yes (4) Osteomyelitis of vertebra of thoracic region Is this a current diagnosis for this admission?: Yes (5) Otitis externa of both ears Qualifiers: Otitis externa type: other infective Chronicity: acute Qualified Code(s): H60.393 - Other infective otitis externa, bilateral Is this a current diagnosis for this admission?: Yes (6) Tobacco use disorder, continuous Is this a current diagnosis for this admission?: Yes (7) Lower back pain Qualifiers: Chronicity: unspecified Back pain laterality: bilateral Sciatica presence: without sciatica Qualified Code(s): M54.5 - Low back pain Is this a current diagnosis for this admission?: Yes - Plan Summary Summary: Mr. Nielsen is a 40 year old man with PMH of IVDU, HCV, bipolar disorder with MRSA bacteremia due to vertebral osteomyelitis/discitis (L5-S1 and T8-T9) and epidural abscess (L5-S1). He was incidentally noted to be Covid positive on 05/29/2020 (now resolved). [facility], but required no surgical intervention. TTE (06/01) showed no evidence of valvular vegetations. ID recommended to continue Vancomycin for 6-8 weeks. MRSA bacteremia, discitis/osteomyelitis and epidural abscess - continue vancomycin IV (end date: 07/04/2020) - vancomycin dosing as per pharmacy - Check weekly CBC, CMP, ESR, CRP (last checked 06/16, ESR/CRP improving) - Recheck ESR and CRP 06/26. If they are not improved significantly from prior (ESR 82, CRP 56), call infectious diseases at [facility] to discuss treatment extension. Otitis externa bilateral: diagnosed 06/03, and received ciprofloxacin and prednisolone drops x10 days. low back pain: improving slowly - secondary to infection, and with no neuro deficits. Avoid opioid analgesics. Continue suboxone, stretches, ice/heat packs and frequent walks. HCV positive - initiated HBV vaccination series on 06/06, he will need second dose on/around 07/07 - he was vaccinated for HAV on 06/06 - will need outpatient follow up for HCV treatment Dispo: will continue inpatient IV antibiotics here at [facility] until completion of course. Upon completion, will need follow up with addiction psychiatry - please call TIM Turner with [facility] at [phone] for follow up. He will need to be discharged with Rx for Narcan. - Time Time Spent with patient: 15-24 minutes Anticipated Discharge Disposition: Home, Self Care Anticipated Discharge Timeframe: when antibiotics are completed
[2020-06-17] MEDS: VANCOMYCIN HCL 1,250 MG in DEXTROSE 5%-WATER 250 ML IV SCH ×2 (16:11→22:26)
[2020-06-17] MEDS: MELATONIN 5 MG TABLET PO PRN (22:18)
[2020-06-17] MEDS: SENNOSIDES/DOCUSATE 8.6-50 MG 1 EACH TABLET PO SCH (22:18)
[2020-06-17] MEDS: PHARMACY COMMUNICATION ORDER MC SCH (23:07)
[2020-06-18] MEDS: VANCOMYCIN HCL 1,250 MG in DEXTROSE 5%-WATER 250 ML IV SCH ×3 (05:11→21:27)
[2020-06-18] MEDS: GABAPENTIN 300 MG CAPSULE PO SCH ×3 (05:11→21:24)
[2020-06-18] MEDS: ACETAMINOPHEN 325 MG TABLET PO SCH ×3 (10:10→20:53)
[2020-06-18] MEDS: BUPRENORPHINE HCL 2 MG SUBLINGUAL TABLET SL SCH ×2 (10:10→21:23)
[2020-06-18] MEDS: ASCORBIC ACID 500 MG TABLET PO SCH (10:11)
[2020-06-18] MEDS: ENOXAPARIN SODIUM INJ 40 MG/0.4 ML DISP.SYRIN SUBCUT SCH (10:12)
[2020-06-18] MEDS: LIDOCAINE 5% (700 MG) TRANSDERMAL ADH..PATCH TOP SCH (10:15)
[2020-06-18] MEDS: POLYETHYLENE GLYCOL 3350 POWDER 17 GM/1 PACKET PO SCH (14:16)
[2020-06-18] MEDS: NORMAL SALINE 10 ML SDV (SCHEDULED) IV SCH ×2 (14:18→21:24)
[2020-06-18 15:23] LABS: VANCOMYCIN,TROUGH 14.4 ug/mL (5.0-20.0)
--- NOTE | 2020-06-18 15:48 | PDOC PROGRESS REPORT ---
Subjective Date:: 06/18/20 Subjective:: NAEO Reason For Visit: THORACIC DISCITIS,BACTEREMIA,IV DRUG USER, Physical Exam Vital Signs: Temp Pulse Resp BP Pulse Ox 98.0 F 100 17 129/62 H 100 06/18/20 12:00 06/18/20 12:00 06/18/20 12:00 06/18/20 12:00 06/18/20 12:00 Intake & Output 06/17/20 06/18/20 06/19/20 06:59 06:59 06:59 Intake Total 2850 2622 436 Output Total 1100 450 Balance 1750 2172 436 General appearance: PRESENT: no acute distress Eye exam: ABSENT: scleral icterus Mouth exam: PRESENT: moist Throat exam: ABSENT: post pharyngeal erythema Neck exam: ABSENT: full ROM Respiratory exam: PRESENT: clear to auscultation luisito, unlabored Cardiovascular exam: PRESENT: RRR GI/Abdominal exam: PRESENT: normal bowel sounds, soft. ABSENT: tenderness Extremities exam: ABSENT: pedal edema Neurological exam: PRESENT: alert, awake Psychiatric exam: PRESENT: appropriate affect Skin exam: ABSENT: rash Results Laboratory Results: 06/16/20 08:28 06/17/20 05:40 Assessment and Plan - Diagnosis (1) Bacteremia due to methicillin resistant Staphylococcus aureus Is this a current diagnosis for this admission?: Yes (2) Hx of intravenous drug use in remission Is this a current diagnosis for this admission?: Yes (3) Opioid dependence Qualifiers: Substance use status: in remission Qualified Code(s): F11.21 - Opioid dependence, in remission Is this a current diagnosis for this admission?: Yes (4) Osteomyelitis of vertebra of thoracic region Is this a current diagnosis for this admission?: Yes (5) Otitis externa of both ears Qualifiers: Otitis externa type: other infective Chronicity: acute Qualified Code(s): H60.393 - Other infective otitis externa, bilateral Is this a current diagnosis for this admission?: Yes (6) Tobacco use disorder, continuous Is this a current diagnosis for this admission?: Yes (7) Lower back pain Qualifiers: Chronicity: unspecified Back pain laterality: bilateral Sciatica presence: without sciatica Qualified Code(s): M54.5 - Low back pain Is this a current diagnosis for this admission?: Yes - Plan Summary Summary: Mr. Nielsen is a 40 year old man with PMH of IVDU, HCV, bipolar disorder with MRSA bacteremia due to vertebral osteomyelitis/discitis (L5-S1 and T8-T9) and epidural abscess (L5-S1). He was incidentally noted to be Covid positive on 05/29/2020 (now resolved). He was transferred to [facility] for neurosurgery ev aluation, but required no surgical intervention. TTE (06/01) showed no evidence of valvular vegetations. ID recommended to continue Vancomycin for 6-8 weeks. MRSA bacteremia, discitis/osteomyelitis and epidural abscess - continue vancomycin IV (end date: 07/04/2020) - vancomycin dosing as per pharmacy - Check weekly CBC, CMP, ESR, CRP (last checked 06/16, ESR/CRP improving) - Recheck ESR and CRP 06/26. If they are not improved significantly from prior (ESR 82, CRP 56), call infectious diseases at [facility] to discuss treatment extension. Otitis externa bilateral: diagnosed 06/03, and received ciprofloxacin and prednisolone drops x10 days. low back pain: improving slowly - secondary to infection, and with no neuro deficits. Avoid opioid analgesics. Continue suboxone, stretches, ice/heat packs and frequent walks. HCV positive - initiated HBV vaccination series on 06/06, he will need second dose on/around 07/07 - he was vaccinated for HAV on 06/06 - will need outpatient follow up for HCV treatment Dispo: will continue inpatient IV antibiotics here at [facility] until completion of course. Upon completion, will need follow up with addiction psychiatry - please call TIM Turner with [facility] at [phone] for follow up. He will need to be discharged with Rx for Narcan. - Time Time Spent with patient: 25-34 minutes Anticipated Discharge Disposition: Home, Self Care Anticipated Discharge Timeframe: upon completion of antibiotics
[2020-06-18] MEDS: SENNOSIDES/DOCUSATE 8.6-50 MG 1 EACH TABLET PO SCH (21:23)
[2020-06-18] MEDS: MELATONIN 5 MG TABLET PO PRN (21:23)
[2020-06-18] MEDS: PHARMACY COMMUNICATION ORDER MC SCH (21:30)
[2020-06-19] MEDS: VANCOMYCIN HCL 1,250 MG in DEXTROSE 5%-WATER 250 ML IV SCH ×3 (05:15→22:01)
[2020-06-19] MEDS: GABAPENTIN 300 MG CAPSULE PO SCH ×3 (05:15→22:01)
[2020-06-19] MEDS: LIDOCAINE 5% (700 MG) TRANSDERMAL ADH..PATCH TOP SCH (09:28)
[2020-06-19] MEDS: ACETAMINOPHEN 325 MG TABLET PO SCH ×3 (09:30→17:17)
[2020-06-19] MEDS: ASCORBIC ACID 500 MG TABLET PO SCH (09:30)
[2020-06-19] MEDS: BUPRENORPHINE HCL 2 MG SUBLINGUAL TABLET SL SCH ×2 (09:30→22:00)
[2020-06-19] MEDS: POLYETHYLENE GLYCOL 3350 POWDER 17 GM/1 PACKET PO SCH (09:30)
[2020-06-19] MEDS: ENOXAPARIN SODIUM INJ 40 MG/0.4 ML DISP.SYRIN SUBCUT SCH (09:31)
[2020-06-19] MEDS: NORMAL SALINE 10 ML SDV (SCHEDULED) IV SCH ×2 (09:38→22:03)
[2020-06-19] MEDS: NORMAL SALINE 10 ML SDV (AFTER EACH USE) IV PRN ×2 (09:39→17:19)
--- NOTE | 2020-06-19 12:46 | PDOC PROGRESS REPORT ---
Subjective Date:: 06/19/20 Subjective:: Patient is sleeping but awakens easily. Reason For Visit: THORACIC DISCITIS,BACTEREMIA,IV DRUG USER, Physical Exam Vital Signs: Temp Pulse Resp BP Pulse Ox 97.8 F 85 18 121/68 97 06/19/20 10:00 06/19/20 07:42 06/19/20 07:42 06/19/20 07:42 06/19/20 07:42 Intake & Output 06/18/20 06/19/20 06/20/20 06:59 06:59 06:59 Intake Total 2622 2246 Output Total 450 1800 Balance 2172 446 General appearance: PRESENT: no acute distress, cooperative, well-developed Head exam: PRESENT: atraumatic, normocephalic Eye exam: PRESENT: conjunctiva pink. ABSENT: scleral icterus Ear exam: PRESENT: normal external ear exam. ABSENT: bleeding, drainage Mouth exam: PRESENT: moist, tongue midline Respiratory exam: PRESENT: symmetrical, unlabored. ABSENT: rales, rhonchi, tachypnea, wheezes Cardiovascular exam: PRESENT: RRR, +S1, +S2. ABSENT: bradycardia, diastolic murmur, irregular rhythm, systolic murmur, tachycardia GI/Abdominal exam: PRESENT: normal bowel sounds, soft. ABSENT: distended, guarding, tenderness Rectal exam: PRESENT: deferred Gentrourinary exam: ABSENT: indwelling catheter Extremities exam: ABSENT: pedal edema Musculoskeletal exam: PRESENT: ambulatory. ABSENT: deformity, dislocation Neurological exam: PRESENT: alert, awake, oriented to person, oriented to place, oriented to time, oriented to situation, CN II-XII grossly intact. ABSENT: altered Psychiatric exam: PRESENT: appropriate affect. ABSENT: agitated, anxious Focused psych exam: ABSENT: delusional, paranoid, restlessness Results Laboratory Results: 06/16/20 08:28 06/17/20 05:40 Assessment and Plan - Diagnosis (1) Osteomyelitis of vertebra of thoracic region Is this a current diagnosis for this admission?: Yes (2) Bacteremia due to methicillin resistant Staphylococcus aureus Is this a current diagnosis for this admission?: Yes (3) Hx of intravenous drug use in remission Is this a current diagnosis for this admission?: Yes (4) Otitis externa of both ears Qualifiers: Otitis externa type: other infective Chronicity: acute Qualified Code(s): H60.393 - Other infective otitis externa, bilateral Is this a current diagnosis for this admission?: Yes (5) Opioid dependence Qualifiers: Substance use status: in remission Qualified Code(s): F11.21 - Opioid dependence, in remission Is this a current diagnosis for this admission?: Yes (6) Tobacco use disorder, continuous Is this a current diagnosis for this admission?: Yes - Plan Summary Summary: Mr. Nielsen is a 40 year old man with PMH of IVDU, HCV, bipolar disorder with MRSA bacteremia due to vertebral osteomyelitis/discitis (L5-S1 and T8-T9) and epidural abscess (L5-S1). He was incidentally noted to be Covid positive on 05/29/2020 (now resolved). He was transferred to [facility] for neurosurgery evaluation, but required no surgical intervention. TTE (06/01) showed no evidence of valvular vegetations. ID recommended to continue Vancomycin for 6-8 weeks. MRSA bacteremia, discitis/osteomyelitis and epidural abscess - continue vancomycin IV (end date: 07/04/2020) - vancomycin dosing as per pharmacy - Check weekly CBC, CMP, ESR, CRP (last checked 06/16, ESR/CRP improving) - Recheck ESR and CRP 06/26. If they are not improved significantly from prior (ESR 82, CRP 56), call infectious diseases at [facility] to discuss treatment exte nsion. Otitis externa bilateral: diagnosed 06/03, and received ciprofloxacin and prednisolone drops x10 days. low back pain: improving slowly - secondary to infection, and with no neuro deficits. Avoid opioid analgesics. Continue suboxone, stretches, ice/heat packs and frequent walks. HCV positive - initiated HBV vaccination series on 06/06, he will need second dose on/around 07/07 - he was vaccinated for HAV on 06/06 - will need outpatient follow up for HCV treatment Dispo: will continue inpatient IV antibiotics here at [facility] until completion of course. Upon completion, will need follow up with addiction psychiatry - please call TIM Turner with [facility] at [phone] for follow up. He will need to be discharged with Rx for Narcan. 06/19/2020 MRSA bacteremia, discitis/osteomyelitis with epidural abscess ongoing vancomycin. End of treatment 07/04/2020 ESR and CRP are improving - Time Time Spent with patient: 15-24 minutes Medications reviewed and adjusted accordingly: Yes Anticipated Discharge Disposition: Home, Self Care Anticipated Discharge Timeframe: 07/04/2020
[2020-06-19] MEDS: MELATONIN 5 MG TABLET PO PRN (22:00)
[2020-06-19] MEDS: SENNOSIDES/DOCUSATE 8.6-50 MG 1 EACH TABLET PO SCH (22:01)
[2020-06-19] MEDS: PHARMACY COMMUNICATION ORDER MC SCH (22:03)
[2020-06-20] MEDS: GABAPENTIN 300 MG CAPSULE PO SCH ×3 (05:22→21:36)
[2020-06-20] MEDS: VANCOMYCIN HCL 1,250 MG in DEXTROSE 5%-WATER 250 ML IV SCH ×3 (05:22→21:44)
[2020-06-20] MEDS ORDERED: LIDOCAINE 1% INJ-PF (10 MG/ML) 30 ML SDV ONE (07:35)
[2020-06-20] MEDS: ASCORBIC ACID 500 MG TABLET PO SCH (09:39)
[2020-06-20] MEDS: ACETAMINOPHEN 325 MG TABLET PO SCH ×3 (09:40→17:13)
[2020-06-20] MEDS: BUPRENORPHINE HCL 2 MG SUBLINGUAL TABLET SL SCH ×2 (09:40→21:36)
[2020-06-20] MEDS: ENOXAPARIN SODIUM INJ 40 MG/0.4 ML DISP.SYRIN SUBCUT SCH (09:41)
[2020-06-20] MEDS: LIDOCAINE 5% (700 MG) TRANSDERMAL ADH..PATCH TOP SCH (09:42)
[2020-06-20] MEDS: POLYETHYLENE GLYCOL 3350 POWDER 17 GM/1 PACKET PO SCH (09:42)
[2020-06-20] MEDS: NORMAL SALINE 10 ML SDV (SCHEDULED) IV SCH ×2 (09:42→21:37)
--- NOTE | 2020-06-20 15:39 | PDOC PROGRESS REPORT ---
Subjective Date:: 06/20/20 Subjective:: The patient is awake and alert resting in bed. His only complaint is restless legs. He states that he does have restless leg syndrome but he is having spasms intermittently especially at night. Reason For Visit: THORACIC DISCITIS,BACTEREMIA,IV DRUG USER, Physical Exam Vital Signs: Temp Pulse Resp BP Pulse Ox 98.4 F 101 H 16 135/89 H 99 06/20/20 08:49 06/20/20 07:47 06/20/20 07:47 06/20/20 07:47 06/20/20 07:47 Intake & Output 06/19/20 06/20/20 06/21/20 06:59 06:59 06:59 Intake Total 2246 2636 370 Output Total 1800 626 Balance 446 2010 370 General appearance: PRESENT: no acute distress Head exam: PRESENT: atraumatic, normocephalic Respiratory exam: PRESENT: clear to auscultation luisito, symmetrical, unlabored. ABSENT: rales, rhonchi, tachypnea, wheezes Cardiovascular exam: PRESENT: RRR, +S1, +S2, systolic murmur - 2/6. ABSENT: bradycardia, diastolic murmur, irregular rhythm GI/Abdominal exam: PRESENT: normal bowel sounds, soft. ABSENT: distended, guarding, tenderness Rectal exam: PRESENT: deferred Gentrourinary exam: ABSENT: indwelling catheter Extremities exam: ABSENT: pedal edema Musculoskeletal exam: PRESENT: ambulatory, normal inspection, other - Normal muscle tone. ABSENT: deformity, dislocation, tenderness Neurological exam: PRESENT: alert, awake, oriented to person, oriented to place, oriented to time, oriented to situation, CN II-XII grossly intact. ABSENT: altered Psychiatric exam: PRESENT: appropriate affect. ABSENT: agitated, anxious Focused psych exam: ABSENT: delusional, paranoid, restlessness Skin exam: PRESENT: dry, normal color, warm. ABSENT: rash Results Laboratory Results: 06/16/20 08:28 06/17/20 05:40 Assessment and Plan - Diagnosis (1) Osteomyelitis of vertebra of thoracic region Is this a current diagnosis for this admission?: Yes (2) Bacteremia due to methicillin resistant Staphylococcus aureus Is this a current diagnosis for this admission?: Yes (3) Hx of intravenous drug use in remission Is this a current diagnosis for this admission?: Yes (4) Otitis externa of both ears Qualifiers: Otitis externa type: other infective Chronicity: acute Qualified Code(s): H60.393 - Other infective otitis externa, bilateral Is this a current diagnosis for this admission?: Yes (5) Opioid dependence Qualifiers: Substance use status: in remission Qualified Code(s): F11.21 - Opioid dependence, in remission Is this a current diagnosis for this admission?: Yes (6) Tobacco use disorder, continuous Is this a current diagnosis for this admission?: Yes (7) Restless legs syndrome Is this a current diagnosis for this admission?: Yes - Plan Summary Summary: Mr. Nielsen is a 40 year old man with PMH of IVDU, HCV, bipolar disorder with MRSA bacteremia due to vertebral osteomyelitis/discitis (L5-S1 and T8-T9) and epidural abscess (L5-S1). He was incidentally noted to be Covid positive on 05/29/2020 (now resolved). He was transferred to [facility] for neurosurgery evaluation, but required no surgical intervention. TTE (06/01) showed no evidence of valvular vegetations. ID recommended to continue Vancomycin for 6-8 weeks. MRSA bacteremia, discitis/osteomyelitis and epidural abscess - continue vancomycin IV (end date: 07/04/2020) - vancomycin dosing as per pharmacy - Check weekly CBC, CMP, ESR, CRP (last checked 06/16, ESR/CRP improving) - Recheck ESR and CRP 06/26. If they are not improved significantly from prior (ESR 82, CRP 56), call infectious diseases at [facility] to discuss treatment extension. Otitis externa bilateral: diagnosed 06/03, and received ciprofloxacin and prednisolone drops x10 days. low back pain: improving slowly - secondary to infection, and with no neuro deficits. Avoid opioid analgesics. Continue suboxone, stretches, ice/heat packs and frequent walks. HCV positive - initiated HBV vaccination series on 06/06, he will need second dose on/around 07/07 - he was vaccinated for HAV on 06/06 - will need outpatient follow up for HCV treatment Dispo: will continue inpatient IV antibiotics here at [facility] until completion of course. Upon completion, will need follow up with addiction psychiatry - please call TIM Turner with [facility] at [phone] for follow up. He will need to be discharged with Rx for Narcan. 06/19/2020 MRSA bacteremia, discitis/osteomyelitis with epidural abscess ongoing vancomycin. End of treatment 07/04/2020 ESR and CRP are improving 06/20/2020 Continue vancomycin for MRSA bacteremia with osteomyelitis and epidural abscess Restless legs-reviewed the patient's electrolytes. They have been stable. We will recheck electrolytes tomorrow. Reviewing the literature I will also check ferritin level and if this is low iron supplement may help. He is already on gabapentin 3 times a day. Await results of blood work before adding any additional medications. - Time Time Spent with patient: 15-24 minutes Medications reviewed and adjusted accordingly: Yes Anticipated Discharge Disposition: Home, Self Care Anticipated Discharge Timeframe: 07/04/2020
[2020-06-20] MEDS: SENNOSIDES/DOCUSATE 8.6-50 MG 1 EACH TABLET PO SCH (21:36)
[2020-06-20] MEDS: MELATONIN 5 MG TABLET PO SCH (21:36)
[2020-06-20] MEDS: PHARMACY COMMUNICATION ORDER MC SCH (21:45)
[2020-06-21 05:03] LABS: ABSOLUTE RETICS # 0.027 10^6/uL (0.028-0.122); RETICULOCYTE COUNT (AUTO) 0.75 % (0.66-2.85)
[2020-06-21] MEDS: VANCOMYCIN HCL 1,250 MG in DEXTROSE 5%-WATER 250 ML IV SCH ×3 (05:11→21:49)
[2020-06-21] MEDS: GABAPENTIN 300 MG CAPSULE PO SCH ×3 (05:11→21:48)
[2020-06-21 05:59] LABS: ANION GAP 12 (5-19); BLOOD UREA NITROGEN 21 mg/dL (7-20); CALCIUM 9.9 mg/dL (8.4-10.2); CARBON DIOXIDE 29 mmol/L (22-30); CHLORIDE 96 mmol/L (98-107); GLUCOSE 102 mg/dL (75-110); IRON(TIBC) 49.4 ug/dL (49-181)
[2020-06-21 07:05] LABS: FOLATE 7.63 ng/mL (>2.76)
[2020-06-21] MEDS: ASCORBIC ACID 500 MG TABLET PO SCH (09:33)
[2020-06-21] MEDS: ACETAMINOPHEN 325 MG TABLET PO SCH ×3 (09:34→17:07)
[2020-06-21] MEDS: BUPRENORPHINE HCL 2 MG SUBLINGUAL TABLET SL SCH ×2 (09:34→21:48)
[2020-06-21] MEDS: ENOXAPARIN SODIUM INJ 40 MG/0.4 ML DISP.SYRIN SUBCUT SCH (09:35)
[2020-06-21] MEDS: LIDOCAINE 5% (700 MG) TRANSDERMAL ADH..PATCH TOP SCH (09:36)
[2020-06-21] MEDS: POLYETHYLENE GLYCOL 3350 POWDER 17 GM/1 PACKET PO SCH (09:38)
[2020-06-21] MEDS: NORMAL SALINE 10 ML SDV (SCHEDULED) IV SCH ×2 (09:38→21:48)
[2020-06-21] MEDS ORDERED: DIPHENHYDRAMINE HCL 25 MG CAPSULE PO PRN (12:43)
--- NOTE | 2020-06-21 12:43 | PDOC PROGRESS REPORT ---
Subjective Date:: 06/21/20 Subjective:: Patient complains of itching. He has been on vancomycin in the past. He never had a reaction like this. He wonders about the bed sheets because he has very sensitive skin. I did speak to nursing and asked them to put new sheets on his bed today. Reason For Visit: THORACIC DISCITIS,BACTEREMIA,IV DRUG USER, Physical Exam Vital Signs: Temp Pulse Resp BP Pulse Ox 97.7 F 116 H 16 145/86 H 100 06/21/20 10:00 06/21/20 07:40 06/21/20 07:40 06/21/20 07:40 06/21/20 07:40 Intake & Output 06/20/20 06/21/20 06/22/20 06:59 06:59 06:59 Intake Total 2636 2720 Output Total 626 Balance 20090 General appearance: PRESENT: cooperative, mild distress - Itching, well- developed Head exam: PRESENT: atraumatic, normocephalic Respiratory exam: PRESENT: clear to auscultation luisito, symmetrical, unlabored. ABSENT: prolonged expiratory phas, rales, rhonchi, tachypnea, wheezes Cardiovascular exam: PRESENT: RRR, +S1, +S2. ABSENT: bradycardia, diastolic murmur, irregular rhythm, systolic murmur, tachycardia GI/Abdominal exam: PRESENT: normal bowel sounds, soft. ABSENT: distended, guarding, tenderness Rectal exam: PRESENT: deferred Neurological exam: PRESENT: alert, awake, oriented to person, oriented to place, oriented to time, oriented to situation, CN II-XII grossly intact Psychiatric exam: PRESENT: appropriate affect. ABSENT: agitated, anxious Focused psych exam: ABSENT: delusional, paranoid, restlessness Skin exam: PRESENT: rash - Patient is itchy but no rash noted on his skin Results Laboratory Results: 06/16/20 08:28 06/21/20 04:39 06/21/20 06/21/20 04:39 04:39 Retic Count (auto) 0.75 Sodium 137.2 Potassium 4.0 Chloride 96 L Carbon Dioxide 29 Anion Gap 12 BUN 21 H Creatinine 0.59 Est GFR ( Amer) > 60 Glucose 102 Calcium 9.9 Magnesium 1.8 Iron 49.4 TIBC 400 % Saturation 12 Ferritin 81.80 Vitamin B12 266.0 Folate 7.63 Assessment and Plan - Diagnosis (1) Osteomyelitis of vertebra of thoracic region Is this a current diagnosis for this admission?: Yes (2) Bacteremia due to methicillin resistant Staphylococcus aureus Is this a current diagnosis for this admission?: Yes (3) Hx of intravenous drug use in remission Is this a current diagnosis for this admission?: Yes (4) Otitis externa of both ears Qualifiers: Otitis externa type: other infective Chronicity: acute Qualified Code(s): H60.393 - Other infective otitis externa, bilateral Is this a current diagnosis for this admission?: Yes (5) Opioid dependence Qualifiers: Substance use status: in remission Qualified Code(s): F11.21 - Opioid dependence, in remission Is this a current diagnosis for this admission?: Yes (6) Tobacco use disorder, continuous Is this a current diagnosis for this admission?: Yes (7) Restless legs syndrome Is this a current diagnosis for this admission?: Yes - Plan Summary Summary: End of treatment 07/04/2020 Mr. Nielsen is a 40 year old man with PMH of IVDU, HCV, bipolar disorder with MRSA bacteremia due to vertebral osteomyelitis/discitis (L5-S1 and T8-T9) and epidural abscess (L5-S1). He was incidentally noted to be Covid positive on 05/29/2020 (now resolved). He was transferred to [facility] for neurosurgery evaluation, but required no surgical intervention. TTE (06/01) showed no evidence of valvular vegetations. ID recommended to continue Vancomycin for 6-8 weeks. MRSA bacteremia, discitis/osteomyelitis and epidural abscess - continue vancomycin IV (end date: 07/04/2020) - vancomycin dosing as per pharmacy - Check weekly CBC, CMP, ESR, CRP (last checked 06/16, ESR/CRP improving) - Recheck ESR and CRP 06/26. If they are not improved significantly from prior (ESR 82, CRP 56), call infectious diseases at [facility] to discuss treatment extension. Otitis externa bilateral: diagnosed 06/03, and received ciprofloxacin and prednisolone drops x10 days. low back pain: improving slowly - secondary to infection, and with no neuro deficits. Avoid opioid analgesics. Continue suboxone, stretches, ice/heat packs and frequent walks. HCV positive - initiated HBV vaccination series on 06/06, he will need second dose on/around 07/07 - he was vaccinated for HAV on 06/06 - will need outpatient follow up for HCV treatment Dispo: will continue inpatient IV antibiotics here at [facility] until completion of course. Upon completion, will need follow up with addiction psychiatry - please call TIM Turner with [facility] at [phone] for follow up. He will need to be discharged with Rx for Narcan. 06/19/2020 MRSA bacteremia, discitis/osteomyelitis with epidural abscess ongoing vancomycin. End of treatment 07/04/2020 ESR and CRP are improving 06/20/2020 Continue vancomycin for MRSA bacteremia with osteomyelitis and epidural abscess Restless legs-reviewed the patient's electrolytes. They have been stable. We will recheck electrolytes tomorrow. Reviewing the literature I will also check ferritin level and if this is low iron supplement may help. He is already on gabapentin 3 times a day. Await results of blood work before adding any additional medications. 06/21/2020 Tolerating vancomycin. Pharmacy is adjusting the dose. Still with back pain. Restless legs-ferritin is normal. The patient is already on gabapentin 3 times a day. No other obvious treatable symptoms. Will initiate a trial of primidone. - Time Time Spent with patient: Less than 15 minutes Medications reviewed and adjusted accordingly: Yes Anticipated Discharge Disposition: Home, Self Care Anticipated Discharge Timeframe: 07/04/2020
[2020-06-21] MEDS: MELATONIN 5 MG TABLET PO SCH (21:47)
[2020-06-21] MEDS: SENNOSIDES/DOCUSATE 8.6-50 MG 1 EACH TABLET PO SCH (21:48)
[2020-06-21] MEDS: PHARMACY COMMUNICATION ORDER MC SCH (21:58)
[2020-06-22] MEDS: GABAPENTIN 300 MG CAPSULE PO SCH ×3 (05:13→21:26)
[2020-06-22] MEDS: VANCOMYCIN HCL 1,250 MG in DEXTROSE 5%-WATER 250 ML IV SCH ×3 (05:13→21:27)
[2020-06-22] MEDS: POLYETHYLENE GLYCOL 3350 POWDER 17 GM/1 PACKET PO SCH (10:59)
[2020-06-22] MEDS: ENOXAPARIN SODIUM INJ 40 MG/0.4 ML DISP.SYRIN SUBCUT SCH (11:01)
[2020-06-22] MEDS: ACETAMINOPHEN 325 MG TABLET PO SCH ×3 (11:01→17:28)
[2020-06-22] MEDS: ASCORBIC ACID 500 MG TABLET PO SCH (11:01)
[2020-06-22] MEDS: LIDOCAINE 5% (700 MG) TRANSDERMAL ADH..PATCH TOP SCH (11:01)
[2020-06-22] MEDS: BUPRENORPHINE HCL 2 MG SUBLINGUAL TABLET SL SCH ×2 (11:02→21:26)
[2020-06-22] MEDS: NORMAL SALINE 10 ML SDV (SCHEDULED) IV SCH ×2 (11:03→21:26)
--- NOTE | 2020-06-22 12:39 | PDOC PROGRESS REPORT ---
Subjective Date:: 06/22/20 Subjective:: Reports that he "twisted "his back and is having some low back pain in the lumbo sacral area. Reason For Visit: THORACIC DISCITIS,BACTEREMIA,IV DRUG USER, Physical Exam Vital Signs: Temp Pulse Resp BP Pulse Ox 98.0 F 89 17 130/89 H 97 06/22/20 08:26 06/22/20 07:35 06/22/20 07:35 06/22/20 07:35 06/22/20 07:35 Intake & Output 06/21/20 06/22/20 06/23/20 06:59 06:59 06:59 Intake Total 2720 3226 360 Output Total 800 Balance 2720 2426 360 Cardiovascular exam: PRESENT: RRR Musculoskeletal exam: PRESENT: other - Tender sacrum Results Laboratory Results: 06/16/20 08:28 06/21/20 04:39 Assessment and Plan - Diagnosis (1) Osteomyelitis of vertebra of thoracic region Is this a current diagnosis for this admission?: Yes (2) Bacteremia due to methicillin resistant Staphylococcus aureus Is this a current diagnosis for this admission?: Yes (3) Hx of intravenous drug use in remission Is this a current diagnosis for this admission?: Yes (4) Otitis externa of both ears Qualifiers: Otitis externa type: other infective Chronicity: acute Qualified Code(s): H60.393 - Other infective otitis externa, bilateral Is this a current diagnosis for this admission?: Yes (5) Opioid dependence Qualifiers: Substance use status: in remission Qualified Code(s): F11.21 - Opioid dependence, in remission Is this a current diagnosis for this admission?: Yes (6) Tobacco use disorder, continuous Is this a current diagnosis for this admission?: Yes (7) Restless legs syndrome Is this a current diagnosis for this admission?: Yes - Plan Summary Summary: Mr. Nielsen is a 40 year old man with PMH of IVDU, HCV, bipolar disorder with MRSA bacteremia due to vertebral osteomyelitis/discitis (L5-S1 and T8-T9) and epidural abscess (L5-S1). He was incidentally noted to be Covid positive on 05/29/2020 (now resolved). He was transferred to [facility] for neurosurgery evaluation, but required no surgical intervention. TTE (06/01) showed no evidence of valvular vegetations. ID recommended to continue Vancomycin for 6-8 weeks. MRSA bacteremia, discitis/osteomyelitis and epidural abscess - continue vancomycin IV (end date: 07/04/2020) - vancomycin dosing as per pharmacy - Check weekly CBC, CMP, ESR, CRP (last checked 06/16, ESR/CRP improving) - Recheck ESR and CRP 06/26. If they are not improved significantly from prior (ESR 82, CRP 56), call infectious diseases at [facility] to discuss treatment extension. Otitis externa bilateral: diagnosed 06/03, and received ciprofloxacin and prednisolone drops x10 days. low back pain: improving slowly - secondary to infection, and with no neuro deficits. Avoid opioid analgesics. Continue suboxone, stretches, ice/heat packs and frequent walks. HCV positive - initiated HBV vaccination series on 06/06, he will need second dose on/around 07/07 - he was vaccinated for HAV on 06/06 - will need outpatient follow up for HCV treatment Dispo: will continue inpatient IV antibiotics here at [facility] until completion of course. Upon completion, will need follow up with addiction psychiatry - please call TIM Turner with [facility] at [phone] for follow up. He will need to be discharged with Rx for Narcan. 06/19/2020 MRSA bacteremia, discitis/osteomyelitis with epidural abscess ongoing vancomycin. End of treatment 07/04/2020 ESR and CRP are improving 06/20/2020 Continue vancomycin for MRSA bacteremia with osteomyelitis and epidural abscess Restless legs-reviewed the patient's electrolytes. They have been stable. We will recheck electrolytes tomorrow. Reviewing the literature I will also check ferritin level and if this is low iron supplement may help. He is already on gabapentin 3 times a day. Await results of blood work before adding any additional medications.
[2020-06-22] MEDS: MELATONIN 5 MG TABLET PO SCH (21:26)
[2020-06-22] MEDS: SENNOSIDES/DOCUSATE 8.6-50 MG 1 EACH TABLET PO SCH (21:26)
[2020-06-22] MEDS: PHARMACY COMMUNICATION ORDER MC SCH (21:33)
--- NOTE | 2020-06-22 22:50 | PDOC PROGRESS REPORT ---
Subjective Date:: 06/22/20 Subjective:: Complaining of new onset sharper back pain that occurred when he twisted his back. Reason For Visit: THORACIC DISCITIS,BACTEREMIA,IV DRUG USER, Physical Exam Vital Signs: Temp Pulse Resp BP Pulse Ox 98.4 F 109 H 18 123/84 99 06/22/20 19:27 06/22/20 19:27 06/22/20 19:27 06/22/20 19:27 06/22/20 19:27 Intake & Output 06/21/20 06/22/20 06/23/20 06:59 06:59 06:59 Intake Total 2720 3226 1534 Output Total 800 Balance 2720 2426 1534 General appearance: PRESENT: cooperative, mild distress, well-developed Respiratory exam: PRESENT: clear to auscultation luisito, symmetrical, unlabored. ABSENT: rales, rhonchi, tachypnea, wheezes Cardiovascular exam: PRESENT: RRR, +S1, +S2. ABSENT: bradycardia, diastolic murmur, irregular rhythm, systolic murmur, tachycardia GI/Abdominal exam: PRESENT: normal bowel sounds, soft. ABSENT: distended, guarding, tenderness Rectal exam: PRESENT: deferred Gentrourinary exam: ABSENT: indwelling catheter Musculoskeletal exam: PRESENT: ambulatory, other - Tender across the sacral area. ABSENT: deformity, dislocation Neurological exam: PRESENT: alert, awake, oriented to person, oriented to time, oriented to situation, CN II-XII grossly intact. ABSENT: altered Psychiatric exam: PRESENT: appropriate affect. ABSENT: agitated, anxious Results Laboratory Results: 06/16/20 08:28 06/21/20 04:39 Assessment and Plan - Diagnosis (1) Osteomyelitis of vertebra of thoracic region Is this a current diagnosis for this admission?: Yes (2) Bacteremia due to methicillin resistant Staphylococcus aureus Is this a current diagnosis for this admission?: Yes (3) Hx of intravenous drug use in remission Is this a current diagnosis for this admission?: Yes (4) Otitis externa of both ears Qualifiers: Otitis externa type: other infective Chronicity: acute Qualified Code(s): H60.393 - Other infective otitis externa, bilateral Is this a current diagnosis for this admission?: Yes (5) Opioid dependence Qualifiers: Substance use status: in remission Qualified Code(s): F11.21 - Opioid dependence, in remission Is this a current diagnosis for this admission?: Yes (6) Tobacco use disorder, continuous Is this a current diagnosis for this admission?: Yes (7) Restless legs syndrome Is this a current diagnosis for this admission?: Yes - Plan Summary Summary: End of treatment 07/04/2020 Mr. Nielsen is a 40 year old man with PMH of IVDU, HCV, bipolar disorder with MRSA bacteremia due to vertebral osteomyelitis/discitis (L5-S1 and T8-T9) and epidural abscess (L5-S1). He was incidentally noted to be Covid positive on 05/29/2020 (now resolved). He was transferred to [facility] for neurosurgery evaluation, but required no surgical intervention. TTE (06/01) showed no evidence of valvular vegetations. ID recommended to continue Vancomycin for 6-8 weeks. MRSA bacteremia, discitis/osteomyelitis and epidural abscess - continue vancomycin IV (end date: 07/04/2020) - vancomycin dosing as per pharmacy - Check weekly CBC, CMP, ESR, CRP (last checked 06/16, ESR/CRP improving) - Recheck ESR and CRP 06/26. If they are not improved significantly from prior (ESR 82, CRP 56), call infectious diseases at [facility] to discuss treatment extension. Otitis externa bilateral: diagnosed 06/03, and received ciprofloxacin and prednisolone drops x10 days. low back pain: improving slowly - secondary to infection, and with no neuro deficits. Avoid opioid analgesics. Continue suboxone, stretches, ice/heat packs and frequent walks. HCV positive - initiated HBV vaccination series on 06/06, he will need second dose on/around 07/07 - he was vaccinated for HAV on 06/06 - will need outpatient follow up for HCV treatment Dispo: will continue inpatient IV antibiotics here at [facility] until completion of course. Upon completion, will need follow up with addiction psychiatry - please call TIM Turner with [facility] at [phone] for follow up. He will need to be discharged with Rx for Narcan. 06/19/2020 MRSA bacteremia, discitis/osteomyelitis with epidural abscess ongoing vancomycin. End of treatment 07/04/2020 ESR and CRP are improving 06/20/2020 Continue vancomycin for MRSA bacteremia with osteomyelitis and epidural abscess Restless legs-reviewed the patient's electrolytes. They have been stable. We will recheck electrolytes tomorrow. Reviewing the literature I will also check ferritin level and if this is low iron supplement may help. He is already on gabapentin 3 times a day. Await results of blood work before adding any additional medications. 06/21/2020 Tolerating vancomycin. Pharmacy is adjusting the dose. Still with back pain. Restless legs-ferritin is normal. The patient is already on gabapentin 3 times a day. No other obvious treatable symptoms. Will initiate a trial of primidone. 06/22/2020 New acute increase in back pain due to the patient "wrenching" his back. Slight tenderness. Will add muscle relaxant. Trial of Mysoline for restless legs Reports that K pad and other conservative measures did not help his back. He already has a Lidoderm patch in place. - Time Time Spent with patient: Less than 15 minutes Medications reviewed and adjusted accordingly: Yes Anticipated Discharge Disposition: Home, Self Care Anticipated Discharge Timeframe: 07/04/2020
[2020-06-23] MEDS: PRIMIDONE 50 MG TABLET PO SCH ×2 (00:50→22:18)
[2020-06-23] MEDS: VANCOMYCIN HCL 1,250 MG in DEXTROSE 5%-WATER 250 ML IV SCH ×3 (05:45→22:17)
[2020-06-23] MEDS: GABAPENTIN 300 MG CAPSULE PO SCH ×3 (05:46→22:18)
[2020-06-23 06:48] LABS: VANCOMYCIN,TROUGH 14.4 ug/mL (5.0-20.0)
[2020-06-23] MEDS: NORMAL SALINE 10 ML SDV (AFTER EACH USE) IV PRN (09:14)
[2020-06-23] MEDS: NORMAL SALINE 10 ML SDV (SCHEDULED) IV SCH ×2 (09:14→22:19)
[2020-06-23] MEDS: ACETAMINOPHEN 325 MG TABLET PO SCH ×3 (09:16→17:29)
[2020-06-23] MEDS: ASCORBIC ACID 500 MG TABLET PO SCH (09:17)
[2020-06-23] MEDS: ENOXAPARIN SODIUM INJ 40 MG/0.4 ML DISP.SYRIN SUBCUT SCH (09:17)
[2020-06-23] MEDS: LIDOCAINE 5% (700 MG) TRANSDERMAL ADH..PATCH TOP SCH (09:17)
[2020-06-23] MEDS: BUPRENORPHINE HCL 2 MG SUBLINGUAL TABLET SL SCH ×2 (09:17→22:17)
[2020-06-23] MEDS: POLYETHYLENE GLYCOL 3350 POWDER 17 GM/1 PACKET PO SCH (09:18)
--- NOTE | 2020-06-23 16:46 | PDOC PROGRESS REPORT ---
Subjective Date:: 06/23/20 Subjective:: Patient is sleeping. He acknowledges my presence but does not make eye contact. Reason For Visit: THORACIC DISCITIS,BACTEREMIA,IV DRUG USER, Physical Exam Vital Signs: Temp Pulse Resp BP Pulse Ox 97.6 F 79 16 113/57 L 100 06/23/20 10:00 06/23/20 07:31 06/23/20 07:31 06/23/20 07:31 06/23/20 07:31 Intake & Output 06/22/20 06/23/20 06/24/20 06:59 06:59 06:59 Intake Total 3226 2984 700 Output Total 800 Balance 2426 2984 700 General appearance: PRESENT: no acute distress Cardiovascular exam: PRESENT: RRR, +S1, +S2. ABSENT: bradycardia, diastolic murmur, irregular rhythm, systolic murmur, tachycardia Pulses: PRESENT: +2 pedal pulses bilateral GI/Abdominal exam: PRESENT: normal bowel sounds, soft. ABSENT: tenderness Rectal exam: PRESENT: deferred Gentrourinary exam: ABSENT: indwelling catheter Extremities exam: PRESENT: other - The patient's toes are cool and dusky. There is a good dorsalis pedis pulse. Likely venous insufficiency.. ABSENT: pedal edema Skin exam: ABSENT: normal color - As noted above the distal portion of foot in cluding the toes somewhat dusky in color. Good dorsalis pedis pulses. Results Laboratory Results: 06/16/20 08:28 06/23/20 05:45 06/23/20 05:45 Creatinine 0.69 Est GFR ( Amer) > 60 Assessment and Plan - Diagnosis (1) Osteomyelitis of vertebra of thoracic region Is this a current diagnosis for this admission?: Yes (2) Bacteremia due to methicillin resistant Staphylococcus aureus Is this a current diagnosis for this admission?: Yes (3) Hx of intravenous drug use in remission Is this a current diagnosis for this admission?: Yes (4) Otitis externa of both ears Qualifiers: Otitis externa type: other infective Chronicity: acute Qualified Code(s): H60.393 - Other infective otitis externa, bilateral Is this a current diagnosis for this admission?: Yes (5) Opioid dependence Qualifiers: Substance use status: in remission Qualified Code(s): F11.21 - Opioid dependence, in remission Is this a current diagnosis for this admission?: Yes (6) Tobacco use disorder, continuous Is this a current diagnosis for this admission?: Yes (7) Restless legs syndrome Is this a current diagnosis for this admission?: Yes - Plan Summary Summary: End of treatment 07/04/2020 Mr. Nielsen is a 40 year old man with PMH of IVDU, HCV, bipolar disorder with MRSA bacteremia due to vertebral osteomyelitis/discitis (L5-S1 and T8-T9) and epidural abscess (L5-S1). He was incidentally noted to be Covid positive on 05/29/2020 (now resolved). He was transferred to [facility] for neurosurgery evaluation, but required no surgical intervention. TTE (06/01) showed no evidence of valvular vegetations. ID recommended to continue Vancomycin for 6-8 weeks. MRSA bacteremia, discitis/osteomyelitis and epidural abscess - continue vancomycin IV (end date: 07/04/2020) - vancomycin dosing as per pharmacy - Check weekly CBC, CMP, ESR, CRP (last checked 06/16, ESR/CRP improving) - Recheck ESR and CRP 06/26. If they are not improved significantly from prior (ESR 82, CRP 56), call infectious diseases at [facility] to discuss treatment extension. Otitis externa bilateral: diagnosed 06/03, and received ciprofloxacin and prednisolone drops x10 days. low back pain: improving slowly - secondary to infection, and with no neuro deficits. Avoid opioid analgesics. Continue suboxone, stretches, ice/heat packs and frequent walks. HCV positive - initiated HBV vaccination series on 06/06, he will need second dose on/around 07/07 - he was vaccinated for HAV on 06/06 - will need outpatient follow up for HCV treatment Dispo: will continue inpatient IV antibiotics here at [facility] until completion of course. Upon completion, will need follow up with addiction psychiatry - please call TIM uTrner with [facility] at [phone] for follow up. He will need to be discharged with Rx for Narcan. 06/19/2020 MRSA bacteremia, discitis/osteomyelitis with epidural abscess ongoing vancomycin. End of treatment 07/04/2020 ESR and CRP are improving 06/20/2020 Continue vancomycin for MRSA bacteremia with osteomyelitis and epidural abscess Restless legs-reviewed the patient's electrolytes. They have been stable. We will recheck electrolytes tomorrow. Reviewing the literature I will also check ferritin level and if this is low iron supplement may help. He is already on gabapentin 3 times a day. Await results of blood work before adding any additional medications. 06/21/2020 Tolerating vancomycin. Pharmacy is adjusting the dose. Still with back pain. Restless legs-ferritin is normal. The patient is already on gabapentin 3 times a day. No other obvious treatable symptoms. Will initiate a trial of primidone. 06/22/2020 New acute increase in back pain due to the patient "wrenching" his back. Slight tenderness. Will add muscle relaxant. Trial of Mysoline for restless legs Reports that K pad and other conservative measures did not help his back. He already has a Lidoderm patch in place. 06/23/2020 Patient states that the Mysoline helped with his restless legs last night. Examination of the feet suggests venous insufficiency. Will discuss more tomorrow. We will recheck sed rate and CRP after the weekend. Patient does not report any worsening or improvement of his back pain. - Time Time Spent with patient: Less than 15 minutes Medications reviewed and adjusted accordingly: Yes Anticipated Discharge Disposition: Home, Self Care Anticipated Discharge Timeframe: 07/04/2020
[2020-06-23] MEDS: MELATONIN 5 MG TABLET PO SCH (22:18)
[2020-06-23] MEDS: SENNOSIDES/DOCUSATE 8.6-50 MG 1 EACH TABLET PO SCH (22:18)
[2020-06-23] MEDS: PHARMACY COMMUNICATION ORDER MC SCH (23:43)
[2020-06-24] MEDS: VANCOMYCIN HCL 1,250 MG in DEXTROSE 5%-WATER 250 ML IV SCH ×3 (06:20→17:18)
[2020-06-24] MEDS: GABAPENTIN 300 MG CAPSULE PO SCH ×3 (06:20→22:36)
[2020-06-24] MEDS: ASCORBIC ACID 500 MG TABLET PO SCH (09:02)
[2020-06-24] MEDS: POLYETHYLENE GLYCOL 3350 POWDER 17 GM/1 PACKET PO SCH (09:04)
[2020-06-24] MEDS: LIDOCAINE 5% (700 MG) TRANSDERMAL ADH..PATCH TOP SCH (09:04)
[2020-06-24] MEDS: BUPRENORPHINE HCL 2 MG SUBLINGUAL TABLET SL SCH ×2 (09:04→22:36)
[2020-06-24] MEDS: ACETAMINOPHEN 325 MG TABLET PO SCH ×3 (09:04→17:17)
[2020-06-24] MEDS: NORMAL SALINE 10 ML SDV (SCHEDULED) IV SCH ×2 (09:05→22:37)
[2020-06-24] MEDS: ENOXAPARIN SODIUM INJ 40 MG/0.4 ML DISP.SYRIN SUBCUT SCH (11:05)
--- NOTE | 2020-06-24 11:26 | PDOC PROGRESS REPORT ---
Subjective Date:: 06/24/20 Subjective:: Patient is resting in bed. He reports that his back feels better. He believes that the muscle spasms in his legs are improved with the primidone as well. Reason For Visit: THORACIC DISCITIS,BACTEREMIA,IV DRUG USER, Physical Exam Vital Signs: Temp Pulse Resp BP Pulse Ox 98.3 F 122 H 16 139/80 H 100 06/24/20 07:27 06/24/20 07:27 06/24/20 07:27 06/24/20 07:27 06/24/20 07:27 Intake & Output 06/23/20 06/24/20 06/25/20 06:59 06:59 06:59 Intake Total 2984 2300 567 Balance 2984 2300 567 Weight 92.9 kg Head exam: PRESENT: atraumatic, normocephalic Ear exam: PRESENT: normal external ear exam. ABSENT: bleeding, drainage Respiratory exam: PRESENT: symmetrical, unlabored. ABSENT: rales, rhonchi, tachypnea, wheezes Cardiovascular exam: PRESENT: RRR, +S1, +S2 Rectal exam: PRESENT: deferred Extremities exam: PRESENT: pedal edema - Compression stockings in place Neurological exam: PRESENT: alert, awake, oriented to person, oriented to place, oriented to time, oriented to situation, CN II-XII grossly intact Psychiatric exam: PRESENT: normal mood - In good spirits today we discussed a football for several minutes.. ABSENT: agitated, anxious Results Laboratory Results: 06/16/20 08:28 06/23/20 05:45 Assessment and Plan - Diagnosis (1) Osteomyelitis of vertebra of thoracic region Is this a current diagnosis for this admission?: Yes (2) Bacteremia due to methicillin resistant Staphylococcus aureus Is this a current diagnosis for this admission?: Yes (3) Hx of intravenous drug use in remission Is this a current diagnosis for this admission?: Yes (4) Otitis externa of both ears Qualifiers: Otitis externa type: other infective Chronicity: acute Qualified Code(s): H60.393 - Other infective otitis externa, bilateral Is this a current diagnosis for this admission?: Yes (5) Opioid dependence Qualifiers: Substance use status: in remission Qualified Code(s): F11.21 - Opioid dependence, in remission Is this a current diagnosis for this admission?: Yes (6) Tobacco use disorder, continuous Is this a current diagnosis for this admission?: Yes (7) Restless legs syndrome Is this a current diagnosis for this admission?: Yes - Plan Summary Summary: End of treatment 07/04/2020 Mr. Nielsen is a 40 year old man with PMH of IVDU, HCV, bipolar disorder with MRSA bacteremia due to vertebral osteomyelitis/discitis (L5-S1 and T8-T9) and epidural abscess (L5-S1). He was incidentally noted to be Covid positive on 05/29/2020 (now resolved). He was transferred to [facility] for neurosurgery evaluation, but required no surgical intervention. TTE (06/01) showed no evidence of valvular vegetations. ID recommended to continue Vancomycin for 6-8 weeks. MRSA bacteremia, discitis/osteomyelitis and epidural abscess - continue vancomycin IV (end date: 07/04/2020) - vancomycin dosing as per pharmacy - Check weekly CBC, CMP, ESR, CRP (last checked 06/16, ESR/CRP improving) - Recheck ESR and CRP 06/26. If they are not improved significantly from prior (ESR 82, CRP 56), call infectious diseases at [facility] to discuss treatment extension. Otitis externa bilateral: diagnosed 06/03, and received ciprofloxacin and prednisolone drops x10 days. low back pain: improving slowly - secondary to infection, and with no neuro deficits. Avoid opioid analgesics. Continue suboxone, stretches, ice/heat packs and frequent walks. HCV positive - initiated HBV vaccination series on 06/06, he will need second dose on/around 07/07 - he was vaccinated for HAV on 06/06 - will need outpatient follow up for HCV treatment Dispo: will continue inpatient IV antibiotics here at [facility] until completion of course. Upon completion, will need follow up with addiction psychiatry - please call TIM Turner with [facility] at [phone] for follow up. He will need to be discharged with Rx for Narcan. 06/19/2020 MRSA bacteremia, discitis/osteomyelitis with epidural abscess ongoing vancomycin. End of treatment 07/04/2020 ESR and CRP are improving 06/20/2020 Continue vancomycin for MRSA bacteremia with osteomyelitis and epidural abscess Restless legs-reviewed the patient's electrolytes. They have been stable. We will recheck electrolytes tomorrow. Reviewing the literature I will also check ferritin level and if this is low iron supplement may help. He is already on gabapentin 3 times a day. Await results of blood work before adding any additional medications. 06/21/2020 Tolerating vancomycin. Pharmacy is adjusting the dose. Still with back pain. Restless legs-ferritin is normal. The patient is already on gabapentin 3 times a day. No other obvious treatable symptoms. Will initiate a trial of primidone. 06/22/2020 New acute increase in back pain due to the patient "wrenching" his back. Slight tenderness. Will add muscle relaxant. Trial of Mysoline for restless legs Reports that K pad and other conservative measures did not help his back. He already has a Lidoderm patch in place. 06/23/2020 Patient states that the Mysoline helped with his restless legs last night. Examination of the feet suggests venous insufficiency. Will discuss more tomorrow. We will recheck sed rate and CRP after the weekend. Patient does not report any worsening or improvement of his back pain. 06/24/2020 Patient's back pain in fact is much better today. When we reviewed the lower extremities he states that he gets that dusky color and will put his compression stockings on. He likely has chronic venous insufficiency. He is not sure if the Mysoline is helping or not but his legs certainly are not worse. Discussed administering hepatitis B vaccine second dose at the time of discharge. - Time Time Spent with patient: Less than 15 minutes Medications reviewed and adjusted accordingly: Yes Anticipated Discharge Disposition: Home, Self Care Anticipated Discharge Timeframe: 07/04/2020
[2020-06-24] MEDS: PRIMIDONE 50 MG TABLET PO SCH (22:35)
[2020-06-24] MEDS: MELATONIN 5 MG TABLET PO SCH (22:36)
[2020-06-24] MEDS: SENNOSIDES/DOCUSATE 8.6-50 MG 1 EACH TABLET PO SCH (22:36)
[2020-06-25] MEDS: PHARMACY COMMUNICATION ORDER MC SCH ×2 (01:41→21:49)
[2020-06-25] MEDS: VANCOMYCIN HCL 1,250 MG in DEXTROSE 5%-WATER 250 ML IV SCH ×3 (01:50→18:37)
[2020-06-25] MEDS: GABAPENTIN 300 MG CAPSULE PO SCH ×3 (06:25→21:48)
[2020-06-25] MEDS: ACETAMINOPHEN 325 MG TABLET PO SCH ×3 (10:00→18:36)
[2020-06-25] MEDS: NORMAL SALINE 10 ML SDV (SCHEDULED) IV SCH ×2 (10:00→21:49)
[2020-06-25] MEDS: BUPRENORPHINE HCL 2 MG SUBLINGUAL TABLET SL SCH ×2 (10:01→21:48)
[2020-06-25] MEDS: ASCORBIC ACID 500 MG TABLET PO SCH (10:01)
[2020-06-25] MEDS: LIDOCAINE 5% (700 MG) TRANSDERMAL ADH..PATCH TOP SCH (10:02)
[2020-06-25] MEDS: POLYETHYLENE GLYCOL 3350 POWDER 17 GM/1 PACKET PO SCH (10:02)
[2020-06-25] MEDS: ENOXAPARIN SODIUM INJ 40 MG/0.4 ML DISP.SYRIN SUBCUT SCH (10:06)
--- NOTE | 2020-06-25 10:56 | PDOC PROGRESS REPORT ---
Subjective Date:: 06/25/20 Subjective:: Resting comfortably. No new complaints today. Unsure if the Mysoline is helping or not. Reason For Visit: THORACIC DISCITIS,BACTEREMIA,IV DRUG USER, Physical Exam Vital Signs: Temp Pulse Resp BP Pulse Ox 97.8 F 92 16 153/79 H 100 06/25/20 09:12 06/24/20 19:37 06/24/20 19:37 06/24/20 19:37 06/24/20 19:37 Intake & Output 06/24/20 06/25/20 06/26/20 06:59 06:59 06:59 Intake Total 2300 2343 856 Balance 2300 2343 856 Weight 92.9 kg General appearance: PRESENT: no acute distress, cooperative, well-developed Head exam: PRESENT: atraumatic, normocephalic Ear exam: PRESENT: normal external ear exam. ABSENT: bleeding, drainage Respiratory exam: PRESENT: clear to auscultation luisito, symmetrical, unlabored. ABSENT: rales, rhonchi, tachypnea, wheezes Cardiovascular exam: PRESENT: RRR, +S1, +S2. ABSENT: bradycardia, diastolic murmur, irregular rhythm, systolic murmur GI/Abdominal exam: PRESENT: normal bowel sounds, soft. ABSENT: tenderness Rectal exam: PRESENT: deferred Gentrourinary exam: ABSENT: indwelling catheter Extremities exam: PRESENT: other - Compression stockings on at this time Musculoskeletal exam: PRESENT: ambulatory Neurological exam: PRESENT: alert, awake, oriented to person, oriented to place, oriented to time, oriented to situation, CN II-XII grossly intact Psychiatric exam: PRESENT: appropriate affect. ABSENT: agitated, anxious Focused psych exam: ABSENT: delusional, paranoid, restlessness Results Laboratory Results: 06/16/20 08:28 06/23/20 05:45 Assessment and Plan - Diagnosis (1) Osteomyelitis of vertebra of thoracic region Is this a current diagnosis for this admission?: Yes (2) Bacteremia due to methicillin resistant Staphylococcus aureus Is this a current diagnosis for this admission?: Yes (3) Hx of intravenous drug use in remission Is this a current diagnosis for this admission?: Yes (4) Otitis externa of both ears Qualifiers: Otitis externa type: other infective Chronicity: acute Qualified Code(s): H60.393 - Other infective otitis externa, bilateral Is this a current diagnosis for this admission?: Yes (5) Opioid dependence Qualifiers: Substance use status: in remission Qualified Code(s): F11.21 - Opioid dependence, in remission Is this a current diagnosis for this admission?: Yes (6) Tobacco use disorder, continuous Is this a current diagnosis for this admission?: Yes (7) Restless legs syndrome Is this a current diagnosis for this admission?: Yes - Plan Summary Summary: End of treatment 07/04/2020 Mr. Nielsen is a 40 year old man with PMH of IVDU, HCV, bipolar disorder with MRSA bacteremia due to vertebral osteomyelitis/discitis (L5-S1 and T8-T9) and epidural abscess (L5-S1). He was incidentally noted to be Covid positive on 05/29/2020 (now resolved). He was transferred to [facility] for neurosurgery evaluation, but required no surgical intervention. TTE (06/01) showed no evidence of valvular vegetations. ID recommended to continue Vancomycin for 6-8 weeks. MRSA bacteremia, discitis/osteomyelitis and epidural abscess - continue vancomycin IV (end date: 07/04/2020) - vancomycin dosing as per pharmacy - Check weekly CBC, CMP, ESR, CRP (last checked 06/16, ESR/CRP improving) - Recheck ESR and CRP 06/26. If they are not improved significantly from prior (ESR 82, CRP 56), call infectious diseases at [facility] to discuss treatment extension. Otitis externa bilateral: diagnosed 06/03, and received ciprofloxacin and prednisolone drops x10 days. low back pain: improving slowly - secondary to infection, and with no neuro deficits. Avoid opioid analgesics. Continue suboxone, stretches, ice/heat packs and frequent walks. HCV positive - initiated HBV vaccination series on 06/06, he will need second dose on/around 07/07 - he was vaccinated for HAV on 06/06 - will need outpatient follow up for HCV treatment Dispo: will continue inpatient IV antibiotics here at [facility] until completion of course. Upon completion, will need follow up with addiction psychiatry - please call TIM Turner with [facility] at [phone] for follow up. He will need to be discharged with Rx for Narcan. 06/19/2020 MRSA bacteremia, discitis/osteomyelitis with epidural abscess ongoing vancomycin. End of treatment 07/04/2020 ESR and CRP are improving 06/20/2020 Continue vancomycin for MRSA bacteremia with osteomyelitis and epidural abscess Restless legs-reviewed the patient's electrolytes. They have been stable. We will recheck electrolytes tomorrow. Reviewing the literature I will also check ferritin level and if this is low iron supplement may help. He is already on gabapentin 3 times a day. Await results of blood work before adding any additional medications. 06/21/2020 Tolerating vancomycin. Pharmacy is adjusting the dose. Still with back pain. Restless legs-ferritin is normal. The patient is already on gabapentin 3 times a day. No other obvious treatable symptoms. Will initiate a trial of primidone. 06/22/2020 New acute increase in back pain due to the patient "wrenching" his back. Slight tenderness. Will add muscle relaxant. Trial of Mysoline for restless legs Reports that K pad and other conservative measures did not help his back. He already has a Lidoderm patch in place. 06/23/2020 Patient states that the Mysoline helped with his restless legs last night. Examination of the feet suggests venous insufficiency. Will discuss more tomorrow. We will recheck sed rate and CRP after the weekend. Patient does not report any worsening or improvement of his back pain. 06/24/2020 Patient's back pain in fact is much better today. When we reviewed the lower extremities he states that he gets that dusky color and will put his compression stockings on. He likely has chronic venous insufficiency. He is not sure if the Mysoline is helping or not but his legs certainly are not worse. Discussed administering hepatitis B vaccine second dose at the time of discharge. 06/25/2020 We will continue to encourage activity as this seems to help his back. Continue to use Mysoline. If no appreciable improvement consider increasing the dose tomorrow. Laboratory studies will be ordered today. We can use Mondays as his weekly monitoring day. - Time Time Spent with patient: Less than 15 minutes Medications reviewed and adjusted accordingly: Yes Anticipated Discharge Disposition: Home, Self Care Anticipated Discharge Timeframe: 07/04/2020
[2020-06-25 12:41] LABS: HEMATOCRIT 28.9 % (37.9-51.0); HEMOGLOBIN 9.7 g/dL (13.5-17.0); MEAN CORPUSCULAR HEMOGLOBIN 27.5 pg (27.0-33.4); MEAN CORPUSCULAR HGB CONC 33.7 g/dL (32.0-36.0); MEAN CORPUSCULAR VOLUME 82 fl (80-97); PLATELET COUNT 110 10^3/uL (150-450); RED BLOOD COUNT 3.53 10^6/uL (4.35-5.55); RED CELL DISTRIBUTION WIDTH 14.7 % (11.5-14.0); WHITE BLOOD COUNT 3.9 10^3/uL (4.0-10.5)
[2020-06-25 13:28] LABS: ERYTHROCYTE SEDIMENTATION RATE 63 mm/hr (0-15)
[2020-06-25 14:29] LABS: ALBUMIN 3.5 g/dL (3.5-5.0); ALKALINE PHOSPHATASE 116 U/L (38-126); ANION GAP 7 (5-19); ASPARTATE AMINO TRANSFERASE 77 U/L (17-59); BILIRUBIN,DIRECT 0.1 mg/dL (0.0-0.4); BILIRUBIN,TOTAL 0.4 mg/dL (0.2-1.3); BLOOD UREA NITROGEN 13 mg/dL (7-20); C-REACTIVE PROTEIN 31.2 mg/L (<10.0); CALCIUM 9.2 mg/dL (8.4-10.2); CARBON DIOXIDE 30 mmol/L (22-30); CHLORIDE 97 mmol/L (98-107); GLUCOSE 114 mg/dL (75-110); POTASSIUM 3.9 mmol/L (3.6-5.0); TOTAL PROTEIN 6.8 g/dL (6.3-8.2)
[2020-06-25] MEDS: MELATONIN 5 MG TABLET PO SCH (21:48)
[2020-06-25] MEDS: SENNOSIDES/DOCUSATE 8.6-50 MG 1 EACH TABLET PO SCH (21:48)
[2020-06-25] MEDS: PRIMIDONE 50 MG TABLET PO SCH (21:48)
[2020-06-25] MEDS: BACLOFEN 10 MG TABLET PO PRN (21:49)
[2020-06-26] MEDS: VANCOMYCIN HCL 1,250 MG in DEXTROSE 5%-WATER 250 ML IV SCH ×3 (04:00→18:53)
[2020-06-26] MEDS: GABAPENTIN 300 MG CAPSULE PO SCH ×3 (05:20→21:59)
[2020-06-26] MEDS: ACETAMINOPHEN 325 MG TABLET PO SCH ×3 (09:51→18:53)
[2020-06-26] MEDS: BUPRENORPHINE HCL 2 MG SUBLINGUAL TABLET SL SCH ×2 (09:51→21:58)
[2020-06-26] MEDS: ENOXAPARIN SODIUM INJ 40 MG/0.4 ML DISP.SYRIN SUBCUT SCH (09:51)
[2020-06-26] MEDS: LIDOCAINE 5% (700 MG) TRANSDERMAL ADH..PATCH TOP SCH (09:52)
[2020-06-26] MEDS: NORMAL SALINE 10 ML SDV (SCHEDULED) IV SCH ×2 (09:52→21:59)
[2020-06-26] MEDS: ASCORBIC ACID 500 MG TABLET PO SCH (09:52)
[2020-06-26] MEDS: POLYETHYLENE GLYCOL 3350 POWDER 17 GM/1 PACKET PO SCH (09:52)
--- NOTE | 2020-06-26 15:39 | PDOC PROGRESS REPORT ---
Subjective Date:: 06/26/20 Subjective:: Patient resting in bed. No new complaints. Reason For Visit: THORACIC DISCITIS,BACTEREMIA,IV DRUG USER, Physical Exam Vital Signs: Temp Pulse Resp BP Pulse Ox 97.7 F 93 16 122/61 100 06/26/20 10:00 06/25/20 20:04 06/25/20 20:04 06/25/20 20:04 06/25/20 20:04 Intake & Output 06/25/20 06/26/20 06/27/20 06:59 06:59 06:59 Intake Total 2343 2356 500 Output Total 1300 Balance 2343 1056 500 Weight 92.9 kg 92.9 kg General appearance: PRESENT: no acute distress, cooperative, well-developed Head exam: PRESENT: atraumatic, normocephalic Respiratory exam: PRESENT: clear to auscultation luisito, symmetrical, unlabored. ABSENT: rales, rhonchi, tachypnea, wheezes Cardiovascular exam: PRESENT: RRR, +S1, +S2. ABSENT: bradycardia, diastolic murmur, irregular rhythm, systolic murmur, tachycardia GI/Abdominal exam: PRESENT: normal bowel sounds, soft. ABSENT: tenderness Rectal exam: PRESENT: deferred Gentrourinary exam: ABSENT: indwelling catheter Extremities exam: PRESENT: pedal edema - Trace. ABSENT: calf tenderness Musculoskeletal exam: PRESENT: ambulatory. ABSENT: deformity, dislocation Neurological exam: PRESENT: alert, awake, oriented to person, oriented to place, oriented to time, oriented to situation Psychiatric exam: PRESENT: appropriate affect, normal mood. ABSENT: agitated, anxious Focused psych exam: ABSENT: delusional, paranoid, restlessness Results Laboratory Results: 06/25/20 12:05 06/25/20 12:05 Assessment and Plan - Diagnosis (1) Osteomyelitis of vertebra of thoracic region Is this a current diagnosis for this admission?: Yes (2) Bacteremia due to methicillin resistant Staphylococcus aureus Is this a current diagnosis for this admission?: Yes (3) Hx of intravenous drug use in remission Is this a current diagnosis for this admission?: Yes (4) Otitis externa of both ears Qualifiers: Otitis externa type: other infective Chronicity: acute Qualified Code(s): H60.393 - Other infective otitis externa, bilateral Is this a current diagnosis for this admission?: Yes (5) Opioid dependence Qualifiers: Substance use status: in remission Qualified Code(s): F11.21 - Opioid dependence, in remission Is this a current diagnosis for this admission?: Yes (6) Tobacco use disorder, continuous Is this a current diagnosis for this admission?: Yes (7) Restless legs syndrome Is this a current diagnosis for this admission?: Yes - Plan Summary Summary: End of treatment 07/04/2020 Mr. Nielsen is a 40 year old man with PMH of IVDU, HCV, bipolar disorder with MRSA bacteremia due to vertebral osteomyelitis/discitis (L5-S1 and T8-T9) and epidural abscess (L5-S1). He was incidentally noted to be Covid positive on 05/29/2020 (now resolved). He was transferred to [facility] for neurosurgery evaluation, but required no surgical intervention. TTE (06/01) showed no evidence of valvular vegetations. ID recommended to continue Vancomycin for 6-8 weeks. MRSA bacteremia, discitis/osteomyelitis and epidural abscess - continue vancomycin IV (end date: 07/04/2020) - vancomycin dosing as per pharmacy - Check weekly CBC, CMP, ESR, CRP (last checked 06/16, ESR/CRP improving) - Recheck ESR and CRP 06/26. If they are not improved significantly from prior (ESR 82, CRP 56), call infectious diseases at [facility] to discuss treatment extension. Otitis externa bilateral: diagnosed 06/03, and received ciprofloxacin and prednisolone drops x10 days. low back pain: improving slowly - secondary to infection, and with no neuro deficits. Avoid opioid analgesics. Continue suboxone, stretches, ice/heat packs and frequent walks. HCV positive - initiated HBV vaccination series on 06/06, he will need second dose on/around 07/07 - he was vaccinated for HAV on 06/06 - will need outpatient follow up for HCV treatment Dispo: will continue inpatient IV antibiotics here at [facility] until completion of course. Upon completion, will need follow up with addiction psychiatry - please call TIM Turner with [facility] at [phone] for follow up. He will need to be discharged with Rx for Narcan. 06/19/2020 MRSA bacteremia, discitis/osteomyelitis with epidural abscess ongoing vancomycin. End of treatment 07/04/2020 ESR and CRP are improving 06/20/2020 Continue vancomycin for MRSA bacteremia with osteomyelitis and epidural abscess Restless legs-reviewed the patient's electrolytes. They have been stable. We will recheck electrolytes tomorrow. Reviewing the literature I will also check ferritin level and if this is low iron supplement may help. He is already on gabapentin 3 times a day. Await results of blood work before adding any additional medications. 06/21/2020 Tolerating vancomycin. Pharmacy is adjusting the dose. Still with back pain. Restless legs-ferritin is normal. The patient is already on gabapentin 3 times a day. No other obvious treatable symptoms. Will initiate a trial of primidone. 06/22/2020 New acute increase in back pain due to the patient "wrenching" his back. Slight tenderness. Will add muscle relaxant. Trial of Mysoline for restless legs Reports that K pad and other conservative measures did not help his back. He already has a Lidoderm patch in place. 06/23/2020 Patient states that the Mysoline helped with his restless legs last night. Examination of the feet suggests venous insufficiency. Will discuss more tomorrow. We will recheck sed rate and CRP after the weekend. Patient does not report any worsening or improvement of his back pain. 06/24/2020 Patient's back pain in fact is much better today. When we reviewed the lower extremities he states that he gets that dusky color and will put his compression stockings on. He likely has chronic venous insufficiency. He is not sure if the Mysoline is helping or not but his legs certainly are not worse. Discussed administering hepatitis B vaccine second dose at the time of discharge. 06/25/2020 We will continue to encourage activity as this seems to help his back. Continue to use Mysoline. If no appreciable improvement consider increasing the dose tomorrow. Laboratory studies will be ordered today. We can use Mondays as his weekly monitoring day. 06/26/2020 He continues to use compression stockings. Platelet count is 110 and white blood cell count is 3.9. Will repeat labs tomorrow. At this time we will continue DVT prophylaxis. We will continue Mysoline. The sed rate and CRP continue to slowly improve. Continue other medications as ordered. - Time Time Spent with patient: Less than 15 minutes Medications reviewed and adjusted accordingly: Yes Anticipated Discharge Disposition: Home, Self Care Anticipated Discharge Timeframe: 07/04/2020
[2020-06-26] MEDS: PRIMIDONE 50 MG TABLET PO SCH (21:58)
[2020-06-26] MEDS: SENNOSIDES/DOCUSATE 8.6-50 MG 1 EACH TABLET PO SCH (21:59)
[2020-06-26] MEDS: MELATONIN 5 MG TABLET PO SCH (21:59)
[2020-06-26] MEDS: PHARMACY COMMUNICATION ORDER MC SCH (22:02)
[2020-06-27] MEDS: VANCOMYCIN HCL 1,250 MG in DEXTROSE 5%-WATER 250 ML IV SCH ×3 (02:38→18:33)
[2020-06-27 06:53] LABS: ABSOLUTE EOSINOPHILS # (AUTO) 0.1 10^3/uL (0.0-0.6); ABSOLUTE LYMPHOCYTES (AUTO) 0.7 10^3/uL (0.5-4.7); ABSOLUTE MONOCYTES (AUTO) 0.3 10^3/uL (0.1-1.4); ABSOLUTE NEUT (AUTO) 2.1 10^3/uL (1.7-8.2); BASOPHILS % (AUTO) 0.5 % (0-2); EOSINOPHILS % (AUTO) 4.1 % (0-6); HEMATOCRIT 31.5 % (37.9-51.0); HEMOGLOBIN 10.4 g/dL (13.5-17.0); LYMPHOCYTES % (AUTO) 21.3 % (13-45); MEAN CORPUSCULAR HEMOGLOBIN 27.1 pg (27.0-33.4); MEAN CORPUSCULAR HGB CONC 32.9 g/dL (32.0-36.0); MEAN CORPUSCULAR VOLUME 82 fl (80-97); MONOCYTES % (AUTO) 8.1 % (3-13); PLATELET COUNT 119 10^3/uL (150-450); RED BLOOD COUNT 3.83 10^6/uL (4.35-5.55); RED CELL DISTRIBUTION WIDTH 14.8 % (11.5-14.0); TOTAL CELLS COUNTED % (AUTO) 100 %; WHITE BLOOD COUNT 3.2 10^3/uL (4.0-10.5)
[2020-06-27 09:34] LABS: ALBUMIN 3.1 g/dL (3.5-5.0); ALKALINE PHOSPHATASE 126 U/L (38-126); ANION GAP 7 (5-19); ASPARTATE AMINO TRANSFERASE 188 U/L (17-59); BILIRUBIN,TOTAL 0.3 mg/dL (0.2-1.3); BLOOD UREA NITROGEN 12 mg/dL (7-20); CALCIUM 8.4 mg/dL (8.4-10.2); CARBON DIOXIDE 29 mmol/L (22-30); CHLORIDE 101 mmol/L (98-107); CREATINE KINASE < 20 U/L (55-170); GLUCOSE 116 mg/dL (75-110); POTASSIUM 3.9 mmol/L (3.6-5.0); TOTAL PROTEIN 6.1 g/dL (6.3-8.2)
[2020-06-27] MEDS: GABAPENTIN 300 MG CAPSULE PO SCH ×3 (10:23→23:20)
[2020-06-27] MEDS: BUPRENORPHINE HCL 2 MG SUBLINGUAL TABLET SL SCH ×2 (10:24→23:20)
[2020-06-27] MEDS: ACETAMINOPHEN 325 MG TABLET PO SCH ×2 (10:24→14:56)
[2020-06-27] MEDS: ASCORBIC ACID 500 MG TABLET PO SCH (10:25)
[2020-06-27] MEDS: MAGNESIUM OXIDE 400 MG TABLET PO SCH ×2 (10:25→18:34)
[2020-06-27] MEDS: POLYETHYLENE GLYCOL 3350 POWDER 17 GM/1 PACKET PO SCH (10:26)
[2020-06-27] MEDS: ENOXAPARIN SODIUM INJ 40 MG/0.4 ML DISP.SYRIN SUBCUT SCH (10:27)
[2020-06-27] MEDS: LIDOCAINE 5% (700 MG) TRANSDERMAL ADH..PATCH TOP SCH (10:27)
[2020-06-27] MEDS: NORMAL SALINE 10 ML SDV (SCHEDULED) IV SCH ×2 (10:34→23:21)
--- NOTE | 2020-06-27 19:07 | PDOC PROGRESS REPORT ---
Subjective Date:: 06/27/20 Subjective:: NAEO Reason For Visit: THORACIC DISCITIS,BACTEREMIA,IV DRUG USER, Physical Exam Vital Signs: Temp Pulse Resp BP Pulse Ox 98.5 F 91 17 117/71 97 06/27/20 10:00 06/27/20 08:13 06/27/20 08:13 06/27/20 08:13 06/27/20 08:13 Intake & Output 06/26/20 06/27/20 06/28/20 06:59 06:59 06:59 Intake Total 2356 3030 1195 Output Total 1300 3800 600 Balance 1056 -770 595 Weight 92.9 kg General appearance: PRESENT: no acute distress, cooperative Eye exam: ABSENT: scleral icterus Mouth exam: PRESENT: moist Throat exam: ABSENT: post pharyngeal erythema Neck exam: ABSENT: JVD Respiratory exam: PRESENT: clear to auscultation luisito, unlabored Cardiovascular exam: PRESENT: RRR GI/Abdominal exam: PRESENT: normal bowel sounds, soft. ABSENT: distended, guarding, Vazquez's sign, rebound, tenderness Extremities exam: ABSENT: pedal edema Musculoskeletal exam: PRESENT: ambulatory Neurological exam: PRESENT: alert, awake Psychiatric exam: PRESENT: flat affect Skin exam: ABSENT: jaundice, rash Results Laboratory Results: 06/27/20 06:30 06/27/20 08:38 06/27/20 06/27/20 06:30 08:38 WBC 3.2 L RBC 3.83 L Hgb 10.4 L Hct 31.5 L MCV 82 MCH 27.1 MCHC 32.9 RDW 14.8 H Plt Count 119 L Seg Neutrophils % 66.0 Sodium 136.7 L Potassium 3.9 Chloride 101 Carbon Dioxide 29 Anion Gap 7 BUN 12 Creatinine 0.42 L Est GFR ( Amer) > 60 Glucose 116 H Calcium 8.4 Magnesium 1.5 L Total Bilirubin 0.3 GGT 69 AST 188 H Alkaline Phosphatase 126 Total Protein 6.1 L Albumin 3.1 L 06/27/20 08:38 Creatine Kinase < 20 L Assessment and Plan - Diagnosis (1) Bacteremia due to methicillin resistant Staphylococcus aureus Is this a current diagnosis for this admission?: Yes (2) Hx of intravenous drug use in remission Is this a current diagnosis for this admission?: Yes (3) Opioid dependence Qualifiers: Substance use status: in remission Qualified Code(s): F11.21 - Opioid dependence, in remission Is this a current diagnosis for this admission?: Yes (4) Osteomyelitis of vertebra of thoracic region Is this a current diagnosis for this admission?: Yes (5) Otitis externa of both ears Qualifiers: Otitis externa type: other infective Chronicity: acute Qualified Code(s): H60.393 - Other infective otitis externa, bilateral Is this a current diagnosis for this admission?: Yes (6) Tobacco use disorder, continuous Is this a current diagnosis for this admission?: Yes (7) Lower back pain Qualifiers: Chronicity: unspecified Back pain laterality: bilateral Sciatica pres ence: without sciatica Qualified Code(s): M54.5 - Low back pain Is this a current diagnosis for this admission?: Yes (8) LFT elevation Is this a current diagnosis for this admission?: Yes (9) HCV antibody positive Is this a current diagnosis for this admission?: Yes - Plan Summary Summary: Mr. Nielsen is a 40 year old man with PMH of IVDU, HCV, bipolar disorder with MRSA bacteremia due to vertebral osteomyelitis/discitis (L5-S1 and T8-T9) and epidural abscess (L5-S1). He was incidentally noted to be Covid positive on 05/29/2020 (now resolved). He was transferred to [facility] for neurosurgery evaluation, but required no surgical intervention. TTE (06/01) showed no evidence of valvular vegetations. ID recommended to continue Vancomycin for 6-8 weeks. MRSA bacteremia, discitis/osteomyelitis and epidural abscess - continue vancomycin IV (end date: 07/04/2020) - vancomycin dosing as per pharmacy - check weekly CBC, CMP, ESR, CRP (last checked 06/25 and ESR/CRP are both improving) HCV positive - initiated HBV vaccination series on 06/06, he will need second dose around 07/07 (prior to discharge) - he was vaccinated for HAV on 06/06 - will need outpatient follow up for HCV treatment LFT Elevation: initially noted on labs on 06/25 and increased on 06/27. He has ALT>AST and normal alk phos, GGT and bilirubin. He denies abdominal pain, N/V and has had normal oral intake. May be related to HCV diagnosis vs Tylenol vs va scular occlusion. - DC Tylenol - check RUQ US + doppler Otitis externa bilateral: diagnosed 06/03, and received ciprofloxacin and prednisolone drops x10 days. low back pain: improving, secondary to infection, with no neuro deficits. Avoid opioid analgesics. Continue suboxone, stretches, ice/heat packs and frequent walks. Dispo: will continue inpatient IV antibiotics here at [facility] until completion of course. Upon completion, will need follow up with addiction psychiatry - please call TIM Turner with [facility] at [phone] for follow up. He will need to be discharged with Rx for Narcan. - Time Time Spent with patient: 35 or more minutes Anticipated Discharge Disposition: Home, Self Care Anticipated Discharge Timeframe: antibx
[2020-06-27] MEDS: SENNOSIDES/DOCUSATE 8.6-50 MG 1 EACH TABLET PO SCH (23:19)
[2020-06-27] MEDS: PRIMIDONE 50 MG TABLET PO SCH (23:20)
[2020-06-27] MEDS: MELATONIN 5 MG TABLET PO SCH (23:20)
[2020-06-27] MEDS: PHARMACY COMMUNICATION ORDER MC SCH (23:21)
[2020-06-28] MEDS: VANCOMYCIN HCL 1,250 MG in DEXTROSE 5%-WATER 250 ML IV SCH ×2 (02:34→10:33)
[2020-06-28] MEDS: GABAPENTIN 300 MG CAPSULE PO SCH ×3 (06:37→21:15)
--- NOTE | 2020-06-28 09:54 | RADIOLOGY REPORT (SQ) ---
EXAM DESCRIPTION: U/S ABDOMEN LTD W/DOPPLER IMAGES COMPLETED DATE/TIME: 06/28/2020 9:41 am REASON FOR STUDY: elevated LFTs, r/o vascular occlusion COMPARISON: None. TECHNIQUE: Dynamic and static grayscale images acquired of the abdomen and recorded on PACS. Additio nal selected color Doppler and spectral images recorded. LIMITATIONS: None. FINDINGS: PANCREAS: No masses. Visualized pancreatic duct normal caliber. LIVER: No masses. Echotexture normal. LIVER VASCULATURE: Normal directional flow of the main portal vein and hepatic veins. GALLBLADDER: No stones. Normal wall thickness. No pericholecystic fluid. ULTRASOUND-DETECTED MATHUR'S SIGN: Negative. INTRAHEPATIC DUCTS AND COMMON DUCT: CBD and intrahepatic ducts normal caliber. No filling defects. INFERIOR VENA CAVA: Normal flow. AORTA: No aneurysm. RIGHT KIDNEY: Normal size. Normal echogenicity. No solid or suspicious masses. No hydronephrosis. No calcifications. PERITONEAL AND RIGHT PLEURAL SPACE: No ascites or effusions. OTHER: Spleen measures 16 cm not significantly changed from CT 03/26/2020. IMPRESSION: Chronic splenomegaly. No acute findings. TECHNICAL DOCUMENTATION: JOB ID: [id number] [employer]- All Rights Reserved Reading location - IP/workstation name: [email or web address]
[2020-06-28 10:34] LABS: HEMATOCRIT 32.5 % (37.9-51.0); HEMOGLOBIN 10.8 g/dL (13.5-17.0); MEAN CORPUSCULAR HEMOGLOBIN 27.4 pg (27.0-33.4); MEAN CORPUSCULAR HGB CONC 33.3 g/dL (32.0-36.0); MEAN CORPUSCULAR VOLUME 82 fl (80-97); PLATELET COUNT 140 10^3/uL (150-450); RED BLOOD COUNT 3.95 10^6/uL (4.35-5.55); RED CELL DISTRIBUTION WIDTH 15.1 % (11.5-14.0); WHITE BLOOD COUNT 4.4 10^3/uL (4.0-10.5)
[2020-06-28] MEDS: ENOXAPARIN SODIUM INJ 40 MG/0.4 ML DISP.SYRIN SUBCUT SCH (10:37)
[2020-06-28] MEDS: BUPRENORPHINE HCL 2 MG SUBLINGUAL TABLET SL SCH ×2 (10:37→21:15)
[2020-06-28] MEDS: ASCORBIC ACID 500 MG TABLET PO SCH (10:38)
[2020-06-28] MEDS: LIDOCAINE 5% (700 MG) TRANSDERMAL ADH..PATCH TOP SCH (10:38)
[2020-06-28] MEDS: MAGNESIUM OXIDE 400 MG TABLET PO SCH ×2 (10:38→18:48)
[2020-06-28] MEDS: NORMAL SALINE 10 ML SDV (SCHEDULED) IV SCH ×2 (10:40→21:15)
[2020-06-28] MEDS: POLYETHYLENE GLYCOL 3350 POWDER 17 GM/1 PACKET PO SCH (10:41)
[2020-06-28 10:59] LABS: ALBUMIN 3.9 g/dL (3.5-5.0); ALKALINE PHOSPHATASE 149 U/L (38-126); ANION GAP 8 (5-19); ASPARTATE AMINO TRANSFERASE 230 U/L (17-59); BILIRUBIN,DIRECT 0.2 mg/dL (0.0-0.4); BILIRUBIN,TOTAL 0.6 mg/dL (0.2-1.3); BLOOD UREA NITROGEN 16 mg/dL (7-20); C-REACTIVE PROTEIN 22.8 mg/L (<10.0); CALCIUM 9.7 mg/dL (8.4-10.2); CARBON DIOXIDE 34 mmol/L (22-30); CHLORIDE 93 mmol/L (98-107); POTASSIUM 4.6 mmol/L (3.6-5.0); TOTAL PROTEIN 7.4 g/dL (6.3-8.2)
[2020-06-28 11:02] LABS: VANCOMYCIN,TROUGH 11.1 ug/mL (5.0-20.0)
[2020-06-28 11:47] LABS: GLUCOSE 62 mg/dL (75-110)
[2020-06-28 12:02] LABS: ERYTHROCYTE SEDIMENTATION RATE 59 mm/hr (0-15)
--- NOTE | 2020-06-28 18:42 | PDOC PROGRESS REPORT ---
Subjective Date:: 06/28/20 Subjective:: NAEO Reason For Visit: THORACIC DISCITIS,BACTEREMIA,IV DRUG USER, Physical Exam Vital Signs: Temp Pulse Resp BP Pulse Ox 98.4 F 78 16 115/67 95 06/28/20 10:00 06/28/20 07:56 06/28/20 07:56 06/28/20 07:56 06/28/20 07:56 Intake & Output 06/27/20 06/28/20 06/29/20 06:59 06:59 06:59 Intake Total 3030 1920 2464 Output Total 3800 2350 1100 Balance -770 -430 1364 Weight 92.9 kg 91.7 kg General appearance: PRESENT: no acute distress, cooperative Eye exam: ABSENT: conjunctival injection Mouth exam: PRESENT: moist Throat exam: ABSENT: post pharyngeal erythema Neck exam: ABSENT: JVD Respiratory exam: PRESENT: clear to auscultation luisito, unlabored Cardiovascular exam: PRESENT: RRR GI/Abdominal exam: PRESENT: normal bowel sounds, soft. ABSENT: tenderness Extremities exam: ABSENT: pedal edema Musculoskeletal exam: PRESENT: ambulatory Neurological exam: PRESENT: alert, awake Psychiatric exam: PRESENT: flat affect Skin exam: ABSENT: jaundice Results Laboratory Results: 06/28/20 09:50 06/28/20 09:50 06/28/20 06/28/20 06/28/20 09:50 09:50 09:50 WBC 4.4 RBC 3.95 L Hgb 10.8 L Hct 32.5 L MCV 82 MCH 27.4 MCHC 33.3 RDW 15.1 H Plt Count 140 L Sodium 135.2 L Potassium 4.6 Chloride 93 L Carbon Dioxide 34 H Anion Gap 8 BUN 16 Creatinine 0.53 Est GFR ( Amer) > 60 Glucose 62 L Calcium 9.7 Magnesium 1.8 Total Bilirubin 0.6 GGT 91 H AST 230 H Alkaline Phosphatase 149 H C-Reactive Protein 22.8 H Total Protein 7.4 Albumin 3.9 06/27/20 08:38 Creatine Kinase < 20 L Impressions: Abdomen Ultrasound 06/28/20 00:00 IMPRESSION: Chronic splenomegaly. No acute findings. Assessment and Plan - Diagnosis (1) Bacteremia due to methicillin resistant Staphylococcus aureus Is this a current diagnosis for this admission?: Yes (2) Hx of intravenous drug use in remission Is this a current diagnosis for this admission?: Yes (3) Opioid dependence Qualifiers: Substance use status: in remission Qualified Code(s): F11.21 - Opioid dependence, in remission Is this a current diagnosis for this admission?: Yes (4) Osteomyelitis of vertebra of thoracic region Is this a current diagnosis for this admission?: Yes (5) Otitis externa of both ears Qualifiers: Otitis externa type: other infective Chronicity: acute Qualified Code(s): H60.393 - Other infective otitis externa, bilateral Is this a current diagnosis for this admission?: Yes (6) Tobacco use disorder, continuous Is this a current diagnosis for this admission?: Yes (7) Lower back pain Qualifiers: Chronicity: unspecified Back pain laterality: bilateral Sciatica presence: without sciatica Qualified Code(s): M54.5 - Low back pain Is this a current diagnosis for this admission?: Yes (8) LFT elevation Is this a current diagnosis for this admission?: Yes (9) HCV antibody positive Is this a current diagnosis for this admission?: Yes - Plan Summary Summary: Mr. Nielsen is a 40 year old man with PMH of IVDU, HCV, bipolar disorder with MRSA bacteremia due to vertebral osteomyelitis/discitis (L5-S1 and T8-T9) and epidural abscess (L5-S1). He was incidentally noted to be Covid positive on 05/29/2020 (now resolved). He was transferred to [facility] for neurosurgery evaluation, but required no surgical intervention. TTE (06/01) showed no evidence of valvular vegetations. ID recommended to continue Vancomycin for 6-8 weeks. MRSA bacteremia, discitis/osteomyelitis and epidural abscess - continue vancomycin IV (end date: 07/04/2020) - vancomycin dosing as per pharmacy - check weekly CBC, CMP, ESR, CRP (last checked 06/25 and ESR/CRP are both improving) HCV positive - initiated HBV vaccination series on 06/06, he will need second dose around 07/07 (prior to discharge) - he was vaccinated for HAV on 06/06 - will need outpatient follow up for HCV treatment LFT Elevation: initially noted on labs on 06/25 and increasing steadily. He has ALT>AST, barely elevated alk phos/GGT with a normal bilirubin. He denies abdominal pain, N/V and has had normal oral intake. May be related to HCV diagnosis vs Tylenol. He is not on any other medications that would cause hepatic toxicity. His CRP and ESR are continuing to trend down and he has no leukocytosis or other lab abnormalities. - DC Tylenol - RUQ US + doppler unremarkable - check UDS - monitor CMP Otitis externa bilateral: diagnosed 06/03, and received ciprofloxacin and prednisolone drops x10 days. low back pain: improving, secondary to infection, with no neuro deficits. Avoid opioid analgesics. Continue suboxone, stretches, ice/heat packs and frequent walks. Dispo: will continue inpatient IV antibiotics here at [facility] until completion of course. Upon completion, will need follow up with addiction psychiatry - please call TIM Turner with [facility] at [phone] for follow up. He will need to be discharged with Rx for Narcan. - Time Time Spent with patient: 35 or more minutes Anticipated Discharge Disposition: Home, Self Care Anticipated Discharge Timeframe: 1 week
[2020-06-28] MEDS: VANCOMYCIN HCL 1,500 MG in DEXTROSE 5%-WATER 250 ML IV SCH (18:47)
[2020-06-28] MEDS: NORMAL SALINE 10 ML SDV (AFTER EACH USE) IV PRN (18:49)
[2020-06-28] MEDS: PRIMIDONE 50 MG TABLET PO SCH (21:15)
[2020-06-28] MEDS: SENNOSIDES/DOCUSATE 8.6-50 MG 1 EACH TABLET PO SCH (21:15)
[2020-06-28] MEDS: MELATONIN 5 MG TABLET PO SCH (21:15)
[2020-06-28] MEDS: PHARMACY COMMUNICATION ORDER MC SCH (21:22)
[2020-06-28 22:50] LABS: URINE BARBITURATES SCREEN NEGATIVE; URINE BENZODIAZEPINES SCREEN NEGATIVE; URINE COCAINE SCREEN NEGATIVE; URINE MARIJUANA (THC) SCREEN NEGATIVE; URINE METHADONE SCREEN NEGATIVE; URINE PHENCYCLIDINE SCREEN NEGATIVE
[2020-06-28 22:52] LABS: URINE AMPHETAMINES SCREEN UNCONFIRMED POSITIVE
[2020-06-29] MEDS: VANCOMYCIN HCL 1,500 MG in DEXTROSE 5%-WATER 250 ML IV SCH ×3 (02:31→17:49)
[2020-06-29] MEDS: GABAPENTIN 300 MG CAPSULE PO SCH ×3 (05:39→23:00)
[2020-06-29 06:56] LABS: HEMATOCRIT 31.7 % (37.9-51.0); HEMOGLOBIN 10.8 g/dL (13.5-17.0); MEAN CORPUSCULAR HEMOGLOBIN 27.7 pg (27.0-33.4); MEAN CORPUSCULAR VOLUME 81 fl (80-97); PLATELET COUNT 145 10^3/uL (150-450); RED CELL DISTRIBUTION WIDTH 15.2 % (11.5-14.0); WHITE BLOOD COUNT 4.3 10^3/uL (4.0-10.5)
[2020-06-29 07:30] LABS: ALKALINE PHOSPHATASE 196 U/L (38-126); ANION GAP 11 (5-19); ASPARTATE AMINO TRANSFERASE 159 U/L (17-59); BILIRUBIN,TOTAL 0.3 mg/dL (0.2-1.3); BLOOD UREA NITROGEN 19 mg/dL (7-20); CALCIUM 9.7 mg/dL (8.4-10.2); CARBON DIOXIDE 33 mmol/L (22-30); CHLORIDE 94 mmol/L (98-107); GLUCOSE 91 mg/dL (75-110); POTASSIUM 4.3 mmol/L (3.6-5.0); TOTAL PROTEIN 7.5 g/dL (6.3-8.2)
[2020-06-29] MEDS: NAPROXEN 250 MG TABLET PO SCH ×2 (08:11→17:49)
[2020-06-29] MEDS: ASCORBIC ACID 500 MG TABLET PO SCH (11:03)
[2020-06-29] MEDS: MAGNESIUM OXIDE 400 MG TABLET PO SCH ×2 (11:04→17:48)
[2020-06-29] MEDS: BUPRENORPHINE HCL 2 MG SUBLINGUAL TABLET SL SCH ×2 (11:04→22:58)
[2020-06-29] MEDS: LIDOCAINE 5% (700 MG) TRANSDERMAL ADH..PATCH TOP SCH (11:08)
[2020-06-29] MEDS: POLYETHYLENE GLYCOL 3350 POWDER 17 GM/1 PACKET PO SCH (11:08)
[2020-06-29] MEDS: ENOXAPARIN SODIUM INJ 40 MG/0.4 ML DISP.SYRIN SUBCUT SCH (11:09)
[2020-06-29] MEDS: NORMAL SALINE 10 ML SDV (SCHEDULED) IV SCH ×2 (14:34→23:02)
--- NOTE | 2020-06-29 18:00 | PDOC PROGRESS REPORT ---
Subjective Date:: 06/29/20 Subjective:: NAEO. Feels well. Denies fevers/chills. Reason For Visit: THORACIC DISCITIS,BACTEREMIA,IV DRUG USER, Physical Exam Vital Signs: Temp Pulse Resp BP Pulse Ox 97.6 F 82 12 114/65 99 06/29/20 12:36 06/29/20 12:36 06/29/20 12:36 06/29/20 12:36 06/29/20 12:36 Intake & Output 06/28/20 06/29/20 06/30/20 06:59 06:59 06:59 Intake Total 1920 3524 1470 Output Total 2350 2980 600 Balance -430 544 870 Weight 91.7 kg General appearance: PRESENT: no acute distress, cooperative Head exam: PRESENT: atraumatic Eye exam: ABSENT: scleral icterus Mouth exam: PRESENT: moist Throat exam: ABSENT: post pharyngeal erythema Neck exam: ABSENT: JVD Respiratory exam: PRESENT: clear to auscultation luisito, unlabored. ABSENT: wheezes Cardiovascular exam: PRESENT: RRR GI/Abdominal exam: PRESENT: normal bowel sounds, soft. ABSENT: Vazquez's sign, tenderness Gentrourinary exam: ABSENT: indwelling catheter Extremities exam: ABSENT: +1 edema Neurological exam: PRESENT: alert, awake Psychiatric exam: PRESENT: appropriate affect Skin exam: ABSENT: jaundice Results Laboratory Results: 06/29/20 05:30 06/29/20 05:30 06/29/20 06/29/20 05:30 05:30 WBC 4.3 RBC 3.90 L Hgb 10.8 L Hct 31.7 L MCV 81 MCH 27.7 MCHC 34.0 RDW 15.2 H Plt Count 145 L Sodium 138.0 Potassium 4.3 Chloride 94 L Carbon Dioxide 33 H Anion Gap 11 BUN 19 Creatinine 0.60 Est GFR ( Amer) > 60 Glucose 91 Calcium 9.7 Magnesium 1.9 Total Bilirubin 0.3 AST 159 H Alkaline Phosphatase 196 H Total Protein 7.5 Albumin 4.0 06/27/20 08:38 Creatine Kinase < 20 L Impressions: Abdomen Ultrasound 06/28/20 00:00 IMPRESSION: Chronic splenomegaly. No acute findings. Assessment and Plan - Diagnosis (1) Bacteremia due to methicillin resistant Staphylococcus aureus Is this a current diagnosis for this admission?: Yes (2) Hx of intravenous drug use in remission Is this a current diagnosis for this admission?: Yes (3) Opioid dependence Qualifiers: Substance use status: in remission Qualified Code(s): F11.21 - Opioid dependence, in remission Is this a current diagnosis for this admission?: Yes (4) Osteomyelitis of vertebra of thoracic region Is this a current diagnosis for this admission?: Yes (5) Otitis externa of both ears Qualifiers: Otitis externa type: other infective Chronicity: acute Qualified Code(s): H60.393 - Other infective otitis externa, bilateral Is this a current diagnosis for this admission?: Yes (6) Tobacco use disorder, continuous Is this a current diagnosis for this admission?: Yes (7) Lower back pain Qualifiers: Chronicity: unspecified Back pain laterality: bilateral Sciatica presen ce: without sciatica Qualified Code(s): M54.5 - Low back pain Is this a current diagnosis for this admission?: Yes (8) LFT elevation Is this a current diagnosis for this admission?: Yes (9) HCV antibody positive Is this a current diagnosis for this admission?: Yes - Plan Summary Summary: Mr. Nielsen is a 40 year old man with PMH of IVDU, HCV, bipolar disorder with MRSA bacteremia due to vertebral osteomyelitis/discitis (L5-S1 and T8-T9) and epidural abscess (L5-S1). He was incidentally noted to be Covid positive on 05/29/2020 (now resolved). He was transferred to [facility] for neurosurgery evaluation, but required no surgical intervention. TTE (06/01) showed no evidence of valvular vegetations. ID recommended to continue Vancomycin for 6-8 weeks. MRSA bacteremia, discitis/osteomyelitis and epidural abscess - continue vancomycin IV (end date: 07/04/2020) - vancomycin dosing as per pharmacy - check weekly CBC, CMP, ESR, CRP (last checked 06/28 and ESR/CRP are both steadily improving) HCV positive - initiated HBV vaccination series on 06/06, he will need second dose around 07/07 (prior to discharge) - he was vaccinated for HAV on 06/06 - will need outpatient follow up for HCV treatment LFT Elevation: initially noted on labs on 06/25. He has ALT>AST, barely elevated alk phos/GGT with a normal bilirubin. He denies abdominal pain, N/V and has had normal oral intake. May be related to HCV diagnosis vs Tylenol. He is not on any other medications that would cause hepatic toxicity. His CRP and ESR are continuing to trend down and he has no leukocytosis or other lab abnormalities. Today, 06/29, his LFTs are finally starting to trend down. - continue to hold Tylenol - RUQ US + doppler unremarkable - monitor CMP Otitis externa bilateral: diagnosed 06/03, and received ciprofloxacin and prednisolone drops x10 days. low back pain: improving, secondary to infection, with no neuro deficits. Avoid opioid analgesics. Continue suboxone, stretches, ice/heat packs and frequent walks. Dispo: will continue inpatient IV antibiotics here at [facility] until completion of course. Upon completion, will need follow up with addiction psychiatry - please call TIM Turner with [facility] at [phone] for follow up. He will need to be discharged with Rx for Narcan. - Time Time Spent with patient: 25-34 minutes Anticipated Discharge Disposition: Home, Self Care Anticipated Discharge Timeframe: 1 week
[2020-06-29] MEDS: PHARMACY COMMUNICATION ORDER MC SCH (22:13)
[2020-06-29] MEDS: MELATONIN 5 MG TABLET PO SCH (23:01)
[2020-06-29] MEDS: SENNOSIDES/DOCUSATE 8.6-50 MG 1 EACH TABLET PO SCH (23:01)
[2020-06-29] MEDS: PRIMIDONE 50 MG TABLET PO SCH (23:01)
[2020-06-30] MEDS: VANCOMYCIN HCL 1,500 MG in DEXTROSE 5%-WATER 250 ML IV SCH ×3 (02:18→18:19)
[2020-06-30] MEDS: GABAPENTIN 300 MG CAPSULE PO SCH ×3 (06:01→22:07)
[2020-06-30 06:54] LABS: ALBUMIN 4.5 g/dL (3.5-5.0); ALKALINE PHOSPHATASE 198 U/L (38-126); ANION GAP 12 (5-19); ASPARTATE AMINO TRANSFERASE 133 U/L (17-59); BILIRUBIN,DIRECT 0.2 mg/dL (0.0-0.4); BILIRUBIN,TOTAL 0.5 mg/dL (0.2-1.3); BLOOD UREA NITROGEN 28 mg/dL (7-20); CARBON DIOXIDE 29 mmol/L (22-30); CHLORIDE 94 mmol/L (98-107); GLUCOSE 108 mg/dL (75-110); POTASSIUM 4.6 mmol/L (3.6-5.0); TOTAL PROTEIN 8.2 g/dL (6.3-8.2)
[2020-06-30] MEDS ORDERED: POTASSIUM CHLORIDE 20 MEQ/50 ML RTU IV SCH (07:15)
[2020-06-30] MEDS ORDERED: CALCIUM GLUCONATE 1 GM/NS 50 ML RTU IV ONE (07:15)
[2020-06-30] MEDS: NAPROXEN 250 MG TABLET PO SCH ×2 (07:49→18:18)
[2020-06-30] MEDS ORDERED: POTASSIUM CHLORIDE 10 MEQ TABLET.ER PO ONE (08:00)
[2020-06-30] MEDS: MAGNESIUM SULFATE 1 GM/D5W 100 ML IV SCH (09:09)
[2020-06-30] MEDS: BUPRENORPHINE HCL 2 MG SUBLINGUAL TABLET SL SCH ×2 (09:50→22:08)
[2020-06-30] MEDS: MAGNESIUM OXIDE 400 MG TABLET PO SCH ×2 (09:51→18:19)
[2020-06-30] MEDS: ASCORBIC ACID 500 MG TABLET PO SCH (09:51)
[2020-06-30] MEDS: ENOXAPARIN SODIUM INJ 40 MG/0.4 ML DISP.SYRIN SUBCUT SCH (09:53)
[2020-06-30] MEDS: POLYETHYLENE GLYCOL 3350 POWDER 17 GM/1 PACKET PO SCH (09:54)
[2020-06-30] MEDS: LIDOCAINE 5% (700 MG) TRANSDERMAL ADH..PATCH TOP SCH (09:54)
--- NOTE | 2020-06-30 13:44 | PDOC PROGRESS REPORT ---
Subjective Date:: 06/30/20 Subjective:: Mr. Nielsen is a 40 year old man with PMH of IVDU, HCV, bipolar disorder with MRSA bacteremia due to vertebral osteomyelitis/discitis (L5-S1 and T8-T9) and epidural abscess (L5-S1). He was incidentally noted to be Covid positive on 05/29/2020 (now resolved). He was transferred to [facility] for neurosurgery evaluation, but required no surgical intervention. TTE (06/01) showed no evidenc e of valvular vegetations. ID recommended to continue Vancomycin for 6-8 weeks. 06/30/2020. No acute events overnight. Patient currently resting in bed no apparent distress, denies any fever, chills, nausea, vomiting. Reason For Visit: THORACIC DISCITIS,BACTEREMIA,IV DRUG USER, Physical Exam Vital Signs: Temp Pulse Resp BP Pulse Ox 98.4 F 109 H 16 163/88 H 100 06/30/20 12:25 06/30/20 12:25 06/30/20 12:25 06/30/20 12:25 06/30/20 12:25 Intake & Output 06/29/20 06/30/20 07/01/20 06:59 06:59 06:59 Intake Total 3524 2790 730 Output Total 2980 600 Balance 544 2190 730 General appearance: PRESENT: no acute distress, well-developed, well-nourished Head exam: PRESENT: atraumatic, normocephalic Respiratory exam: PRESENT: clear to auscultation luisito. ABSENT: rales, rhonchi, wheezes Cardiovascular exam: PRESENT: RRR. ABSENT: diastolic murmur, rubs, systolic murmur GI/Abdominal exam: PRESENT: normal bowel sounds, soft. ABSENT: distended, guarding, mass, organolmegaly, rebound, tenderness Neurological exam: PRESENT: alert, awake, oriented to person, oriented to place, oriented to time, oriented to situation, CN II-XII grossly intact. ABSENT: motor sensory deficit Results Laboratory Results: 06/29/20 05:30 06/30/20 06:08 06/30/20 06:08 Sodium 135.0 L Potassium 4.6 Chloride 94 L Carbon Dioxide 29 Anion Gap 12 BUN 28 H Creatinine 0.67 Est GFR ( Amer) > 60 Glucose 108 Calcium 10.0 Magnesium 1.9 Total Bilirubin 0.5 AST 133 H Alkaline Phosphatase 198 H Total Protein 8.2 Albumin 4.5 06/27/20 08:38 Creatine Kinase < 20 L Impressions: Abdomen Ultrasound 06/28/20 00:00 IMPRESSION: Chronic splenomegaly. No acute findings. Assessment and Plan - Diagnosis (1) Bacteremia due to methicillin resistant Staphylococcus aureus Is this a current diagnosis for this admission?: Yes Plan: Continue vancomycin IV (end date: 07/04/2020) vancomycin dosing as per pharmacy check weekly CBC, CMP, ESR, CRP (last checked 06/28 and ESR/CRP are both steadily improving) (2) HCV antibody positive Is this a current diagnosis for this admission?: Yes Plan: Initiated HBV vaccination series on 06/06, he will need second dose around 07/07 (prior to discharge) Hhe was vaccinated for HAV on 06/06 Will need outpatient follow up for HCV treatment (3) Hx of intravenous drug use in remission Is this a current diagnosis for this admission?: Yes Plan: Continue supportive measures. No sign of withdrawal. (4) Osteomyelitis of vertebra of thoracic region Is this a current diagnosis for this admission?: Yes (5) Otitis externa of both ears Qualifiers: Otitis externa type: other infective Chronicity: acute Qualified Code(s): H60.393 - Other infective otitis externa, bilateral Is this a current diagnosis for this admission?: Yes Plan: Resolved. Diagnosed 06/03, and received ciprofloxacin and prednisolone drops x10 days. (6) Tobacco use disorder, continuous Is this a current diagnosis for this admission?: Yes Plan: Continue NicoDerm patch. Counseled on quitting. (7) LFT elevation Is this a current diagnosis for this admission?: Yes Plan: Initially noted on labs on 06/25. He has ALT>AST, barely elevated alk phos/GGT with a normal bilirubin. He denies abdominal pain, N/V and has had normal oral intake. May be related to HCV diagnosis vs Tylenol. He is not on any other medications that would cause hepatic toxicity. His CRP and ESR are continuing to trend down and he has no leukocytosis or other lab abnormalities. Today, 06/29, his LFTs are finally starting to trend down. Continue to hold Tylenol RUQ US + doppler unremarkable Monitor CMP - Plan Summary Summary: Dispo: will continue inpatient IV antibiotics here at [facility] until completion of course. Upon completion, will need follow up with addiction psychiatry - please call TIM Turner with [facility] at [phone] for follow up. He will need to be discharged with Rx for Narcan. - Time Time Spent with patient: 35 or more minutes Anticipated Discharge Disposition: Home with Home Health Anticipated Discharge Timeframe: within 72 hours
[2020-06-30] MEDS ORDERED: METOPROLOL SUCCINATE 25 MG TAB.SR.24H PO SCH (13:45)
[2020-06-30] MEDS: NORMAL SALINE 10 ML SDV (SCHEDULED) IV SCH ×2 (14:44→22:14)
[2020-06-30 18:50] LABS: VANCOMYCIN,TROUGH 16.5 ug/mL (5.0-20.0)
[2020-06-30] MEDS: MELATONIN 5 MG TABLET PO SCH (22:07)
[2020-06-30] MEDS: PHARMACY COMMUNICATION ORDER MC SCH (22:13)
[2020-06-30] MEDS: PRIMIDONE 50 MG TABLET PO SCH (22:17)
[2020-06-30] MEDS: SENNOSIDES/DOCUSATE 8.6-50 MG 1 EACH TABLET PO SCH (23:17)
[2020-07-01] MEDS: VANCOMYCIN HCL 1,500 MG in DEXTROSE 5%-WATER 250 ML IV SCH ×3 (02:41→17:51)
[2020-07-01] MEDS: GABAPENTIN 300 MG CAPSULE PO SCH ×3 (05:18→21:54)
[2020-07-01] MEDS: BACLOFEN 10 MG TABLET PO PRN ×2 (05:22→15:39)
[2020-07-01 06:58] LABS: ANION GAP 10 (5-19); BLOOD UREA NITROGEN 24 mg/dL (7-20); CALCIUM 9.2 mg/dL (8.4-10.2); CARBON DIOXIDE 29 mmol/L (22-30); CHLORIDE 97 mmol/L (98-107); GLUCOSE 91 mg/dL (75-110); POTASSIUM 4.4 mmol/L (3.6-5.0)
[2020-07-01] MEDS: NAPROXEN 250 MG TABLET PO SCH ×2 (10:00→17:50)
[2020-07-01] MEDS: METOPROLOL SUCCINATE 25 MG TAB.SR.24H PO SCH (10:00)
[2020-07-01] MEDS: ASCORBIC ACID 500 MG TABLET PO SCH (10:01)
[2020-07-01] MEDS: MAGNESIUM OXIDE 400 MG TABLET PO SCH ×2 (10:01→17:51)
[2020-07-01] MEDS: BUPRENORPHINE HCL 2 MG SUBLINGUAL TABLET SL SCH (10:02)
[2020-07-01] MEDS: LIDOCAINE 5% (700 MG) TRANSDERMAL ADH..PATCH TOP SCH (10:04)
[2020-07-01] MEDS: ENOXAPARIN SODIUM INJ 40 MG/0.4 ML DISP.SYRIN SUBCUT SCH ×2 (10:07→10:08)
[2020-07-01] MEDS: POLYETHYLENE GLYCOL 3350 POWDER 17 GM/1 PACKET PO SCH (10:08)
[2020-07-01] MEDS: NORMAL SALINE 10 ML SDV (SCHEDULED) IV SCH ×2 (11:55→21:58)
--- NOTE | 2020-07-01 16:09 | PDOC PROGRESS REPORT ---
Subjective Date:: 07/01/20 Subjective:: Mr. Nielsen is a 40 year old man with PMH of IVDU, HCV, bipolar disorder with MRSA bacteremia due to vertebral osteomyelitis/discitis (L5-S1 and T8-T9) and epidural abscess (L5-S1). He was incidentally noted to be Covid positive on 05/29/2020 (now resolved). He was transferred to [facility] for neurosurgery evaluation, but required no surgical intervention. TTE (06/01) showed no evidenc e of valvular vegetations. ID recommended to continue Vancomycin for 6-8 weeks. 06/30/2020. No acute events overnight. Patient currently resting in bed no apparent distress, denies any fever, chills, nausea, vomiting. 07/01/2020. No acute events overnight. Patient currently resting in bed no a pparent distress, denies any fever, chills, nausea, vomiting. Reason For Visit: THORACIC DISCITIS,BACTEREMIA,IV DRUG USER, Physical Exam Vital Signs: Temp Pulse Resp BP Pulse Ox 97.8 F 92 18 134/74 H 100 07/01/20 11:05 07/01/20 11:05 07/01/20 11:05 07/01/20 11:05 07/01/20 11:05 Intake & Output 06/30/20 07/01/20 07/02/20 06:59 06:59 06:59 Intake Total 2790 2076 500 Output Total 600 600 Balance 2190 1476 500 General appearance: PRESENT: no acute distress, well-developed, well-nourished Head exam: PRESENT: atraumatic, normocephalic Neck exam: ABSENT: carotid bruit, JVD, lymphadenopathy, thyromegaly Respiratory exam: PRESENT: clear to auscultation luisito. ABSENT: rales, rhonchi, wheezes Cardiovascular exam: PRESENT: RRR. ABSENT: diastolic murmur, rubs, systolic murmur GI/Abdominal exam: PRESENT: normal bowel sounds, soft. ABSENT: distended, guarding, mass, organolmegaly, rebound, tenderness Neurological exam: PRESENT: alert, awake, oriented to person, oriented to place, oriented to time, oriented to situation, CN II-XII grossly intact. ABSENT: motor sensory deficit Results Laboratory Results: 06/29/20 05:30 07/01/20 05:25 07/01/20 05:25 Sodium 135.6 L Potassium 4.4 Chloride 97 L Carbon Dioxide 29 Anion Gap 10 BUN 24 H Creatinine 0.53 Est GFR ( Amer) > 60 Glucose 91 Calcium 9.2 Magnesium 1.8 06/27/20 08:38 Creatine Kinase < 20 L Impressions: Abdomen Ultrasound 06/28/20 00:00 IMPRESSION: Chronic splenomegaly. No acute findings. Assessment and Plan - Diagnosis (1) Bacteremia due to methicillin resistant Staphylococcus aureus Is this a current diagnosis for this admission?: Yes Plan: Continue vancomycin IV (end date: 07/04/2020) vancomycin dosing as per pharmacy check weekly CBC, CMP, ESR, CRP (last checked 06/28 and ESR/CRP are both steadily improving) (2) HCV antibody positive Is this a current diagnosis for this admission?: Yes Plan: Initiated HBV vaccination series on 06/06, he will need second dose around 07/07 (prior to discharge) Hhe was vaccinated for HAV on 06/06 Will need outpatient follow up for HCV treatment (3) Hx of intravenous drug use in remission Is this a current diagnosis for this admission?: Yes Plan: Continue supportive measures. No sign of withdrawal. (4) Osteomyelitis of vertebra of thoracic region Is this a current diagnosis for this admission?: Yes (5) Otitis externa of both ears Qualifiers: Otitis externa type: other infective Chronicity: acute Qualified Code(s): H60.393 - Other infective otitis externa, bilateral Is this a current diagnosis for this admission?: Yes Plan: Resolved. Diagnosed 06/03, and received ciprofloxacin and prednisolone drops x10 days. (6) Tobacco use disorder, continuous Is this a current diagnosis for this admission?: Yes Plan: Continue NicoDerm patch. Counseled on quitting. (7) LFT elevation Is this a current diagnosis for this admission?: Yes Plan: Initially noted on labs on 06/25. He has ALT>AST, barely elevated alk phos/GGT with a normal bilirubin. He denies abdominal pain, N/V and has had normal oral intake. May be related to HCV diagnosis vs Tylenol. He is not on any other medications that would cause hepatic toxicity. His CRP and ESR are continuing to trend down and he has no leukocytosis or other lab abnormalities. Today, 06/29, his LFTs are finally starting to trend down. Continue to hold Tylenol RUQ US + doppler unremarkable Monitor CMP - Plan Summary Summary: Dispo: will continue inpatient IV antibiotics here at [facility] until completion of course. Upon completion, will need follow up with addiction psychiatry - please call TIM Turner with [facility] at [phone] for follow up. He will need to be discharged with Rx for Narcan. - Time Time Spent with patient: 25-34 minutes Smoking Cessation Education: 3 to 10 minutes Medications reviewed and adjusted accordingly: Yes Anticipated Discharge Disposition: Home, Self Care Anticipated Discharge Timeframe: within 72 hours
[2020-07-01] MEDS: MELATONIN 5 MG TABLET PO SCH (21:54)
[2020-07-01] MEDS: PRIMIDONE 50 MG TABLET PO SCH (21:54)
[2020-07-01] MEDS: PHARMACY COMMUNICATION ORDER MC SCH (21:56)
[2020-07-01] MEDS: SENNOSIDES/DOCUSATE 8.6-50 MG 1 EACH TABLET PO SCH (21:57)
[2020-07-02] MEDS: VANCOMYCIN HCL 1,500 MG in DEXTROSE 5%-WATER 250 ML IV SCH ×3 (02:17→18:40)
[2020-07-02] MEDS: GABAPENTIN 300 MG CAPSULE PO SCH ×3 (05:37→21:37)
[2020-07-02 06:40] LABS: ABSOLUTE EOSINOPHILS # (AUTO) 0.2 10^3/uL (0.0-0.6); ABSOLUTE MONOCYTES (AUTO) 0.3 10^3/uL (0.1-1.4); ABSOLUTE NEUT (AUTO) 1.4 10^3/uL (1.7-8.2); BASOPHILS % (AUTO) 0.8 % (0-2); EOSINOPHILS % (AUTO) 6.6 % (0-6); HEMATOCRIT 29.3 % (37.9-51.0); LYMPHOCYTES % (AUTO) 35.3 % (13-45); MEAN CORPUSCULAR HEMOGLOBIN 27.7 pg (27.0-33.4); MEAN CORPUSCULAR VOLUME 82 fl (80-97); MONOCYTES % (AUTO) 10.1 % (3-13); PLATELET COUNT 152 10^3/uL (150-450); RED BLOOD COUNT 3.59 10^6/uL (4.35-5.55); RED CELL DISTRIBUTION WIDTH 15.2 % (11.5-14.0); SEGMENTED NEUTROPHILS % (AUTO) 47.2 % (42-78); TOTAL CELLS COUNTED % (AUTO) 100 %; WHITE BLOOD COUNT 2.9 10^3/uL (4.0-10.5)
[2020-07-02 07:40] LABS: ALBUMIN 3.6 g/dL (3.5-5.0); ALKALINE PHOSPHATASE 161 U/L (38-126); ANION GAP 9 (5-19); ASPARTATE AMINO TRANSFERASE 116 U/L (17-59); BILIRUBIN,DIRECT 0.2 mg/dL (0.0-0.4); BILIRUBIN,TOTAL 0.5 mg/dL (0.2-1.3); BLOOD UREA NITROGEN 19 mg/dL (7-20); CALCIUM 9.4 mg/dL (8.4-10.2); CARBON DIOXIDE 29 mmol/L (22-30); CHLORIDE 99 mmol/L (98-107); GLUCOSE 87 mg/dL (75-110); POTASSIUM 4.1 mmol/L (3.6-5.0); TOTAL PROTEIN 6.8 g/dL (6.3-8.2)
[2020-07-02] MEDS: LIDOCAINE 5% (700 MG) TRANSDERMAL ADH..PATCH TOP SCH (11:26)
[2020-07-02] MEDS: ENOXAPARIN SODIUM INJ 40 MG/0.4 ML DISP.SYRIN SUBCUT SCH (11:27)
[2020-07-02] MEDS: MAGNESIUM OXIDE 400 MG TABLET PO SCH ×3 (11:27→18:42)
[2020-07-02] MEDS: NAPROXEN 250 MG TABLET PO SCH ×3 (11:28→18:41)
[2020-07-02] MEDS: METOPROLOL SUCCINATE 25 MG TAB.SR.24H PO SCH (11:28)
[2020-07-02] MEDS: ASCORBIC ACID 500 MG TABLET PO SCH (11:28)
[2020-07-02] MEDS: NORMAL SALINE 10 ML SDV (SCHEDULED) IV SCH ×2 (11:29→21:43)
[2020-07-02] MEDS: POLYETHYLENE GLYCOL 3350 POWDER 17 GM/1 PACKET PO SCH (11:29)
[2020-07-02] MEDS: MELATONIN 5 MG TABLET PO SCH (21:37)
[2020-07-02] MEDS: PRIMIDONE 50 MG TABLET PO SCH (21:37)
[2020-07-02] MEDS: SENNOSIDES/DOCUSATE 8.6-50 MG 1 EACH TABLET PO SCH (21:39)
[2020-07-02] MEDS: PHARMACY COMMUNICATION ORDER MC SCH (21:39)
[2020-07-03] MEDS: VANCOMYCIN HCL 1,500 MG in DEXTROSE 5%-WATER 250 ML IV SCH ×3 (03:06→17:40)
[2020-07-03] MEDS: GABAPENTIN 300 MG CAPSULE PO SCH ×3 (05:52→21:53)
[2020-07-03] MEDS: BACLOFEN 10 MG TABLET PO PRN (05:56)
[2020-07-03] MEDS: NAPROXEN 250 MG TABLET PO SCH ×2 (07:50→17:40)
[2020-07-03 08:39] LABS: ALBUMIN 3.5 g/dL (3.5-5.0); ALKALINE PHOSPHATASE 147 U/L (38-126); ANION GAP 7 (5-19); ASPARTATE AMINO TRANSFERASE 136 U/L (17-59); BILIRUBIN,TOTAL 0.4 mg/dL (0.2-1.3); BLOOD UREA NITROGEN 16 mg/dL (7-20); CALCIUM 9.4 mg/dL (8.4-10.2); CARBON DIOXIDE 30 mmol/L (22-30); CHLORIDE 101 mmol/L (98-107); GLUCOSE 80 mg/dL (75-110); POTASSIUM 4.5 mmol/L (3.6-5.0); TOTAL PROTEIN 6.6 g/dL (6.3-8.2)
[2020-07-03] MEDS: LIDOCAINE 5% (700 MG) TRANSDERMAL ADH..PATCH TOP SCH (11:00)
[2020-07-03] MEDS: ENOXAPARIN SODIUM INJ 40 MG/0.4 ML DISP.SYRIN SUBCUT SCH (11:00)
[2020-07-03] MEDS: NORMAL SALINE 10 ML SDV (SCHEDULED) IV SCH ×2 (11:01→21:56)
[2020-07-03] MEDS: BUPRENORPHINE HCL 2 MG SUBLINGUAL TABLET SL SCH ×2 (11:01→21:50)
[2020-07-03] MEDS: POLYETHYLENE GLYCOL 3350 POWDER 17 GM/1 PACKET PO SCH (11:02)
[2020-07-03] MEDS: MAGNESIUM OXIDE 400 MG TABLET PO SCH ×2 (11:02→17:41)
[2020-07-03] MEDS: METOPROLOL SUCCINATE 25 MG TAB.SR.24H PO SCH (11:02)
[2020-07-03] MEDS: ASCORBIC ACID 500 MG TABLET PO SCH (11:02)
--- NOTE | 2020-07-03 14:55 | PDOC PROGRESS REPORT ---
Subjective Date:: 07/02/20 Subjective:: Mr. Nielsen is a 40 year old man with PMH of IVDU, HCV, bipolar disorder with MRSA bacteremia due to vertebral osteomyelitis/discitis (L5-S1 and T8-T9) and epidural abscess (L5-S1). He was incidentally noted to be Covid positive on 05/29/2020 (now resolved). He was transferred to [facility] for neurosurgery evaluation, but required no surgical intervention. TTE (06/01) showed no evidenc e of valvular vegetations. ID recommended to continue Vancomycin for 6-8 weeks. 06/30/2020. No acute events overnight. Patient currently resting in bed no apparent distress, denies any fever, chills, nausea, vomiting. 07/01/2020. No acute events overnight. Patient currently resting in bed no a pparent distress, denies any fever, chills, nausea, vomiting. 07/02/2020. No acute events overnight. Reason For Visit: THORACIC DISCITIS,BACTEREMIA,IV DRUG USER, Physical Exam Vital Signs: Temp Pulse Resp BP Pulse Ox 98.0 F 66 17 109/52 L 100 07/02/20 19:28 07/02/20 19:28 07/02/20 19:28 07/02/20 19:28 07/02/20 19:28 Intake & Output 07/02/20 07/03/20 07/04/20 06:59 06:59 06:59 Intake Total 2580 750 250 Balance 2580 750 250 General appearance: PRESENT: no acute distress, well-developed, well-nourished Head exam: PRESENT: atraumatic, normocephalic Respiratory exam: PRESENT: clear to auscultation luisito. ABSENT: rales, rhonchi, wheezes Cardiovascular exam: PRESENT: RRR. ABSENT: diastolic murmur, rubs, systolic murmur GI/Abdominal exam: PRESENT: normal bowel sounds, soft. ABSENT: distended, guarding, mass, organolmegaly, rebound, tenderness Neurological exam: PRESENT: alert, awake, oriented to person, oriented to place, oriented to time, oriented to situation, CN II-XII grossly intact. ABSENT: motor sensory deficit Results Laboratory Results: 07/02/20 05:45 07/03/20 07:50 07/03/20 07:50 Sodium 137.5 Potassium 4.5 Chloride 101 Carbon Dioxide 30 Anion Gap 7 BUN 16 Creatinine 0.56 Est GFR ( Amer) > 60 Glucose 80 Calcium 9.4 Total Bilirubin 0.4 AST 136 H Alkaline Phosphatase 147 H Total Protein 6.6 Albumin 3.5 06/27/20 08:38 Creatine Kinase < 20 L Impressions: Abdomen Ultrasound 06/28/20 00:00 IMPRESSION: Chronic splenomegaly. No acute findings. Assessment and Plan - Diagnosis (1) Bacteremia due to methicillin resistant Staphylococcus aureus Is this a current diagnosis for this admission?: Yes Plan: Continue vancomycin IV (end date: 07/04/2020) vancomycin dosing as per pharmacy check weekly CBC, CMP, ESR, CRP (last checked 06/28 and ESR/CRP are both steadily improving) (2) HCV antibody positive Is this a current diagnosis for this admission?: Yes Plan: Initiated HBV vaccination series on 06/06, he will need second dose around 07/07 (prior to discharge) Hhe was vaccinated for HAV on 06/06 Will need outpatient follow up for HCV treatment (3) Hx of intravenous drug use in remission Is this a current diagnosis for this admission?: Yes Plan: Continue supportive measures. No sign of withdrawal. (4) Osteomyelitis of vertebra of thoracic region Is this a current diagnosis for this admission?: Yes Plan: As per #1. (5) Otitis externa of both ears Qualifiers: Otitis externa type: other infective Chronicity: acute Qualified Code(s): H60.393 - Other infective otitis externa, bilateral Is this a current diagnosis for this admission?: Yes Plan: Resolved. Diagnosed 06/03, and received ciprofloxacin and prednisolone drops x10 days. (6) Tobacco use disorder, continuous Is this a current diagnosis for this admission?: Yes Plan: Continue NicoDerm patch. Counseled on quitting. (7) LFT elevation Is this a current diagnosis for this admission?: Yes Plan: Initially noted on labs on 06/25. He has ALT>AST, barely elevated alk phos/GGT with a normal bilirubin. He denies abdominal pain, N/V and has had normal oral intake. May be related to HCV diagnosis vs Tylenol. He is not on any other medications that would cause hepatic toxicity. His CRP and ESR are continuing to trend down and he has no leukocytosis or other lab abnormalities. Today, 06/29, his LFTs are finally starting to trend down. Continue to hold Tylenol RUQ US + doppler unremarkable Monitor CMP - Plan Summary Summary: Dispo: will continue inpatient IV antibiotics here at [facility] until completion of course. Upon completion, will need follow up with addiction psychiatry - please call TIM Turner with [facility] at [phone] for follow up. He will need to be discharged with Rx for Narcan. - Time Time Spent with patient: 15-24 minutes Anticipated Discharge Disposition: Home, Self Care Anticipated Discharge Timeframe: within 72 hours
--- NOTE | 2020-07-03 14:56 | PDOC PROGRESS REPORT ---
Subjective Date:: 07/03/20 Subjective:: Mr. Nielsen is a 40 year old man with PMH of IVDU, HCV, bipolar disorder with MRSA bacteremia due to vertebral osteomyelitis/discitis (L5-S1 and T8-T9) and epidural abscess (L5-S1). He was incidentally noted to be Covid positive on 05/29/2020 (now resolved). He was transferred to [facility] for neurosurgery evaluation, but required no surgical intervention. TTE (06/01) showed no evidenc e of valvular vegetations. ID recommended to continue Vancomycin for 6-8 weeks. 06/30/2020. No acute events overnight. Patient currently resting in bed no apparent distress, denies any fever, chills, nausea, vomiting. 07/01/2020. No acute events overnight. Patient currently resting in bed no a pparent distress, denies any fever, chills, nausea, vomiting. 07/02/2020. No acute events overnight. 07/03/2020. No acute events overnight. Ambulatory, having normal bowel and bladder movements. Reason For Visit: THORACIC DISCITIS,BACTEREMIA,IV DRUG USER, Physical Exam Vital Signs: Temp Pulse Resp BP Pulse Ox 98.0 F 66 17 109/52 L 100 07/02/20 19:28 07/02/20 19:28 07/02/20 19:28 07/02/20 19:28 07/02/20 19:28 Intake & Output 07/02/20 07/03/20 07/04/20 06:59 06:59 06:59 Intake Total 2580 750 250 Balance 2580 750 250 General appearance: PRESENT: no acute distress, well-developed, well-nourished Head exam: PRESENT: atraumatic, normocephalic Respiratory exam: PRESENT: clear to auscultation luisito. ABSENT: rales, rhonchi, wheezes Cardiovascular exam: PRESENT: RRR. ABSENT: diastolic murmur, rubs, systolic murmur GI/Abdominal exam: PRESENT: normal bowel sounds, soft. ABSENT: distended, guarding, mass, organolmegaly, rebound, tenderness Neurological exam: PRESENT: alert, awake, oriented to person, oriented to place, oriented to time, oriented to situation, CN II-XII grossly intact. ABSENT: motor sensory deficit Results Laboratory Results: 07/02/20 05:45 07/03/20 07:50 07/03/20 07:50 Sodium 137.5 Potassium 4.5 Chloride 101 Carbon Dioxide 30 Anion Gap 7 BUN 16 Creatinine 0.56 Est GFR ( Amer) > 60 Glucose 80 Calcium 9.4 Total Bilirubin 0.4 AST 136 H Alkaline Phosphatase 147 H Total Protein 6.6 Albumin 3.5 06/27/20 08:38 Creatine Kinase < 20 L Impressions: Abdomen Ultrasound 06/28/20 00:00 IMPRESSION: Chronic splenomegaly. No acute findings. Assessment and Plan - Diagnosis (1) Bacteremia due to methicillin resistant Staphylococcus aureus Is this a current diagnosis for this admission?: Yes Plan: Continue vancomycin IV (end date: 07/04/2020) vancomycin dosing as per pharmacy check weekly CBC, CMP, ESR, CRP (last checked 06/28 and ESR/CRP are both steadily improving) (2) HCV antibody positive Is this a current diagnosis for this admission?: Yes Plan: Initiated HBV vaccination series on 06/06, he will need second dose around 07/07 (prior to discharge) Hhe was vaccinated for HAV on 06/06 Will need outpatient follow up for HCV treatment (3) Hx of intravenous drug use in remission Is this a current diagnosis for this admission?: Yes Plan: Continue supportive measures. No sign of withdrawal. (4) Osteomyelitis of vertebra of thoracic region Is this a current diagnosis for this admission?: Yes Plan: As per #1. (5) Otitis externa of both ears Qualifiers: Otitis externa type: other infective Chronicity: acute Qualified Code(s): H60.393 - Other infective otitis externa, bilateral Is this a current diagnosis for this admission?: Yes Plan: Resolved. Diagnosed 06/03, and received ciprofloxacin and prednisolone drops x10 days. (6) Tobacco use disorder, continuous Is this a current diagnosis for this admission?: Yes Plan: Continue NicoDerm patch. Counseled on quitting. (7) LFT elevation Is this a current diagnosis for this admission?: Yes Plan: Initially noted on labs on 06/25. He has ALT>AST, barely elevated alk phos/GGT with a normal bilirubin. He denies abdominal pain, N/V and has had normal oral intake. May be related to HCV diagnosis vs Tylenol. He is not on any other medications that would cause hepatic toxicity. His CRP and ESR are continuing to trend down and he has no leukocytosis or other lab abnormalities. Today, 06/29, his LFTs are finally starting to trend down. Continue to hold Tylenol RUQ US + doppler unremarkable Monitor CMP - Plan Summary Summary: Dispo: will continue inpatient IV antibiotics here at [facility] until completion of course. Upon completion, will need follow up with addiction psychiatry - please call TIM Turner with [facility] at [phone] for follow up. He will need to be discharged with Rx for Narcan. - Time Time Spent with patient: 15-24 minutes Anticipated Discharge Disposition: Home, Self Care Anticipated Discharge Timeframe: within 24 hours
[2020-07-03] MEDS: MELATONIN 5 MG TABLET PO SCH (21:53)
[2020-07-03] MEDS: PRIMIDONE 50 MG TABLET PO SCH (21:53)
[2020-07-03] MEDS: PHARMACY COMMUNICATION ORDER MC SCH (21:54)
[2020-07-03] MEDS: SENNOSIDES/DOCUSATE 8.6-50 MG 1 EACH TABLET PO SCH (21:54)
[2020-07-04] MEDS: VANCOMYCIN HCL 1,500 MG in DEXTROSE 5%-WATER 250 ML IV SCH ×3 (02:18→17:21)
[2020-07-04] MEDS: GABAPENTIN 300 MG CAPSULE PO SCH ×2 (06:32→15:14)
[2020-07-04 07:36] LABS: ALBUMIN 3.4 g/dL (3.5-5.0); ALKALINE PHOSPHATASE 153 U/L (38-126); ANION GAP 7 (5-19); ASPARTATE AMINO TRANSFERASE 166 U/L (17-59); BILIRUBIN,DIRECT 0.1 mg/dL (0.0-0.4); BILIRUBIN,TOTAL 0.3 mg/dL (0.2-1.3); BLOOD UREA NITROGEN 16 mg/dL (7-20); CALCIUM 9.3 mg/dL (8.4-10.2); CARBON DIOXIDE 32 mmol/L (22-30); CHLORIDE 100 mmol/L (98-107); GLUCOSE 81 mg/dL (75-110); POTASSIUM 4.1 mmol/L (3.6-5.0); TOTAL PROTEIN 6.6 g/dL (6.3-8.2)
[2020-07-04] MEDS: NAPROXEN 250 MG TABLET PO SCH ×2 (08:56→17:26)
[2020-07-04] MEDS: ASCORBIC ACID 500 MG TABLET PO SCH (09:00)
[2020-07-04] MEDS: BUPRENORPHINE HCL 2 MG SUBLINGUAL TABLET SL SCH (09:00)
[2020-07-04] MEDS: POLYETHYLENE GLYCOL 3350 POWDER 17 GM/1 PACKET PO SCH (09:00)
[2020-07-04] MEDS: MAGNESIUM OXIDE 400 MG TABLET PO SCH ×2 (09:00→17:25)
[2020-07-04] MEDS: METOPROLOL SUCCINATE 25 MG TAB.SR.24H PO SCH (09:00)
[2020-07-04] MEDS: LIDOCAINE 5% (700 MG) TRANSDERMAL ADH..PATCH TOP SCH (09:01)
[2020-07-04] MEDS: ENOXAPARIN SODIUM INJ 40 MG/0.4 ML DISP.SYRIN SUBCUT SCH (09:03)
[2020-07-04] MEDS: NORMAL SALINE 10 ML SDV (SCHEDULED) IV SCH (09:04)
[2020-07-04 09:05] VITALS: BP 110/58
--- NOTE | 2020-07-05 16:43 | PDOC DISCHARGE SUMMARY ---
Impression - Admit/DC Date/PCP Admission Date/Primary Care Provider: 06/10/20 18:34 Discharge Date: 07/04/20 - Discharge Diagnosis (1) Bacteremia due to methicillin resistant Staphylococcus aureus Is this a current diagnosis for this admission?: Yes (2) HCV antibody positive Is this a current diagnosis for this admission?: Yes (3) Hx of intravenous drug use in remission Is this a current diagnosis for this admission?: Yes (4) Osteomyelitis of vertebra of thoracic region Is this a current diagnosis for this admission?: Yes (5) Otitis externa of both ears Is this a current diagnosis for this admission?: Yes (6) Tobacco use disorder, continuous Is this a current diagnosis for this admission?: Yes (7) LFT elevation Is this a current diagnosis for this admission?: Yes - Assessment Summary: Dispo: will continue inpatient IV antibiotics here at [facility] until completion of course. Upon completion, will need follow up with addiction psychiatry - please call TIM Turner with [facility] at [phone] for follow up. He will need to be discharged with Rx for Narcan. - Additional Information Resuscitation Status: Full Code Referrals: [facility] [Other] - 07/10/20 (APPT. WITH DR. CONNOLLY) [facility] [Outside] - 07/16/20 10:00 am Prescriptions: Gabapentin 600 mg PO Q8 30 Days #90 tab Lidocaine [Lidoderm 5% (700 mg) Transdermal Patch] 1 patch TD DAILY 14 Days #14 patch Home Medications: Baclofen [Baclofen 10 mg Tablet] 10 mg PO Q8HP PRN 06/10/20 Buprenorphine HCl/Naloxone HCl [Suboxone 8 mg-2 mg Sl Film] 1 each SL BID 06/10/20 Dicyclomine HCl [Bentyl 20 mg Tablet] 20 mg PO QIDP PRN 06/10/20 Hydroxyzine HCl [Atarax 10 mg Tablet] 25 mg PO TIDP PRN 06/10/20 Melatonin 6 mg PO QHS 06/10/20 Nicotine Polacrilex [Nicorette] 4 mg BC Q2H PRN 06/10/20 Ondansetron [Zofran Odt 4 mg Tablet] 4 mg PO Q6HP PRN 06/10/20 Polyethylene Glycol 3350 [Miralax Powder 17 gm/Packet] 17 gm PO TIDP PRN 06/10/20 Gabapentin 600 mg PO Q8 30 Days #90 tab 07/05/20 Lidocaine [Lidoderm 5% (700 mg) Transdermal Patch] 1 patch TD DAILY 14 Days #14 patch 07/05/20 History of Present Illiness History of Present Illness: As per admitting physician's note Mr. Nielsen is a 40 year old man with PMH of IVDU, HCV, bipolar disorder with MRSA bacteremia due to vertebral osteomyelitis/discitis (L5-S1 and T8-T9) and epidural abscess (L5-S1). He was incidentally noted to be Covid positive on 05/29/2020 (now resolved). He was transferred to [facility] for neurosurgery evaluation, but required no surgical intervention. TTE (06/01) showed no evidence of valvular vegetations. ID recommended to continue Vancomycin for 6-8 weeks. Hospital Course Hospital Course: (1) Bacteremia due to methicillin resistant Staphylococcus aureus Continued on vancomycin IV wiht end date: 07/04/2020) Weekly CBC, CMP, ESR, CRP (last checked 06/28 and ESR/CRP, which were improving.) (2) HCV antibody positive Initiated HBV vaccination series on 06/06, he will need second dose around 07/07 He was vaccinated for HAV on 06/06 Will need outpatient follow up for HCV treatment (3) Hx of intravenous drug use in remission Continued supportive measures. No sign of withdrawal. Was advised to follow up with addiction psychiatry and TIM Turner with [facility] at [phone] . (4) Osteomyelitis of vertebra of thoracic region As per #1. (5) Otitis externa of both ears Resolved. Diagnosed 06/03, and received ciprofloxacin and prednisolone drops x10 days. (6) Tobacco use disorder, continuous Continued NicoDerm patch. Counseled on quitting. (7) LFT elevation Initially noted on labs on 06/25. He has ALT>AST, barely elevated alk phos/GGT with a normal bilirubin. He denied abdominal pain, N/V and has had normal oral intake. May be related to HCV diagnosis vs Tylenol. He is not on any other medications that would cause hepatic toxicity. His CRP and ESR are continuing to trend down and he has no leukocytosis or other lab abnormalities. RUQ US + doppler unremarkable Monitor CMP Advised to follow-up with gastroenterology as outpatient and avoid hepatotoxic medications. Physical Exam Vital Signs: Temp Pulse Resp BP Pulse Ox 98.1 F 58 L 17 110/58 L 98 07/04/20 14:38 07/04/20 14:38 07/04/20 14:38 07/04/20 14:38 07/04/20 14:38 Intake & Output 07/04/20 07/05/20 07/06/20 06:59 06:59 06:59 Intake Total 1260 1170 Output Total 1400 Balance -140 1170 General appearance: PRESENT: no acute distress, well-developed, well-nourished Neck exam: ABSENT: carotid bruit, JVD, lymphadenopathy, thyromegaly Respiratory exam: PRESENT: clear to auscultation luisito. ABSENT: rales, rhonchi, wheezes Cardiovascular exam: PRESENT: RRR. ABSENT: diastolic murmur, rubs, systolic murmur GI/Abdominal exam: PRESENT: normal bowel sounds, soft. ABSENT: distended, guarding, mass, organolmegaly, rebound, tenderness Neurological exam: PRESENT: alert, awake, oriented to person, oriented to place, oriented to time, oriented to situation, CN II-XII grossly intact. ABSENT: motor sensory deficit Skin exam: PRESENT: dry, intact, warm. ABSENT: cyanosis, rash Results Laboratory Results: WBC 2.9 10^3/uL (4.0-10.5) L 07/02/20 05:45 RBC 3.59 10^6/uL (4.35-5.55) L 07/02/20 05:45 Hgb 10.0 g/dL (13.5-17.0) L 07/02/20 05:45 Hct 29.3 % (37.9-51.0) L 07/02/20 05:45 MCV 82 fl (80-97) 07/02/20 05:45 MCH 27.7 pg (27.0-33.4) 07/02/20 05:45 MCHC 34.0 g/dL (32.0-36.0) 07/02/20 05:45 RDW 15.2 % (11.5-14.0) H 07/02/20 05:45 Plt Count 152 10^3/uL (150-450) 07/02/20 05:45 Lymph % (Auto) 35.3 % (13-45) 07/02/20 05:45 Woods % (Auto) 10.1 % (3-13) 07/02/20 05:45 Eos % (Auto) 6.6 % (0-6) H 07/02/20 05:45 Baso % (Auto) 0.8 % (0-2) 07/02/20 05:45 Reticulocyte # 0.027 10^6/uL (0.028-0.122) L 06/21/20 04:39 Absolute Neuts (auto) 1.4 10^3/uL (1.7-8.2) L 07/02/20 05:45 Absolute Lymphs (auto) 1.0 10^3/uL (0.5-4.7) 07/02/20 05:45 Absolute Monos (auto) 0.3 10^3/uL (0.1-1.4) 07/02/20 05:45 Absolute Eos (auto) 0.2 10^3/uL (0.0-0.6) 07/02/20 05:45 Absolute Basos (auto) 0.0 10^3/uL (0.0-0.2) 07/02/20 05:45 Seg Neutrophils % 47.2 % (42-78) 07/02/20 05:45 ESR 59 mm/hr (0-15) H 06/28/20 09:50 Retic Count (auto) 0.75 % (0.66-2.85) 06/21/20 04:39 Sodium 138.5 mmol/L (137-145) 07/04/20 06:30 Potassium 4.1 mmol/L (3.6-5.0) 07/04/20 06:30 Chloride 100 mmol/L (98-107) 07/04/20 06:30 Carbon Dioxide 32 mmol/L (22-30) H 07/04/20 06:30 Anion Gap 7 (5-19) 07/04/20 06:30 BUN 16 mg/dL (7-20) 07/04/20 06:30 Creatinine 0.61 mg/dL (0.52-1.25) 07/04/20 06:30 Est GFR ( Amer) > 60 (>60) 07/04/20 06:30 Est GFR (MDRD) Non-Af > 60 (>60) 07/04/20 06:30 Glucose 81 mg/dL (75-110) 07/04/20 06:30 POC Glucose 111 mg/dL (70-110) H 06/28/20 12:03 Calcium 9.3 mg/dL (8.4-10.2) 07/04/20 06:30 Magnesium 1.8 mg/dL (1.6-2.3) 07/02/20 05:45 Iron 49.4 ug/dL (49-181) 06/21/20 04:39 TIBC 400 ug/dL (250-450) 06/21/20 04:39 % Saturation 12 % 06/21/20 04:39 Ferritin 81.80 ng/mL (17.9-464.0) 06/21/20 04:39 Total Bilirubin 0.3 mg/dL (0.2-1.3) 07/04/20 06:30 Direct Bilirubin 0.1 mg/dL (0.0-0.4) 07/04/20 06:30 Neonat Total Bilirubin Not Reportable 07/04/20 06:30 Neonat Direct Bilirubin Not Reportable 07/04/20 06:30 Neonat Indirect Bili Not Reportable 07/04/20 06:30 GGT 91 U/L (8-78) H 06/28/20 09:50 AST 166 U/L (17-59) H 07/04/20 06:30 ALT 346 U/L (<50) H 07/04/20 06:30 Alkaline Phosphatase 153 U/L (38-126) H 07/04/20 06:30 Creatine Kinase < 20 U/L (55-170) L 06/27/20 08:38 C-Reactive Protein 22.8 mg/L (<10.0) H 06/28/20 09:50 Total Protein 6.6 g/dL (6.3-8.2) 07/04/20 06:30 Albumin 3.4 g/dL (3.5-5.0) L 07/04/20 06:30 Vitamin B12 266.0 pg/mL (239-931) 06/21/20 04:39 Folate 7.63 ng/mL (>2.76) 06/21/20 04:39 Time Trough Drawn 1758 06/30/20 17:58 Vancomycin Trough 16.5 ug/mL (5.0-20.0) 06/30/20 17:58 Urine Opiates Screen NEGATIVE 06/28/20 22:25 Urine Methadone Screen NEGATIVE 06/28/20 22:25 Ur Barbiturates Screen NEGATIVE 06/28/20 22:25 Ur Phencyclidine Scrn NEGATIVE 06/28/20 22:25 Ur Amphetamines Screen UNCONFIRMED POSITIVE 06/28/20 22:25 U Amphetamines Confirm Positive (.) A 06/15/20 17:30 U Benzodiazepines Scrn NEGATIVE 06/28/20 22:25 Urine Cocaine Screen NEGATIVE 06/28/20 22:25 U Marijuana (THC) Screen NEGATIVE 06/28/20 22:25 Impressions: Abdomen Ultrasound 06/28/20 00:00 IMPRESSION: Chronic splenomegaly. No acute findings. Stroke Is this a Stroke Patient?: No Acute Heart Failure Is this a Heart Failure Patient?: No
[2020-07-09] MEDS ORDERED: HEPATITIS B VIRUS VACCINE-PF 0.5 ML VIAL IM ONE (12:00)
== END 2020-07-04 19:33 | disposition home or self-care (01) | DRG 540 ==
LOC: 4S 18:34
PROVIDERS: ADMIT Emergency Medicine; ATTEND Internal Medicine
DX: M46.24 Osteomyelitis of vertebra, thoracic region (principal); R78.81 Bacteremia; H60.93 Unspecified otitis externa, bilateral; R79.89 Other specified abnormal findings of blood chemistry; F31.9 Bipolar disorder, unspecified; B95.62 Methicillin resistant Staphylococcus aureus infection as the cause of diseases classified elsewhere; I10 Essential (primary) hypertension; B19.20 Unspecified viral hepatitis C without hepatic coma; F90.9 Attention-deficit hyperactivity disorder, unspecified type; F32.9 Major depressive disorder, single episode, unspecified; Z86.19 Personal history of other infectious and parasitic diseases; F17.210 Nicotine dependence, cigarettes, uncomplicated; F11.21 Opioid dependence, in remission; G47.10 Hypersomnia, unspecified; G25.81 Restless legs syndrome; L29.9 Pruritus, unspecified; Z79.899 Other long term (current) drug therapy; Z71.6 Tobacco abuse counseling
CPT/HCPCS: 36415; 76705; 80048; 80053; 80202; 80307; 82550; 82565; 82607; 82728; 82746; 82962; 82977; 83540; 83550; 83735; 85025; 85027; 85045; 85652; 86140; 93976; G0480; J0571; J1642; J1644; J1650; J3370; J3490; J7060

== ENCOUNTER 2020-08-19 22:14 | Emergency (ER) | payer SELFPAY ==
[2020-08-20] MEDS ORDERED: KETOROLAC TROMETHAMINE INJ/PF 30 MG/1 ML SDV IV ONE (00:59)
[2020-08-20] MEDS ORDERED: CYCLOBENZAPRINE HCL 10 MG TABLET PO ONE (00:59)
[2020-08-20] MEDS ORDERED: METHYLPREDNISOLONE INJ 125 MG/2 ML SDV IV ONE (00:59)
--- NOTE | 2020-08-20 01:00 | ER Document Report ---
ED Neck/Back Problem - General Chief Complaint: Low Back Pain Stated Complaint: SEVERE LOW BACK PAIN Time Seen by Provider: 08/20/20 00:39 Mode of Arrival: Wheelchair Information source: Patient, Friend Notes: 40-year-old male who appears older than his stated age with past medical history significant for MRSA bacteremia, IV drug use, osteomyelitis, discitis, presents to the emergency room complaining of worsening left lower back and left hip pain for the past 5 days. Patient has an ongoing issue with opiate addiction and IV drug use. States he was on Suboxone and gabapentin but has been off it for the past 3 weeks. Patient was seen here back in May he was transferred to [facility] and he has left AMA from [facility] critical access hospital and [facility] in the past. Denies any new trauma or injury. No fevers. States he is currently not being managed for his pain. States has been taking Tylenol and Aleve without relief. States he did use heroin today without relief of his pain. He was brought in by a friend. He denies any loss control of bowels or bladder. No saddle anesthesia. Denies any fevers. Patient states he supposed to the being followed by providers in [place] but he has not followed up. Patient states he he usually gets relief of pain with Toradol, steroids, and muscle relaxers. Patient is screaming out in pain rolling in bed difficult to fully assess. TRAVEL OUTSIDE OF THE [place] IN LAST 30 DAYS: No - Related Data Allergies/Adverse Reactions: No Known Allergies Allergy (Verified 06/10/20 19:54) Past Medical History - General Information source: Patient, Friend - Social History Smoking Status: Current Every Day Smoker Frequency of alcohol use: None Drug Abuse: Heroin, Prescription drugs Family History: Reviewed & Not Pertinent - Past Medical History Cardiac Medical History: Reports: Hx Hypertension Denies: Hx Atrial Fibrillation, Hx Coronary Artery Disease, Hx DVT, Hx Heart Attack, Hx Hypercholesterolemia, Hx Pulmonary Embolism Pulmonary Medical History: Denies: Hx Asthma, Hx COPD Endocrine Medical History: Denies: Hx Diabetes Mellitus Type 1, Hx Diabetes Mellitus Type 2, Hx Hyperthyroidism, Hx Hypothyroidism Renal/ Medical History: Denies: Hx Peritoneal Dialysis GI Medical History: Reports: Hx Hepatitis - Hepatitis C. Denies: Hx Cirrhosis Musculoskeletal Medical History: Denies Hx Arthritis, Denies Hx Gout, Reports Hx Muscle Spasm Skin Medical History: Denies Hx Eczema, Denies Hx Psoriasis Psychiatric Medical History: Reports: Hx Attention Deficit Hyperactivity Disorder, Hx Bipolar Disorder, Hx Depression Infectious Medical History: Reports: Hx Hepatitis - Hepatitis C, Hx MRSA Past Surgical History: Reports: Hx Orthopedic Surgery - RUE; LLE; LUE; - Immunizations Immunizations up to date: Yes Hx Diphtheria, Pertussis, Tetanus Vaccination: Yes Review of Systems - Review of Systems Constitutional: No symptoms reported EENT: No symptoms reported Cardiovascular: No symptoms reported Respiratory: No symptoms reported Gastrointestinal: No symptoms reported Genitourinary: No symptoms reported Musculoskeletal: Back pain, Joint pain Skin: No symptoms reported Neurological/Psychological: No symptoms reported Physical Exam - Vital signs Vitals: Temp Pulse Resp BP Pulse Ox 99.3 F 145 H 18 136/98 H 97 08/19/20 22:28 08/19/20 22:28 08/19/20 22:28 08/19/20 22:28 08/19/20 22:28 - General General appearance: Appears well, Alert In distress: Moderate - Respiratory Respiratory status: No respiratory distress Chest status: Nontender Breath sounds: Normal Chest palpation: Normal - Cardiovascular Rhythm: Tachycardia Heart sounds: Normal auscultation Murmur: No - Back Back: Normal, Tender - Tenderness from the lower thoracic through the lower lumbar region. No step-offs, no acute deformities noted. Muscle spasms are palpated in the lower lumbar region., Vertebra tenderness - T4-T6, L1-S1.. No: Deformity/step-off, CVA tenderness - Extremities General upper extremity: Normal inspection Hip: Tender - On palpation of the left lateral hip. Able to rotate without difficulty. No obvious deformity noted. - Neurological Neuro grossly intact: Yes Cognition: Normal Orientation: AAOx4 Tito Coma Scale Verbal: Oriented Speech: Normal Motor strength normal: LUE, RUE, LLE, RLE Babinski reflex: Normal (flexor plantar) Sensory: Normal Notes: Gait not tested secondary to pain - Skin Skin Temperature: Warm Skin Moisture: Dry Skin Color: Normal Course - Re-evaluation Re-evalutation: 08/20/20 02:14 Patient is resting comfortably but easily arousable. Now the patient is more comfortable and able to fully converse with patient states he came to the emergency room tonight strictly for pain control. He now states that he is being followed in [place] gets his vancomycin from them. He is able to ambulate with assistance. Neurovascularly intact. He was counseled on the importance of outpatient follow-up at [place] as scheduled. Will discharge home on p.o. prednisone, p.o. Flexeril, p.o. Toradol. Patient was given strict return to the emergency room guidelines. Return for any new or worsening symptoms. All questions were answered. Patient verbalized understanding and agrees with plan of care. 08/20/20 03:10 - Vital Signs Vital signs: Temp Pulse Resp BP Pulse Ox 97.4 F 97 20 133/89 H 100 08/20/20 02:54 08/20/20 02:54 08/20/20 02:54 08/20/20 02:54 08/20/20 02:54 - Laboratory Results Result Diagrams: 08/20/20 01:20 08/20/20 01:20 Laboratory Results Interpreted: 08/20/20 08/20/20 01:20 01:20 WBC 13.3 H RBC 4.07 L Hgb 10.6 L Hct 32.3 L MCH 26.0 L RDW 15.0 H Lymph % (Auto) 11.6 L Absolute Neuts (auto) 10.7 H Seg Neutrophils % 80.4 H Sodium 134.7 L Glucose 152 H AST 15 L Alkaline Phosphatase 140 H Critical Laboratory Results Reviewed: No Critical Results - Radiology Results Critical Radiology Results Reviewed: No Critical Results Discharge - Discharge Clinical Impression: Chronic left hip pain Chronic back pain Qualifiers: Back pain location: low back pain Back pain laterality: left Sciatica presence: with sciatica Sciatica laterality: sciatica of left side Qualified Code(s): M54.42 - Lumbago with sciatica, left side Condition: Stable Disposition: HOME, SELF-CARE Instructions: Chronic Back Pain ([facility]), Chronic Pain Control ([facility]) Additional Instructions: Take medications as prescribed. It is imperative that you follow-up with your health care providers at [place] for management of your chronic pain as well as your discitis and osteomyelitis. Return to emergency room for any new or worsening symptoms. Prescriptions: Ketorolac Tromethamine [Toradol 10 mg Tablet] 10 mg PO Q6HP PRN #12 tablet PRN Reason: For Back Pain Prednisone [Deltasone 20 mg Tablet] See Protocol PO DAILY 9 Days #18 tablet Cyclobenzaprine HCl [Flexeril 10 mg Tablet] 10 mg PO TIDP PRN #15 tab PRN Reason:
[2020-08-20 01:44] LABS: ABSOLUTE BASOPHILS # (AUTO) 0.1 10^3/uL (0.0-0.2); ABSOLUTE EOSINOPHILS # (AUTO) 0.1 10^3/uL (0.0-0.6); ABSOLUTE LYMPHOCYTES (AUTO) 1.5 10^3/uL (0.5-4.7); ABSOLUTE MONOCYTES (AUTO) 0.9 10^3/uL (0.1-1.4); ABSOLUTE NEUT (AUTO) 10.7 10^3/uL (1.7-8.2); BASOPHILS % (AUTO) 0.5 % (0-2); EOSINOPHILS % (AUTO) 0.5 % (0-6); HEMATOCRIT 32.3 % (37.9-51.0); HEMOGLOBIN 10.6 g/dL (13.5-17.0); LYMPHOCYTES % (AUTO) 11.6 % (13-45); MEAN CORPUSCULAR HGB CONC 32.8 g/dL (32.0-36.0); MEAN CORPUSCULAR VOLUME 80 fl (80-97); PLATELET COUNT 274 10^3/uL (150-450); RED BLOOD COUNT 4.07 10^6/uL (4.35-5.55); SEGMENTED NEUTROPHILS % (AUTO) 80.4 % (42-78); TOTAL CELLS COUNTED % (AUTO) 100 %; WHITE BLOOD COUNT 13.3 10^3/uL (4.0-10.5)
[2020-08-20 01:57] LABS: ALBUMIN 3.7 g/dL (3.5-5.0); ALKALINE PHOSPHATASE 140 U/L (38-126); ANION GAP 12 (5-19); ASPARTATE AMINO TRANSFERASE 15 U/L (17-59); BILIRUBIN,DIRECT 0.2 mg/dL (0.0-0.4); BILIRUBIN,TOTAL 0.5 mg/dL (0.2-1.3); BLOOD UREA NITROGEN 16 mg/dL (7-20); CALCIUM 9.1 mg/dL (8.4-10.2); CARBON DIOXIDE 25 mmol/L (22-30); CHLORIDE 98 mmol/L (98-107); GLUCOSE 152 mg/dL (75-110); POTASSIUM 4.3 mmol/L (3.6-5.0); TOTAL PROTEIN 7.4 g/dL (6.3-8.2)
[2020-08-20 03:14] VITALS: BP 133/89
== END 2020-08-20 02:54 | disposition home or self-care (01) ==
LOC: ER 22:14
DX: G89.29 Other chronic pain (principal); M25.552 Pain in left hip; M54.42 Lumbago with sciatica, left side; F17.200 Nicotine dependence, unspecified, uncomplicated; I10 Essential (primary) hypertension; Z86.14 Personal history of Methicillin resistant Staphylococcus aureus infection; Z86.19 Personal history of other infectious and parasitic diseases
CPT/HCPCS: 99284; 96374; 96375; 36415; 85025; 80053; J2930; J1885